=== PATIENT | female | born 1965 | race Caucasian/White ===

== ENCOUNTER 2018-05-08 16:01 | Outpatient (REF) | payer MEDICARE, MEDICAID, SELFPAY ==
[2018-05-08 22:00] LABS: HGB 15.6 g/dL (12.0-15.5); Mean Corp. HGB Concentration 35.5 g/dL (32.0-36.0); Mean Corpuscular Hemoglobin 27.9 pg (27.0-33.0); Mean Corpuscular Volume 78.6 fL (80-95); Mean Platelet Volume 10.5 fL (8.0-11.0); Platelet Count 248 x1000/uL (130-400); RBC Distribution Width 13.2 % (11.7-14.6); White Blood Cell Count 7.21 k/cumm (4.4-10.8)
[2018-05-08 22:15] LABS: ALT 64 U/L (12-78); AST 50 U/L (15-37); Albumin 3.8 g/dL (3.4-5.0); Alkaline Phosphatase 212 U/L (46-116); Anion Gap 9.5 mmol/L (3-11); BUN 11 mg/dL (7-18); Bilirubin, Direct 0.15 mg/dL (0.00-0.20); Bilirubin, Total 0.5 mg/dL (0.2-1.0); CO2 27.5 mmol/L (21.0-32.0); CREATININE 0.77 mg/dL (0.55-1.02); Calcium 8.8 mg/dL (8.5-10.1); Chloride 95 mmol/L (98-107); Glucose 383 mg/dL (70-100); Potassium 4.2 mmol/L (3.5-5.1); Sodium 132 mmol/L (136-145); Total Protein 6.9 g/dL (6.4-8.2)
[2018-05-08 22:45] LABS: Lipase 154 U/L (73-393)
== END 2018-05-08 16:21 ==
LOC: NCHCN 16:01
PROVIDERS: PCP Internal Medicine; Visit Provider Family Medicine
DX: R10.9 Unspecified abdominal pain (principal)
CPT/HCPCS: 80048; 80076; 83690; 85027

== ENCOUNTER 2018-05-13 12:43 | Observation (INO) | payer MEDICARE, MEDICAID, SELFPAY ==
[2018-05-13 12:53] VITALS: BP 119/52; PULSE 90; RESP 18
--- NOTE | 2018-05-13 13:33 | NUR.NOTE ---
Lab mconfirms light is on in regards to labs in the window. Lab is aware. Nursing Note:
[2018-05-13 13:42] LABS: HCT 47.1 % (36.0-46.0); HGB 16.7 g/dL (12.0-15.5); Mean Corp. HGB Concentration 35.5 g/dL (32.0-36.0); Mean Corpuscular Hemoglobin 27.8 pg (27.0-33.0); Mean Corpuscular Volume 78.4 fL (80-95); Platelet Count 251 x1000/uL (130-400); RBC 6.01 m/cumm (4.00-5.20); RBC Distribution Width 13.1 % (11.7-14.6); White Blood Cell Count 8.98 k/cumm (4.4-10.8)
[2018-05-13 13:52] VITALS: TEMP 36.8
[2018-05-13 14:07] LABS: Bilirubin Negative (Negative); Blood Negative (Negative); Clarity Clear; Glucose 500 mg/dL (Negative); Ketones 40 mg/dL (Negative); Leukocyte Esterase Negative (Negative); Nitrite Negative (Negative); Urobilinogen 0.2 EU/dL (Up TO 0.2)
--- NOTE | 2018-05-13 14:49 | DI.CT_ITS ---
SYMPTOM/DIAGNOSIS: DISTENDED, H/O OBSTRUCTION, GENERAL ABD DISCOMFORT ABDOMEN AND PELVIC CT: CT scan of the abdomen and pelvis was performed following the uneventful administration of intravenous contrast material. Comparison is made with . The visualized lung bases are clear. The liver is normal in size. No evidence of a hepatic mass is seen. The portal and superior mesenteric veins are patent. The patient is status post cholecystectomy. No biliary ductal dilatation is seen. The pancreas and peripancreatic soft tissues are unremarkable as are the spleen and adrenal glands. The kidneys show normal and symmetric enhancement. There is a non obstructing 4 mm. stone in the lower pole of the left kidney. Post surgical changes or atrophy of the lower pole of the left kidney is noted. The urinary bladder is intact. The reproductive organs are unremarkable. The abdominal aorta is of normal caliber. No significant abdominal or pelvic adenopathy, ascites or pneumoperitoneum is seen. Note is made of a small midline fat containing supraumbilical hernia. The distal ileum is dilated up to 3 cm. No bowel wall thickening is seen. No definite transition point is identified. The remainder of the bowel is unremarkable. There is a normal appendix visualized. There is a moderate amount of stool throughout the colon. Degenerative changes are seen in the spine. IMPRESSION: Dilatation of the distal ileum. This may represent a partial or early obstruction. Follow up as clinically appropriate.
--- NOTE | 2018-05-13 14:52 | W.ED.GENAD ---
Discharge Plan Disposition Patient Disposition: [facility] INPATIENT Condition: Good Discharge Details Chief Complaint: Abd Prob Reason For Visit: PSBO Admit Date/Time: 05/13/18 18:22 Admit Provider: Ronna Downing Attending Provider: Ronna Downing Primary Care Provider: Jose Haile ED Provider: Radha Elizabeth Discharge Data Discharge Date/Time-TO BE ENTERED AT DEPARTURE: 05/13/18 19:51 Medical Decision Making Patient presents today with chief complaint abdominal pain. She reports that similar to when she has had blockages historically. On exam, her abdomen is tender and distended. She has multiple surgical incisions that appear to have healed well. Patient is status post cholecystectomy, hysterectomy, partial bowel resection. We will obtain laboratory evaluation, give IV hydration, pain medication and imaging. Laboratory evaluation significant for concentration of cbc. Glucose is 294. Patient is currently receiving hydration. CT reviewed by radiologist. Significant for 4 mm nonobstructing calculus in the left lower renal pole. Postsurgical change in the inferior pole of kidney. Distal ileum is fluid-filled and dilated measuring 3 cm in its maximum, no definite transition point seen. Appendix is unremarkable. Advised overall distal ileum is fluid-filled and dilated. Partially versus early obstruction. Discussed findings with the patient. She is feeling much improved after antiemetic and pain medication. Will consult with general surgery. Spoke with general surgery. Dr. Downing reviewed CT, advises that this does not appear to be true obstruction. Agrees to admission for pain control and continue to monitor the patient. Discussed this plan with the patient who is in agreement with this plan. HPI General Mode of arrival: ambulatory. Date/Time Provider Initiated Documentation: 05/13/18 13:10. Limitations to Documentation: no limitations. Information obtained by: patient. HPI Narrative: Patient is a 52-year-old female presenting today with chief complaint of diffuse abdominal pain. She reports the pain began approximately 10 days ago. Was seen by her primary care provider who diagnosed her with infectious source and place her on Augmentin. She reports she has been taking the Augmentin but reports that she has not noted any improvement in her discomfort. Rather, the patient reports that her pain has steadily increased and she has noted increased distention in her abdomen. She denies any vomiting but is currently endorsing nausea. Denies any change in her bowel habits. States that she passed a small amount of flatus daily. Patient does have history of cholecystectomy, , hysterectomy, partial nephrectomy, bowel resection after obstruction. She has had multiple bowel obstructions in the past. Is unclear if this pain feels similar. Pain is worse on the right side than the left. She denies any fevers or chills. Related Data Home Medications Medication Instructions Recorded Confirmed fluticasone [Flovent HFA] 2 puff INHALATION BID inhaler NS 01/14/14 05/13/18 methadone 10 mg PO BID tab-cap NS 01/14/14 05/13/18 polyethylene glycol 3350 [Miralax] 17 g PO DAILY packet NS 01/14/14 05/13/18 estradiol [Estrace] 2 gm VG DIRECTED 09/25/16 05/13/18 ipratropium bromide [Atrovent HFA] 2 puff INHALATION BID PRN 09/25/16 05/13/18 ipratropium-albuterol 3 ml INHALATION Q6H PRN PRN 09/25/16 05/13/18 liraglutide [Victoza 2-Job] 1.2 mg SQ DAILY 09/25/16 05/13/18 metformin [Glucophage] 500 mg PO BID@0800,1700 09/25/16 05/13/18 naloxone [Narcan] 4 mg NS DIRECTED 09/25/16 05/13/18 acetaminophen 1 - 2 tab PO TID PRN PRN 09/26/16 05/13/18 gabapentin 300 mg PO TID #90 tab 05/02/17 05/13/18 meloxicam 7.5 mg PO BID #60 tab 08/22/17 05/13/18 Glyburide 2.5 mg PO DAILY 10/18/17 10/18/17 paroxetine HCl 20 mg PO DAILY 10/18/17 05/13/18 Previous Rx's Medication Instructions Recorded gabapentin 300 mg PO TID #90 tab 05/02/17 meloxicam 7.5 mg PO BID #60 tab 08/22/17 Allergies Allergy/AdvReac Type Severity Reaction Status Date / Time Sulfa (Sulfonamide Allergy Intermediate Skin Rash Unverified 10/18/17 17:20 Antibiotics) baclofen AdvReac Intermediate Nausea Unverified 10/18/17 17:20 morphine AdvReac Mild Nausea Unverified 10/18/17 17:20 General Stated Complaint: Abd Prob ELENA: 3 Review of Systems Constitutional Reports as per HPI, Denies chills, Reports fatigue and Denies fever(s) Cardiovascular Denies chest pain, Denies dyspnea and Denies dyspnea on exertion Respiratory Denies cough, Denies dyspnea and Denies dyspnea on exertion Gastrointestinal Reports as per HPI Genitourinary Reports system reviewed and no additional complaints, except as docu (Denies change in urinary habits) Musculoskeletal Denies back pain Integumentary/Breasts Denies rash Endocrine Reports fatigue PFSH Medical History Chronic low back pain (Acute) Constipation (Acute) Renal cell cancer (Acute) Restless leg (Acute) Asthma (Chronic) Depression (Chronic) Obesity (Chronic) Peptic ulcer disease (Chronic) Social History household members: spouse marital status: Smoking/Tobacco Use Status: Current every day alcohol intake: current alcohol intake frequency: a few times a week substance use type: does not use Surgical History H/O partial nephrectomy (Acute) S/P arthroscopic partial medial meniscectomy (Acute) S/P cholecystectomy (Acute) S/P hysterectomy (Acute) S/P small bowel resection (Acute) S/P tympanoplasty (Acute) Exam Const General: cooperative, healthy appearing, comfortable, no acute distress, well developed and well groomed Nutritional Appearance: overweight Orientation: alert and awake Resp Effort & Inspection: normal respiratory effort, able to speak in complete sentences and no respiratory distress Auscultation: clear to auscultation bilaterally Cardio Rate: regular rate Rhythm: regular rhythm Heart Sounds: S1 normal and S2 normal GI Inspection: no edema, distended and incision (patient has multiple incisions that appear to have healed well) Palpation: no hepatosplenomegaly, firm, no guarding, no hernias, no masses, no pulsatile masses and tender (diffuse) Back/Spine/Pelvis Back: no CVA tenderness Skin General skin exam: no rashes or lesions noted Lesions: no lesions Rashes: no rashes Neuro General: alert and awake Cognition: normal cognition Speech: speech normal Gait: normal gait Course Procedures: None HPI: Mrs Shah is a 52 year old female who came to the ER today with increased abdominal pain and bloating. Patient has had bowel obstructions in the past and has had a small bowel resection. She has not had any vomiting. She is passing gas although less. She has had some small BM's. Work-up in the ER showed normal WBC count. CT scan showed stool in the large bowel and a fluid filled terminal ileus. Terminal ileus was slightly dilated. No transition zone. Patient has a history of chronic back pain and is on Metahdone 10 mg BID. Hospital Course: Mrs. Rowe was admitted for conservative treatment of her partial small bowel obstruction. She was given bowel rest fluid resuscitation. Repeat extra x-rays within 24 hours showed no evidence of bowel obstruction, but x-rays are consistent with constipation. She was started on a bowel regimen given 2 enemas some results. She started to feel better with less pain started to pass flatus. Her diet was advanced as tolerated. At the time of discharge, she was afebrile, tolerating a diet, ambulating without difficulty, her pain was under control. She was discharged home she will follow-up with her primary care 1-2 weeks. She is going to start a home bowel regimen using Colace, MiraLAX, and starting to implement fiber supplements Vital Signs Pulse 90 05/13/18 12:53 Respiratory Rate 18 05/13/18 12:53 Blood Pressure 119/52 L 05/13/18 12:53 Temperature 36.8 C 05/13/18 13:52 Temperature Source Temporal Artery Scan 05/13/18 13:52 Pulse 90 05/13/18 12:53 Respiratory Rate 18 05/13/18 12:53 Blood Pressure 119/52 L 05/13/18 12:53 Blood Pressure Position Sitting 05/13/18 12:53 Oxygen Delivery Method Room Air 05/13/18 12:53 Oxygen Flow Rate 0 05/13/18 12:53 Pain Level 10 05/13/18 12:53 Lab/Test Results Lab/Test Results: Laboratory Tests Range/Units 05/13/18 05/13/18 05/13/18 13:28 13:28 13:28 WBC (4.4-10.8) k/cumm 8.98 RBC (4.00-5.20) m/cumm 6.01 H Hgb (12.0-15.5) g/dL 16.7 H Hct (36.0-46.0) % 47.1 H MCV (80-95) fL 78.4 L MCH (27.0-33.0) pg 27.8 MCHC (32.0-36.0) g/dL 35.5 RDW (11.7-14.6) % 13.1 Plt Count (130-400) x1000/uL 251 MPV (8.0-11.0) fL 10.0 Sodium Cancelled Potassium Cancelled Chloride Cancelled Carbon Dioxide Cancelled Anion Gap Cancelled BUN Cancelled Creatinine Cancelled Estimated GFR/1.73 m2 Cancelled Glucose Cancelled Calcium Cancelled Urine Color (Yellow) Yellow Urine Clarity Clear Urine pH (5-8) 6.0 Ur Specific [place] (1.005-1.025) 1.020 Urine Protein (Negative) mg/dL Negative Urine Ketones (Negative) mg/dL 40 H Urine Blood (Negative) Negative Urine Nitrite (Negative) Negative Urine Bilirubin (Negative) Negative Urine Urobilinogen (Up TO 0.2) EU/dL 0.2 Ur Leukocyte Esterase (Negative) Negative Urine Glucose (Negative) mg/dL 500 H
[2018-05-13 14:54] LABS: Anion Gap 6.5 mmol/L (3-11); BUN 13 mg/dL (7-18); CO2 30.5 mmol/L (21.0-32.0); CREATININE 0.74 mg/dL (0.55-1.02); Calcium 9.1 mg/dL (8.5-10.1); Chloride 98 mmol/L (98-107); Glucose 294 mg/dL (70-100); Sodium 135 mmol/L (136-145)
[2018-05-13] MEDS: HYDROmorphone 2 MG/ML VIAL IVP (15:38)
[2018-05-13] MEDS: Omnipaque 350 MG/ML 100 ML BTL IJ (15:38)
[2018-05-13] MEDS: Normal Saline 1,000 ML 1000 ML IV (16:19)
[2018-05-13 16:38] VITALS: BP 138/80; PULSE 88; RESP 18; O2SAT 96
--- NOTE | 2018-05-13 16:52 | DI.VRAD_ITS ---
EXAM: CT Abdomen and Pelvis With Intravenous Contrast EXAM DATE/TIME: 05/13/2018 3:56 PM CLINICAL HISTORY: 52 years old, female; Pain and signs and symptoms; Bloating; Abdominal pain; Generalized; Patient HX: Distension, HX of obstruction, general discomfort TECHNIQUE: Axial computed tomography images of the abdomen and pelvis with intravenous contrast. Coronal and sagittal reformatted images were created and reviewed. COMPARISON: CT ABD PELVIS WITH CONTRAST 10/18/2017 7:23 PM FINDINGS: Lower thorax: No acute findings. ABDOMEN: Liver: Normal. No mass. Gallbladder and bile ducts: Cholecystectomy. Pancreas: Normal. No ductal dilation. Spleen: Normal. No splenomegaly. Adrenals: Normal. No mass. Kidneys and ureters: 4 mm nonobstructing calculus at the left lower renal pole. Postsurgical changes in the inferior pole of the left kidney. Stomach and bowel: The distal ileum is fluid-filled and dilated measuring 3 cm at its maximum. No definite transition point is seen. Appendix: Appendix is unremarkable. PELVIS: Bladder: Unremarkable as visualized. Reproductive: Unremarkable as visualized. ABDOMEN and PELVIS: Intraperitoneal space: Normal. No free air. No significant fluid collection. Bones/joints: No acute fracture. No dislocation. Soft tissues: Diastases of the rectus abdominis muscle. Vasculature: Normal. No abdominal aortic aneurysm. Lymph nodes: Normal. No enlarged lymph nodes. IMPRESSION: The distal ileum is fluid-filled and dilated. Partial versus early obstruction. Followup is suggested. Dictated and Authenticated by: Bernardo Omalley MD. Ordering:CATHY SANCHEZ MD
--- NOTE | 2018-05-13 17:57 | W.PM.HP.N ---
Assessment and Plan (1) Partial small bowel obstruction: Current visit: Yes Status: Acute CT scan with fluid filled and slightly dilated terminal ileum. Colon with moderate amount of stool P\\ 1. Enema 2. NPO and bowel rest. 3. Iv fluids to keep hydrated 4. AMbulate TID 5. Tylenol and acetaminophen for pain (2) Chronic pain: Current visit: Yes Status: Chronic A\\ Chronic back pain on Methadone 10 mg BID P\\ Continue Methadone 10 mg BID (3) Hyperglycemia: Current visit: Yes Status: Acute Check BS Q6H and start insulin sliding scale History of Present Illness Chief Complaint: Abdominal pain Narrative: Mrs Shah is a 52 year old female who came to the ER today with increased abdominal pain and bloating. Patient has had bowel obstructions in the past and has had a small bowel resection. She has not had any vomiting. She is passing gas although less. She has had some small BM's. Work-up in the ER showed normal WBC count. CT scan showed stool in the large bowel and a fluid filled terminal ileus. Terminal ileus was slightly dilated. No transition zone. Patient has a history of chronic back pain and is on Metahdone 10 mg BID. Review of Systems Constitutional Reports anorexia Cardiovascular Denies chest pain at rest, Denies chest pain with activity, Denies diaphoresis, Denies irregular heart rhythm, Denies dyspnea and Denies dyspnea on exertion Respiratory Denies chest congestion, Denies cough, Denies dyspnea and Denies dyspnea on exertion Gastrointestinal Reports abdominal pain and Reports bloating Genitourinary Denies hematuria and Denies urinary frequency Musculoskeletal Reports back pain (chronic) PFSH Medical History Chronic low back pain (Acute) Constipation (Acute) Renal cell cancer (Acute) Restless leg (Acute) Asthma (Chronic) Depression (Chronic) Obesity (Chronic) Peptic ulcer disease (Chronic) Social History household members: spouse marital status: Smoking/Tobacco Use Status: Current every day alcohol intake: current alcohol intake frequency: a few times a week substance use type: does not use Surgical History H/O partial nephrectomy (Acute) S/P arthroscopic partial medial meniscectomy (Acute) S/P cholecystectomy (Acute) S/P hysterectomy (Acute) S/P small bowel resection (Acute) S/P tympanoplasty (Acute) Meds Home Medications Medication Instructions Recorded Confirmed Type fluticasone [Flovent HFA] 2 puff INHALATION BID inhaler NS 01/14/14 10/18/17 History methadone 10 mg PO BID tab-cap NS 01/14/14 10/18/17 History polyethylene glycol 3350 [Miralax] 17 g PO DAILY packet NS 01/14/14 10/18/17 History estradiol [Estrace] 2 gm VG DIRECTED 09/25/16 10/18/17 History ipratropium bromide [Atrovent HFA] 2 puff INHALATION BID PRN 09/25/16 10/18/17 History ipratropium-albuterol 3 ml INHALATION Q6H PRN PRN 09/25/16 10/18/17 History liraglutide [Victoza 2-Job] 1.2 mg SQ DAILY 09/25/16 10/18/17 History metformin [Glucophage] 500 mg PO BID@0800,1700 09/25/16 10/18/17 History naloxone [Narcan] 4 mg NS DIRECTED 09/25/16 10/18/17 History acetaminophen 1 - 2 tab PO TID PRN PRN 09/26/16 10/18/17 History gabapentin 300 mg PO TID #90 tab 05/02/17 Rx meloxicam 7.5 mg PO BID #60 tab 08/22/17 Rx Glyburide 2.5 mg PO DAILY 10/18/17 10/18/17 History paroxetine HCl 20 mg PO DAILY 10/18/17 10/18/17 History Allergies Allergy/AdvReac Type Severity Reaction Status Date / Time Sulfa (Sulfonamide Allergy Intermediate Skin Rash Unverified 10/18/17 17:20 Antibiotics) baclofen AdvReac Intermediate Nausea Unverified 10/18/17 17:20 morphine AdvReac Mild Nausea Unverified 10/18/17 17:20 Exam Const General: cooperative and no acute distress Nutritional Appearance: overweight Resp Effort & Inspection: normal respiratory effort Auscultation: clear to auscultation bilaterally Cardio Rate: regular rate Rhythm: regular rhythm Heart Sounds: no click, no gallops, no murmurs and no rubs GI Palpation: soft and tender in the RLQ (no guarding or rebound) Auscultation: hypoactive bowel sounds Results Labs : 05/13/18 13:28 05/13/18 14:28 Laboratory Results - last 24 hr 05/13/18 05/13/18 05/13/18 13:28 13:28 13:28 WBC 8.98 RBC 6.01 H Hgb 16.7 H Hct 47.1 H MCV 78.4 L MCH 27.8 MCHC 35.5 RDW 13.1 Plt Count 251 MPV 10.0 Sodium Cancelled Potassium Cancelled Chloride Cancelled Carbon Dioxide Cancelled Anion Gap Cancelled BUN Cancelled Creatinine Cancelled Estimated GFR/1.73 m2 Cancelled Glucose Cancelled Calcium Cancelled Urine Color Yellow Urine Clarity Clear Urine pH 6.0 Ur Specific [place] 1.020 Urine Protein Negative Urine Ketones 40 H Urine Blood Negative Urine Nitrite Negative Urine Bilirubin Negative Urine Urobilinogen 0.2 Ur Leukocyte Esterase Negative Urine Glucose 500 H 05/13/18 14:28 WBC RBC Hgb Hct MCV MCH MCHC RDW Plt Count MPV Sodium 135 L Potassium 5.0 Chloride 98 Carbon Dioxide 30.5 Anion Gap 6.5 BUN 13 Creatinine 0.74 Estimated GFR/1.73 m2 >= 60.00 Glucose 294 H Calcium 9.1 Urine Color Urine Clarity Urine pH Ur Specific [place] Urine Protein Urine Ketones Urine Blood Urine Nitrite Urine Bilirubin Urine Urobilinogen Ur Leukocyte Esterase Urine Glucose
[2018-05-13] MEDS: ACETAMINOPHEN 1,000 MG/100 ML BTL 400 MG IVPB (19:31)
[2018-05-13] MEDS: Pantoprazole 40 MG VIAL IVP (19:32)
[2018-05-13 20:00] VITALS: BP 140/80; PULSE 88; RESP 18; TEMP 37.2; O2SAT 99
[2018-05-13] MEDS: Lactated Ringers 1,000 ML 125 ML IV (20:03)
[2018-05-13 20:29] VITALS: BP 109/70; PULSE 72; RESP 20; TEMP 36.7; O2SAT 97
[2018-05-13] MEDS: Methadone 5 MG TAB 10 MG PO (21:14)
[2018-05-14] VITALS (7 sets, daily range): BP systolic 106–141; BP diastolic 63–80; PULSE 63–90; RESP 14–18; TEMP 35.9–36.4; O2SAT 93–98
[2018-05-14] MEDS: Ketorolac 15 MG/ML VIAL IVP ×4 (01:23→22:19)
[2018-05-14] MEDS: Lactated Ringers 1,000 ML 125 ML IV ×3 (03:30→17:51)
[2018-05-14] MEDS: ACETAMINOPHEN 1,000 MG/100 ML BTL 400 MG IVPB ×3 (03:30→17:51)
[2018-05-14 07:28] LABS: Abs Immature Grans 0.04 k/cumm (0.0-0.09); Absolute Basophil Count 0.05 k/cumm (0.0-0.2); Absolute Eosinophil Count 0.15 k/cumm (0.0-0.7); Absolute Lymphocyte Count 1.89 k/cumm (1.2-3.4); Absolute Neutrophil Count 3.02 k/cumm (1.2-6.7); Basophils % 0.9; Eosinophils % 2.7; HCT 40.4 % (36.0-46.0); HGB 14.1 g/dL (12.0-15.5); Immature Grans % 0.7; Lymphocytes % 33.5; Mean Corp. HGB Concentration 34.9 g/dL (32.0-36.0); Mean Corpuscular Hemoglobin 27.8 pg (27.0-33.0); Mean Corpuscular Volume 79.7 fL (80-95); Mean Platelet Volume 10.1 fL (8.0-11.0); Monocytes % 8.8; Neutrophils % 53.4; Platelet Count 190 x1000/uL (130-400); RBC 5.07 m/cumm (4.00-5.20); White Blood Cell Count 5.65 k/cumm (4.4-10.8)
[2018-05-14 07:48] LABS: Anion Gap 8.9 mmol/L (3-11); BUN 12 mg/dL (7-18); CO2 27.1 mmol/L (21.0-32.0); CREATININE 0.52 mg/dL (0.55-1.02); Calcium 8.7 mg/dL (8.5-10.1); Chloride 102 mmol/L (98-107); Glucose 179 mg/dL (70-100); Potassium 3.6 mmol/L (3.5-5.1); Sodium 138 mmol/L (136-145)
[2018-05-14] MEDS: Methadone 5 MG TAB 10 MG PO ×2 (07:58→19:46)
[2018-05-14] MEDS: Insulin Aspart 300 UNITS/3 ML PEN SC ×3 (08:00→17:18)
[2018-05-14] MEDS: Normal Saline Flush 10 ML SYR IVP ×5 (10:49→22:19)
--- NOTE | 2018-05-14 10:56 | PDOC.CMIN ---
Care Management Initial Assess REASON FOR HOSPITALIZATION:: PSBO PAST MEDICAL HISTORY/PAST SURGICAL HISTORY:: Asthma, Chronic low back pain, constipation, depression, obesity, peptic ulcer disease, renal cell cancer, restless leg, current every day smoker, partial nephrectomy, arthroscopic partial medial meniscectomy, cholecystectomy, hysterectomy, small bowel resection, tympanoplasty. PREVIOUS FUNCTIONAL STATUS/SOCIAL/FAMILY SUPPORTS:: Lani resides in [place], [place] with her significant other, Davon. 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 She is the primary caregiver for her older sister who resides in her home. She also reports having a daughter and son who reside locally and eleven grandchildren. She has been seen in the ER four times this year. CURRENT FUNCTIONAL STATUS:: Lani is lying in bed when CM meets with her, she is forthcoming with information and pleasant in interaction. ADVANCE DIRECTIVES:: None on file. Has patient been provided with information about the portal?: Yes Did the patient sign up for the portal?: Yes (Previously) CODE STATUS:: Full Code INSURANCE COVERAGE / FINANCIAL ISSUES:: Medicare. Medicaid CURRENT HOME/COMMUNITY SERVICES/EQUIPMENT:: Lani reports no service or equipment for herself in the home setting. PRIMARY CARE PHYSICIAN:: Jose Haile POTENTIAL DISCHARGE NEEDS:: Follow up appointment with PCP. PATIENT/FAMILY EDUCATION NEEDS:: Review discharge instructions, discuss Ask Me Three. ANTICIPATED BARRIERS TO DISCHARGE:: None identified. TRANSPORTATION:: Via private vehicle with her significant other, Davon. PLAN:: Lani will discharge home when ready per MD. She will follow up with her PCP and plan of care as prescribed. She will transport via private vehicle with her significant other,
--- NOTE | 2018-05-14 12:12 | INITIAL_ITS ---
Care Management Initial Assess REASON FOR HOSPITALIZATION:: PSBO PAST MEDICAL HISTORY/PAST SURGICAL HISTORY:: Asthma, Chronic low back pain, constipation, depression, obesity, peptic ulcer disease, renal cell cancer, restless leg, current every day smoker, partial nephrectomy, arthroscopic partial medial meniscectomy, cholecystectomy, hysterectomy, small bowel resection, tympanoplasty. PREVIOUS FUNCTIONAL STATUS/SOCIAL/FAMILY SUPPORTS:: Lani resides in [place], [place] with her significant other, Davon. 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 She is the primary caregiver for her older sister who resides in her home. She also reports having a daughter and son who reside locally and eleven grandchildren. She has been seen in the ER four times this year. CURRENT FUNCTIONAL STATUS:: Lani is lying in bed when CM meets with her, she is forthcoming with information and pleasant in interaction. ADVANCE DIRECTIVES:: None on file. Has patient been provided with information about the portal?: Yes Did the patient sign up for the portal?: Yes (Previously) CODE STATUS:: Full Code INSURANCE COVERAGE / FINANCIAL ISSUES:: Medicare. Medicaid CURRENT HOME/COMMUNITY SERVICES/EQUIPMENT:: Lani reports no service or equipment for herself in the home setting. PRIMARY CARE PHYSICIAN:: oJse Haile POTENTIAL DISCHARGE NEEDS:: Follow up appointment with PCP. PATIENT/FAMILY EDUCATION NEEDS:: Review discharge instructions, discuss Ask Me Three. ANTICIPATED BARRIERS TO DISCHARGE:: None identified. TRANSPORTATION:: Via private vehicle with her significant other, Davon. PLAN:: Lani will discharge home when ready per MD. She will follow up with her PCP and plan of care as prescribed. She will transport via private vehicle with her significant other,
--- NOTE | 2018-05-14 13:06 | DI.RAD_ITS ---
SYMPTOMS/DIAGNOSIS: PSBO ON CT SCAN ACUTE ABDOMINAL SERIES: Comparison CT is 05/13/18. PA CHEST: The heart is normal in size. The lungs are clear. The mediastinal structures and pleura appear intact. IMPRESSION: Normal chest. FLAT AND UPRIGHT ABDOMEN: No organomegaly, bowel obstruction or pneumoperitoneum is seen. There are degenerative changes seen in the spine. IMPRESSION: No evidence of an acute abdomen.
[2018-05-14] MEDS: Ondansetron 4 MG/2 ML VIAL IVP ×2 (13:15→20:16)
[2018-05-14] MEDS: Normal Saline 50 ML 200 ML ×2 (15:05→22:55)
--- NOTE | 2018-05-14 15:10 | CHAPLAIN ---
Lani was in bed, telling me she was uncomfortable, although she said she did get some sleep last night. She said she has friends and family in [facility] where she lives, but she's asked them not to visit while she's not feeling well. Lani was pleasant and engaged in a conversation. I offered support.
--- NOTE | 2018-05-14 16:45 | NUR.NOTE ---
Nursing Note: Pt refusing suppository at present, requests nurse to come back later.
[2018-05-14] MEDS: Pantoprazole 40 MG VIAL IVP (17:17)
[2018-05-14] MEDS: Bisacodyl 10 MG SUPP PR (17:17)
[2018-05-15 00:11] VITALS: BP 105/71; PULSE 70; RESP 18; TEMP 36.7; O2SAT 95
[2018-05-15] MEDS: Insulin Aspart 300 UNITS/3 ML PEN SC ×3 (00:20→11:47)
[2018-05-15] MEDS: Lactated Ringers 1,000 ML 125 ML IV ×2 (02:32→11:46)
[2018-05-15] MEDS: ACETAMINOPHEN 1,000 MG/100 ML BTL 400 MG IVPB ×2 (02:32→10:28)
[2018-05-15 04:07] VITALS: BP 112/67; PULSE 63; RESP 14; TEMP 36.5; O2SAT 95
[2018-05-15 07:15] VITALS: BP 129/68; PULSE 70; RESP 19; TEMP 35.8; O2SAT 98
[2018-05-15 07:30] VITALS: O2SAT 95
[2018-05-15] MEDS: Methadone 5 MG TAB 10 MG PO (08:36)
--- NOTE | 2018-05-15 08:44 | CMPROGNOTE_ITS ---
Care Management Progress Note S/O: Lani was ambulating independently throughout the hallway. She reported becoming nauseous last night after receiving her methadone which she reported she had not been given since Sunday. She reported vomiting bile at this time. She reports having breakfast this morning of toast and shredded wheat. She shares she has not been passing gas or had any bowel movement and is still dealing with ongoing pain. She shows this singer songwriter her IV Tylenol and feels it is managing her pain for the most part. Lani reports she had a headache since admission and this was relieved by the Reiki Practitioner this morning, Lani raves about Reiki and shares she found the service incredibly helpful. No change to overall plan. A: 52 year old female admitted to [facility] 05/13/18 for PSBO P: Lani will discharge home when ready per MD. She will follow up with her PCP and plan of care as prescribed. She will transport via private vehicle with her significant other, DavonCandice
--- NOTE | 2018-05-15 10:54 | PHARADMIT ---
Admission Pharmacy Clinical Review Partial small bowel obstructiion Code Status Full Code Current Weight Wgt- 99.8 kg Renally Cleared and Narrow Therapeutic Index Meds CrCl~ 66.5 mL/min Meds-OK QTc Value / Action Taken NA BP Control, Fever BP- 129/68 Tmax- 36.7C Electrolytes reviewed Na- 138 K+3.6 DVT Prophylaxis none Opiate Usage / Scheduled Bowel Regimen Ordered Yes No Plt/SCr for Heparin / Enoxaparin Plts-190 SCr- 0.52 INR for Warfarin na H/H stable, WBC/Bands H&H- 14.1/40.4 WBC- 5.65 Antibiotic appropriateness none Cultures and Sensitivities none Surgical ABX d/c within 24 hr na DM control / Insulin Dosing BG-179 Aspart Heart Failure (Check EF%) (THOM's, B-Block, Diuretics) none IV to PO Switch No Home Meds Reviewed Yes Home Meds Not Ordered Estrace, Flovent, Gabapentin, Glyburide,Paxil, Atrovent, Meloxicam,Metformin, Victoza, Comments
[2018-05-15 11:23] VITALS: BP 142/75; PULSE 71; RESP 18; TEMP 35.9; O2SAT 96
[2018-05-15] MEDS: Normal Saline Flush 10 ML SYR IVP (12:59)
[2018-05-15] MEDS: Ketorolac 15 MG/ML VIAL IVP (13:00)
--- NOTE | 2018-05-15 14:36 | W.PM.DS.N ---
Date of service: 05/15/18 Time of Service: 14:36 DS: Diagnosis Discharge Diagnosis (1) Partial small bowel obstruction: Status: Acute (2) Chronic pain: Status: Chronic (3) Hyperglycemia: Status: Chronic Discharge Plan Disposition Patient Disposition: HOME Condition: Good Discharge Details Reason For Visit: PSBO Admit Date/Time: 05/13/18 18:22 Admit Provider: Ronna Downing Attending Provider: Ronna Downing Primary Care Provider: Jose Haile Hospital Course Hospital Course: Procedures: None HPI: Mrs Shah is a 52 year old female who came to the ER today with increased abdominal pain and bloating. Patient has had bowel obstructions in the past and has had a small bowel resection. She has not had any vomiting. She is passing gas although less. She has had some small BM's. Work-up in the ER showed normal WBC count. CT scan showed stool in the large bowel and a fluid filled terminal ileus. Terminal ileus was slightly dilated. No transition zone. Patient has a history of chronic back pain and is on Metahdone 10 mg BID. Hospital Course: Mrs. Rowe was admitted for conservative treatment of her partial small bowel obstruction. She was given bowel rest fluid resuscitation. Repeat extra x-rays within 24 hours showed no evidence of bowel obstruction, but x-rays are consistent with constipation. She was started on a bowel regimen given 2 enemas some results. She started to feel better with less pain started to pass flatus. Her diet was advanced as tolerated. At the time of discharge, she was afebrile, tolerating a diet, ambulating without difficulty, her pain was under control. She was discharged home she will follow-up with her primary care 1-2 weeks. She is going to start a home bowel regimen using Colace, MiraLAX, and starting to implement fiber supplements Home Meds and New Rx's Prescriptions: Continue polyethylene glycol 3350 [Miralax] 17 GM powder in packet 17 g PO DAILY RF: 0 fluticasone [Flovent HFA] 12 GM HFA aerosol inhaler 2 puff Inhalation BID RF: 0 methadone 5 MG tablet 10 mg PO BID RF: 0 gabapentin 300 MG capsule 300 mg PO TID Qty: 90 RF: 1 meloxicam 7.5 MG tablet 7.5 mg PO BID Qty: 60 RF: 3 ipratropium-albuterol 3 ML solution for nebulization 3 ml Inhalation Q6H PRN PRNRF: 0 metformin [Glucophage] 1,000 MG tablet 500 mg PO BID@0800,1700 RF: 0 estradiol [Estrace] 42.5 GM cream 2 gm VG DIRECTED RF: 0 ipratropium bromide [Atrovent HFA] 1 PUFF HFA aerosol inhaler 2 puff Inhalation BID PRNRF: 0 liraglutide [Victoza 2-Job] 0.6 MG/0.1 ML pen injector 1.2 mg SQ DAILY RF: 0 naloxone [Narcan] 4 MG spray,non-aerosol 4 mg NS DIRECTED RF: 0 acetaminophen 500 MG tablet 1 - 2 tab PO TID PRN PRNRF: 0 paroxetine HCl 20 MG tablet 20 mg PO DAILY RF: 0 Glyburide 2.5 MG Tablet 2.5 mg PO DAILY RF: 0 Discharge Instructions Instructions: High Fiber Diet (DC), High Fiber Diet (GEN), Bowel Obstruction (DC), Bowel Obstruction (GEN) Stand Alone Forms: Nursing Discharge Form Referrals: Jose Haile MD [Primary Care Provider] - 05/24/18 2:45 pm Activity:: Activity as Tolerated Equipment/Supplies:: No Equipment Needed Discharge Orders Discharge Orders: Discharge Order (Routine); Ordered 05/15/18 Ordered By: Juan Francisco Martinez Discharge Data Discharge Date/Time-TO BE ENTERED AT DEPARTURE: 05/15/18 16:47 DS: Summary Status at Discharge Functional status at discharge: independent ambulation Overall status at discharge: patient is progressing back to baseline Exam Const General: cooperative, comfortable and no acute distress Nutritional Appearance: obese Orientation: alert, awake and oriented x3 Resp Effort & Inspection: able to speak in complete sentences, no audible wheezes, decreased respiratory effort and not labored Cardio Rate: regular rate Rhythm: regular rhythm GI Inspection: non-distended and large pannus Palpation: soft and nontender Skin General skin exam: no rashes or lesions noted Neuro General: moves all extremities, no focal motor deficits and CN's II-XI intact bilaterally Psych Appearance: grossly normal Mental Status: mental status grossly normal Judgment: judgment good DS: Data Vitals/I&O Vitals and I&O: Vital Signs Temperature 35.9 C L 05/15/18 11:23 Temperature Source Tympanic 05/15/18 11:23 Pulse 71 05/15/18 11:23 Pulse Rhythm Regular 05/15/18 08:15 Respiratory Rate 18 05/15/18 11:23 Respiratory Effort 05/15/18 08:15 Respiratory Depth Normal 05/15/18 08:15 Respiratory Pattern Normal 05/15/18 08:15 Blood Pressure 142/75 H 05/15/18 11:23 Blood Pressure Position Sitting 05/13/18 12:53 Pulse Oximetry 96 05/15/18 11:23 Oxygen Delivery Method Room Air 05/15/18 11:23 Oxygen Flow Rate 0 05/15/18 11:23 Pain Level 4 05/15/18 13:00 Intake & Output 05/14/18 05/15/18 05/15/18 18:59 06:59 18:59 Intake Total 2044.666 / 2044.666 1100 / 1100 1989.167 / 1989.167 Output Total 300 / 300 150 / 150 500 / 500 Balance 1744.666 / 1744.666 950 / 950 1489.167 / 1489.167 Intake: IV 2044.666 / 2044.666 1100 / 1100 1379.167 / 1379.167 Oral 0 / 0 610 / 610 Output: Urine 300 / 300 500 / 500 Emesis 150 / 150 Other: Urine Color Light Ines Urine Appearance Clear Clear Clear Urine Odor Normal Comment void x 1 void x 2 during noc pt states she dumped 200 ml from hat- unseen by nursing Stool Size Moderate Moderate Stool Characteristics Soft Soft Brown Brown Emesis Description Retching Clear/Water Voiding Methods Toilet Toilet Pending studies at discharge: ELECTROCARDIOGRAM (11/06/96) ESOPHAGOGASTRODUODENOSCOPY [EGD] W/CLOSED BIOPSY (11/29/01) Excision of semilunar cartilage of knee (11/14/10) INJECT/INFUSE NEC (05/23/98) OTH LYSIS-PERITONEAL ADHES (11/01/97) SMALL BOWEL SERIES (07/13/97) Synovectomy, knee (11/14/10) UPPER GI SERIES (07/13/97) WBC 5.65 k/cumm (4.4-10.8) D 05/14/18 06:16 RBC 5.07 m/cumm (4.00-5.20) 05/14/18 06:16 Hgb 14.1 g/dL (12.0-15.5) D 05/14/18 06:16 Hct 40.4 % (36.0-46.0) 05/14/18 06:16 MCV 79.7 fL (80-95) L 05/14/18 06:16 MCH 27.8 pg (27.0-33.0) 05/14/18 06:16 MCHC 34.9 g/dL (32.0-36.0) 05/14/18 06:16 RDW 13.0 % (11.7-14.6) 05/14/18 06:16 Plt Count 190 x1000/uL (130-400) 05/14/18 06:16 MPV 10.1 fL (8.0-11.0) 05/14/18 06:16 Immature Gran % 0.7 05/14/18 06:16 Neutrophils % 53.4 05/14/18 06:16 Lymphocytes % 33.5 05/14/18 06:16 Monocytes % 8.8 05/14/18 06:16 Eosinophils % 2.7 05/14/18 06:16 Basophils % 0.9 05/14/18 06:16 Absolute Neutrophils 3.02 k/cumm (1.2-6.7) 05/14/18 06:16 Absolute Lymphocytes 1.89 k/cumm (1.2-3.4) 05/14/18 06:16 Absolute Monocytes 0.50 k/cumm (0.11-0.7) 05/14/18 06:16 Absolute Eosinophils 0.15 k/cumm (0.0-0.7) 05/14/18 06:16 Absolute Basophils 0.05 k/cumm (0.0-0.2) 05/14/18 06:16 Sodium 138 mmol/L (136-145) 05/14/18 06:16 Potassium 3.6 mmol/L (3.5-5.1) D 05/14/18 06:16 Chloride 102 mmol/L (98-107) 05/14/18 06:16 Carbon Dioxide 27.1 mmol/L (21.0-32.0) 05/14/18 06:16 Anion Gap 8.9 mmol/L (3-11) 05/14/18 06:16 BUN 12 mg/dL (7-18) 05/14/18 06:16 Creatinine 0.52 mg/dL (0.55-1.02) L 05/14/18 06:16 Estimated GFR/1.73 m2 >= 60.00 (mL/min/1.73m2) 05/14/18 06:16 Glucose 179 mg/dL (70-100) H D 05/14/18 06:16 Calcium 8.7 mg/dL (8.5-10.1) 05/14/18 06:16 Urine Color Yellow (Yellow) 05/13/18 13:28 Urine Clarity Clear 05/13/18 13:28 Urine pH 6.0 (5-8) 05/13/18 13:28 Ur Specific [place] 1.020 (1.005-1.025) 05/13/18 13:28 Urine Protein Negative mg/dL (Negative) 05/13/18 13:28 Urine Ketones 40 mg/dL (Negative) H 05/13/18 13:28 Urine Blood Negative (Negative) 05/13/18 13:28 Urine Nitrite Negative (Negative) 05/13/18 13:28 Urine Bilirubin Negative (Negative) 05/13/18 13:28 Urine Urobilinogen 0.2 EU/dL (Up TO 0.2) 05/13/18 13:28 Ur Leukocyte Esterase Negative (Negative) 05/13/18 13:28 Urine Glucose 500 mg/dL (Negative) H 05/13/18 13:[address]:CT abdomen & pelvis w SYMPTOM/DIAGNOSIS: DISTENDED, H/O OBSTRUCTION, GENERAL ABD DISCOMFORT ABDOMEN AND PELVIC CT: CT scan of the abdomen and pelvis was performed following the uneventful administration of intravenous contrast material. Comparison is made with 10/18/17. The visualized lung bases are clear. The liver is normal in size. No evidence of a hepatic mass is seen. The portal and superior mesenteric veins are patent. The patient is status post cholecystectomy. No biliary ductal dilatation is seen. The pancreas and peripancreatic soft tissues are unremarkable as are the spleen and adrenal glands. The kidneys show normal and symmetric enhancement. There is a non obstructing 4 mm. stone in the lower pole of the left kidney. Post surgical changes or atrophy of the lower pole of the left kidney is noted. The urinary bladder is intact. The reproductive organs are unremarkable. The abdominal aorta is of normal caliber. No significant abdominal or pelvic adenopathy, ascites or pneumoperitoneum is seen. Note is made of a small midline fat containing supraumbilical hernia. The distal ileum is dilated up to 3 cm. No bowel wall thickening is seen. No definite transition point is identified. The remainder of the bowel is unremarkable. There is a normal appendix visualized. There is a moderate amount of stool throughout the colon. Degenerative changes are seen in the spine. IMPRESSION: Dilatation of the distal ileum. This may represent a partial or early obstruction. Follow up as clinically appropriate. SYMPTOMS/DIAGNOSIS: PSBO ON CT SCAN ACUTE ABDOMINAL SERIES: PA CHEST: The heart is normal in size. The lungs are clear. The mediastinal structures and pleura appear intact. IMPRESSION: Normal chest. FLAT AND UPRIGHT ABDOMEN:No organomegaly, bowel obstruction or pneumoperitoneum is seen. There are degenerative changes seen in the spine. IMPRESSION: No evidence of an acute abdomen.
[2018-05-15 15:53] VITALS: BP 122/75; PULSE 69; RESP 18; TEMP 36.2; O2SAT 97
== END 2018-05-15 16:47 | disposition home or self-care (01) ==
LOC: ER 19:16 → MS 05-14 09:35
PROVIDERS: Admitting Provider Surgery; Emergency Provider Physician Assistant; PCP Internal Medicine; Visit Provider Surgery
DX: K56.600 Partial intestinal obstruction, unspecified as to cause (principal); G89.29 Other chronic pain; Z79.891 Long term (current) use of opiate analgesic; Z90.49 Acquired absence of other specified parts of digestive tract; F17.210 Nicotine dependence, cigarettes, uncomplicated; E11.65 Type 2 diabetes mellitus with hyperglycemia; Z79.84 Long term (current) use of oral hypoglycemic drugs
CPT/HCPCS: 36415; 80048; 85027; 96361; 96365; 96375; 99217; 99220; 99223; 99238; 99285; 74022; 74177; 81003; 85025; 99284; G0378; J0131; J1885; J2405; J3490

== ENCOUNTER 2018-05-30 20:29 | Emergency (ER) | payer MEDICARE, MEDICAID, SELFPAY ==
[2018-05-30 20:32] VITALS: BP 157/69; PULSE 87; RESP 19; TEMP 36.9; O2SAT 97
[2018-05-30] MEDS: MORPHine 10 MG/ML VIAL 4 MG IVP (20:58)
[2018-05-30] MEDS: Ondansetron 4 MG/2 ML VIAL (20:59)
[2018-05-30] MEDS: Normal Saline 1,000 ML 1000 ML IV (20:59)
[2018-05-30 21:02] LABS: Abs Immature Grans 0.07 k/cumm (0.0-0.09); Absolute Basophil Count 0.05 k/cumm (0.0-0.2); Absolute Eosinophil Count 0.28 k/cumm (0.0-0.7); Absolute Lymphocyte Count 2.18 k/cumm (1.2-3.4); Absolute Monocyte Count 0.63 k/cumm (0.11-0.7); Absolute Neutrophil Count 6.53 k/cumm (1.2-6.7); Basophils % 0.5; Eosinophils % 2.9; HCT 44.3 % (36.0-46.0); HGB 16.1 g/dL (12.0-15.5); Immature Grans % 0.7; Lymphocytes % 22.4; Mean Corp. HGB Concentration 36.3 g/dL (32.0-36.0); Mean Corpuscular Hemoglobin 28.3 pg (27.0-33.0); Mean Corpuscular Volume 77.9 fL (80-95); Mean Platelet Volume 10.2 fL (8.0-11.0); Monocytes % 6.5; Platelet Count 256 x1000/uL (130-400); RBC 5.69 m/cumm (4.00-5.20); RBC Distribution Width 12.9 % (11.7-14.6); White Blood Cell Count 9.74 k/cumm (4.4-10.8)
[2018-05-30] MEDS: HYDROmorphone 2 MG/ML VIAL 1 MG IVP ×2 (21:14→22:22)
[2018-05-30 21:17] LABS: Bilirubin Negative (Negative); Blood Negative (Negative); Clarity Clear; Glucose >=1000 mg/dL (Negative); Ketones Negative (Negative); Leukocyte Esterase Negative (Negative); Nitrite Negative (Negative); Specific Gravity <= 1.005 (1.005-1.025); Urobilinogen 0.2 EU/dL (Up TO 0.2)
--- NOTE | 2018-05-30 21:26 | ED.GENADUL_ITS ---
Discharge Plan Disposition Patient Disposition: HOME Condition: Good Discharge Details Chief Complaint: Abd Prob Clinical Impression: Ileitis Primary Care Provider: Jose Haile ED Provider: Camron Olivas Home Meds and New Rx's Prescriptions: New ciprofloxacin HCl [Cipro] 500 mg tablet 500 mg PO BID Qty: 14 RF: 0 metronidazole [Flagyl] 500 mg tablet 500 mg PO TID Qty: 21 RF: 0 hydrocodone-acetaminophen [[place]] 7.5-325 mg tablet 1 tab PO Q6H Qty: 7 RF: 0 naloxone [Narcan] 4 mg/actuation spray,non-aerosol 1 spray NAVJOT ONCE PRN (Reason: opioid overdose) Qty: 2 RF: 0 No Action polyethylene glycol 3350 [Miralax] 17 GM powder in packet 17 g PO DAILY RF: 0 fluticasone [Flovent HFA] 12 GM HFA aerosol inhaler 2 puff Inhalation BID RF: 0 methadone 5 MG tablet 10 mg PO BID RF: 0 gabapentin 300 MG capsule 300 mg PO TID Qty: 90 RF: 1 meloxicam 7.5 MG tablet 7.5 mg PO BID Qty: 60 RF: 3 ipratropium-albuterol 3 ML solution for nebulization 3 ml Inhalation Q6H PRN PRNRF: 0 metformin [Glucophage] 1,000 MG tablet 500 mg PO BID@0800,1700 RF: 0 estradiol [Estrace] 42.5 GM cream 2 gm VG DIRECTED RF: 0 ipratropium bromide [Atrovent HFA] 1 PUFF HFA aerosol inhaler 2 puff Inhalation BID PRNRF: 0 liraglutide [Victoza 2-Job] 0.6 MG/0.1 ML pen injector 1.2 mg SQ DAILY RF: 0 naloxone [Narcan] 4 MG spray,non-aerosol 4 mg NS DIRECTED RF: 0 acetaminophen 500 MG tablet 1 - 2 tab PO TID PRN PRNRF: 0 paroxetine HCl 20 MG tablet 20 mg PO DAILY RF: 0 Glyburide 2.5 MG Tablet 2.5 mg PO DAILY RF: 0 Discharge Instructions Instructions: Colitis (ED) Additional Instructions: Please take the medications as directed. Please continue your probiotic. Please follow-up with your primary care as soon as possible for reassessment. Do Not drink any alcohol with your medications. If you notice any worsening of your symptoms, or any new symptoms such as vomiting, diarrhea, fever, chills, shortness of breath, chest pain, numbness, weakness, or fainting , please return immediately to the emergency department for reevaluation. Please follow up with your primary care provider as soon as possible for reassessment and reevaluation. As always, it was a pleasure participating in your medical care today. Referrals: Jose Haile MD [Primary Care Provider] - Medical Decision Making This is a 52-year-old female with a past medical history of small bowel obstructions most recent being 2 weeks ago, who presents today with right lower quadrant pain that occurred just an hour or 2 prior to arrival. Patient has notable pain on palpation, positive obturator and psoas sign which is concerning for potential appendicitis. However her clinical picture is certainly obfuscated by the fact that she chronically takes methadone this does slightly alter her pain. We will correct her pain, treated appropriately, hydrate, and evaluate for any acute intra-abdominal pathology. 50 8 PM Patient's urinalysis is returned benign. No evidence of hematuria. Laboratory workup demonstrates no significant leukocytosis, normal renal function, and normal electrolytes. No significant signs of bandemia or severe left shift. CT scan results have returned and demonstrates evidence of circumferential wall thickening of multiple loops of the ileum likely representing an infectious versus inflammatory ileitis. No evidence of free intraperitoneal air or pneumatosis intestinalis. No evidence of appendicitis. At this time the patient's pain is well controlled, with a normal laboratory workup, normal vital signs I feel that she can be safely discharged home with antibiotics and close follow-up with her PCP. She will require increased pain meds to go home with secondary to her regular methadone use. We discussed red flags which to return. She will be given her first dose of antibiotics here in the emergency department. I have extensively reviewed the treatment plan and discharge instructions with the patient and their family. I have addressed all patient concerns at this time. The patient and family was made aware of what symptoms to monitor for that would warrant a return to the emergency department. Discussed the plan with the patient and family, they demonstrate verbal understanding and agreement with our assessment and plan at this time. IMPRESSION: Circumferential wall thickening of multiple loops of ileum likely representing an infectious versus inflammatory ileitis. There is sparing of the terminal ileum. No free intraperitoneal air or pneumatosis intestinalis. No associated abscess. HPI General Date/Time Provider Initiated Documentation: 05/30/18 20:38 . HPI Narrative: This is a 52-year-old female with a past medical history of small bowel obstructions, methadone use for chronic back pain, hyperglycemia, hyperlipidemia, kidney stones, , hysterectomy, and cholecystectomy who was recently just discharged 2 weeks ago for small bowel obstruction. She presents today for sudden onset right lower quadrant pain. The patient states that she was making dinner earlier this evening when she suddenly developed a sudden right lower quadrant sharp achy abdominal pain. It is improved by nothing, it is worsened with palpation and movement. She has associated nausea but no vomiting. Last bowel movement was at 4 PM, which was roughly 4-5 hours prior to arrival. She had no hematochezia, melena, acholic stool or hematemesis. Patient states that she is unsure if this feels like her previous small bowel obstructions or her previous kidney stones. She denies any dysuria, increased urinary frequency, or hematuria. Patient denies any systemic symptoms of cough, fever, chills, shortness of breath, numbness tingling or weakness. Patient has no other complaints at this time. She denies any pertinent family history. She denies any IV or illicit drug use Related Data Home Medications Medication Instructions Recorded Confirmed fluticasone [Flovent HFA] 2 puff INHALATION BID inhaler NS 01/14/14 05/13/18 methadone 10 mg PO BID tab-cap NS 01/14/14 05/13/18 polyethylene glycol 3350 [Miralax] 17 g PO DAILY packet NS 01/14/14 05/13/18 estradiol [Estrace] 2 gm VG DIRECTED 09/25/16 05/13/18 ipratropium bromide [Atrovent HFA] 2 puff INHALATION BID PRN 09/25/16 05/13/18 ipratropium-albuterol 3 ml INHALATION Q6H PRN PRN 09/25/16 05/13/18 liraglutide [Victoza 2-Job] 1.2 mg SQ DAILY 09/25/16 05/13/18 metformin [Glucophage] 500 mg PO BID@0800,1700 09/25/16 05/13/18 naloxone [Narcan] 4 mg NS DIRECTED 09/25/16 05/13/18 acetaminophen 1 - 2 tab PO TID PRN PRN 09/26/16 05/13/18 gabapentin 300 mg PO TID #90 tab 05/02/17 05/13/18 meloxicam 7.5 mg PO BID #60 tab 08/22/17 05/13/18 Glyburide 2.5 mg PO DAILY 10/18/17 10/18/17 paroxetine HCl 20 mg PO DAILY 10/18/17 05/13/18 ciprofloxacin HCl [Cipro] 500 mg PO BID #14 tab 05/30/18 hydrocodone-acetaminophen [[place]] 1 tab PO Q6H #7 tab 05/30/18 metronidazole [Flagyl] 500 mg PO TID #21 tab 05/30/18 naloxone [Narcan] 1 spray NAVJOT ONCE PRN #2 each 05/30/18 Previous Rx's Medication Instructions Recorded gabapentin 300 mg PO TID #90 tab 05/02/17 meloxicam 7.5 mg PO BID #60 tab 08/22/17 ciprofloxacin HCl [Cipro] 500 mg PO BID #14 tab 05/30/18 hydrocodone-acetaminophen [[place]] 1 tab PO Q6H #7 tab 05/30/18 metronidazole [Flagyl] 500 mg PO TID #21 tab 05/30/18 naloxone [Narcan] 1 spray NAVJOT ONCE PRN #2 each 05/30/18 Allergies Allergy/AdvReac Type Severity Reaction Status Date / Time Sulfa (Sulfonamide Allergy Intermediate Skin Rash Unverified 10/18/17 17:20 Antibiotics) baclofen AdvReac Intermediate Nausea Unverified 10/18/17 17:20 morphine AdvReac Mild Nausea Unverified 10/18/17 17:20 General Stated Complaint: Abd Prob ELENA: 3 Review of Systems Review of Systems All systems reviewed & are unremarkable except as noted in HPI and below PFSH Medical History Chronic low back pain (Acute) Constipation (Acute) Renal cell cancer (Acute) Restless leg (Acute) Asthma (Chronic) Depression (Chronic) Obesity (Chronic) Peptic ulcer disease (Chronic) Social History household members: spouse Smoking/Tobacco Use Status: Current every day alcohol intake: current alcohol intake frequency: a few times a week substance use type: does not use Surgical History H/O partial nephrectomy (Acute) S/P arthroscopic partial medial meniscectomy (Acute) S/P cholecystectomy (Acute) S/P hysterectomy (Acute) S/P small bowel resection (Acute) S/P tympanoplasty (Acute) Exam Narrative Exam Narrative: 1.Const: Well-nourished, Well-developed, appearing stated age 2.Eyes: PERRL, no conjunctival injection, and symmetrical lids. 3.ENT: Atraumatic external nose and ears. Moist MM. Neck: Symmetric, trachea midline, No thyromegaly. 4.CVS: +S1/S2, No murmurs or gallops. Peripheral pulses 2+ and equal in all extremities. Brisk capillary refill in all extremities. 5.RESP: Unlabored respiratory effort. Clear to auscultation bilaterally. No wheezes rales or rhonchi 6.GI: Soft, generalized tenderness throughout. Focus of tenderness in the right lower quadrant, positive Rovsing sign. Positive obturator and psoas sign. Questionable CVA tenderness 7.MSK: Normocephalic/Atraumatic, Extremities w/o deformity or ttp No cyanosis or clubbing, Normal movement of all extremities 8.Skin: Warm, Dry. No rashes or lesions. 9.Neuro: outreach representative II-XII grossly intact. Sensation grossly intact, no focal neurologic deficits. 10.Psych: (AAO) x3. Appropriate mood and affect Course Vital Signs Temperature 36.9 C 05/30/18 20:32 Pulse 87 05/30/18 20:32 Respiratory Rate 19 05/30/18 20:32 Blood Pressure 157/69 H 05/30/18 20:32 Pulse Oximetry 97 05/30/18 20:32 Temperature 36.9 C 05/30/18 20:32 Temperature Source Temporal Artery Scan 05/30/18 20:32 Pulse 87 05/30/18 20:32 Respiratory Rate 19 05/30/18 20:32 Respiratory Effort 05/30/18 20:35 Blood Pressure 157/69 H 05/30/18 20:32 Blood Pressure Position Supine 05/30/18 20:32 Pulse Oximetry 97 05/30/18 20:32 Oxygen Delivery Method Room Air 05/30/18 20:32 Oxygen Flow Rate 0 05/30/18 20:32 Pain Level 9 05/30/18 21:14 Lab/Test Results Lab/Test Results: Laboratory Tests Range/Units 05/30/18 20:40 WBC (4.4-10.8) k/cumm 9.74 RBC (4.00-5.20) m/cumm 5.69 H Hgb (12.0-15.5) g/dL 16.1 H Hct (36.0-46.0) % 44.3 MCV (80-95) fL 77.9 L MCH (27.0-33.0) pg 28.3 MCHC (32.0-36.0) g/dL 36.3 H RDW (11.7-14.6) % 12.9 Plt Count (130-400) x1000/uL 256 MPV (8.0-11.0) fL 10.2 Immature Gran % 0.7 Neutrophils % 67.0 Lymphocytes % 22.4 Monocytes % 6.5 Eosinophils % 2.9 Basophils % 0.5 Absolute Neutrophils (1.2-6.7) k/cumm 6.53 Absolute Lymphocytes (1.2-3.4) k/cumm 2.18 Absolute Monocytes (0.11-0.7) k/cumm 0.63 Absolute Eosinophils (0.0-0.7) k/cumm 0.28 Absolute Basophils (0.0-0.2) k/cumm 0.05
[2018-05-30 21:28] LABS: ALT 59 U/L (12-78); AST 38 U/L (15-37); Albumin 3.9 g/dL (3.4-5.0); Alkaline Phosphatase 201 U/L (46-116); Anion Gap 7.2 mmol/L (3-11); BUN 10 mg/dL (7-18); Bilirubin, Total 0.6 mg/dL (0.2-1.0); CO2 29.8 mmol/L (21.0-32.0); CREATININE 0.86 mg/dL (0.55-1.02); Calcium 9.4 mg/dL (8.5-10.1); Chloride 95 mmol/L (98-107); Glucose 378 mg/dL (70-100); Lipase 132 U/L (73-393); Potassium 4.3 mmol/L (3.5-5.1); Sodium 132 mmol/L (136-145); Total Protein 7.6 g/dL (6.4-8.2)
--- NOTE | 2018-05-30 22:13 | DI.CT_ITS ---
SYMPTOMS/DIAGNOSIS: ABD PAIN RLQ, NAUSEA CT OF THE ABDOMEN AND PELVIS: Comparison is made with [id number]. Images were performed from the lung bases through the ischial tuberosities after IV and oral contrast. The oral contrast extends to the proximal ileum. The distal and terminal ileum as well as colon are not opacified with oral contrast. There is mild dilatation and mild wall thickening of loops of small bowel in the right lower quadrant. The findings could represent partial bowel obstruction vs infectious or inflammatory ileus. The findings are similar to the previous exam. There is no evidence of free air or free fluid. No pneumatosis is seen. There is a moderate quantity of stool. The appendix appears normal. The liver is enlarged and shows fatty infiltration. The spleen is normal in size. The patient is status post cholecystectomy. The pancreas, adrenals and right kidney are unremarkable. There is a nonobstructing stone at the lower pole of the left kidney. There is a question of a partial hysterectomy. The appearance of the uterus is small and unchanged from previous exams. The lung bases are clear. No abdominal wall hernias are seen. No suspicious bony lesions are identified. IMPRESSION: Mild dilatation of distal small bowel in the right lower quadrant with sparing of the distal ileum. This is in the same location as on the previous exam and may represent a mild partial small bowel obstruction.
[2018-05-30] MEDS: Omnipaque 350 MG/ML 100 ML BTL IJ (22:36)
--- NOTE | 2018-05-30 22:48 | DI.VRAD_ITS ---
EXAM: CT Abdomen and Pelvis With Intravenous Contrast EXAM DATE/TIME: 05/30/2018 8:50 PM CLINICAL HISTORY: 52 years old, female; Pain; Abdominal pain; Tenderness; Right lower quadrant (rlq); Patient HX: Abdominal pain rlq, nausea TECHNIQUE: Axial computed tomography images of the abdomen and pelvis with intravenous and oral contrast. All CT scans at this facility use at least one of these dose optimization techniques: automated exposure control; mA and/or kV adjustment per patient size (includes targeted exams where dose is matched to clinical indication); or iterative reconstruction. Coronal and sagittal reformatted images were created and reviewed. CONTRAST: 100 ml of OMNI-PAQUE 350 administered intravenously. COMPARISON: CT ABDOMEN PELVIS W 05/13/2018 3:38 PM FINDINGS: Lower thorax: No acute findings. ABDOMEN: Liver: Hepatic steatosis. Gallbladder and bile ducts: Normal. No calcified stones. No ductal dilation. Pancreas: Normal. No ductal dilation. Spleen: Normal. No splenomegaly. Adrenals: Normal. No mass. Kidneys and ureters: Normal. No hydronephrosis. Stomach and bowel: Circumferential wall thickening of multiple loops of ileum with sparing of the thalami and. Appendix: A normal appendix is identified. PELVIS: Bladder: Unremarkable as visualized. Reproductive: Unremarkable as visualized. ABDOMEN and PELVIS: Intraperitoneal space: Normal. No free air. No significant fluid collection. Bones/joints: No acute fracture. No dislocation. Soft tissues: Unremarkable. Vasculature: Normal. No abdominal aortic aneurysm. Lymph nodes: Normal. No enlarged lymph nodes. IMPRESSION: Circumferential wall thickening of multiple loops of ileum likely representing an infectious versus inflammatory ileitis. There is sparing of the terminal ileum. No free intraperitoneal air or pneumatosis intestinalis. No associated abscess. Dictated and Authenticated by: Dami Chase MD. Ordering:MICHAEL FERNANDO MD
[2018-05-30] MEDS: Ciprofloxacin 500 MG TAB PO (23:20)
[2018-05-30] MEDS: metroNIDAZOLE 500 MG TAB PO (23:21)
[2018-05-30] MEDS: Dicyclomine 10 MG CAP PO (23:21)
[2018-05-30] MEDS: HYDROmorphone 2 MG/ML VIAL 0.5 MG IVP (23:21)
== END 2018-05-30 23:15 | disposition home or self-care (01) ==
PROVIDERS: Emergency Provider Student in an Organized Health Care Education/Training Program; PCP Internal Medicine
DX: K52.9 Noninfective gastroenteritis and colitis, unspecified (principal); R10.31 Right lower quadrant pain; R11.0 Nausea; E11.9 Type 2 diabetes mellitus without complications; Z79.84 Long term (current) use of oral hypoglycemic drugs
CPT/HCPCS: 36415; 80053; 83690; 96361; 96374; 96375; 96376; 99285; 74177; 81003; 85025; J2270; J2405; J3490

== ENCOUNTER 2018-09-18 05:14 | Outpatient (CLI) | payer MEDICARE, MEDICAID, SELFPAY ==
--- NOTE | 2018-09-18 10:45 | DI.RAD_ITS ---
SYMPTOMS/DIAGNOSIS: KNEE JOINT PAIN, M25.569 LEFT KNEE: Three views were obtained. There is mild hypertrophic spurring of the inferior pole of the patella. The cartilaginous joint spaces appear fairly well maintained. No other significant bony abnormality is seen. CONCLUSION: Mild DJD of the knee. RIGHT KNEE: Three views were obtained. There is mild narrowing of the medial tibiofemoral cartilaginous joint space. There is new area of decreased attenuation with sclerotic rim present in the medial femoral condyle posteriorly. The findings are somewhat suspicious for osteochondritis dissecans. No other significant bony abnormality is seen apart from mild narrowing of the medial tibiofemoral cartilaginous joint space. CONCLUSION: Question osteochondritis dissecans right medial femoral condyle. Correlation with MR may be considered if clinically appropriate.
== END 2018-09-18 05:34 ==
PROVIDERS: PCP Internal Medicine; Visit Provider Internal Medicine
DX: M25.561 Pain in right knee (principal); M25.562 Pain in left knee; M17.12 Unilateral primary osteoarthritis, left knee; M85.861 Other specified disorders of bone density and structure, right lower leg
CPT/HCPCS: 73562

== ENCOUNTER → 2018-09-26 13:41 | Outpatient (BNVA) | payer MEDICARE, MEDICAID, SELFPAY | PROVIDERS: PCP Internal Medicine; Referring Provider Internal Medicine; Visit Provider Orthopaedic Surgery | DX: M25.561 Pain in right knee (principal); M25.562 Pain in left knee; E11.65 Type 2 diabetes mellitus with hyperglycemia | CPT/HCPCS: 20610; 99211; 99213; J7325 ==

== ENCOUNTER 2019-02-24 15:06 | Outpatient (REF) | payer MEDICARE, MEDICAID, SELFPAY ==
[2019-02-24 22:56] LABS: Calculated LDL 86 mg/dL; Cholesterol 162 mg/dL (50-200); HDL Cholesterol 53 mg/dL (40-60); Triglyceride 115 mg/dL (30-150)
== END 2019-02-24 15:26 ==
LOC: NCHCN 15:06
PROVIDERS: PCP Internal Medicine; Visit Provider Internal Medicine
DX: E66.9 Obesity, unspecified (principal); Z13.6 Encounter for screening for cardiovascular disorders
CPT/HCPCS: 80061; 83721

== ENCOUNTER → 2019-03-19 09:52 | Outpatient (BNVA) | payer MEDICARE, MEDICAID, SELFPAY | PROVIDERS: PCP Internal Medicine; Referring Provider Internal Medicine; Visit Provider Nurse Practitioner Adult Health | DX: G56.01 Carpal tunnel syndrome, right upper limb (principal); M25.521 Pain in right elbow; M25.522 Pain in left elbow; E11.9 Type 2 diabetes mellitus without complications; J44.9 Chronic obstructive pulmonary disease, unspecified; I10 Essential (primary) hypertension; F17.210 Nicotine dependence, cigarettes, uncomplicated | CPT/HCPCS: 95910; 99203; 99214 ==

== ENCOUNTER 2019-03-21 02:15 | Outpatient (CLI) | payer MEDICARE, MEDICAID, SELFPAY ==
--- NOTE | 2019-03-21 14:29 | DI.MRI_ITS ---
SYMPTOM/DIAGNOSIS: RT NECK PAIN, M54.2, PULSATILE TINNITUS RT EAR, H93.A1, RT EAR PAIN,H92.01 MRA [place] OF [place]: There are no prior comparison exams. A 3 D time of flight study was performed. There is no evidence of vascular occlusion or significant stenosis. No AV malformations are seen. IMPRESSION: Negative MRA of the [place]. BRAIN/IAC MRI: T 2 sagittal, T 1, T 2, FLAIR, diffusion and gradient echo axial and post Dotarem T 1 axial and and coronal sequences were performed of the entire brain. Thin T 2 3D axial and T 1 and T 2 coronal pre and post Dotarem sequences were also performed through the area of the internal auditory canals. No intracranial hemorrhage, mass or infarct is seen. The ventricles are normal in size. There are no significant white matter lesions. There are no abnormal areas of enhancement. The vascular flow voids appear intact. The sinuses and mastoid air cells appear clear. IMPRESSION: Negative MRI of the brain and internal auditory canals.
[2019-03-21] MEDS: Gadoterate meglumine 20 ML VIAL IVP (14:50)
[2019-03-21] MEDS: Normal Saline Flush 10 ML SYR IVP (14:50)
== END 2019-03-21 02:35 ==
PROVIDERS: PCP Internal Medicine; Visit Provider Internal Medicine
DX: M54.2 Cervicalgia (principal); H93.A1 Pulsatile tinnitus, right ear; H92.01 Otalgia, right ear; Z01.812 Encounter for preprocedural laboratory examination; Z13.89 Encounter for screening for other disorder
CPT/HCPCS: 36415; 70544; 70553; 82565

== ENCOUNTER 2019-07-22 16:31 | Emergency (ER) | payer MEDICARE, MEDICAID, SELFPAY ==
--- NOTE | 2019-07-22 16:32 | W.ED.GENAD ---
Discharge Plan Disposition Patient Disposition: HOME Condition: Good Discharge Details Chief Complaint: RespSymp Clinical Impression: Pneumonia, COPD exacerbation Primary Care Provider: Jose Haile ED Provider: Radha Elizabeth Home Meds and New Rx's Prescriptions: New doxycycline hyclate 100 mg capsule 100 mg PO BID Qty: 14 RF: 0 prednisone 10 mg tablet 10 mg PO DAILY Qty: 36 RF: 0 Robitussin Cough-Chest Mickey DM 5-100 mg/5 mL liquid 10 ml PO QHS PRN (Reason: cough) Qty: 118 RF: 0 Continued albuterol sulfate [Ventolin HFA] 90 mcg/actuation HFA aerosol inhaler 2 puff IH Q4H PRNRF: 0 glimepiride 2 mg tablet 4 mg PO DAILY RF: 0 polyethylene glycol 3350 [Miralax] 17 GM powder in packet 17 g PO DAILY RF: 0 methadone 5 MG tablet 10 mg PO BID RF: 0 Victoza 3-Job 0.6 mg/0.1 mL (18 mg/3 mL) pen injector 0.6 mg SC DAILY RF: 0 betamethasone dipropionate 0.05 % ointment 1 applic TP BID RF: 0 Farxiga 5 mg tablet 10 mg PO DAILY RF: 0 Narcan 4 mg/actuation spray,non-aerosol 1 spray NAVJOT ONCE PRNRF: 0 gabapentin 600 mg tablet 600 mg PO TID RF: 0 fluticasone propion-salmeterol [Advair Diskus] 250-50 mcg/dose Blister With Device 1 inh INHALATION BID RF: 0 albuterol sulfate 2.5 mg /3 mL (0.083 %) Solution For Nebulization 2.5 mg INHALATION QID PRNRF: 0 promethazine 25 mg Tablet 25 mg PO BID PRNRF: 0 Chantix Continuing Month Box 1 mg Tablet 1 mg PO BID RF: 0 ipratropium-albuterol 3 ML solution for nebulization 3 ml Inhalation Q6H PRN PRNRF: 0 estradiol [Estrace] 42.5 GM cream 2 gm VG DIRECTED RF: 0 Atrovent HFA 1 PUFF HFA aerosol inhaler 2 puff Inhalation BID PRNRF: 0 acetaminophen 500 MG tablet 1 - 2 tab PO TID PRN PRNRF: 0 metformin [Glucophage] 1,000 mg tablet 1,000 mg PO BID@0800,1700 RF: 0 paroxetine HCl 20 MG tablet 20 mg PO DAILY RF: 0 Discharge Instructions Instructions: COPD (Chronic Obstructive Pulmonary Disease) (ED), Pneumonia (ED) Additional Instructions: Encourage water intake. Please continue with your smoking cessation. Please take the doxycycline and steroids as prescribed. Even if symptoms improve, please take the entire course of doxycycline. Please follow-up with primary care in the next week for reevaluation. If you develop difficulty breathing, shortness of breath or other new/worsening symptoms please seek care urgently once again. Referrals: Jose Haile MD [Primary Care Provider] - Discharge Data Discharge Date/Time-TO BE ENTERED AT DEPARTURE: 07/22/19 18:23 Medical Decision Making Patient is a 53 year old female presenting today with c/c of cough with sputum production x 1 month. Has been on course of Azithromycin and prednisone with no improvement in symptoms. No fevers/chills. Also endorsing sore throat and sinus congestion. No sinus pain, no GI upset. Feels SOB with cough. Albuterol inhaler and duonebulizer unsuccessful at alleviating symptoms. Patient has scattered wheezing on exam, intermittent rhonchi. No respiratory distress. VS WNL. Appears nontoxic. Will obtain cxr. FINDINGS: Lungs: No acute consolidation. Pleural space: Unremarkable. No pleural effusion. No pneumothorax. Heart/Mediastinum: Mild ectasia of the innominate vessels. Superior mediastinum appear slightly widened but this appears unchanged since CT of 11/12/2012 and appears to be due to a prominent amount of mediastinal fat. Upper abdomen: Nonspecific moderate air-fluid level the stomach. Bones/joints: Mild spondylosis of thoracic spine. IMPRESSION: Chronic changes but no acute cardiopulmonary process. Discussed his findings with the patient. Despite the normal chest x-ray, she clinically sounds to have pneumonia. I feel this more appropriate to treat with antibiotics and plan for taper of prednisone acid she call her primary care tomorrow to discuss follow-up appointment for reevaluation. She is given strict return precautions. All of her questions and concerns were addressed and she is in agreement this plan. Patient also requested prescription for Robitussin. She reports her primary care is prescribed this for her historically and is worked well for her cough. HPI General Mode of arrival: ambulatory. Date/Time Provider Initiated Documentation: 12/03/19 16:32. Limitations to Documentation: no limitations. Information obtained by: patient and RN notes reviewed. HPI Narrative: Patient is a 53-year-old female presents today with chief complaint of cough, nasal congestion and sore throat. She reports the cough began the first week of June and is persisted since that time. She reports that she was treated on 111 with azithromycin followed by a 5-day course of prednisone neither of which was successful at alleviating her symptoms. She denies any fevers or chills. Endorses thick green sputum production. Begin Chantix 1 week ago and has not smoked since then. States that she has a sore throat but associates this with the forceful coughing. She has been using her albuterol inhaler and duo nebulizer and reports that this does not help alleviate her symptoms. Patient has history of type 2 diabetes, COPD. Related Data Home Medications Medication Instructions Recorded Confirmed methadone 10 mg PO BID tab-cap NS 01/14/14 07/22/19 polyethylene glycol 3350 [Miralax] 17 g PO DAILY packet NS 01/14/14 07/22/19 Atrovent HFA 2 puff INHALATION BID PRN 09/25/16 07/22/19 estradiol [Estrace] 2 gm VG DIRECTED 09/25/16 07/22/19 ipratropium-albuterol 3 ml INHALATION Q6H PRN PRN 09/25/16 07/22/19 acetaminophen 1 - 2 tab PO TID PRN PRN 09/26/16 07/22/19 paroxetine HCl 20 mg PO DAILY 10/18/17 07/22/19 betamethasone dipropionate 0.05 % 1 applic TP BID 09/19/18 07/22/19 topical ointment dapagliflozin 5 mg tablet 10 mg PO DAILY 09/19/18 07/22/19 gabapentin 600 mg tablet 600 mg PO TID 09/19/18 07/22/19 liraglutide 0.6 mg/0.1 mL (18 mg/3 0.6 mg SC DAILY 09/19/18 07/22/19 mL) subcutaneous pen injector naloxone 4 mg/actuation nasal spray 1 spray NAVJOT ONCE PRN 09/19/18 07/22/19 albuterol sulfate 90 mcg/actuation 2 puff IH Q4H PRN gm 09/26/18 07/22/19 aerosol inhaler metformin 1,000 mg tablet 1,000 mg PO BID@0800,1700 tab 09/26/18 07/22/19 glimepiride 2 mg tablet 4 mg PO DAILY tab 03/19/19 07/22/19 Chantix Continuing Month Box 1 mg PO BID 07/22/19 07/22/19 albuterol sulfate 2.5 mg INHALATION QID PRN 07/22/19 07/22/19 dextromethorphan-guaifenesin 10 ml PO QHS PRN #118 ml 07/22/19 [Robitussin Cough-Chest Mickey DM] doxycycline hyclate 100 mg PO BID #14 cap 07/22/19 fluticasone propion-salmeterol 1 inh INHALATION BID 07/22/19 07/22/19 [Advair Diskus] prednisone 10 mg PO DAILY #36 tab 07/22/19 promethazine 25 mg PO BID PRN 07/22/19 07/22/19 Previous Rx's Medication Instructions Recorded dextromethorphan-guaifenesin 10 ml PO QHS PRN #118 ml 07/22/19 [Robitussin Cough-Chest Mickey DM] doxycycline hyclate 100 mg PO BID #14 cap 07/22/19 prednisone 10 mg PO DAILY #36 tab 07/22/19 Allergies Allergy/AdvReac Type Severity Reaction Status Date / Time Sulfa (Sulfonamide Allergy Intermediate Skin Rash Unverified 07/22/19 16:40 Antibiotics) baclofen AdvReac Intermediate Nausea Unverified 07/22/19 16:40 morphine AdvReac Mild Nausea Unverified 07/22/19 16:40 General ELENA: 3 Review of Systems Constitutional Constitutional: Reports as per HPI, Denies chills, Denies fever(s) and Denies headache(s) Eyes Eyes: Reports as per HPI, Denies eye discharge and Denies irritation ENT Ears, Nose, Mouth, and Throat: Reports as per HPI and Denies headache(s) Cardiovascular Cardiovascular: Reports as per HPI, Denies chest pain and Denies dyspnea Respiratory Respiratory: Reports as per HPI and Denies dyspnea Gastrointestinal Gastrointestinal: Reports as per HPI, Denies abdominal pain, Denies change in bowel habits, Denies nausea and Denies vomiting Integumentary/Breasts Skin/Breast: Reports as per HPI and Denies rash Neurologic Neurologic: Reports as per HPI and Denies headache(s) [facility] Medical History Asthma (Chronic) Chronic low back pain (Acute) Constipation (Acute) COPD (chronic obstructive pulmonary disease) (Chronic) Depression (Chronic) Obesity (Chronic) Peptic ulcer disease (Chronic) Psoriasis (Chronic) Renal cell cancer (Acute) Restless leg (Acute) Surgical History H/O partial nephrectomy (Acute) S/P arthroscopic partial medial meniscectomy (Acute) S/P cholecystectomy (Acute) S/P hysterectomy (Acute) S/P small bowel resection (Acute) S/P tympanoplasty (Acute) Social History Smoking/Tobacco Use Status: Current every day Tobacco Type: cigarettes Alcohol Intake: current Alcohol Intake frequency: a few times a week Drug use: Rarely Substance use type: does not use Household members: spouse Do you feel safe in your relationship?: Yes Exam Const General: cooperative, healthy appearing, comfortable, no acute distress, well developed and well groomed Nutritional Appearance: well nourished and overweight Orientation: alert and awake [facility] Head: normal to inspection, normocephalic and atraumatic Ears: hearing grossly normal bilaterally, external ears normal, right TM abnormal (chronic changes from skin graft, no erythema or discharge) and TM normal on the left General nose exam: external nose normal and nares normal Face and sinus: normal facial exam, sinuses nontender and face symmetric Mouth: oral mucosae normal, lip normal, tongue normal, oropharynx normal and moist mucous membranes Teeth and gingiva: dentition normal Throat: posterior oropharynx normal, tonsils normal and uvula midline Eyes General: appearance normal, both eyes and all related structures Neck Neck: normal visual inspection, full ROM, no lymphadenopathy and no meningeal signs Resp Effort & Inspection: normal respiratory effort, able to speak in complete sentences and no respiratory distress Auscultation: not clear to auscultation bilaterally, no rales, rhonchi and wheezes expiratory wheezes and scattered wheezes Cardio Rate: regular rate Rhythm: regular rhythm Heart Sounds: S1 normal and S2 normal Skin General skin exam: no rashes or lesions noted Neuro General: alert and awake Cognition: normal cognition Speech: speech normal Gait: normal gait Psych Appearance: grossly normal and well kempt Mental Status: mental status grossly normal Speech and Movement: speech and movement normal
[2019-07-22 16:33] VITALS: BP 123/69; PULSE 86; RESP 18; TEMP 36.6; O2SAT 97
[2019-07-22] MEDS: Albuterol/Ipratropium 3 ML UPD VIAL UPD (17:06)
--- NOTE | 2019-07-22 17:23 | DI.RAD_ITS ---
EXAM: XR CHEST 2V PA LATERAL INDICATION: cough. COMPARISON: No exams were available for comparison TECHNIQUE: 2D digital imaging was performed. FINDINGS: The heart size is normal. The lungs are clear. No infiltrate, effusion or pulmonary edema is seen. IMPRESSION: No acute abnormality.
--- NOTE | 2019-07-22 17:37 | DI.VRAD_ITS ---
PROCEDURE INFORMATION: Exam: XR Chest, 2 Views Exam date and time: 07/22/2019 5:25 PM Age: 53 years old Clinical history: Other: Cough TECHNIQUE: Imaging protocol: XR of the chest Views: 2 views. COMPARISON: CR XR ABD FLAT UPRIGHT PA CHEST 05/14/2018 12:54 PM FINDINGS: Lungs: No acute consolidation. Pleural space: Unremarkable. No pleural effusion. No pneumothorax. Heart/Mediastinum: Mild ectasia of the innominate vessels. Superior mediastinum appear slightly widened but this appears unchanged since CT of 11/12/2012 and appears to be due to a prominent amount of mediastinal fat. Upper abdomen: Nonspecific moderate air-fluid level the stomach. Bones/joints: Mild spondylosis of thoracic spine. IMPRESSION: Chronic changes but no acute cardiopulmonary process. Dictated and Authenticated by: Aubrey Forrest MD. Ordering:CATHY Garcia MD
[2019-07-22] MEDS: Doxycycline Hyclate 100 MG CAP PO (18:01)
[2019-07-22] MEDS: predniSONE 20 MG TAB 60 MG PO (18:01)
[2019-07-22 18:03] VITALS: BP 134/63; PULSE 88; RESP 18; TEMP 37; O2SAT 96
== END 2019-07-22 18:23 | disposition home or self-care (01) ==
LOC: ER 18:20
PROVIDERS: Emergency Provider Physician Assistant; PCP Internal Medicine
DX: J44.0 Chronic obstructive pulmonary disease with (acute) lower respiratory infection (principal); J18.9 Pneumonia, unspecified organism; J44.1 Chronic obstructive pulmonary disease with (acute) exacerbation; F17.211 Nicotine dependence, cigarettes, in remission; E11.9 Type 2 diabetes mellitus without complications; Z79.84 Long term (current) use of oral hypoglycemic drugs
CPT/HCPCS: 94640; 99283; 71046; 99284; J7512; J7620

== ENCOUNTER 2020-01-20 00:50 | Inpatient (IN) | payer MEDICARE, MEDICAID, SELFPAY ==
[2020-01-20] VITALS (13 sets, daily range): BP systolic 109–164; BP diastolic 46–109; PULSE 66–95; RESP 18–21; TEMP 35.3–37.3; O2SAT 93–99
[2020-01-20] MEDS: HYDROmorphone 2 MG/ML VIAL 1 MG IVP ×2 (01:12→05:03)
--- NOTE | 2020-01-20 01:12 | ED.GENADUL_ITS ---
Discharge Plan Disposition Patient Disposition: [facility] INPATIENT Condition: Stable Discharge Details Chief Complaint: Abd Prob Clinical Impression: Small bowel obstruction Primary Care Provider: Jose Haile ED Provider: Aubrey Partida Home Meds and New Rx's Prescriptions: No Action glimepiride 2 mg tablet 4 mg PO DAILY RF: 0 methadone 5 MG tablet 10 mg PO BID RF: 0 Victoza 3-Job 0.6 mg/0.1 mL (18 mg/3 mL) pen injector 0.6 mg SC DAILY RF: 0 betamethasone dipropionate 0.05 % ointment 1 applic TP BID RF: 0 Farxiga 5 mg tablet 10 mg PO DAILY RF: 0 Narcan 4 mg/actuation spray,non-aerosol 1 spray NAVJOT ONCE PRNRF: 0 gabapentin 600 mg tablet 600 mg PO TID RF: 0 promethazine 25 mg Tablet 25 mg PO BID PRNRF: 0 acetaminophen 500 MG tablet 1 - 2 tab PO TID PRN PRNRF: 0 metformin [Glucophage] 1,000 mg tablet 1,000 mg PO BID@0800,1700 RF: 0 paroxetine HCl 20 MG tablet 20 mg PO DAILY RF: 0 Medical Decision Making 54 yo female with hx of sbo's and prior bowel resection, hysterectomy, cholecystectomy, t2dm, chronic back pain on methadone, who comes in with worsening abdominal pain n/v since 3pm yesterday. She denies fevers, chills, chest pain, sob. She has diffuse abdominal tenderness on exam with distention. Concern for possible sbo vs pneumoperitoneum, will obtain labs and ct and monitor. labs unremarkable, CTconfirms small bowel obstruction. Still having significant amount of pain though improved with dilaudid, will discuss with general surgery about admission spoke with Dr. Fernández who agrees with admission. Patient declining NG tube at this point Differential Diagnosis Differential Diagnosis: sbo, pancreatitis, pneumoperitoneum Medical Records Medical records reviewed: Yes I reviewed the patient's medical records. Imaging Data Radiologic Study: Attestation: I personally reviewed and interpreted this imaging study as follows: Imaging: CT Scan Radiologist's impression: 1. Proximal small bowel with mild dilatation and scattered air-fluid levels. Findings suggest an early or partial small bowel obstruction which is likely in the distal jejunal region. No distinct mass or obstructing focus. No pneumatosis intestinalis. 2. Fatty liver changes. 3. No free fluid or free air in the abdomen or pelvis. Lab Data Lab results reviewed: Yes I reviewed the patient's lab results. HPI General Mode of arrival: EMS . Date/Time Provider Initiated Documentation: 01/20/20 00:56 . Limitations to Documentation: no limitations . Information obtained by: patient . History of Present Illness 54 year old F presents to the emergency department with the chief complaint of abdominal pain, described as severe, and it has been constant. No relieving factors improve symptom(s), No exacerbating factors reported . Patient did receive the following treatments prior to arrival, none Related Data Home Medications Medication Instructions Recorded Confirmed methadone 10 mg PO BID tab-cap NS 01/14/14 01/20/20 acetaminophen 1 - 2 tab PO TID PRN PRN 09/26/16 01/20/20 paroxetine HCl 20 mg PO DAILY 10/18/17 01/20/20 betamethasone dipropionate 0.05 % 1 applic TP BID 09/19/18 01/20/20 topical ointment dapagliflozin 5 mg tablet 10 mg PO DAILY 09/19/18 01/20/20 gabapentin 600 mg tablet 600 mg PO TID 09/19/18 01/20/20 liraglutide 0.6 mg/0.1 mL (18 mg/3 0.6 mg SC DAILY 09/19/18 01/20/20 mL) subcutaneous pen injector naloxone 4 mg/actuation nasal spray 1 spray NAVJOT ONCE PRN 09/19/18 01/20/20 metformin 1,000 mg tablet 1,000 mg PO BID@0800,1700 tab 09/26/18 01/20/20 glimepiride 2 mg tablet 4 mg PO DAILY tab 03/19/19 01/20/20 promethazine 25 mg PO BID PRN 07/22/19 01/20/20 Allergies Allergy/AdvReac Type Severity Reaction Status Date / Time Sulfa (Sulfonamide Allergy Intermediate Skin Rash Unverified 01/20/20 00:57 Antibiotics) baclofen AdvReac Intermediate Nausea Unverified 01/20/20 00:57 morphine AdvReac Mild Nausea Unverified 01/20/20 00:57 General Stated Complaint: Abd Prob ELENA: 3 Review of Systems All systems reviewed & are unremarkable except as noted in HPI and below Constitutional Constitutional: Denies chills, Denies fever(s) and Denies weakness Cardiovascular Cardiovascular: Denies chest pain and Denies dyspnea Respiratory Respiratory: Denies cough and Denies dyspnea Musculoskeletal Musculoskeletal: Denies joint swelling Neurologic Neurologic: Denies weakness Psychiatric Psychiatric: Denies depression [facility] Medical History (Updated 01/20/20 @ 01:54 by Aubrey Partida MD) Asthma (Chronic) Chronic low back pain (Acute) Constipation (Acute) COPD (chronic obstructive pulmonary disease) (Chronic) Depression (Chronic) Obesity (Chronic) Peptic ulcer disease (Chronic) Psoriasis (Chronic) Renal cell cancer (Acute) Restless leg (Acute) Small bowel obstruction (Acute) Social History Smoking/Tobacco Use Status: Former Tobacco Use Quit Date: 07/17/19 Alcohol Intake: former Drug use: Rarely Substance use type: does not use and marijuana Household members: spouse Do you feel safe at home: Yes Do you feel safe in your relationship?: Yes Exam Const General: other (abdominal pain) Orientation: alert [facility] Head: normal to inspection Ears: external ears normal General nose exam: external nose normal Mouth: moist mucous membranes Eyes General: appearance normal, both eyes and all related structures Neck Neck: normal visual inspection Resp Effort & Inspection: normal respiratory effort and able to speak in complete sentences Cardio Rate: regular rate GI Palpation: tender Skin General skin exam: no rashes or lesions noted Neuro General: patient alert and patient oriented x3 Extrem General: normal to inspection Psych Mental Status: mental status grossly normal Course Vital Signs Vital signs: Vital Signs Temperature 36.7 C 01/20/20 00:53 Pulse 83 01/20/20 00:53 Respiratory Rate 18 01/20/20 00:53 Blood Pressure 140/92 H 01/20/20 00:53 Pulse Oximetry 98 01/20/20 00:53 Temperature 36.7 C 01/20/20 00:53 Temperature Source Skin 01/20/20 00:53 Pulse 83 01/20/20 00:53 Respiratory Rate 18 01/20/20 00:53 Respiratory Effort Non-Labored 01/20/20 01:01 Blood Pressure 140/92 H 01/20/20 00:53 Pulse Oximetry 98 01/20/20 00:53 Pain Level 10 01/20/20 00:53
[2020-01-20] MEDS: Normal Saline 1,000 ML 1000 ML IV (01:13)
[2020-01-20] MEDS: Normal Saline Flush 10 ML SYR IVP ×2 (01:14→20:23)
[2020-01-20] MEDS: Ondansetron 4 MG/2 ML VIAL IVP ×2 (01:20→20:24)
[2020-01-20 01:22] LABS: ALT 46 U/L (14-59); AST 31 U/L (15-37); Alkaline Phosphatase 157 U/L (46-116); Anion Gap 9.7 mmol/L (3-11); BUN 17 mg/dL (7-18); Bilirubin, Direct 0.29 mg/dL (0.00-0.20); CO2 27.3 mmol/L (21.0-32.0); CREATININE 0.88 mg/dL (0.55-1.02); Calcium 9.2 mg/dL (8.5-10.1); Chloride 94 mmol/L (98-107); Glucose 372 mg/dL (74-106); Lipase 58 U/L (73-393); Potassium 3.8 mmol/L (3.5-5.1); Sodium 131 mmol/L (136-145); Total Protein 7.7 g/dL (6.4-8.2)
--- NOTE | 2020-01-20 01:25 | DI.CT_ITS ---
EXAM: CT ABDOMEN PELVIS W CLINICAL HISTORY: abdominal pain, question obstruction TECHNIQUE: COMPARISON: CT CT ABDOMEN PELVIS W from 05/30/2018 FINDINGS: CT examination of the abdomen and pelvis was performed with bolus infusion 100 cc of Omnipaque 350. Images obtained through the lung bases are unremarkable. Note is made of hepatic steatosis and mild hepatomegaly. Spleen is unremarkable in appearance. Pancreas appears normal. Gallbladder not ident ified. No biliary dilatation. Abdominal aorta is of normal diameter. Major visceral vessels appear intact. No abdominal or pelvic adenopathy. The adrenals and kidneys appear normal except for a nonobstructing left renal lower pole calculus and small area of apparent scarring of the inferior pole of the left kidney. No evidence of urinary tra ct obstruction or ureteral calculus. Urinary bladder grossly unremarkable. Uterus is atrophic. Ovaries not visualized. No pelvic mass. There is moderate proximal small bowel dilatation, mid to distal small bowel is of normal caliber, th e findings are suggestive of early or partial small bowel obstruction. No fecalization of small ella l contents. No pneumatosis. IMPRESSION: Small bowel dilatation with a pattern suggesting early or partial small bowel dilatation, probably at the level of the distal jejunum. No definite transition site identified.
[2020-01-20] MEDS: Omnipaque 350 MG/ML 100 ML BTL IJ (01:26)
[2020-01-20] MEDS: Normal Saline - Diluent 50 ML VIAL IV (01:26)
[2020-01-20 01:29] LABS: Abs Immature Grans 0.07 k/cumm (0.0-0.09); Absolute Basophil Count 0.05 k/cumm (0.0-0.2); Absolute Eosinophil Count 0.15 k/cumm (0.0-0.7); Absolute Monocyte Count 0.74 k/cumm (0.11-0.7); Absolute Neutrophil Count 7.27 k/cumm (1.2-6.7); Basophils % 0.5; Eosinophils % 1.5; HCT 44.8 % (36.0-46.0); HGB 16.3 g/dL (12.0-15.5); Immature Grans % 0.7 %; Lymphocytes % 14.5; Mean Corp. HGB Concentration 36.4 g/dL (32.0-36.0); Mean Corpuscular Hemoglobin 27.4 pg (27.0-33.0); Mean Corpuscular Volume 75.4 fL (80-95); Mean Platelet Volume 9.7 fL (8.0-11.0); Monocytes % 7.6; Neutrophils % 75.2; Platelet Count 295 x1000/uL (130-400); RBC 5.94 m/cumm (4.00-5.20); White Blood Cell Count 9.68 k/cumm (4.4-10.8)
[2020-01-20 01:30] LABS: PTT Activated 30.9 sec (21.0-31.4); Prothrombin Time 10.4 sec (9.3-11.0)
--- NOTE | 2020-01-20 01:40 | DI.VRAD_ITS ---
PROCEDURE INFORMATION: Exam: CT Abdomen And Pelvis With Contrast Exam date and time: 01/20/2020 12:59 AM Age: 54 years old Clinical indication: Generalized; Prior surgery; Surgery date: 6+ months; Surgery type: Abdominal surgeries HX of bowel obstructions; Patient HX: Severe abdominal pain, history of bowel obstructions, patient sts last was about a year ago. TECHNIQUE: Imaging protocol: Computed tomography of the abdomen and pelvis with intravenous contrast. Radiation optimization: All CT scans at this facility use at least one of these dose optimization techniques: automated exposure control; mA and/or kV adjustment per patient size (includes targeted exams where dose is matched to clinical indication); or iterative reconstruction. Contrast material: OMNIPAQUE 350; Contrast volume: 100 ml; Contrast route: IV; COMPARISON: CT ABDOMEN PELVIS W 05/30/2018 9:36 PM FINDINGS: Lungs: Lung bases are clear. Pleural space: No pleural disease. Liver: Mild fatty liver changes. Gallbladder and bile ducts: Normal. No calcified stones. No ductal dilation. Pancreas: Normal. No ductal dilation. Spleen: Normal. No splenomegaly. Adrenals: Normal. No mass. Kidneys and ureters: Normal. No hydronephrosis. Stomach and bowel: Proximal small bowel loops are dilated. Maximal diameter 3.2 cm. Scattered air-fluid levels. Mild mucosal enhancement. There is a transition to normal caliber small bowel in the low midline abdomen and upper pelvic region. An exact obstructing ideology is indeterminate. No mass. There is fecal material within the colon. There is no colon edema or obstruction. Appendix: No evidence of appendicitis. Intraperitoneal space: No free fluid in the abdomen or pelvis. No free air. Vasculature: Unremarkable. No abdominal aortic aneurysm. Lymph nodes: Unremarkable. No enlarged lymph nodes. Bladder: Unremarkable as visualized. Reproductive: Unremarkable as visualized. Bones/joints: Unremarkable. No acute fracture. Soft tissues: No evidence of abdominal wall hernia with bowel. There is a minor fat containing supraumbilical midline hernia measuring 19 x 14 mm. No strangulation. IMPRESSION: 1. Proximal small bowel with mild dilatation and scattered air-fluid levels. Findings suggest an early or partial small bowel obstruction which is likely in the distal jejunal region. No distinct mass or obstructing focus. No pneumatosis intestinalis. 2. Fatty liver changes. 3. No free fluid or free air in the abdomen or pelvis. Dictated and Authenticated by: Sandro Montero MD. Ordering:CRISTAL Burgos MD
[2020-01-20 01:45] LABS: Bilirubin, Total 0.3 mg/dL (0.2-1.0)
[2020-01-20] MEDS: HYDROmorphone 2 MG/ML VIAL IVP ×4 (01:54→08:12)
[2020-01-20 02:00] LABS: Bilirubin Negative (Negative); Blood Large (Negative); Clarity Clear (Clear); Glucose 500 mg/dL (Negative); Ketones 40 mg/dL (Negative); Leukocyte Esterase Negative (Negative); Nitrite Negative (Negative); Specific Gravity <= 1.005 (1.005-1.025); Urobilinogen 0.2 EU/dL (Up TO 0.2)
[2020-01-20 02:14] LABS: Bacteria Rare HPF (Negative); Casts Negative LPF (Negative); Crystals Negative HPF (Negative); Epithelial Cells Rare HPF (Negative); Mucus Negative (Negative); Other Cells Negative (Negative); RBC 20-50 HPF (0-2); WBC Negative HPF (0-5)
[2020-01-20 02:15] LABS: C & S Indicated? No
--- NOTE | 2020-01-20 06:05 | DI.RAD_ITS ---
EXAM: XR PORTABLE CHEST AP POST LINE CLINICAL HISTORY: NG tube placement TECHNIQUE: COMPARISON: CR,XR XR CHEST 2V PA LATERAL from 07/22/2019 FINDINGS: Portable AP film was obtained. There is an NG tube the tip of which lies in the stomach. Heart is n ot enlarged. Lungs are clear and well expanded. IMPRESSION:
--- NOTE | 2020-01-20 06:14 | DI.VRAD_ITS ---
PROCEDURE INFORMATION: Exam: XR Chest, 1 View Exam date and time: 01/20/2020 6:00 AM Age: 54 years old Clinical indication: Device placement; Ng tube TECHNIQUE: Imaging protocol: XR of the chest Views: 1 view. COMPARISON: CR XR CHEST 2V PA LATERAL 07/22/2019 5:23 PM FINDINGS: Tubes, catheters and devices: Enteric tube with its tip in the fundus of the stomach. Lungs: No overt pulmonary edema. No consolidative pneumonia. Pleural space: No pleural effusions. No pneumothorax. Heart/Mediastinum: Cardiac size normal. Mild central vascular congestion. Vasculature: Aorta normal caliber without aneurysm. Bones/joints: Mild degenerative changes noted throughout the spine. IMPRESSION: 1. Enteric tube with its tip in the fundus of the stomach. 2. No acute intrathoracic process demonstrated. Dictated and Authenticated by: Jj Connolly MD. Ordering:ALEXA Dillard MD
[2020-01-20] MEDS: Insulin Aspart 300 UNITS/3 ML PEN SC ×4 (07:30→23:28)
[2020-01-20] MEDS: Ketorolac 30 MG/ML VIAL IVP ×3 (08:46→20:24)
[2020-01-20] MEDS: Normal Saline 1,000 ML 150 ML IV ×3 (08:47→22:16)
--- NOTE | 2020-01-20 09:09 | HPE_ITS ---
Date of service: 01/20/20 Time of Service: 07:30 Assessment and Plan Assessment and plan (1) Partial small bowel obstruction: Status: Acute Assessment and plan: The patient has passed flatus this am. Continue IVF, pain management, NG suctioning. SBO will hopefully resolve with nonoperative management. She was re-evaluated at noon and had much better pain control. History of Present Illness Narrative: This patient presented to the emergency department earlier this morning with generalized crampy abdominal pain. She describes this as similar to labor pains. She is also had nausea and vomiting. She does have chronic constipation related to her medication usage and tried an enema. She was able to have a bowel movement. Her history is significant for prior small bowel obstructions with an admission in 2018. That episode resolved with bowel rest. She has had prior admissions and has also had a small bowel resection. CT scan of abdomen pelvis was performed which I reviewed. This shows some dilated proximal bowel with a possible transition point in the jejunal region as well as stool within the colon. Review of Systems All systems reviewed & are unremarkable except as noted in HPI and below PFSH Medical History Asthma (Chronic) Chronic low back pain (Acute) Constipation (Acute) COPD (chronic obstructive pulmonary disease) (Chronic) Depression (Chronic) Obesity (Chronic) Peptic ulcer disease (Chronic) Psoriasis (Chronic) Renal cell cancer (Acute) Restless leg (Acute) Small bowel obstruction (Acute) Surgical History H/O partial nephrectomy (Acute) S/P arthroscopic partial medial meniscectomy (Acute) S/P cholecystectomy (Acute) S/P hysterectomy (Acute) S/P small bowel resection (Acute) S/P tympanoplasty (Acute) Social History Smoking/Tobacco Use Status: Former Tobacco Use Quit Date: 07/17/19 Alcohol Intake: former Drug use: Rarely Substance use type: does not use and marijuana Household members: spouse Do you feel safe at home: Yes Do you feel safe in your relationship?: Yes Meds Home Medications and Allergies Home Medications Medication Instructions Recorded Confirmed Type methadone 10 mg PO BID tab-cap NS 01/14/14 01/20/20 History acetaminophen 1 - 2 tab PO TID PRN PRN 09/26/16 01/20/20 History paroxetine HCl 20 mg PO DAILY 10/18/17 01/20/20 History betamethasone dipropionate 0.05 % 1 applic TP BID 09/19/18 01/20/20 History topical ointment dapagliflozin 5 mg tablet 10 mg PO DAILY 09/19/18 01/20/20 History gabapentin 600 mg tablet 600 mg PO TID 09/19/18 01/20/20 History liraglutide 0.6 mg/0.1 mL (18 mg/3 0.6 mg SC DAILY 09/19/18 01/20/20 History mL) subcutaneous pen injector naloxone 4 mg/actuation nasal spray 1 spray NAVJOT ONCE PRN 09/19/18 01/20/20 History metformin 1,000 mg tablet 1,000 mg PO BID@0800,1700 tab 09/26/18 01/20/20 History glimepiride 2 mg tablet 4 mg PO DAILY tab 03/19/19 01/20/20 History promethazine 25 mg PO BID PRN 07/22/19 01/20/20 History Allergies Allergy/AdvReac Type Severity Reaction Status Date / Time Sulfa (Sulfonamide Allergy Intermediate Skin Rash Unverified 01/20/20 00:57 Antibiotics) baclofen AdvReac Intermediate Nausea Unverified 01/20/20 00:57 morphine AdvReac Mild Nausea Unverified 01/20/20 00:57 Exam Narrative Exam Narrative: Uncomfortable Lungs CTA Heart RRR Abdomen distended, moderate diffuse tenderness. No hernias noted. Results Labs Result diagrams: 01/20/20 00:55 01/20/20 00:55 Labs: Laboratory Results - last 24 hr 01/20/20 01/20/20 01/20/20 00:55 00:55 00:55 WBC 9.68 RBC 5.94 H Hgb 16.3 H Hct 44.8 MCV 75.4 L MCH 27.4 MCHC 36.4 H RDW 13.0 Plt Count 295 MPV 9.7 Immature Gran % 0.7 Neutrophils % 75.2 Lymphocytes % 14.5 Monocytes % 7.6 Eosinophils % 1.5 Basophils % 0.5 Absolute Neutrophils 7.27 H Absolute Lymphocytes 1.40 Absolute Monocytes 0.74 H Absolute Eosinophils 0.15 Absolute Basophils 0.05 PT 10.4 INR 1.0 APTT 30.9 Sodium 131 L Potassium 3.8 Chloride 94 L Carbon Dioxide 27.3 Anion Gap 9.7 BUN 17 Creatinine 0.88 Estimated GFR/1.73 m2 >= 60.00 Glucose 372 H Calcium 9.2 Total Bilirubin 1.0 Conjugated Bilirubin 0.29 H AST 31 ALT 46 Alkaline Phosphatase 157 H Total Protein 7.7 Albumin 4.0 Lipase 58 Urine Color Urine Clarity Urine pH Ur Specific [place] Urine Protein Urine Ketones Urine Blood Urine Nitrite Urine Bilirubin Urine Urobilinogen Ur Leukocyte Esterase Urine RBC Urine WBC Ur Epithelial Cells Urine Crystals Urine Bacteria Urine Casts Urine Mucus Urine Other Ur Culture Indicated? Urine Glucose 01/20/20 01/20/20 00:55 01:50 WBC RBC Hgb Hct MCV MCH MCHC RDW Plt Count MPV Immature Gran % Neutrophils % Lymphocytes % Monocytes % Eosinophils % Basophils % Absolute Neutrophils Absolute Lymphocytes Absolute Monocytes Absolute Eosinophils Absolute Basophils PT INR APTT Sodium Potassium Chloride Carbon Dioxide Anion Gap BUN Creatinine Estimated GFR/1.73 m2 Glucose Calcium Total Bilirubin 0.3 Conjugated Bilirubin AST ALT Alkaline Phosphatase Total Protein Albumin Lipase Urine Color Yellow Urine Clarity Clear Urine pH 6.0 Ur Specific [place] <= 1.005 Urine Protein Negative Urine Ketones 40 H Urine Blood Large H Urine Nitrite Negative Urine Bilirubin Negative Urine Urobilinogen 0.2 Ur Leukocyte Esterase Negative Urine RBC 20-50 H Urine WBC Negative Ur Epithelial Cells Rare Urine Crystals Negative Urine Bacteria Rare Urine Casts Negative Urine Mucus Negative Urine Other Negative Ur Culture Indicated? No Urine Glucose 500 H Last Vital Signs Temp 97.7 F 01/20/20 08:20 Pulse 95 H 01/20/20 08:20 Resp 20 01/20/20 08:20 BP 128/79 01/20/20 08:20 Pulse Ox 93 L 01/20/20 08:20 COVID-19 Screening In the past 14 days, have you traveled outside of [place] or [place]?: NO Had IN PERSON contact w/suspected or confirmed C-19 person: No
--- NOTE | 2020-01-20 09:22 | INITIAL_ITS ---
- If Service Date Differs Date of service: 01/20/20 Time of Service: 09:22 Care Management Initial Assess REASON FOR HOSPITALIZATION:: Partial SBO PAST MEDICAL HISTORY/PAST SURGICAL HISTORY:: Medical History . Asthma (Chronic). Chronic low back pain (Acute). Constipation (Acute). COPD (chronic obstructive pulmonary disease) (Chronic). Depression (Chronic). Obesity (Chronic). Peptic ulcer disease (Chronic). Psoriasis (Chronic). Renal cell cancer (Acute). Restless leg (Acute). Small bowel obstruction (Acute). Surgical History . H/O partial nephrectomy (Acute). S/P arthroscopic partial medial meniscectomy (Acute). S/P cholecystectomy (Acute). S/P hysterectomy (Acute). S/P small bowel resection (Acute). S/P tympanoplasty (Acute) PREVIOUS FUNCTIONAL STATUS/SOCIAL/FAMILY SUPPORTS:: Lani lives in a single family home in [place], [place] with her boyfriend of 20 years, Davon Ayala. Her brother Elia is also staying with them right now. Lani has 2 adult children, daughter Mary and son Dylon and 11 grandchildren, w3hich she describes as the loves of my life. Lani does not work outside of the home. She is independent with ADLs and continues to drive. CURRENT FUNCTIONAL STATUS:: Lani was laying down in bed when CM met with her. She was pleasant and cooperatiove and willing to engage in conversation. She stated that her pain is finally controlled at about a 4 but that she has been uncomfortable since her arrival around 1 am. She shared that she has had several similar episodes and has not required surgery for about 20 years. ADVANCE DIRECTIVES:: None on file Has patient been provided with information about the portal?: Yes Did the patient sign up for the portal?: Yes (previously) CODE STATUS:: Full Code INSURANCE COVERAGE / FINANCIAL ISSUES:: Medicare. Medicaid CURRENT HOME/COMMUNITY SERVICES/EQUIPMENT:: none currently PRIMARY CARE PHYSICIAN:: Jose Haile MD POTENTIAL DISCHARGE NEEDS:: Follow up with PCP, surgeon and discharge plan of care PATIENT/FAMILY EDUCATION NEEDS:: Discarge plan, limitations, follow up plan, Ask Me Three TRANSPORTATION:: via private vehicle with friend PLAN:: Lani will likely discharge home with no new services. She will follow up with her PCP and discharge plan of care. CM will continue to support Lani, her family and any discharge planning concerns.
--- NOTE | 2020-01-20 10:25 | PHA.REVIEW ---
Pharmacy Admission Review - Admission Clinical Review (Last Reviewed 01/20/20 @ 09:09 by Gilma Fernández MD) Partial small bowel obstruction (Acute) Small bowel obstruction (Acute) Sulfa (Sulfonamide Antibiotics) Allergy (Intermediate, Unverified 01/20/20 00:57) Skin Rash baclofen Adverse Reaction (Intermediate, Unverified 01/20/20 00:57) Nausea morphine Adverse Reaction (Mild, Unverified 01/20/20 00:57) Nausea Height 5 ft 3 in Weight 102.5 kg - Renal Dosing Renal Dosing: BUN 17 mg/dL (7-18) 01/20/20 00:55 Creatinine 0.88 mg/dL (0.55-1.02) 01/20/20 00:55 Medications needing adjustments: Reviewed (Est CrCl~ 59 mL/min Meds-OK) - Anticoagulation Anticoagulation: Hgb 16.3 g/dL (12.0-15.5) H 01/20/20 00:55 Hct 44.8 % (36.0-46.0) 01/20/20 00:55 Plt Count 295 x1000/uL (130-400) 01/20/20 00:55 INR 1.0 (0.9-1.1) 01/20/20 00:55 Creatinine 0.88 mg/dL (0.55-1.02) 01/20/20 00:55 DVT Prohphylaxis: Reviewed (No DVT proph ordered, Possible surgery for Small Bowel Obstruction ??? H&H, Plts-OK) - Opiate Usage Evaluate Pain Scale/Pains Meds: Reviewed (HYDROMORPHONE IV 1-2MG Q2H PRN here, Methadone 10mg BID at home) Scheduled Bowel Reg ordered if on Opiates?: No - Relevant Labs Sodium 131 mmol/L (136-145) L 01/20/20 00:55 Potassium 3.8 mmol/L (3.5-5.1) 01/20/20 00:55 Chloride 94 mmol/L (98-107) L 01/20/20 00:55 Electrolytes, C-Reactive P, ESR: Reviewed (Glucose-372) - DM Control DM Control: Glucose 372 mg/dL (74-106) H 01/20/20 00:55 Finger Stick Blood Glucose 305 Finger Stick Blood Glucose 305 Insulin Dosing: Reviewed (Aspart Sliding Scale here, Uses Glimepiride, Metformin & Victoza at home) - Heart Failure/MA EF%, THOM's, B-Blockers, Diuretics: Reviewed (Patient is on FARXIGA but there are no notes stating EF or past medical history) - BP Control BP Control: Blood Pressure 128/79 Blood Pressure 109/67 Blood Pressure 109/67 Blood Pressure 123/46 Blood Pressure 141/64 Blood Pressure 142/66 Blood Pressure 132/109 Blood Pressure 140/92 If elevated: N/A - Qtc Review If Elevated: N/A - IV to PO Switch IV Medications: Reviewed (iv Toradol, & Hydromorphone) - Home Meds Home Med List reviewed: Reviewed (Meloxicam, Metformin, Victoza, G:imepiride, Farxiga, Narcan spray, Diprosone not ordered here) - Current meds Current Medication Order Review: Reviewed
[2020-01-20 13:22] LABS: COVID-19 RT-PCR UVMMC Result Negative (Negative)
[2020-01-20] MEDS: PARoxetine 20 MG TAB PO (14:07)
--- NOTE | 2020-01-20 15:52 | CHAPLAIN ---
Lani was in bed when I visited. She is very tired, she said, after not sleeping well last night because of her pain. She said the ER staff was great and she was admitted quickly, but the staff had trouble getting her pain controlled until about 4 a.m. She agreed to a nasal tube and that helped as well, she said. Lani lives in [facility] and has been in touch with family. She said her kids are frustrated that they can't visit her. I will visit tomorrow.
[2020-01-20] MEDS: ACETAMINOPHEN 1,000 MG/100 ML BTL 400 MG IVPB ×2 (16:46→23:32)
[2020-01-20] MEDS: Methadone Liquid 10 MG/ML PO (19:17)
[2020-01-21] MEDS: Ketorolac 30 MG/ML VIAL IVP ×2 (02:15→17:22)
[2020-01-21 02:17] VITALS: BP 124/84; PULSE 77; RESP 19; TEMP 35.8; O2SAT 97
[2020-01-21] MEDS: Normal Saline 1,000 ML 150 ML IV ×2 (04:51→11:12)
[2020-01-21] MEDS: Insulin Aspart 300 UNITS/3 ML PEN SC ×3 (05:32→18:00)
[2020-01-21 07:09] LABS: Abs Immature Grans 0.04 k/cumm (0.0-0.09); Absolute Basophil Count 0.02 k/cumm (0.0-0.2); Absolute Eosinophil Count 0.13 k/cumm (0.0-0.7); Absolute Monocyte Count 0.42 k/cumm (0.11-0.7); Absolute Neutrophil Count 4.43 k/cumm (1.2-6.7); Basophils % 0.3; Eosinophils % 2.1; HCT 40.5 % (36.0-46.0); HGB 14.2 g/dL (12.0-15.5); Immature Grans % 0.6 %; Lymphocytes % 19.2; Mean Corp. HGB Concentration 35.1 g/dL (32.0-36.0); Mean Corpuscular Hemoglobin 27.5 pg (27.0-33.0); Mean Corpuscular Volume 78.3 fL (80-95); Mean Platelet Volume 9.6 fL (8.0-11.0); Monocytes % 6.7; Neutrophils % 71.1; Platelet Count 207 x1000/uL (130-400); RBC 5.17 m/cumm (4.00-5.20); RBC Distribution Width 12.9 % (11.7-14.6); White Blood Cell Count 6.24 k/cumm (4.4-10.8)
[2020-01-21 07:13] LABS: Anion Gap 8.9 mmol/L (3-11); BUN 17 mg/dL (7-18); CO2 25.1 mmol/L (21.0-32.0); CREATININE 0.62 mg/dL (0.55-1.02); Calcium 7.9 mg/dL (8.5-10.1); Chloride 106 mmol/L (98-107); Glucose 210 mg/dL (74-106); Potassium 3.8 mmol/L (3.5-5.1); Sodium 140 mmol/L (136-145)
[2020-01-21 07:29] VITALS: BP 173/94; PULSE 72; RESP 19; TEMP 36.7; O2SAT 97
--- NOTE | 2020-01-21 08:10 | PDOC.CMPRO ---
- If Service Date Differs Date of service: 01/21/20 Time of Service: 08:10 Care Management Progress Note S/O:Lani was lying in bed this morning when SO met with her. She stated that she had not slept all night because her NG tube bed was so uncomfortable. She shared that her doctor had been in earlier and clamped the NG tube. She was told that if she is able to tolerate it, she could have the tube removed later in the day. SO went to visit Lani again in the afternoon and she was smiling and no longer had the NG tube in place. She stated that she was feeling much better and that she is now able to have clear liquids. She denies pain at this time. A: Lani is a 54 year old woman admitted on 01/20/20 with a small bowel obstruction P:Lani will likely discharge home with no new services. She will follow up with her PCP, surgeon and discharge plan of care. CM will continue to support Lani, her family and any discharge planning concerns.
--- NOTE | 2020-01-21 09:11 | W.PM.PROGNOT ---
Date of Service Date of service: 01/21/20 Time of Service: 09:12 Assessment and Plan Assessment and plan (1) Partial small bowel obstruction: Status: Acute Assessment and plan: walk pulm toilet clamp ngt. try to get this out today water/ice (2) Chronic pain: Status: Chronic (3) Type 2 diabetes mellitus with hyperglycemia: Status: Acute Subjective Subjective Interval history since last seen: Pt is doing well. no headaches. No CP or SOB. no productive cough. no dysuria. no leg pain or swelling. pt has been passing gas. she's had about 400cc from ngt since midnight. denies n/v. no abdmoinal pain. addendum: pt tolerating having NGT clamped adn had a BM. will d/c ngt. cont on water/ice and can have paul nicki. cont walking. Exam Resp Effort & Inspection: normal respiratory effort and able to speak in complete sentences Auscultation: clear to auscultation bilaterally Other: CTA b/l Cardio Rate: regular rate Rhythm: regular rhythm GI Inspection: striae Palpation: not soft and No ascites Auscultation: normal bowel sounds Objective Objective Clinical Data: Abnormal lab results 01/21/20 01/21/20 Range/Units 06:04 06:04 MCV 78.3 L (80-95) fL Glucose 210 H D (74-106) mg/dL Calcium 7.9 L (8.5-10.1) mg/dL Vital Signs Temperature 36.7 C 01/21/20 07:29 Temperature Source Tympanic 01/21/20 07:29 Pulse 72 01/21/20 07:29 Pulse Rhythm Regular 01/20/20 23:37 Respiratory Rate 19 01/21/20 07:29 Respiratory Effort Non-Labored 01/20/20 23:37 Respiratory Depth Normal 01/20/20 23:37 Respiratory Pattern Normal 01/20/20 23:37 Blood Pressure 173/94 H 01/21/20 07:29 Pulse Oximetry 97 01/21/20 07:29 Oxygen Delivery Method Room Air 01/21/20 07:29 Oxygen Flow Rate 0 01/21/20 07:29 Pain Level 0 01/21/20 07:29 Intake & Output 01/20/20 01/20/20 01/21/20 11:59 23:59 11:59 Intake Total 1580 / 3890 2310 / 3890 987.5 / 987.5 Output Total 2150 / 4235 2085 / 4235 1150 / 1150 Balance -570 / -345 225 / -345 -162.5 / -162.5 Weight 102.5 kg Intake: IV 1000 / 3100 2100 / 3100 987.5 / 987.5 Oral 580 / 790 210 / 790 Output: Gastric Drainage 700 / 2160 1460 / 2160 400 / 400 Left Nare 700 / 2160 1460 / 2160 400 / 400 Urine 1050 / 1675 625 / 1675 750 / 750 Emesis 400 / 400 Other: Urine Color Yellow Yellow Yellow Urine Appearance Clear Clear Clear Urine Odor Normal None Normal Emesis Description Retching Bile Voiding Methods Bedside Commode Bedside Commode Bedside Commode Laboratory Results WBC 6.24 k/cumm (4.4-10.8) 01/21/20 06:04 RBC 5.17 m/cumm (4.00-5.20) 01/21/20 06:04 Hgb 14.2 g/dL (12.0-15.5) D 01/21/20 06:04 Hct 40.5 % (36.0-46.0) 01/21/20 06:04 MCV 78.3 fL (80-95) L 01/21/20 06:04 MCH 27.5 pg (27.0-33.0) 01/21/20 06:04 MCHC 35.1 g/dL (32.0-36.0) 01/21/20 06:04 RDW 12.9 % (11.7-14.6) 01/21/20 06:04 Plt Count 207 x1000/uL (130-400) 01/21/20 06:04 MPV 9.6 fL (8.0-11.0) 01/21/20 06:04 Immature Gran % 0.6 % 01/21/20 06:04 Neutrophils % 71.1 01/21/20 06:04 Lymphocytes % 19.2 01/21/20 06:04 Monocytes % 6.7 01/21/20 06:04 Eosinophils % 2.1 01/21/20 06:04 Basophils % 0.3 01/21/20 06:04 Absolute Neutrophils 4.43 k/cumm (1.2-6.7) 01/21/20 06:04 Absolute Lymphocytes 1.20 k/cumm (1.2-3.4) 01/21/20 06:04 Absolute Monocytes 0.42 k/cumm (0.11-0.7) 01/21/20 06:04 Absolute Eosinophils 0.13 k/cumm (0.0-0.7) 01/21/20 06:04 Absolute Basophils 0.02 k/cumm (0.0-0.2) 01/21/20 06:04 PT 10.4 sec (9.3-11.0) 01/20/20 00:55 INR 1.0 (0.9-1.1) 01/20/20 00:55 APTT 30.9 sec (21.0-31.4) 01/20/20 00:55 Sodium 140 mmol/L (136-145) 01/21/20 06:04 Potassium 3.8 mmol/L (3.5-5.1) 01/21/20 06:04 Chloride 106 mmol/L (98-107) 01/21/20 06:04 Carbon Dioxide 25.1 mmol/L (21.0-32.0) 01/21/20 06:04 Anion Gap 8.9 mmol/L (3-11) 01/21/20 06:04 BUN 17 mg/dL (7-18) 01/21/20 06:04 Creatinine 0.62 mg/dL (0.55-1.02) 01/21/20 06:04 Estimated GFR/1.73 m2 >= 60.00 (mL/min/1.73m2) 01/21/20 06:04 Glucose 210 mg/dL (74-106) H D 01/21/20 06:04 Calcium 7.9 mg/dL (8.5-10.1) L 01/21/20 06:04 Total Bilirubin 0.3 mg/dL (0.2-1.0) 01/20/20 00:55 Total Bilirubin 1.0 mg/dL (0.2-1.0) 01/20/20 00:55 Conjugated Bilirubin 0.29 mg/dL (0.00-0.20) H 01/20/20 00:55 AST 31 U/L (15-37) 01/20/20 00:55 ALT 46 U/L (14-59) 01/20/20 00:55 Alkaline Phosphatase 157 U/L (46-116) H 01/20/20 00:55 Total Protein 7.7 g/dL (6.4-8.2) 01/20/20 00:55 Albumin 4.0 g/dL (3.4-5.0) 01/20/20 00:55 Lipase 58 U/L (73-393) 01/20/20 00:55 Urine Color Yellow (Yellow) 01/20/20 01:50 Urine Clarity Clear (Clear) 01/20/20 01:50 Urine pH 6.0 (5-8) 01/20/20 01:50 Ur Specific [place] <= 1.005 (1.005-1.025) 01/20/20 01:50 Urine Protein Negative mg/dL (Negative) 01/20/20 01:50 Urine Ketones 40 mg/dL (Negative) H 01/20/20 01:50 Urine Blood Large (Negative) H 01/20/20 01:50 Urine Nitrite Negative (Negative) 01/20/20 01:50 Urine Bilirubin Negative (Negative) 01/20/20 01:50 Urine Urobilinogen 0.2 EU/dL (Up TO 0.2) 01/20/20 01:50 Ur Leukocyte Esterase Negative (Negative) 01/20/20 01:50 Urine RBC 20-50 HPF (0-2) H 01/20/20 01:50 Urine WBC Negative HPF (0-5) 01/20/20 01:50 Ur Epithelial Cells Rare HPF (Negative) 01/20/20 01:50 Urine Crystals Negative HPF (Negative) 01/20/20 01:50 Urine Bacteria Rare HPF (Negative) 01/20/20 01:50 Urine Casts Negative LPF (Negative) 01/20/20 01:50 Urine Mucus Negative (Negative) 01/20/20 01:50 Urine Other Negative (Negative) 01/20/20 01:50 Ur Culture Indicated? No 01/20/20 01:50 Urine Glucose 500 mg/dL (Negative) H 01/20/20 01:50 COVID-19 PCR Negative (Negative) 01/20/20 02:08 Nasopharyn COVID-19 PCR Not Applicable 01/20/20 02:08 [facility] Test [facility] 01/20/20 02:08
[2020-01-21] MEDS: PARoxetine 20 MG TAB PO (09:22)
[2020-01-21] MEDS: Methadone 10 MG TAB PO ×2 (09:48→19:26)
[2020-01-21 09:50] VITALS: BP 138/89; PULSE 75; RESP 20; O2SAT 97
--- NOTE | 2020-01-21 11:28 | CHAPLAIN ---
Lani was in bed but uncomfortable when I visited. She still has a nasal tube in. She said it's been clamped and may be able to be removed this afternoon. She has had difficulty sleeping for two nights now because of the tube and said she is exhausted. I just don't know what to do with myself to get comfortable, she said. The phone in her room is not working so she hasn't been able to call family members. Lani said [facility] Maintenance is working on the phone.
[2020-01-21 11:54] VITALS: BP 158/81; PULSE 72; RESP 22; TEMP 36.7; O2SAT 98
[2020-01-21] MEDS: Gabapentin 600 MG TAB PO ×2 (13:32→19:26)
[2020-01-21] MEDS: ACETAMINOPHEN 1,000 MG/100 ML BTL 400 MG IVPB (14:33)
--- NOTE | 2020-01-21 15:59 | W.INDIABCONS ---
Date of service: 01/21/20 Time of Service: 15:59 Diabetes Inpatient Consult DESCRIPTION/ASSESSMENT: Diabetes Education Consult Received for pt. Lani currently NPO with partial SBO. NPO day 2. PMH: morbid obesity, IDDM. Home meds include metformin 1000 mg BID. No recent A1C. Attempted to meet with Lani today but she was sleeping. Will return tomorrow. Time Spent in Nutritional Counseling and Treatment: 0
[2020-01-21 16:24] VITALS: BP 146/91; PULSE 68; RESP 18; TEMP 36.7; O2SAT 98
[2020-01-21] MEDS: Normal Saline Flush 10 ML SYR IVP (17:25)
[2020-01-21] MEDS: Normal Saline 1,000 ML 120 ML IV (18:24)
[2020-01-21 21:02] VITALS: BP 138/79; PULSE 72; RESP 19; TEMP 37.1; O2SAT 97
[2020-01-21] MEDS: Melatonin 3 MG TAB 12 MG PO (22:06)
[2020-01-22] MEDS: Insulin Aspart 300 UNITS/3 ML PEN SC ×3 (00:22→12:33)
[2020-01-22 03:35] VITALS: BP 145/75; PULSE 64; RESP 19; TEMP 36.5; O2SAT 97
[2020-01-22 07:55] VITALS: BP 166/87; PULSE 65; RESP 19; TEMP 37.1; O2SAT 97
[2020-01-22] MEDS: Methadone 10 MG TAB PO (07:58)
[2020-01-22] MEDS: PARoxetine 20 MG TAB PO (07:59)
[2020-01-22] MEDS: Gabapentin 600 MG TAB PO (07:59)
[2020-01-22 11:15] VITALS: BP 158/81; PULSE 74; RESP 17; TEMP 37.1; O2SAT 97
--- NOTE | 2020-01-22 11:16 | NUR.NOTE ---
Nursing Note: pt had a large BM this morning, denies N/V/D and was advanced to regular diet, tolerating well at this point.
--- NOTE | 2020-01-22 11:21 | W.PM.DS.N ---
Date of service: 01/22/20 Time of Service: 11:21 DS: Diagnosis Discharge Diagnosis (1) Partial small bowel obstruction: Status: Acute (2) Chronic pain: Status: Chronic (3) Type 2 diabetes mellitus with hyperglycemia: Status: Acute Discharge Plan Disposition Patient Disposition: HOME Condition: Stable Discharge Details Chief Complaint: Abd Prob Clinical Impression: Small bowel obstruction Reason For Visit: SMALL BOWEL OBSTRUCTION Admit Date/Time: 01/20/20 01:51 Admit Provider: Gilma Fernández Attending Provider: Gilma Fernández Primary Care Provider: Jose Haile ED Provider: Aubrey Partida Hospital Course Hospital Course: This patient presented with severe crampy abdominal pain consistent with her previous small bowel obstructions. She was last admitted for similar problem in 2018. She reports she has lesser episodes intermittently that she manages by reducing her diet and using a enema. She had a CT scan of the abdomen pelvis performed that showed evidence of a partial small bowel obstruction with a transition point in the jejunum. The patient initially had difficulty with pain management but once Toradol and Ofirmev were added she had much better pain control. An NG tube was placed which only had a moderate amount of output. The day after admission her pain was improved and she had bowel movements. The NG tube was clamped and then removed later that day. Her IV infiltrated later that night. On the day of discharge the patient had not required any additional pain medications. She is tolerating a soft diet. She had had several bowel movements and passed flatus. She was therefore discharged home with the above instructions. Home Meds and New Rx's Prescriptions: Continued glimepiride 2 mg tablet 4 mg PO DAILY RF: 0 methadone 5 MG tablet 10 mg PO BID RF: 0 Victoza 3-Job 0.6 mg/0.1 mL (18 mg/3 mL) pen injector 0.6 mg SC DAILY RF: 0 betamethasone dipropionate 0.05 % ointment 1 applic TP BID RF: 0 Farxiga 5 mg tablet 10 mg PO DAILY RF: 0 Narcan 4 mg/actuation spray,non-aerosol 1 spray NAVJOT ONCE PRNRF: 0 gabapentin 600 mg tablet 600 mg PO TID RF: 0 promethazine 25 mg Tablet 25 mg PO BID PRNRF: 0 acetaminophen 500 MG tablet 1 - 2 tab PO TID PRN PRNRF: 0 metformin [Glucophage] 1,000 mg tablet 1,000 mg PO BID@0800,1700 RF: 0 paroxetine HCl 20 MG tablet 20 mg PO DAILY RF: 0 Discharge Instructions Additional Instructions: Call for worsening pain, nausea or vomiting. Take a daily stool softener such as Colace and use Miralax as needed. Keep diet soft through the weekend and then slowly advance. Keep walking. Referrals: Gilma Fernández MD [ [facility] STAFF PHYSICIAN] - (Return on 01/28 for a recheck) Activity:: Activity as Tolerated Equipment/Supplies:: No Equipment Needed Diet:: Soft, small meals Discharge Orders Discharge Orders: Discharge Order (Routine); Ordered 01/22/20 Ordered By: Gilma Fernández DS: Summary Status at Discharge Functional status at discharge: independent ambulation Overall status at discharge: patient is progressing back to baseline Mental Status: mental status grossly normal Speech and Movement: speech and movement normal Mood: congruent mood Affect: normal affect Exam Narrative Exam Narrative: No acute distress Lungs CTA Heart RRR Abdomen soft, less distended. Few bowel sounds, no tinkling. No significant tenderness. Psych Mental Status: mental status grossly normal Speech and Movement: speech and movement normal Mood: congruent mood Affect: normal affect DS: Data Vitals/I&O Vitals and I&O: Vital Signs Temperature 98.8 F 01/22/20 11:15 Temperature Source Tympanic 01/22/20 11:15 Pulse 74 01/22/20 11:15 Pulse Rhythm Regular 01/22/20 09:08 Respiratory Rate 17 01/22/20 11:15 Respiratory Effort Non-Labored 01/22/20 09:08 Respiratory Depth Normal 01/22/20 09:08 Respiratory Pattern Normal 01/22/20 09:08 Blood Pressure 158/81 H 01/22/20 11:15 Pulse Oximetry 97 01/22/20 11:15 Oxygen Delivery Method Room Air 01/22/20 11:15 Oxygen Flow Rate 0 01/22/20 11:15 Pain Level 0 01/22/20 11:15 Intake & Output 01/21/20 01/21/20 01/22/20 11:59 23:59 11:59 Intake Total 1970.0 / 5260.0 3290 / 5260.0 1979 / 1979 Output Total 2275 / 4125 1600 / 4125 1750 / 1750 Balance -305.0 / 1135.0 1690 / 1135.0 230 / 230 Intake: IV 1940.0 / 2940.0 1000 / 2940.0 1000 / 1000 Oral 30 / 2320 2290 / 2320 980 / 980 Output: Gastric Drainage 500 / 500 Left Nare 500 / 500 Urine 1775 / 3625 1600 / 3625 1750 / 1750 Other: Urine Color Yellow Yellow Yellow Urine Appearance Clear Clear Clear Urine Odor None None None Stool Size Moderate Small Large Stool Characteristics Soft Formed Formed Formed Brown Brown Gastric Occult Blood Left Nare Positive Voiding Methods Bedside Commode Bedside Commode Toilet [facility] Medical History Asthma (Chronic) Chronic low back pain (Acute) Constipation (Acute) COPD (chronic obstructive pulmonary disease) (Chronic) Depression (Chronic) Obesity (Chronic) Peptic ulcer disease (Chronic) Psoriasis (Chronic) Renal cell cancer (Acute) Restless leg (Acute) Small bowel obstruction (Acute) Surgical History H/O partial nephrectomy (Acute) S/P arthroscopic partial medial meniscectomy (Acute) S/P cholecystectomy (Acute) S/P hysterectomy (Acute) S/P small bowel resection (Acute) S/P tympanoplasty (Acute) Social History Smoking/Tobacco Use Status: Former Tobacco Use Quit Date: 07/17/19 Alcohol Intake: former Drug use: Rarely Substance use type: does not use and marijuana Household members: spouse Do you feel safe at home: Yes Do you feel safe in your relationship?: Yes
--- NOTE | 2020-01-22 15:11 | CHAPLAIN ---
Lani was feeling much better when I visited this morning. The NG tube was removed yesterday and she was able to get some sleep last night after being unable to sleep for a couple of days because of her discomfort. Lani shared some personal history, telling me about being on of 11 children. Her 88 year old mom lives in [facility], and gave up hunting three years ago. 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 The 10th anniversary of her was yesterday, which made yesterday even more stressful for her.
== END 2020-01-22 13:30 | disposition home or self-care (01) | DRG 389 ==
LOC: ER 02:16 → MS 02:38
PROVIDERS: Admitting Provider Surgery; Emergency Provider Emergency Medicine; PCP Internal Medicine; Visit Provider Surgery
DX: K56.600 Partial intestinal obstruction, unspecified as to cause (principal); Z68.41 Body mass index [BMI] 40.0-44.9, adult; G89.29 Other chronic pain; E11.65 Type 2 diabetes mellitus with hyperglycemia; Z87.19 Personal history of other diseases of the digestive system; J44.9 Chronic obstructive pulmonary disease, unspecified; E66.9 Obesity, unspecified; Z87.891 Personal history of nicotine dependence; Z71.3 Dietary counseling and surveillance
CPT/HCPCS: 36415; 71045; 80048; 80053; 83690; 96361; 96374; 96375; 96376; 99222; 99232; 99238; 99285; U0003; 74177; 81003; 81015; 82247; 82248; 85025; 85610; 85730; J0131; J1885; J2405; J3490

== ENCOUNTER → 2020-01-29 09:49 | Outpatient (BNVA) | payer MEDICARE, MEDICAID, SELFPAY | PROVIDERS: PCP Internal Medicine; Referring Provider Internal Medicine; Visit Provider Surgery | DX: K56.600 Partial intestinal obstruction, unspecified as to cause (principal); E11.9 Type 2 diabetes mellitus without complications | CPT/HCPCS: 99212; 99213 ==

== ENCOUNTER 2020-01-30 11:31 | Outpatient (CLI) | payer MEDICARE, MEDICAID, SELFPAY ==
--- NOTE | 2020-01-30 12:41 | DI.RAD_ITS ---
EXAM: RF SMALL BOWEL SERIES CLINICAL HISTORY: Evaluate small bowel,partial small bowel obstruction,k56.600 TECHNIQUE: 2D and realtime digital imaging was performed. CONTRAST MATERIAL: Oral contrast was administered. COMPARISON: No exams were available for comparison FINDINGS: The small bowel demonstrates no structural abnormalities including structure, dilation, adhesion, or mass. Transit time through the bowel was 90 minutes. No evidence of obstruction is seen. IMPRESSION: Normal small bowel. No evidence of bowel obstruction.
[2020-01-30] MEDS: Barium Sulfate 60% W/V 355 ML BTL PO (16:16)
== END 2020-01-30 11:51 ==
PROVIDERS: PCP Internal Medicine; Visit Provider Surgery
DX: K56.600 Partial intestinal obstruction, unspecified as to cause (principal)
CPT/HCPCS: 74250

== ENCOUNTER 2020-03-07 17:16 | Emergency (ER) | payer MEDICARE, MEDICAID, SELFPAY ==
[2020-03-07] VITALS (12 sets, daily range): BP systolic 115–138; BP diastolic 54–74; PULSE 75–89; RESP 10–24; TEMP 35.8; O2SAT 94–98
--- NOTE | 2020-03-07 17:26 | ED.GENADUL_ITS ---
Discharge Plan Discharge Details Primary Care Provider: Jose Haile ED Provider: Giselle Brewster Home Meds and New Rx's Prescriptions: No Action glimepiride 2 mg tablet 4 mg PO DAILY RF: 0 methadone 5 MG tablet 10 mg PO BID RF: 0 Victoza 3-Job 0.6 mg/0.1 mL (18 mg/3 mL) pen injector 0.6 mg SC DAILY RF: 0 betamethasone dipropionate 0.05 % ointment 1 applic TP BID RF: 0 Farxiga 5 mg tablet 10 mg PO DAILY RF: 0 Narcan 4 mg/actuation spray,non-aerosol 1 spray NAVJOT ONCE PRNRF: 0 gabapentin 600 mg tablet 600 mg PO TID RF: 0 promethazine 25 mg Tablet 25 mg PO BID PRNRF: 0 acetaminophen 500 MG tablet 1 - 2 tab PO TID PRN PRNRF: 0 metformin [Glucophage] 1,000 mg tablet 1,000 mg PO BID@0800,1700 RF: 0 paroxetine HCl 20 MG tablet 20 mg PO DAILY RF: 0 HPI General Date/Time Provider Initiated Documentation: 03/07/20 17:19 . Related Data Home Medications Medication Instructions Recorded Confirmed methadone 10 mg PO BID tab-cap NS 01/14/14 01/20/20 acetaminophen 1 - 2 tab PO TID PRN PRN 09/26/16 01/20/20 paroxetine HCl 20 mg PO DAILY 10/18/17 01/20/20 betamethasone dipropionate 0.05 % 1 applic TP BID 09/19/18 01/20/20 topical ointment dapagliflozin 5 mg tablet 10 mg PO DAILY 09/19/18 01/20/20 gabapentin 600 mg tablet 600 mg PO TID 09/19/18 01/20/20 liraglutide 0.6 mg/0.1 mL (18 mg/3 0.6 mg SC DAILY 09/19/18 01/20/20 mL) subcutaneous pen injector naloxone 4 mg/actuation nasal spray 1 spray NAVJOT ONCE PRN 09/19/18 01/20/20 metformin 1,000 mg tablet 1,000 mg PO BID@0800,1700 tab 09/26/18 01/20/20 glimepiride 2 mg tablet 4 mg PO DAILY tab 03/19/19 01/20/20 promethazine 25 mg PO BID PRN 07/22/19 01/20/20 Allergies Allergy/AdvReac Type Severity Reaction Status Date / Time Sulfa (Sulfonamide Allergy Intermediate Skin Rash Unverified 01/20/20 00:57 Antibiotics) baclofen AdvReac Intermediate Nausea Unverified 01/20/20 00:57 morphine AdvReac Mild Nausea Unverified 01/20/20 00:57 General ELENA: 3 PFSH Social History Smoking/Tobacco Use Status: Former Tobacco Use Quit Date: 07/17/19 Alcohol Intake: former Drug use: Rarely Substance use type: does not use and marijuana Household members: spouse Current gender identity: female Do you feel safe at home: Yes Do you feel safe in your relationship?: Yes
[2020-03-07] MEDS: Lactated Ringers 1,000 ML 125 ML IV (18:00)
[2020-03-07 18:01] LABS: Bilirubin Negative (Negative); Blood Trace-intact (Negative); Clarity Clear (Clear); Glucose >=1000 mg/dL (Negative); Ketones Negative (Negative); Leukocyte Esterase Negative (Negative); Nitrite Negative (Negative); Specific Gravity 1.015 (1.005-1.025); Urobilinogen 0.2 EU/dL (Up TO 0.2)
[2020-03-07 18:06] LABS: Absolute Basophil Count 0.04 k/cumm (0.0-0.2); Absolute Eosinophil Count 0.19 k/cumm (0.0-0.7); Absolute Lymphocyte Count 1.29 k/cumm (1.2-3.4); Absolute Monocyte Count 1.11 k/cumm (0.11-0.7); Absolute Neutrophil Count 2.91 k/cumm (1.2-6.7); Basophils % 0.7; Eosinophils % 3.4; HCT 41.1 % (36.0-46.0); HGB 14.9 g/dL (12.0-15.5); Immature Grans % 1.8 %; Lymphocytes % 22.9; Mean Corp. HGB Concentration 36.3 g/dL (32.0-36.0); Mean Corpuscular Hemoglobin 27.4 pg (27.0-33.0); Mean Corpuscular Volume 75.7 fL (80-95); Mean Platelet Volume 9.7 fL (8.0-11.0); Monocytes % 19.7; Neutrophils % 51.5; Platelet Count 190 x1000/uL (130-400); RBC 5.43 m/cumm (4.00-5.20); RBC Distribution Width 13.4 % (11.7-14.6); White Blood Cell Count 5.64 k/cumm (4.4-10.8)
[2020-03-07 18:20] LABS: ALT 23 U/L (14-59); AST 20 U/L (15-37); Albumin 3.2 g/dL (3.4-5.0); Alkaline Phosphatase 140 U/L (46-116); Anion Gap 9.2 mmol/L (3-11); BUN 9 mg/dL (7-18); Bilirubin, Total 0.6 mg/dL (0.2-1.0); CO2 26.8 mmol/L (21.0-32.0); Calcium 8.9 mg/dL (8.5-10.1); Chloride 99 mmol/L (98-107); Glucose 274 mg/dL (74-106); Lipase 363 U/L (73-393); Potassium 3.3 mmol/L (3.5-5.1); Sodium 135 mmol/L (136-145); Total Protein 6.9 g/dL (6.4-8.2)
[2020-03-07 18:43] LABS: Bacteria Negative HPF (Negative); C & S Indicated? No; Casts Negative LPF (Negative); Crystals Negative HPF (Negative); Epithelial Cells Rare HPF (Negative); Mucus Negative (Negative); Other Cells Negative (Negative); WBC 0-2 HPF (0-5)
[2020-03-07] MEDS: Ondansetron 4 MG/2 ML VIAL IVP (18:45)
[2020-03-07] MEDS: POTASSIUM CHLORIDE 20 MEQ/100 ML BAG 50 MEQ IVPB (18:52)
[2020-03-07] MEDS: Lactated Ringers 1,000 ML 1000 ML IV (19:00)
--- NOTE | 2020-03-07 19:25 | ED.GENADUL_ITS ---
Discharge Plan Disposition Patient Disposition: HOME Condition: Stable Discharge Details Chief Complaint: Abd Prob Clinical Impression: Abdominal pain, Nausea & vomiting, Hyperglycemia, Hypokalemia Primary Care Provider: Jose Haile ED Provider: Last Constantino Home Meds and New Rx's Prescriptions: No Action glimepiride 2 mg tablet 4 mg PO DAILY RF: 0 methadone 5 MG tablet 10 mg PO BID RF: 0 Victoza 3-Job 0.6 mg/0.1 mL (18 mg/3 mL) pen injector 0.6 mg SC DAILY RF: 0 Farxiga 5 mg tablet 10 mg PO DAILY RF: 0 gabapentin 600 mg tablet 600 mg PO TID RF: 0 promethazine 25 mg Tablet 25 mg PO BID PRNRF: 0 acetaminophen 500 MG tablet 1 - 2 tab PO TID PRN PRNRF: 0 metformin [Glucophage] 1,000 mg tablet 1,000 mg PO BID@0800,1700 RF: 0 paroxetine HCl 20 MG tablet 20 mg PO DAILY RF: 0 Discharge Instructions Instructions: Hypokalemia (ED), Acute Nausea and Vomiting (ED), Abdominal Pain (ED), Diabetic Hyperglycemia (ED) Additional Instructions: Please do not take your metformin for the next 48 hours. Please do take your glimepiride. Be sure to discuss your elevated blood sugar with your primary care physician. Glucose was noted to be elevated in your blood and in your urine. You may need additional diabetes medications including potentially starting insulin. Call your doctor tomorrow. Please allow for bowel rest. Please maintain a clear liquid diet today and tomorrow. Tomorrow night you may start to advance to bland soft foods. Advance diet slowly thereafter. Please contact your primary care physician to arrange follow-up. Return to the ER for any worsening or new concerning symptoms. Referrals: Jose Haile MD [Primary Care Provider] - Discharge Data Discharge Date/Time-TO BE ENTERED AT DEPARTURE: 03/07/20 20:40 Medical Decision Making 1956??54-year-old female with multiple medical problems including history of peptic ulcer disease, renal cell cancer status post nephrectomy, status post cholecystectomy, status post hysterectomy, status post small bowel resection, recently admitted for small bowel obstruction treated nonoperatively, here with diffuse abdominal pain and tenderness over the past 3 to 4 days with nausea, v omiting and loose stool. We will give Zofran 4 mg IV. Will give IV fluid bolus. Consider acute surgical process including bowel obstruction. Will obtain CT of the chest. Consider pancreatitis and will check a lipase. Given recent hospitalization and loose stool, I will check a C. difficile test should she had a bowel movement here. Of note, patient did recently have exposure to family member who had GI illness. Consider gastroenteritis. --CT the abdomen pelvis was interpreted by radiology: FINDINGS: Mild splenomegaly with the spleen measuring 13.6 cm in greatest dimension. Mild prominence to the left colon wall however this is incompletely distended and there is no significant surrounding inflammation. Some form of very early colitis could not entirely be excluded. Normal appearing solid organs. No intestinal obstruction. No obstructive uropathy. No free fluid. No free air. No inflammatory changes. IMPRESSION: 1. Equivocal findings with respect to the colon as described. 2. No other specific etiology identified for the patient's symptoms. Labs reviewed and mild hypokalemia noted. Patient to be received potassium 20 mEq IV. Elevated glucose noted with no anion gap. Results were reviewed with the patient. She received IV fluid. She is tolerating p.o. fluids. Plan to discharge with outpatient follow-up. Patient was advised to maintain bowel rest over the next couple days and this was reviewed with her. HPI General Mode of arrival: ambulatory . Date/Time Provider Initiated Documentation: 03/07/20 17:19 . Limitations to Documentation: no limitations . Information obtained by: patient . HPI Narrative: 54-year-old female with recent small bowel obstruction that was treated nonoperatively, here today with chief complaint of abdominal pain. Patient notes she has had abdominal pain with associated nausea and loose stool for the past 4 days. Pain is diffuse, severe, crampy. No modifiers. Patient denies recent antibiotic use. No fever. Related Data Home Medications Medication Instructions Recorded Confirmed methadone 10 mg PO BID tab-cap NS 01/14/14 03/07/20 acetaminophen 1 - 2 tab PO TID PRN PRN 09/26/16 03/07/20 paroxetine HCl 20 mg PO DAILY 10/18/17 03/07/20 dapagliflozin 5 mg tablet 10 mg PO DAILY 09/19/18 03/07/20 gabapentin 600 mg tablet 600 mg PO TID 09/19/18 03/07/20 liraglutide 0.6 mg/0.1 mL (18 mg/3 0.6 mg SC DAILY 09/19/18 03/07/20 mL) subcutaneous pen injector metformin 1,000 mg tablet 1,000 mg PO BID@0800,1700 tab 09/26/18 03/07/20 glimepiride 2 mg tablet 4 mg PO DAILY tab 03/19/19 03/07/20 promethazine 25 mg PO BID PRN 07/22/19 03/07/20 Allergies Allergy/AdvReac Type Severity Reaction Status Date / Time Sulfa (Sulfonamide Allergy Intermediate Skin Rash Unverified 03/07/20 17:29 Antibiotics) baclofen AdvReac Intermediate Nausea Unverified 03/07/20 17:29 morphine AdvReac Mild Nausea Unverified 03/07/20 17:29 General Stated Complaint: Abd Prob ELENA: 3 Review of Systems All systems reviewed & are unremarkable except as noted in HPI and below Constitutional Constitutional: Denies fever(s) Respiratory Respiratory: Denies cough Gastrointestinal Gastrointestinal: Reports abdominal pain, Reports loose stools and Reports nausea PFSH Medical History Asthma (Chronic) Chronic low back pain (Acute) Constipation (Acute) COPD (chronic obstructive pulmonary disease) (Chronic) Depression (Chronic) Obesity (Chronic) Peptic ulcer disease (Chronic) Psoriasis (Chronic) Renal cell cancer (Acute) Restless leg (Acute) Small bowel obstruction (Acute) Surgical History H/O partial nephrectomy (Acute) S/P arthroscopic partial medial meniscectomy (Acute) S/P cholecystectomy (Acute) S/P hysterectomy (Acute) S/P small bowel resection (Acute) S/P tympanoplasty (Acute) Social History Smoking/Tobacco Use Status: Former Tobacco Use Quit Date: 07/17/19 Alcohol Intake: former Drug use: Socially Substance use type: marijuana Household members: spouse Current gender identity: female Do you feel safe at home: Yes Do you feel safe in your relationship?: Yes Exam Const General: cooperative and no acute distress HENMT Mouth: mucous membranes dry Eyes Conjunctivae: normal conjunctivae Sclera: normal sclerae Neck Neck: trachea midline and supple Resp Auscultation: clear to auscultation bilaterally, no rales, no rhonchi and no wheezes Cardio Jugular venous pressure: no JVD Rate: regular rate and not tachycardic Rhythm: regular rhythm GI Palpation: soft, not firm, no guarding, no masses, not rigid and tender other (diffuse); with no rebound tenderness Auscultation: hyperactive bowel sounds Skin General skin exam: no rashes or lesions noted Neuro General: patient alert, patient awake, patient oriented x3 and tone normal Extrem General: no edema Psych Appearance: grossly normal Mental Status: mental status grossly normal Course Vital Signs Vital signs: Vital Signs Temperature 35.8 C L 03/07/20 17:26 Pulse 89 03/07/20 17:26 Respiratory Rate 20 03/07/20 17:26 Blood Pressure 138/74 03/07/20 17:26 Pulse Oximetry 96 03/07/20 17:26 Temperature 35.8 C L 03/07/20 17:26 Temperature Source Temporal Artery Scan 03/07/20 17:26 Pulse 89 03/07/20 17:26 Respiratory Rate 20 03/07/20 17:26 Respiratory Effort Non-Labored 03/07/20 17:32 Blood Pressure 138/74 03/07/20 17:26 Blood Pressure Position Sitting 03/07/20 17:26 Pulse Oximetry 96 03/07/20 17:26 Oxygen Delivery Method Room Air 03/07/20 17:26 Oxygen Flow Rate 0 03/07/20 17:26 Pain Level 8 03/07/20 17:26 Lab/Test Results Lab/Test Results: Laboratory Tests Range/Units 03/07/20 03/07/20 03/07/20 17:43 17:55 17:55 WBC (4.4-10.8) k/cumm 5.64 RBC (4.00-5.20) m/cumm 5.43 H Hgb (12.0-15.5) g/dL 14.9 Hct (36.0-46.0) % 41.1 MCV (80-95) fL 75.7 L MCH (27.0-33.0) pg 27.4 MCHC (32.0-36.0) g/dL 36.3 H RDW (11.7-14.6) % 13.4 Plt Count (130-400) x1000/uL 190 MPV (8.0-11.0) fL 9.7 Immature Gran % % 1.8 Neutrophils % 51.5 Lymphocytes % 22.9 Monocytes % 19.7 Eosinophils % 3.4 Basophils % 0.7 Absolute Neutrophils (1.2-6.7) k/cumm 2.91 Absolute Lymphocytes (1.2-3.4) k/cumm 1.29 Absolute Monocytes (0.11-0.7) k/cumm 1.11 H Absolute Eosinophils (0.0-0.7) k/cumm 0.19 Absolute Basophils (0.0-0.2) k/cumm 0.04 Sodium (136-145) mmol/L 135 L Potassium (3.5-5.1) mmol/L 3.3 L Chloride (98-107) mmol/L 99 Carbon Dioxide (21.0-32.0) mmol/L 26.8 Anion Gap (3-11) mmol/L 9.2 BUN (7-18) mg/dL 9 Creatinine (0.55-1.02) mg/dL 0.70 Estimated GFR/1.73 m2 (mL/min/1.73m2) >= 60.00 Glucose (74-106) mg/dL 274 H Calcium (8.5-10.1) mg/dL 8.9 Total Bilirubin (0.2-1.0) mg/dL 0.6 AST (15-37) U/L 20 ALT (14-59) U/L 23 Alkaline Phosphatase (46-116) U/L 140 H Total Protein (6.4-8.2) g/dL 6.9 Albumin (3.4-5.0) g/dL 3.2 L Lipase (73-393) U/L 363 Urine Color (Yellow) Yellow Urine Clarity (Clear) Clear Urine pH (5-8) 6.0 Ur Specific [place] (1.005-1.025) 1.015 Urine Protein (Negative) mg/dL Negative Urine Ketones (Negative) mg/dL Negative Urine Blood (Negative) Trace-intact H Urine Nitrite (Negative) Negative Urine Bilirubin (Negative) Negative Urine Urobilinogen (Up TO 0.2) EU/dL 0.2 Ur Leukocyte Esterase (Negative) Negative Urine RBC (0-2) HPF 3-5 H Urine WBC (0-5) HPF 0-2 Ur Epithelial Cells (Negative) HPF Rare Urine Crystals (Negative) HPF Negative Urine Bacteria (Negative) HPF Negative Urine Casts (Negative) LPF Negative Urine Mucus (Negative) Negative Urine Other (Negative) Negative Ur Culture Indicated? No Urine Glucose (Negative) mg/dL >=1000 H
--- NOTE | 2020-03-07 19:45 | DI.CT_ITS ---
EXAM: CT ABDOMEN PELVIS W CLINICAL HISTORY: abdominal pain TECHNIQUE: Imaging Protocol: Axial computed tomography images with coronal and sagittal reformatted images were created and reviewed CONTRAST MATERIAL: Intravenous: Omnipaque 350 Contrast volume:100 mL Oral: No COMPARISON: CT CT ABDOMEN PELVIS W from 01/20/2020 FINDINGS: ABDOMEN: Lung Bases: Normal where visualized. Liver: Fatty infiltration. No measurable mass. 19.5 cm in length. Portal, Superior Mesenteric, and Splenic Veins: Unremarkable. Gallbladder and Biliary Tract: Status post cholecystectomy. No biliary ductal dilatation. Pancreas: Normal density, no abnormal calcifications or inflammatory process. Spleen: Normal. 13.5 cm in length. Adrenals: No masses seen. Kidneys: Normal size, contour and axis. Nonobstructing stone in the lower pole of the left kidney. L eft renal cortical scarring. No masses seen. Abdominal Aorta: Abdominal portion non-dilated. Bowel: No evidence of obstruction. Mild apparent thickening of the wall of the sigmoid colon with mi ld increased attenuation in the surrounding fat suspicious for an inflammatory or infectious colitis. The appendix measures up to 0.8 cm in diameter but no inflammatory changes are seen to suggest an a cute appendicitis. No appendicoliths is seen. Peritoneal Cavity: No ascites, collection or mesenteric inflammatory response. Lymph Nodes: Within normal limits. Bones: Degenerative changes. Soft Tissues: Small fat containing supraumbilical midline anterior abdominal wall hernia. PELVIS: Bladder: Symmetric distention, no gross wall thickening. Reproductive Organs: Unremarkable as visualized. Lymph Nodes: Within normal limits. Bones: Degenerative changes. IMPRESSION: 1. Mild wall thickening and pericolonic inflammatory changes in the sigmoid colon suggesting inflamma tory infectious colitis. 2. Hepatosplenomegaly. Hepatic steatosis. RADIATION DOSE DELIVERED: Total DLP DATA REPOSITORY: All CT scans at this facility are submitted to the National Radiology Data Registry (NRDR) Dose Index Registry (DIR) with the [employer] (ACR). RADIATION OPTIMIZATION: All CT scans at this facility use at least one of these dose optimization te chniques: automated exposure control; mA and/or kV adjustment per patient size (includes targeted exa ms where dose is matched to clinical indication); or iterative reconstruction.
[2020-03-07] MEDS: Omnipaque 350 MG/ML 100 ML BTL IJ (19:51)
[2020-03-07] MEDS: Normal Saline - Diluent 50 ML VIAL IV (19:52)
[2020-03-07] MEDS: Normal Saline Flush 10 ML SYR IVP (19:56)
--- NOTE | 2020-03-07 20:07 | DI.VRAD_ITS ---
PROCEDURE INFORMATION: Exam: CT Abdomen And Pelvis With Contrast Exam date and time: 03/07/2020 7:48 PM Age: 54 years old Clinical indication: Abdominal pain; Prior surgery; Surgery date: 6+ months; Surgery type: Partial nephrectomy; Patient HX: Lower and periumbilical pain TECHNIQUE: Imaging protocol: Computed tomography of the abdomen and pelvis with intravenous contrast. Radiation optimization: All CT scans at this facility use at least one of these dose optimization techniques: automated exposure control; mA and/or kV adjustment per patient size (includes targeted exams where dose is matched to clinical indication); or iterative reconstruction. Contrast material: OMNIPAQUE 350; Contrast volume: 100 ml; Contrast route: INTRAVENOUS (IV); COMPARISON: CT ABDOMEN PELVIS W 01/20/2020 1:15 AM FINDINGS: Mild splenomegaly with the spleen measuring 13.6 cm in greatest dimension. Mild prominence to the left colon wall however this is incompletely distended and there is no significant surrounding inflammation. Some form of very early colitis could not entirely be excluded. Normal appearing solid organs. No intestinal obstruction. No obstructive uropathy. No free fluid. No free air. No inflammatory changes. IMPRESSION: 1. Equivocal findings with respect to the colon as described. 2. No other specific etiology identified for the patient's symptoms. Dictated and Authenticated by: Bryant Mello MD. Ordering:ROBERT Ni MD
[2020-03-07] MEDS: Ketorolac 15 MG/ML VIAL IVP (20:19)
[2020-03-07] MEDS: Potassium Chloride 20 MEQ TABCR PO (20:23)
--- NOTE | 2020-03-07 20:43 | NUR.NOTE ---
Nursing Note: REFERAL SENT B TO [facility]
== END 2020-03-07 20:40 | disposition home or self-care (01) ==
PROVIDERS: Emergency Provider Student in an Organized Health Care Education/Training Program; PCP Internal Medicine
DX: E87.6 Hypokalemia (principal); R10.84 Generalized abdominal pain; R11.2 Nausea with vomiting, unspecified; E11.65 Type 2 diabetes mellitus with hyperglycemia; Z79.84 Long term (current) use of oral hypoglycemic drugs; J44.9 Chronic obstructive pulmonary disease, unspecified; Z87.891 Personal history of nicotine dependence
CPT/HCPCS: 36415; 80053; 83690; 96361; 96365; 96366; 96375; 99285; 74177; 81003; 81015; 85025; 99284; J1885; J2405; J3480; J3490

== ENCOUNTER 2021-02-18 17:19 | Outpatient (REF) | payer MEDICARE, MEDICAID, SELFPAY ==
[2021-02-18 21:19] LABS: Anion Gap 10.8 mmol/L (3-11); BUN 10 mg/dL (7-18); CO2 27.2 mmol/L (21.0-32.0); CREATININE 0.9 mg/dL (0.55-1.02); Calculated LDL 44 mg/dL (<100); Chloride 100 mmol/L (98-107); Cholesterol 116 mg/dL (<200); Glucose 294 mg/dL (74-106); HDL Cholesterol 57 mg/dL (40-60); Potassium 4.6 mmol/L (3.5-5.1); Sodium 138 mmol/L (136-145); Triglyceride 76 mg/dL (<150)
== END 2021-02-18 17:20 | disposition home or self-care (01) ==
LOC: NCHCN 17:19
PROVIDERS: PCP Internal Medicine; Visit Provider Internal Medicine
DX: C64.9 Malignant neoplasm of unspecified kidney, except renal pelvis (principal); F32.9 Major depressive disorder, single episode, unspecified; G57.10 Meralgia paresthetica, unspecified lower limb; E11.9 Type 2 diabetes mellitus without complications; M54.5 Low back pain; G89.29 Other chronic pain; E66.9 Obesity, unspecified
CPT/HCPCS: 80048; 80061

== ENCOUNTER 2021-02-24 01:32 | Outpatient (CLI) | payer MEDICARE, MEDICAID, SELFPAY ==
--- NOTE | 2021-02-24 | DI.MAMMO_ITS ---
Exam(s) MAMMO SCREENING EXAM: MAMMO SCREENING CLINICAL HISTORY: SCREENING, Z12.39 TECHNIQUE: Mammograms were interpreted according to the usual protocol including computer analysis w [employer] CAD system, tomosynthesis and C-view imaging. COMPARISON: 2013 FINDINGS: The breasts are composed of scattered fibroglandular densities, Breast Density category B. No suspicious masses or suspicious microcalcifications are seen. No skin thickening or abnormal axillary lymph nodes are seen. There has been no significant change from prior exams. IMPRESSION: BI-RADS Category 1, Negative mammogram Yearly screening mammography is recommended. Breast Density - Category B, scattered fibroglandular densities. A negative radiographic report should not delay biopsy if a dominant or clinically suspicious mass is present. Up to ten percent of cancers are not identified on mammography. A negative report may reinforce clinical impression. Adenosis and dense breasts may obscure an underlying neoplasm. False positive reports average 6 to 10%. Patient will receive a letter notifying them of these results.
== END 2021-02-24 01:52 ==
PROVIDERS: PCP Internal Medicine; Visit Provider Internal Medicine
DX: Z12.31 Encounter for screening mammogram for malignant neoplasm of breast (principal); R92.8 Other abnormal and inconclusive findings on diagnostic imaging of breast
CPT/HCPCS: 77063; 77067

== ENCOUNTER 2021-11-10 18:22 | Emergency (ER) | payer MEDICARE, MEDICAID, SELFPAY ==
[2021-11-10 18:29] VITALS: BP 135/61; PULSE 81; RESP 16; TEMP 36.7; O2SAT 97
--- NOTE | 2021-11-10 19:00 | DI.RAD_ITS ---
Exam(s) XR PELVIS AP EXAM: XR PELVIS AP CLINICAL HISTORY: fall, pain right. TECHNIQUE: 2D digital imaging was performed. One view is obtained. COMPARISON: No exams were available for comparison FINDINGS: BONES: No acute fracture is present. No bony destructive lesion is seen. JOINTS: No dislocation present. No joint space narrowing is present. SOFT TISSUE: Normal. IMPRESSION: Unremarkable radiographs of the pelvis. DATA REPOSITORY: RADIATION DOSE DELIVERED:
--- NOTE | 2021-11-10 19:00 | DI.RAD_ITS ---
Exam(s) XR CHEST 2V PA LATERAL EXAM: XR CHEST 2V PA LATERAL CLINICAL HISTORY: fall, right side pain TECHNIQUE: 2D digital imaging was performed of the chest. Two images were obtained. PA and lateral views were obtained. COMPARISON: CR,XR XR PORTABLE CHEST AP POST LINE from 01/20/2020 FINDINGS: MEDIASTINUM: Normal. HEART: Normal. PULMONARY VASCULATURE: Normal. LUNGS: Clear. PLEURAL SPACE: No pleural effusion or pneumothorax. BONE:Within normal limits for the patient's age. OTHER FINDINGS:Normal. IMPRESSION: No acute pulmonary findings. DATA REPOSITORY: RADIATION DOSE DELIVERED:
--- NOTE | 2021-11-10 19:00 | DI.RAD_ITS ---
Exam(s) XR FOOT RT COMPLETE EXAM: XR FOOT RT COMPLETE CLINICAL HISTORY: fall, inversion, pain dorsal. TECHNIQUE: 2D digital imaging was performed of the right foot. Three images were obtained. AP, obl ique and lateral views were obtained. COMPARISON: No exams were available for comparison FINDINGS: BONES: No acute fracture is present. No bony destructive lesion is seen. JOINTS: No dislocation present. Mild degenerative changes are seen in the foot. SOFT TISSUE: Normal. IMPRESSION: No acute fracture or dislocation. DATA REPOSITORY: RADIATION DOSE DELIVERED:
--- NOTE | 2021-11-10 19:00 | DI.RAD_ITS ---
Exam(s) XR ANKLE RT COMPLETE EXAM: XR ANKLE RT COMPLETE CLINICAL HISTORY: pain fall. TECHNIQUE: 2D digital imaging was performed of the right ankle. Three images were obtained. AP, la teral and oblique views were obtained. COMPARISON: No exams were available for comparison FINDINGS: BONES: No acute fracture is present. No bony destructive lesion is seen. There is a small enthesophy te at the Achilles insertion site. JOINTS: The ankle mortise is normally aligned. SOFT TISSUE: Normal. IMPRESSION: No acute fracture or dislocation. DATA REPOSITORY: RADIATION DOSE DELIVERED:
[2021-11-10] MEDS: Acetaminophen 325 MG TAB 650 MG PO (19:08)
--- NOTE | 2021-11-10 19:09 | ED.GENADUL_ITS ---
Discharge Plan Disposition Patient Disposition: STILL A PATIENT Discharge Details Chief Complaint: Orthopedic Primary Care Provider: Jose Haile ED Provider: Last Constantino Home Meds and New Rx's Prescriptions: No Action glimepiride 2 mg tablet 4 mg PO DAILY 0RF methadone 5 MG tablet 10 mg PO BID 0RF Victoza 3-Job 0.6 mg/0.1 mL (18 mg/3 mL) pen injector 0.6 mg SC DAILY 0RF gabapentin 600 mg tablet 600 mg PO TID 0RF Rx Instructions: 2 cap in morning Farxiga 5 mg tablet 5 mg PO DAILY 0RF Flovent HFA 110 mcg/actuation HFA aerosol inhaler 2 puff inhalation BID 0RF Atrovent HFA 17 mcg/actuation HFA aerosol inhaler 2 puff inhalation BID PRN0RF ipratropium-albuterol 0.5 mg-3 mg(2.5 mg base)/3 mL solution for nebulization 3 ml inhalation QID PRN0RF fluticasone propionate 250 mcg/actuation blister with device 1 inh inhalation BID 0RF promethazine 25 mg Tablet 25 mg PO BID PRN0RF acetaminophen 500 MG tablet 1 - 2 tab PO TID PRN PRN0RF metformin [Glucophage] 1,000 mg tablet 1,000 mg PO BID@0800,1700 0RF paroxetine HCl 20 MG tablet 40 mg PO DAILY 0RF bupropion HCl 150 mg tablet extended release 24 hr 150 mg PO DAILY 0RF Label Comments: TAKE ONE TABLET BY MOUTH EVERY DAY Medical Decision Making 1921??56-year-old female here after mechanical trip and fall having landed on her right side with pain in her right dorsal proximal foot as well as right ankle, also with tenderness right medial knee and over her medial patella inferiorly, patient also with tenderness right iliac crest and right paraspinal back most focal over right posterior ribs. Patient is saturating well no respiratory distress with clear lung sounds. Abdominal exam is benign. She did not hit her head during this fall. Cervical spine with full range of motion and nontender. Considered fracture of the proximal foot as well as ankle. Consider patellar fracture. Plan to obtain x-ray imaging. I also include x-ray of her pelvis given tenderness over iliac crest and chest x-ray to assess for pneumothorax or rib fracture. Patient was offered Tylenol and ibuprofen for analgesia. HPI General Date/Time Provider Initiated Documentation: 11/10/21 18:28 . Limitations to Documentation: no limitations . Information obtained by: patient . HPI Narrative: 56-year-old female presents with chief complaint of right foot pain after fall. Patient notes 45 minutes prior to arrival she tripped and fell on on uneven marian and fell and landed on her right side. During the fall she notes she injured her foot/ankle and also impacted her right hip. Pain in her foot is located proximally and dorsally. Pain is moderate to severe and worse when she inverts her ankle. Pain in her right hip is localized to iliac crest. Patient notes pain in her right mid to upper back paraspinally. Patient denies associated head trauma. No loss of consciousness. No neck pain. She has no chest pain or abdominal pain. Related Data Home Medications Medication Instructions Recorded Confirmed methadone 5 mg tablet 10 mg PO BID tab-cap NS 01/14/14 11/10/21 acetaminophen 500 mg tablet 1 - 2 tab PO TID PRN PRN 09/26/16 11/10/21 paroxetine HCl 20 mg tablet 40 mg PO DAILY 10/18/17 11/10/21 gabapentin 600 mg tablet 600 mg PO TID 09/19/18 03/07/20 liraglutide 0.6 mg/0.1 mL (18 mg/3 0.6 mg SC DAILY 09/19/18 03/07/20 mL) subcutaneous pen injector (Victoza 3-Job) metformin 1,000 mg tablet 1,000 mg PO BID@0800,1700 tab 09/26/18 11/10/21 (Glucophage) glimepiride 2 mg tablet 4 mg PO DAILY tab 03/19/19 11/10/21 promethazine 25 mg tablet 25 mg PO BID PRN 07/22/19 11/10/21 dapagliflozin 5 mg tablet (Farxiga) 5 mg PO DAILY tab 10/18/21 11/10/21 fluticasone propionate 110 2 puff INHALATION BID 10/18/21 mcg/actuation HFA aerosol inhaler (Flovent HFA) fluticasone propionate 250 1 inh INHALATION BID 10/18/21 mcg/actuation blister powder for inhalation ipratropium 0.5 mg-albuterol 3 mg 3 ml INHALATION QID PRN 10/18/21 (2.5 mg base)/3 mL nebulization soln ipratropium bromide 17 2 puff INHALATION BID PRN g 10/18/21 mcg/actuation HFA aerosol inhaler (Atrovent HFA) bupropion HCl 150 mg 24 hr tablet, 150 mg PO DAILY 11/10/21 11/10/21 extended release Allergies Allergy/AdvReac Type Severity Reaction Status Date / Time Sulfa (Sulfonamide Allergy Intermediate Skin Rash Unverified 11/10/21 18:36 Antibiotics) baclofen AdvReac Intermediate Nausea Unverified 11/10/21 18:36 morphine AdvReac Mild Nausea Unverified 11/10/21 18:36 General Stated Complaint: Orthopedic ELENA: 3 Review of Systems Cardiovascular Cardiovascular: Denies dyspnea Respiratory Respiratory: Denies dyspnea Gastrointestinal Gastrointestinal: Denies abdominal pain Musculoskeletal Musculoskeletal: Reports as per HPI Neurologic Neurologic: Reports as per HPI PFSH All Active Problems (Updated 04/07/20 @ 00:01 by KIM STODDARD) Partial small bowel obstruction (Acute) Chronic pain (Chronic) Hyperglycemia (Chronic) Type 2 diabetes mellitus with hyperglycemia (Acute) Quadriceps tendinitis (Acute 08/22/17) Left lateral epicondylitis (Acute 06/27/17) Bilateral carpal tunnel syndrome (Acute 06/27/17) Bilateral knee pain (Chronic) Small bowel obstruction (Acute) Medical History (Updated 04/07/20 @ 00:01 by KIM STODDARD) Asthma Chronic low back pain Constipation COPD (chronic obstructive pulmonary disease) Depression Obesity Peptic ulcer disease Psoriasis Renal cell cancer Restless leg Small bowel obstruction Surgical History H/O partial nephrectomy S/P arthroscopic partial medial meniscectomy S/P cholecystectomy S/P hysterectomy S/P small bowel resection S/P tympanoplasty Social History Smoking/Tobacco Use Status: Former Tobacco Use Quit Date: 07/17/19 Smoking risk assessment performed?: Yes Alcohol Intake: former Drug use: Socially Substance use type: marijuana Household members: spouse Current gender identity: female Do you feel safe at home: Yes Do you feel safe in your relationship?: Yes Exam Const General: cooperative and no acute distress HENMT Head: normocephalic and atraumatic Mouth: moist mucous membranes Eyes EOM: EOM intact bilaterally Neck Neck: full ROM and nontender Resp Auscultation: clear to auscultation bilaterally, no rales, no rhonchi and no wheezes Cardio Rate: regular rate and not tachycardic Rhythm: regular rhythm GI Palpation: soft, not firm, no guarding, no masses, not rigid and nontender Back/Spine/Pelvis Thoracic/Lumbar Spine: paraspinal tenderness (right lumbar and thoracic), No thoracic spinal tenderness and No lumbar spinal tenderness Pelvis: no unilateral elevation of iliac crest and other (ttp over rt liac crest, no bruise) Coccyx: other (ttp over rt liac crest, no bruise) Skin General skin exam: no rashes or lesions noted Neuro General: patient alert, patient awake, patient oriented x3 and tone normal Extrem General: no edema Right lower extremity: hip/thigh Details: Negative for no tenderness, knee Details: tenderness Location: of the patella and of the proximal tibia, lower leg Details: Negative for no tenderness, ankle Details: tenderness Location: of the lateral malleolus and of the anterior talofibular ligament and foot Details: tenderness Location: of the dorsal foot Location: proximally; Negative for no ecchymosis Psych Appearance: grossly normal Mental Status: mental status grossly normal Course Vital Signs Vital signs: Vital Signs Temperature 36.7 C 11/10/21 18:29 Pulse 81 11/10/21 18:29 Respiratory Rate 16 11/10/21 18:29 Blood Pressure 135/61 11/10/21 18:29 Pulse Oximetry 97 11/10/21 18:29 Temperature 36.7 C 11/10/21 18:29 Temperature Source Skin 11/10/21 18:29 Pulse 81 11/10/21 18:29 Respiratory Rate 16 11/10/21 18:29 Respiratory Effort 11/10/21 18:42 Blood Pressure 135/61 11/10/21 18:29 Blood Pressure Position Supine 11/10/21 18:29 Pulse Oximetry 97 11/10/21 18:29 Oxygen Delivery Method Room Air 11/10/21 18:29 Oxygen Flow Rate 0 11/10/21 18:29 Pain Level 9 11/10/21 18:44
--- NOTE | 2021-11-10 19:15 | DI.RAD_ITS ---
Exam(s) XR KNEE RT 4V AP,LAT,VASU,PAT EXAM: XR KNEE RT 4V AP,LAT,VASU,PAT CLINICAL HISTORY: pain, fall. TECHNIQUE: 2D digital imaging was performed of the right knee. Four views obtained. AP, lateral, Me rchant and PA tunnel views were obtained. COMPARISON: CR KNEES BILAT AP PA UP LATS from 06/27/2017 FINDINGS: BONES: No acute fracture is present. No bony destructive lesion is seen. There is a small enthesophyt e at the superior patella. JOINTS: The knee is normally aligned. No joint effusion is seen. Minimal degenerative changes are see n at the patellofemoral joint. SOFT TISSUE: Normal. IMPRESSION: No acute fracture or dislocation. DATA REPOSITORY: RADIATION DOSE DELIVERED:
--- NOTE | 2021-11-10 20:12 | DI.VRAD_ITS ---
PROCEDURE INFORMATION: Exam: XR Pelvis Exam date and time: 11/10/2021 7:31 PM Age: 56 years old Clinical indication: Other: Fall, pain right TECHNIQUE: Imaging protocol: XR pelvis. Views: 1 or 2 view. COMPARISON: CT ABDOMEN PELVIS W 03/07/2020 7:44 PM FINDINGS: Bones/joints: Unremarkable. No acute fracture. Soft tissues: Unremarkable. IMPRESSION: No acute findings. Dictated and Authenticated by: Jahaira Quinones MD. Ordering:ROBERT Ni MD
--- NOTE | 2021-11-10 20:13 | DI.VRAD_ITS ---
PROCEDURE INFORMATION: Exam: XR Left Knee Exam date and time: 11/10/2021 7:33 PM Age: 56 years old Clinical indication: Other: Pain, fall TECHNIQUE: Imaging protocol: XR Left knee. Views: 4 or more views. COMPARISON: CR KNEES BILAT AP PA UP LATS 06/27/2017 2:40 PM FINDINGS: Bones/joints: No acute fracture. There is a small spur at the quadriceps insertion on the patella. Minimal degenerative spurring is present at the patellofemoral articulation. Soft tissues: Normal. IMPRESSION: No acute findings. Dictated and Authenticated by: Jahaira Quinones MD. Ordering:ROBERT Ni MD
[2021-11-10] MEDS: Ibuprofen 600 MG TAB (20:23)
--- NOTE | 2021-11-10 20:25 | DI.VRAD_ITS ---
PROCEDURE INFORMATION: Exam: XR Right Ankle Exam date and time: 11/10/2021 7:35 PM Age: 56 years old Clinical indication: Other: Pain fall TECHNIQUE: Imaging protocol: XR Right ankle. Views: 3 or more views. COMPARISON: CR XR KNEE RT 4V AP,LAT,VASU,PAT 11/10/2021 7:33 PM FINDINGS: Bones/joints: The distal fibula appears mildly heterogeneous. No acute fracture or discrete lesion is identified. A spur is present at the Achilles insertion on the calcaneus. Soft tissues: Normal. IMPRESSION: 1. No acute fracture identified. 2. Mildly heterogeneous appearance of the distal fibula, possibly due to a remote injury. Dictated and Authenticated by: Jahaira Quinones MD. Ordering:ROBERT iN MD
--- NOTE | 2021-11-10 20:33 | DI.VRAD_ITS ---
PROCEDURE INFORMATION: Exam: XR Right Foot Exam date and time: 11/10/2021 7:39 PM Age: 56 years old Clinical indication: Other: Fall, inversion, pain dorsal TECHNIQUE: Imaging protocol: XR Right foot. Views: 3 or more views. COMPARISON: CR XR ANKLE RT COMPLETE 11/10/2021 7:35 PM FINDINGS: Bones/joints: No acute fracture is identified. Degenerative changes are present at the tarsometatarsal articulations and the 1st metatarsophalangeal joint with some questionable subchondral cystic changes or less likely erosive changes. Soft tissues: Normal. IMPRESSION: No acute findings. Dictated and Authenticated by: Jahaira Quinones MD. Ordering:ROBERT Ni MD
--- NOTE | 2021-11-10 20:33 | W.EDPROG ---
Date of service: 11/10/21 Time of Service: 20:00 Medical Decision Making Received signout from Dr. Constantino. Please see his note regarding details of the initial presentation, exam and plan of care. Patient's x-rays: AP pelvis no acute findings; left knee no acute fracture, bone spur present. Minimal degenerative spurring is present; Right ankle no acute fracture. Mildly heterogeneous appearance of the distal fibula; right foot no acute findings; chest x-ray no acute findings. Results discussed with patient. Placed in walking boot for comfort. She may liberalize her movement ad paul. Stable and appropriate discharge. Sign Out Sign Out Data: Sign Out Comment: Knee xray, pelvs xray negative. Followup xray foot/ankle and cxr. Last updated by Last Constantino MD at 11/10/21 20:18 Discharge Plan Disposition Patient Disposition: HOME Condition: Improving Discharge Details Clinical Impression: Strain of ankle, right Primary Care Provider: Jose Haile ED Provider: Justice Coyne Home Meds and New Rx's Prescriptions: Continued glimepiride 2 mg tablet 4 mg PO DAILY 0RF methadone 5 MG tablet 10 mg PO BID 0RF Victoza 3-Job 0.6 mg/0.1 mL (18 mg/3 mL) pen injector 0.6 mg SC DAILY 0RF gabapentin 600 mg tablet 600 mg PO TID 0RF Rx Instructions: 2 cap in morning Farxiga 5 mg tablet 5 mg PO DAILY 0RF Flovent HFA 110 mcg/actuation HFA aerosol inhaler 2 puff inhalation BID 0RF Atrovent HFA 17 mcg/actuation HFA aerosol inhaler 2 puff inhalation BID PRN0RF ipratropium-albuterol 0.5 mg-3 mg(2.5 mg base)/3 mL solution for nebulization 3 ml inhalation QID PRN0RF fluticasone propionate 250 mcg/actuation blister with device 1 inh inhalation BID 0RF promethazine 25 mg Tablet 25 mg PO BID PRN0RF acetaminophen 500 MG tablet 1 - 2 tab PO TID PRN PRN0RF metformin [Glucophage] 1,000 mg tablet 1,000 mg PO BID@0800,1700 0RF paroxetine HCl 20 MG tablet 40 mg PO DAILY 0RF bupropion HCl 150 mg tablet extended release 24 hr 150 mg PO DAILY 0RF Label Comments: TAKE ONE TABLET BY MOUTH EVERY DAY Discharge Instructions Instructions: Ankle Sprain (ED), Muscle Strain (ED) Additional Instructions: You may have increased muscular soreness tomorrow may develop some slight bruising. Elevate above the level of the heart to reduce pain and swelling in the leg. Ice 20 minutes at a time to reduce discomfort. May continue your regular medications including Tylenol as needed for pain. May wear walking boot as needed for comfort up to 5 to 7 days time. Remove at bedtime and while at rest. Discharge Data Discharge Date/Time-TO BE ENTERED AT DEPARTURE: 11/10/21 20:55
--- NOTE | 2021-11-10 20:36 | DI.VRAD_ITS ---
PROCEDURE INFORMATION: Exam: XR Chest Exam date and time: 11/10/2021 7:56 PM Age: 56 years old Clinical indication: Other: Fall, right side pain TECHNIQUE: Imaging protocol: XR of the chest. Views: 2 views. COMPARISON: CR XR PORTABLE CHEST AP POST LINE 01/20/2020 5:55 AM FINDINGS: Lungs: Unremarkable. No consolidation. Pleural spaces: Unremarkable. No pleural effusion. No pneumothorax. Heart/Mediastinum: Unremarkable. No cardiomegaly. Bones/joints: Unremarkable. IMPRESSION: No acute findings. Dictated and Authenticated by: Jahaira Quinones MD. Ordering:ROBERT Ni MD
[2021-11-10 20:45] VITALS: BP 148/78; PULSE 71; RESP 20; TEMP 36.3; O2SAT 99
--- NOTE | 2021-11-16 11:57 | NUR.NOTE ---
Nursing Note: Accessed patient record to obtain provider notes for [facility]. Linda Escobar
== END 2021-11-10 20:55 | disposition home or self-care (01) ==
PROVIDERS: Emergency Provider Emergency Medicine; PCP Internal Medicine
DX: S96.811A Strain of other specified muscles and tendons at ankle and foot level, right foot, initial encounter (principal); M25.561 Pain in right knee; M25.551 Pain in right hip; R07.89 Other chest pain; X58.XXXA Exposure to other specified factors, initial encounter
CPT/HCPCS: 29515; 99284; 71046; 72170; 73564; 73610; 73630; 99283

== ENCOUNTER 2021-12-01 11:33 | Outpatient (CLI) | payer MEDICARE, MEDICAID, SELFPAY ==
--- NOTE | 2021-12-01 10:30 | DI.RAD_ITS ---
Exam(s) XR ELBOW RT LIMITED EXAM: XR ELBOW RT LIMITED CLINICAL HISTORY: eval anterior swelling and pain TECHNIQUE: COMPARISON: No exams were available for comparison FINDINGS: Three views were obtained. There is no evidence of an elbow joint effusion or hemarthrosis. No bony abnormality seen. IMPRESSION: RADIATION DOSE DELIVERED: Total DLP
== END 2021-12-01 11:34 | disposition home or self-care (01) ==
LOC: DIORS 11:33
PROVIDERS: PCP Internal Medicine; Referring Provider Internal Medicine; Visit Provider Student in an Organized Health Care Education/Training Program
DX: R22.31 Localized swelling, mass and lump, right upper limb; G56.03 Carpal tunnel syndrome, bilateral upper limbs
CPT/HCPCS: 99213; 73070

== ENCOUNTER 2021-12-14 01:55 | Outpatient (CLI) | payer MEDICARE, MEDICAID, SELFPAY ==
--- NOTE | 2021-12-14 10:32 | DI.MRI_ITS ---
Exam(s) MR UPPER EXTREMITY RT WO EXAM: MR UPPER EXTREMITY RT WO CLINICAL HISTORY: PAIN,mass of forearm, r22.31. TECHNIQUE: Multiplanar multisequence MRI was performed. CONTRAST MATERIAL: Noncontrast COMPARISON: None. FINDINGS: Large field of view including elbow through wrist. This limits detail the wrist and elbow. The exam is limited by patient motion. There is a 9 millimeter synovial cyst or ganglion located at the ventral, lateral aspect of the dista l radius with communication with the radial carpal joint. No tendon abnormalities are seen. The muscl e signal is normal. There is no fluid collection or mass. The marrow signal is normal. IMPRESSION: 9 millimeters synovial cyst or ganglion at the ventral lateral radial carpal joint. DATA REPOSITORY:
== END 2021-12-14 02:15 ==
PROVIDERS: PCP Internal Medicine; Visit Provider Student in an Organized Health Care Education/Training Program
DX: R22.31 Localized swelling, mass and lump, right upper limb (principal); M79.631 Pain in right forearm; M71.331 Other bursal cyst, right wrist; M67.431 Ganglion, right wrist
CPT/HCPCS: 73218

== ENCOUNTER → 2021-12-26 14:43 | Outpatient (BNVA) | payer MEDICARE, MEDICAID, SELFPAY | PROVIDERS: PCP Internal Medicine; Referring Provider Internal Medicine; Visit Provider Student in an Organized Health Care Education/Training Program | DX: R22.31 Localized swelling, mass and lump, right upper limb (principal); M25.521 Pain in right elbow; G56.03 Carpal tunnel syndrome, bilateral upper limbs | CPT/HCPCS: 99213 ==

== ENCOUNTER 2021-12-28 02:04 | Outpatient (CLI) | payer MEDICARE, MEDICAID, SELFPAY ==
[2021-12-28 13:47] LABS: HGB 14.2 g/dL (11.2-15.7); MCH 26.2 pg (27.0-33.0); MCV 80 fL (80-95); MPV 9.8 fL (8.0-11.0); Platelet Count 238 10^3/uL (130-400); RBC 5.41 10^6/uL (3.93-5.22); RDW 12.8 % (11.7-14.6); RDW-SD 35.9 fL; WBC 7.84 10^3/uL (4.4-10.8)
[2021-12-28 13:54] LABS: ESR 11 mm/hr (0-30)
[2021-12-28 15:18] LABS: Hemoglobin A1C 7.9 % (<5.7)
[2021-12-28 15:36] LABS: Anion Gap 10.4 mmol/L (3-11); BUN 12 mg/dL (7-18); C-Reactive Protein 0.42 mg/dL (0.0-0.3); CO2 25.6 mmol/L (21.0-32.0); CREATININE 0.9 mg/dL (0.55-1.02); Calcium 8.7 mg/dL (8.5-10.1); Chloride 99 mmol/L (98-107); Glucose 396 mg/dL (74-106); Potassium 4.4 mmol/L (3.5-5.1); Sodium 135 mmol/L (136-145)
== END 2021-12-28 02:05 | disposition home or self-care (01) ==
LOC: LBO 02:04
PROVIDERS: PCP Internal Medicine; Visit Provider Student in an Organized Health Care Education/Training Program
DX: M67.431 Ganglion, right wrist (principal); M25.521 Pain in right elbow; R22.31 Localized swelling, mass and lump, right upper limb; R73.9 Hyperglycemia, unspecified; Z01.818 Encounter for other preprocedural examination; Z01.812 Encounter for preprocedural laboratory examination
CPT/HCPCS: 36415; 80048; 85027; 85652; 83036; 86140

== ENCOUNTER 2022-01-04 10:46 | Day surgery (SDC) | payer MEDICARE, MEDICAID, SELFPAY ==
--- NOTE | 2022-01-04 07:24 | PDOC.DSDIS_ITS ---
Discharge Plan Disposition Patient Disposition: HOME Condition: Good Discharge Details Reason For Visit: Right ECTR and cyst excision Attending Provider: Adrián Mendoza Primary Care Provider: Jose Haile Home Meds and New Rx's Prescriptions: New hydrocodone-acetaminophen 5-325 mg tablet 1 tab PO Q6H PRNQty: 5 0RF Continued Ozempic 0.25 mg or 0.5 mg(2 mg/1.5 mL) pen injector 0.25 mg subcut QWEEK Rx Instructions: for 4 doses then increase to 0.5 meloxicam 15 mg tablet 15 mg PO DAILY Qty: 30 3RF glimepiride 2 mg tablet 4 mg PO DAILY dapagliflozin 10 mg tablet 10 mg PO DAILY methadone 5 MG tablet 10 mg PO BID gabapentin 600 mg tablet 600 mg PO TID Rx Instructions: 2 cap in morning promethazine 25 mg Tablet 25 mg PO BID PRN acetaminophen 500 MG tablet 1 - 2 tab PO TID PRN PRN metformin [Glucophage] 1,000 mg tablet 1,000 mg PO BID@0800,1700 paroxetine HCl 20 MG tablet 40 mg PO DAILY bupropion HCl 150 mg tablet extended release 24 hr 150 mg PO DAILY Label Comments: TAKE ONE TABLET BY MOUTH EVERY DAY Discharge Instructions Additional Instructions: Bety's Discharge Instructions Activity: You should keep the hand elevated as much as possible for the first few days. You may use the other fingers as tolerated but avoid trying to do too much too soon. You may perform light activities with the soft splint/dressing in place. Dressing/Cast: Your dressing should stay in place at all times. Do NOT get it wet. You may loosen the THOM wrap if you feel it is too tight and then rewrap more loosely. If it becomes wet or soiled it should be changed at least to a bandaid over the wounds. If this happens, just contact the office. Medications: - You should take Tylenol and Ibuprofen for baseline pain control. - You have Hydrocodone for breakthrough pain. - You may apply ice over the thumb. Follow-up: 7-10 days Referrals: Adrián Mendoza MD [ [facility] STAFF PHYSICIAN] - Activity:: Elevate Remove Dressings/Wound Care:: 72 hours Shower/Bathe:: 72 hours Diet:: As Tolerated Discharge Orders Discharge Orders: Discharge Order (Routine); Ordered 01/04/22 Ordered By: Leah Ng DS: Diagnosis Discharge Diagnosis (1) Ganglion cyst of volar aspect of right wrist: Status: Acute (2) Bilateral carpal tunnel syndrome: Status: Acute
[2022-01-04 10:53] VITALS: BP 143/79; PULSE 89; RESP 16; TEMP 36.5; O2SAT 96
[2022-01-04] MEDS: Lactated Ringers 1,000 ML 80 ML IV (11:55)
--- NOTE | 2022-01-04 12:13 | W.ANESPRE ---
General Info Date of Service Date Performed: 01/04/22 Height: 5 ft 4 in Weight: 100.2 kg Body Mass Index (BMI): 37.9 Surgical Procedure: Operation Date: 01/04/22 14:25 Proposed Procedure Side Surgeon p Wrist ECTR Right Adrián Mendoza MD s Wrist Ganglion Cyst Excision Right Adrián Mendoza MD Meds Allergies and Home Medications Allergies Allergy/AdvReac Type Severity Reaction Status Date / Time Sulfa (Sulfonamide Allergy Intermediate Skin Rash Verified 01/04/22 11:18 Antibiotics) baclofen AdvReac Intermediate Nausea Verified 01/04/22 11:18 morphine AdvReac Mild Nausea Verified 01/04/22 11:18 Home Medication Medication Instructions Recorded methadone 5 mg tablet 10 mg PO BID 01/14/14 acetaminophen 500 mg tablet 1 - 2 tab PO TID PRN PRN 09/26/16 paroxetine HCl 20 mg tablet 40 mg PO DAILY 10/18/17 gabapentin 600 mg tablet 600 mg PO TID 09/19/18 metformin 1,000 mg tablet 1,000 mg PO BID@0800,1700 09/26/18 (Glucophage) glimepiride 2 mg tablet 4 mg PO DAILY 03/19/19 promethazine 25 mg tablet 25 mg PO BID PRN 07/22/19 bupropion HCl 150 mg 24 hr tablet, 150 mg PO DAILY 11/10/21 extended release dapagliflozin 10 mg tablet 10 mg PO DAILY 12/01/21 meloxicam 15 mg tablet 15 mg PO DAILY #30 tabs 12/26/21 semaglutide 0.25 mg or 0.5 mg (2 0.25 mg subcut QWEEK 12/26/21 mg/1.5 mL) subcutaneous pen injector (Ozempic) hydrocodone 5 mg-acetaminophen 325 1 tab PO Q6H PRN #5 tabs 01/04/22 mg tablet Current Visit Medications: Current Medications Generic Name Dose Route Start Last Admin Trade Name Freq PRN Reason Stop Dose Admin Acetaminophen 650 mg 01/04/22 07:23 Acetaminophen 325 Mg Tab PO Q4H PRN PRN Ringer's Solution 1,000 mls @ 80 mls/hr 01/04/22 06:00 01/04/22 11:55 IV 02/02/22 23:59 80 mls/hr INFUSION FLORES Administration Cefazolin Sodium/Dextrose 2 gm in 50 mls @ 100 mls/hr 01/04/22 06:00 Ancef Duplex IVPB 02/02/22 23:59 PREOP FLORES Ondansetron HCl 4 mg/ Sodium 52 mls @ 200 mls/hr 01/04/22 07:23 Chloride IVPB Q6H PRN PRN IV Miscellaneous Supplies 1 each 01/04/22 06:00 Iv Access IV 02/02/22 23:59 DIRECTED FLORES Oxycodone/Acetaminophen 1 tab 01/04/22 07:23 Oxycodone 5 Mg/Acetaminophen 325 Mg Tab PO Q4H PRN PRN Pain Sodium Chloride 0 ml 01/04/22 06:00 Normal Saline Flush 10 Ml Syr IV 02/02/22 23:59 PRN PRN Sodium Chloride 0 ml 01/04/22 06:00 Normal Saline 10 Ml Vial IJ 02/02/22 23:59 DIRECTED PRN Sterile Water 0 ml 01/04/22 06:00 Water,Injection,Sterile 10 Ml Vial IJ 02/02/22 23:59 DIRECTED PRN PFSH Active Problems Active Problems: Problem Status Onset Code Partial small bowel obstruction K56.600 Chronic pain G89.29 Hyperglycemia R73.9 Type 2 diabetes mellitus with hyperglycemia E11.65 Quadriceps tendinitis 08/22/17 M76.899 Left lateral epicondylitis 06/27/17 M77.12 Bilateral carpal tunnel syndrome 06/27/17 G56.03 Bilateral knee pain M25.561, M25.562 Small bowel obstruction K56.609 Right elbow pain M25.521 Mass of right forearm R22.31 Ganglion cyst of volar aspect of right wrist M67.431 Medical History Medical History Asthma Chronic low back pain Constipation COPD (chronic obstructive pulmonary disease) pt. denies this Depression Obesity Peptic ulcer disease Psoriasis Renal cell cancer Restless leg per pt. states she no longer has this Small bowel obstruction Surgical History Surgical History H/O partial nephrectomy S/P arthroscopic partial medial meniscectomy R knee S/P cholecystectomy S/P hysterectomy S/P small bowel resection S/P tympanoplasty Tobacco Smoking/Tobacco Use Status: Former Tobacco Use Alcohol Alcohol Intake: former Substance Use Substance use: Socially Substance use type: marijuana Vital Signs and Lab Results Vital Signs Most Recent Vital Signs in EMR: Most Recent Vital Signs Temp Pulse Resp BP Pulse Ox 36.5 C 89 16 143/79 H 96 01/04/22 10:53 01/04/22 10:53 01/04/22 10:53 01/04/22 10:53 01/04/22 10:53 Point of Care Results Point of Care Results: Finger Stick Blood Glucose 216 01/04/22 11:37 Lab Results Blood Type / Crossmatch: No Data to Display Complete Blood Count: White Blood Count 7.84 10^3/uL (4.4-10.8) 12/28/21 13:34 Red Blood Count 5.41 10^6/uL (3.93-5.22) H 12/28/21 13:34 Hemoglobin 14.2 g/dL (11.2-15.7) 12/28/21 13:34 Hematocrit 43.0 % (36.0-46.0) 12/28/21 13:34 Platelet Count 238 10^3/uL (130-400) 12/28/21 13:34 Complete Metabolic Panel: Sodium Level 135 mmol/L (136-145) L 12/28/21 13:34 Potassium Level 4.4 mmol/L (3.5-5.1) 12/28/21 13:34 Chloride Level 99 mmol/L (98-107) 12/28/21 13:34 Carbon Dioxide Level 25.6 mmol/L (21.0-32.0) 12/28/21 13:34 Blood Urea Nitrogen 12 mg/dL (7-18) 12/28/21 13:34 Creatinine 0.9 mg/dL (0.55-1.02) 12/28/21 13:34 Estimated GFR/1.73 m2 >= 60.00 (mL/min/1.73m2) 12/28/21 13:34 Calcium Level 8.7 mg/dL (8.5-10.1) 12/28/21 13:34 Glucose Level 396 mg/dL (74-106) H 12/28/21 13:34 Hemoglobin A1c 7.9 % (<5.7) H 12/28/21 13:34 C-Reactive Protein 0.42 mg/dL (0.0-0.3) H 12/28/21 13:34 Liver Function Panel: No Data to Display Coagulation Panel: No Data to Display Cardiac Panel: No Data to Display Arterial Blood Gas: No Data to Display Venous Blood Gas: No Data to Display Pancreas Panel: No Data to Display Thyroid Panel: No Data to Display Infectious Disease: No Data to Display Blood Cultures: No Data to Display Toxicology Panel: No Data to Display Anesthesia Assessment and Plan Anesthesia History Personal History: No History of Anesthesia Complications Family History: No Family History of Anesthesia Complications and Other Exercise Tolerance Exercise Tolerance: Metabolic Equivalents>4 Pertinent Negatives Pertinent Negatives: No Symptoms of GERD, No Major Cardiovascular Symptoms or Complaints, No Major Pulmonary Symptoms or Complaints and No History of CVA/TIA Cardiac & Pulmonary Exam Cardiac Exam: Normal S1/S2 Heart Sounds Pulmonary Exam: Clear Bilateral Breath Sounds Implantable Cardiac Device Does patient have a Pacemaker or an ICD?: No Airway Exam Known Difficult Airway: No Mallampati Class: 4 Mouth Opening: Narrow (< 3cm) Thyromental Distance: Less than 3 cm Neck Range of Motion: Full ROM Neck Circumference: Thick Teeth Condition: Normal Dentition ASA Classification ASA Score: ASA 2 Emergency Case?: No NPO Status NPO Status: NPO Clears >2 hours, Solids >8 hours Anesthesia Plan Resuscitation Status: Full Code Anesthesia Technique: General Anesthesia Airway Planned: Natural Airway Monitors Used: Standard Monitors
[2022-01-04 12:16] VITALS: BMI 37.9
[2022-01-04] MEDS: ceFAZolin 2 GM/50 ML BAG IVPB (13:49)
[2022-01-04] MEDS: Lidocaine 1% Multi-Dose W/EPI 1/100,000 50 ML VIAL (14:03)
[2022-01-04] MEDS: Sodium Bicarbonate 50 MEQ/50 ML VIAL (14:04)
[2022-01-04 14:29] VITALS: BP 101/61; PULSE 79; RESP 16; TEMP 36.3; O2SAT 95
--- NOTE | 2022-01-04 14:46 | W.PM.OP ---
Date of service: 01/04/22 Time of Service: 14:30 Operative Note Operative Note PRE-OP DIAGNOSIS: Right Carpal Tunnel Syndrome, right wrist ganglion cyst POST-OP DIAGNOSIS: same PROCEDURE: Right Endoscopic Carpal Tunnel Release, right wrist ganglion cyst excision SURGEON: Adrián Mendoza ANESTHESIA TYPE: General:No Airway Refer to Anesthesia Record ESTIMATED BLOOD LOSS: 0 PATHOLOGY: none sent TOURNIQUET TIME: 15 COMPLICATIONS: None Patient was transported to: same day Patient's condition: stable Indications: I have seen Lani in clinic for symptoms of carpal tunnel syndrome as well as a cyst about the right wrist The numbness, tingling, and pain limited function. Clinical exam findings with nerve conduction tests confirmed the diagnosis of carpal tunnel syndrome. Additionally, the cyst was diagnosed both on exam and with MRI. Nonoperative measures such as bracing, time, activity modifications had been tried but disability and pain persisted. I discussed carpal tunnel release with the patient. I reviewed the risks of the procedure to include, but not limited to, bleeding, infection, pain, stiffness, incomplete release, damage to nerves or vessels, persistent numbness, recurrence. Despite these risks, the patient elected to proceed. Findings: There was tightened carpal tunnel. This was dilated and released successfully with the endoscopic with increased space within the tunnel. The antebrachial fascia was released proximally freeing the median nerve at the wrist. A cyst arising from the volar radial aspect of the right wrist was identified. It was somewhat multiseptated. It was identified at the level of the skin and then followed down to the volar radial wrist capsule. Procedure Description: Lani was greeted in the preoperative holding area where the correct side was identified and marked. The consent was reviewed with the patient and signed. The history and physical was updated. All questions were answered. She was taken back to the operating room. The patient was placed into the supine position on the operating room table with the right arm on an arm board. A nonsterile tourniquet was placed high onto the arm. All bony prominences were well padded. Prophylactic antibiotics in the form of [Cefazolin] were administered. The right arm was then prepped with Chloraprep and draped in a standard fashion with stockinette and extremity drape. A timeout to confirm correct identity, side and site, procedure, allergies, anesthesia, and medical concerns was performed. The surgical site was marked in the volar wrist creases in line with the radial border of the fourth ray. This area was anesthetized with approximately 6cc of 1% Lidocaine. The limb was then exsanguinated with an Esmarch. The skin was incised with a 15 blade, approximately 1cm. The skin only was cut and the deeper tissue was dissected bluntly with a tenotomy scissor, avoiding passing nerve and venous structures. The fascia was penetrated and opened bluntly. A two-prong skin hook was placed under this proximal fascial edge. A series of hamate finders were used to identify and dilate the carpal tunnel. Synovial elevator was used to free synovial attachments to the underside of the transverse carpal ligament. My thumb was kept in the palm to kelly the distal extent of the carpal tunnel and correctly position the hand. The [employer] endoscope was inserted without difficulty and without resistance. Excellent visualization showed horizontally running fibers of the transverse carpal ligament (TCL). The distal extent of the TCL was visualized and the end of the scope palpated with the thumb. The blade was elevated and withdrawn from distal to proximal. The TCL was split into two flaps. The endoscope was reinserted to confirm complete release and any remnant ligament was incised. The scope was withdrawn and the proximal aspect of the carpal tunnel was grossly inspected and appeared release with the median nerve visible. The antebrachial fascia at the level of the wrist was then freed from the overlying skin and then the underlying median nerve with blunt dissection. This was transected longitudinally for about 3cm proximal to the wrist incision. The wound was then irrigated with easy flow of irrigant distally and proximally. The incision was closed with a single 4-0 Nylon suture. Attention was then turned to the wrist cyst. A 2 cm incision was made over the volar radial aspect of the right wrist. Sharp dissection was carried down through the skin and subcutaneous tissue. Some septated portions of the cyst were easily visible at the level. Utilizing this plane I then dissected off some vascular structures from the volar surface and follow the cyst down to the wrist joint. The radial artery was deep and lateral. The cyst was deflated and then removed. There was followed down to the volar aspect of the wrist capsule and opened with a tenotomy scissors. I did not aggressively rongeur this area given the proximity of vascular branches. However all cystic components were removed. The tourniquet was deflated and there is no significant bleeding. Any ooze was cauterized with bipolar electrocautery. Blood flow returned easily to all digits with capillary refill less than 2 seconds. The cyst wound was closed with interrupted 3-0 Vicryl followed by 4-0 nylon. The wounds were dressed with Xeroform, Gauze, Kerlix and Tripp. The patient tolerated the procedure well and was returned to the Same Day Surgery area in a stable condition suffering no known complication.
--- NOTE | 2022-01-04 14:57 | W.ANESPOSTOP ---
Postoperative Evaluation Date, Time and Location Date Performed: 01/04/22 Time Performed: 14:55 Patient Location: Day Surgery Unit Vital Signs Most Recent Imported Vital Signs: Most Recent Vital Signs Temp Pulse Resp BP Pulse Ox 36.3 C L 79 16 101/61 95 01/04/22 14:29 01/04/22 14:29 01/04/22 14:29 01/04/22 14:29 01/04/22 14:29 Pain Score Most Recent Pain Score: Most Recent Pain Score Pain Level 0 01/04/22 14:29 Assessment Mental Status: Awake (Alert & Oriented to Patient Baseline) Airway and Respiratory Function: Patent airway with normal (patient baseline) respiratory exam Cardiovascular Function: Hemodynamically Stable Hydration Status: Adequately Hydrated Nausea & Vomiting: No Nausea or Vomiting Pain: Pt. Denies Any Pain Peripheral Nerve Block: Patient did not receive a nerve block
[2022-01-04 15:00] VITALS: BP 101/61; PULSE 79; RESP 16; TEMP 36.3; O2SAT 95
== END 2022-01-04 15:35 | disposition home or self-care (01) ==
PROVIDERS: PCP Internal Medicine; Visit Provider Student in an Organized Health Care Education/Training Program
PROC: 01N54ZZ Release Median Nerve, Percutaneous Endoscopic Approach (ICD-10-PCS; CPT 29848; principal; 2022-01-04 14:15)
PROC: (CPT 29848; 2022-01-04 14:15)
DX: M67.431 Ganglion, right wrist (principal); G56.01 Carpal tunnel syndrome, right upper limb; J44.9 Chronic obstructive pulmonary disease, unspecified; F32.A Depression, unspecified; E11.9 Type 2 diabetes mellitus without complications
CPT/HCPCS: 29848; 25111; J0690; J1885; J2405; J2704

== ENCOUNTER → 2022-01-13 09:24 | Outpatient (BNVA) | payer MEDICARE, MEDICAID, SELFPAY | PROVIDERS: PCP Internal Medicine; Referring Provider Internal Medicine; Visit Provider Physician Assistant | DX: Z47.89 Encounter for other orthopedic aftercare (principal); G56.01 Carpal tunnel syndrome, right upper limb; M67.431 Ganglion, right wrist ==

== ENCOUNTER 2022-01-17 08:39 | Day surgery (SDC) | payer MEDICARE, MEDICAID, SELFPAY ==
[2022-01-17 09:09] VITALS: BP 133/94; PULSE 79; RESP 16; TEMP 36.6; O2SAT 97
--- NOTE | 2022-01-17 09:22 | W.ANESPRE ---
General Info Date of Service Date Performed: 01/17/22 Height: 5 ft 4 in Weight: 103.4 kg Body Mass Index (BMI): 39.1 Surgical Procedure: Operation Date: 01/17/22 12:10 Proposed Procedure Side Surgeon p Wrist ECTR Left Adrián Mendoza MD Meds Allergies and Home Medications Allergies Allergy/AdvReac Type Severity Reaction Status Date / Time Sulfa (Sulfonamide Allergy Intermediate Skin Rash Verified 01/17/22 09:15 Antibiotics) baclofen AdvReac Intermediate Nausea Verified 01/17/22 09:15 Home Medication Medication Instructions Recorded methadone 5 mg tablet 10 mg PO BID 01/14/14 acetaminophen 500 mg tablet 1 - 2 tab PO TID PRN PRN 09/26/16 paroxetine HCl 20 mg tablet 40 mg PO DAILY 10/18/17 gabapentin 600 mg tablet 600 mg PO TID 09/19/18 metformin 1,000 mg tablet 1,000 mg PO BID@0800,1700 09/26/18 (Glucophage) glimepiride 2 mg tablet 4 mg PO DAILY 03/19/19 bupropion HCl 150 mg 24 hr tablet, 150 mg PO DAILY 11/10/21 extended release dapagliflozin 10 mg tablet 10 mg PO DAILY 12/01/21 meloxicam 15 mg tablet 15 mg PO DAILY #30 tabs 12/26/21 semaglutide 0.25 mg or 0.5 mg (2 0.25 mg subcut QWEEK 12/26/21 mg/1.5 mL) subcutaneous pen injector (Ozempic) Current Visit Medications: Current Medications Generic Name Dose Route Start Last Admin Trade Name Freq PRN Reason Stop Dose Admin Ringer's Solution 1,000 mls @ 80 mls/hr 01/17/22 06:00 IV 02/16/22 23:59 INFUSION FLORES Cefazolin Sodium/Dextrose 2 gm in 50 mls @ 100 mls/hr 01/17/22 08:00 Ancef Duplex IVPB 01/17/22 16:00 PREOP FLORES IV Miscellaneous Supplies 1 each 01/17/22 06:00 Iv Access IV 02/16/22 23:59 DIRECTED FLORES Sodium Chloride 0 ml 01/17/22 06:00 Normal Saline Flush 10 Ml Syr IV 02/16/22 23:59 PRN PRN Sodium Chloride 0 ml 01/17/22 06:00 Normal Saline 10 Ml Vial IJ 02/16/22 23:59 DIRECTED PRN Sterile Water 0 ml 01/17/22 06:00 Water,Injection,Sterile 10 Ml Vial IJ 02/16/22 23:59 DIRECTED PRN PFSH Active Problems Active Problems: Problem Status Onset Code Mass of right forearm R22.31 Type 2 diabetes mellitus with hyperglycemia E11.65 Medical History Medical History Asthma Bilateral knee pain Chronic low back pain Chronic pain Constipation COPD (chronic obstructive pulmonary disease) pt. denies this Depression Hyperglycemia Left lateral epicondylitis (06/27/17) Obesity Partial small bowel obstruction Peptic ulcer disease Psoriasis Quadriceps tendinitis (08/22/17) Renal cell cancer Restless leg per pt. states she no longer has this Right elbow pain Small bowel obstruction Medical History Comments:: states has ongoing nausea-receives medication prior to anesthesia to help with this Surgical History Surgical History Bilateral carpal tunnel syndrome (06/27/17) S/P R ECTR: 01/04/2022 Ganglion cyst of volar aspect of right wrist S/P Excision: 01/04/2022 H/O partial nephrectomy S/P arthroscopic partial medial meniscectomy R knee S/P cholecystectomy S/P hysterectomy S/P small bowel resection S/P tympanoplasty Tobacco Smoking/Tobacco Use Status: Former Tobacco Use Alcohol Alcohol Intake: former Substance Use Substance use: Socially Substance use type: marijuana Vital Signs and Lab Results Vital Signs Most Recent Vital Signs in EMR: Most Recent Vital Signs Temp Pulse Resp BP Pulse Ox 36.6 C 79 16 133/94 H 97 01/17/22 09:09 01/17/22 09:09 01/17/22 09:09 01/17/22 09:09 01/17/22 09:09 Point of Care Results Point of Care Results: Finger Stick Blood Glucose 205 01/17/22 08:56 Lab Results Blood Type / Crossmatch: No Data to Display Complete Blood Count: White Blood Count 7.84 10^3/uL (4.4-10.8) 12/28/21 13:34 Red Blood Count 5.41 10^6/uL (3.93-5.22) H 12/28/21 13:34 Hemoglobin 14.2 g/dL (11.2-15.7) 12/28/21 13:34 Hematocrit 43.0 % (36.0-46.0) 12/28/21 13:34 Platelet Count 238 10^3/uL (130-400) 12/28/21 13:34 Complete Metabolic Panel: Sodium Level 135 mmol/L (136-145) L 12/28/21 13:34 Potassium Level 4.4 mmol/L (3.5-5.1) 12/28/21 13:34 Chloride Level 99 mmol/L (98-107) 12/28/21 13:34 Carbon Dioxide Level 25.6 mmol/L (21.0-32.0) 12/28/21 13:34 Blood Urea Nitrogen 12 mg/dL (7-18) 12/28/21 13:34 Creatinine 0.9 mg/dL (0.55-1.02) 12/28/21 13:34 Estimated GFR/1.73 m2 >= 60.00 (mL/min/1.73m2) 12/28/21 13:34 Calcium Level 8.7 mg/dL (8.5-10.1) 12/28/21 13:34 Glucose Level 396 mg/dL (74-106) H 12/28/21 13:34 Hemoglobin A1c 7.9 % (<5.7) H 12/28/21 13:34 C-Reactive Protein 0.42 mg/dL (0.0-0.3) H 12/28/21 13:34 Liver Function Panel: No Data to Display Coagulation Panel: No Data to Display Cardiac Panel: No Data to Display Arterial Blood Gas: No Data to Display Venous Blood Gas: No Data to Display Pancreas Panel: No Data to Display Thyroid Panel: No Data to Display Infectious Disease: No Data to Display Blood Cultures: No Data to Display Toxicology Panel: No Data to Display Anesthesia Assessment and Plan Anesthesia History Personal History: Other Family History: No Family History of Anesthesia Complications Exercise Tolerance Exercise Tolerance: Metabolic Equivalents>4 Cardiac & Pulmonary Exam Cardiac Exam: Normal S1/S2 Heart Sounds Pulmonary Exam: Clear Bilateral Breath Sounds Implantable Cardiac Device Does patient have a Pacemaker or an ICD?: No Airway Exam Known Difficult Airway: No Mallampati Class: 4 Mouth Opening: Narrow (< 3cm) Thyromental Distance: Less than 3 cm Neck Range of Motion: Full ROM Neck Circumference: Thick Teeth Condition: Normal Dentition ASA Classification ASA Score: ASA 3 Emergency Case?: No NPO Status NPO Status: NPO Clears >2 hours, Solids >8 hours Anesthesia Plan Resuscitation Status: Full Code Anesthesia Technique: General Anesthesia Airway Planned: Natural Airway Monitors Used: Standard Monitors
[2022-01-17 09:24] VITALS: BMI 39.1
[2022-01-17] MEDS: Lactated Ringers 1,000 ML 80 ML IV (09:38)
[2022-01-17] MEDS: ceFAZolin 2 GM/50 ML BAG IVPB (10:04)
--- NOTE | 2022-01-17 10:08 | W.PM.DSUDISC ---
Discharge Plan Disposition Patient Disposition: HOME Condition: Good Discharge Details Reason For Visit: L ECTR Attending Provider: Adrián Mendoza Primary Care Provider: Jose Haile Meds and New Rx's Prescriptions: New hydrocodone-acetaminophen 5-325 mg tablet 1 tab PO Q6H PRN (Reason: pain) Qty: 6 0RF acetaminophen 500 mg tablet 1,000 mg PO TID Qty: 90 0RF Continued Ozempic 0.25 mg or 0.5 mg(2 mg/1.5 mL) pen injector 0.25 mg subcut QWEEK Rx Instructions: for 4 doses then increase to 0.5 meloxicam 15 mg tablet 15 mg PO DAILY Qty: 30 3RF glimepiride 2 mg tablet 4 mg PO DAILY dapagliflozin 10 mg tablet 10 mg PO DAILY methadone 5 MG tablet 10 mg PO BID gabapentin 600 mg tablet 600 mg PO TID Rx Instructions: 2 cap in morning metformin [Glucophage] 1,000 mg tablet 1,000 mg PO BID@0800,1700 paroxetine HCl 20 MG tablet 40 mg PO DAILY bupropion HCl 150 mg tablet extended release 24 hr 150 mg PO DAILY Label Comments: TAKE ONE TABLET BY MOUTH EVERY DAY Discontinued acetaminophen 500 MG tablet 1 - 2 tab PO TID PRN PRN Discharge Instructions Stand Alone Forms: Anesthesia Discharge InstCandice, Fernando De Jesus (DSU), Kelly Khoury Tunnel Release Activity:: Activity as Tolerated Remove Dressings/Wound Care:: 48 hours Shower/Bathe:: 48 hours Diet:: As Tolerated Discharge Orders Discharge Orders: Discharge Order (Routine); Ordered 01/17/22 Ordered By: Jerzy Medina DS: Diagnosis Discharge Diagnosis (1) Bilateral carpal tunnel syndrome: Status: Acute
[2022-01-17] MEDS: Lidocaine 1% Multi-Dose W/EPI 1/100,000 50 ML VIAL (10:24)
[2022-01-17] MEDS: Sodium Bicarbonate 50 MEQ/50 ML VIAL (10:25)
[2022-01-17 10:39] VITALS: BP 102/62; PULSE 78; RESP 18; TEMP 36.3; O2SAT 96
[2022-01-17 11:14] VITALS: BP 97/62; PULSE 74; RESP 16; TEMP 36.5; O2SAT 96
--- NOTE | 2022-01-17 11:20 | ROE_ITS ---
Date of service: 01/17/22 Time of Service: 10:50 Operative Note Operative Note DATE OF PROCEDURE: 01/17/22 PRE-OP DIAGNOSIS: Left Carpal Tunnel Syndrome POST-OP DIAGNOSIS: same PROCEDURE: Left Endoscopic Carpal Tunnel Release SURGEON: Adrián Mendoza ANESTHESIA TYPE: General:No Airway Refer to Anesthesia Record ESTIMATED BLOOD LOSS: 0 PATHOLOGY: none sent TOURNIQUET TIME: 4 COMPLICATIONS: None Patient was transported to: same day Patient's condition: stable Indications: I have seen Lani in clinic for symptoms of carpal tunnel syndrome. The numbness, tingling, and pain limited function. Clinical exam findings with nerve conduction tests confirmed the diagnosis of carpal tunnel syndrome. Nonoperative measures such as bracing, time, activity modifications had been tried but disability and pain persisted. I discussed carpal tunnel release with the patient. I reviewed the risks of the procedure to include, but not limited to, bleeding, infection, pain, stiffness, incomplete release, damage to nerves or vessels, persistent numbness, recurrence. Despite these risks, the patient elected to proceed. Findings: There was tightened carpal tunnel. This was dilated and released successfully with the endoscopic with increased space within the tunnel. The antebrachial fascia was released proximally freeing the median nerve at the wrist. Procedure Description: Lani was greeted in the preoperative holding area where the correct side was identified and marked. The consent was reviewed with the patient and signed. The history and physical was updated. All questions were answered. She was taken back to the operating room. The patient was placed into the supine position on the operating room table with the left arm on an arm board. A nonsterile tourniquet was placed high onto the arm. All bony prominences were well padded. Prophylactic antibiotics in the form of Cefazolin were administered. The left arm was then prepped with Chloraprep and draped in a standard fashion with stockinette and extremity drape. A timeout to confirm correct identity, side and site, procedure, allergies, anesthesia, and medical concerns was performed. The surgical site was marked in the volar wrist creases in line with the radial border of the fourth ray. This area was anesthetized with approximately 6cc of 1% Lidocaine. The limb was then exsanguinated with an Esmarch. The skin was incised with a 15 blade, approximately 1cm. The skin only was cut and the deeper tissue was dissected bluntly with a tenotomy scissor, avoiding passing nerve and venous structures. The fascia was penetrated and opened bluntly. A two-prong skin hook was placed under this proximal fascial edge. A series of hamate finders were used to identify and dilate the carpal tunnel. Synovial elevator was used to free synovial attachments to the underside of the transverse carpal ligament. My thumb was kept in the palm to kelly the distal extent of the carpal tunnel and correctly position the hand. The Microaire endoscope was inserted without difficulty and without resistance. Excellent visualization showed horizontally running fibers of the transverse carpal ligament (TCL). The distal extent of the TCL was visualized and the end of the scope palpated with the thumb. The blade was elevated and withdrawn from distal to proximal. The TCL was split into two flaps. The endoscope was reinserted to confirm complete release and any remnant ligament was incised. The scope was withdrawn and the proximal aspect of the carpal tunnel was grossly inspected and appeared release with the median nerve visible. The antebrachial fascia at the level of the wrist was then freed from the overlying skin and then the underlying median nerve with blunt dissection. This was transected longitudinally for about 3cm proximal to the wrist incision. The wound was then irrigated with easy flow of irrigant distally and proximally. The incision was closed with a single 4-0 Nylon suture. The wound was dressed w ith Xeroform, Gauze, Kerlix and Tripp. The tourniquet was deflated with the initial dressing and held with some pressure. Blood flow returned easily to all digits with capillary refill less than 2 seconds. The patient tolerated the procedure well and was returned to the Same Day Surgery area in a stable condition suffering no known complication.
--- NOTE | 2022-01-17 12:17 | W.ANESPOSTOP ---
Postoperative Evaluation Date, Time and Location Date Performed: 01/17/22 Time Performed: 11:20 Patient Location: Day Surgery Unit Vital Signs Most Recent Imported Vital Signs: Most Recent Vital Signs Temp Pulse Resp BP Pulse Ox 36.5 C 74 16 97/62 L 96 01/17/22 11:14 01/17/22 11:14 01/17/22 11:14 01/17/22 11:14 01/17/22 11:14 Pain Score Most Recent Pain Score: Most Recent Pain Score Pain Level 0 01/17/22 11:14 Assessment Mental Status: Awake (Alert & Oriented to Patient Baseline) Airway and Respiratory Function: Patent airway with normal (patient baseline) respiratory exam Cardiovascular Function: Hemodynamically Stable Hydration Status: Adequately Hydrated Nausea & Vomiting: No Nausea or Vomiting Pain: Pt. Denies Any Pain Peripheral Nerve Block: Patient did not receive a nerve block
== END 2022-01-17 11:34 | disposition home or self-care (01) ==
PROVIDERS: PCP Internal Medicine; Visit Provider Student in an Organized Health Care Education/Training Program
PROC: 01N54ZZ Release Median Nerve, Percutaneous Endoscopic Approach (ICD-10-PCS; CPT 29848; principal; 2022-01-17 12:00)
DX: G56.02 Carpal tunnel syndrome, left upper limb (principal); J44.9 Chronic obstructive pulmonary disease, unspecified; E11.9 Type 2 diabetes mellitus without complications; Z85.528 Personal history of other malignant neoplasm of kidney
CPT/HCPCS: 29848; J0690; J2250; J2405

== ENCOUNTER → 2022-01-27 10:40 | Outpatient (BNVA) | payer MEDICARE, MEDICAID, SELFPAY | PROVIDERS: PCP Internal Medicine; Referring Provider Internal Medicine; Visit Provider Student in an Organized Health Care Education/Training Program | DX: Z47.89 Encounter for other orthopedic aftercare (principal); Z98.890 Other specified postprocedural states ==

== ENCOUNTER → 2022-02-14 01:30 | Outpatient (CLI) | payer MEDICARE, MEDICAID, SELFPAY ==
--- NOTE | 2022-02-14 07:55 | DI.MRI_ITS ---
Exam(s) MR UPPER JOINT RT WO EXAM: MR UPPER JOINT RT WO CLINICAL HISTORY: RT ELBOW PAIN, M25.521. TECHNIQUE: Multiplanar multisequence MRI was performed. COMPARISON: Comparison examination is 12/01/2021. FINDINGS: The examination is limited due to patient motion artifact. BONES: There is no fracture or contusion pattern. JOINTS: The articular cartilage is unremarkable. No joint effusion is present. TENDONS: Common flexors: Unremarkable. Common extensors: There is hyperintense signal seen at the attachment site of the common extensor ten don consistent with a partial tear. Biceps: Unremarkable. Triceps: Unremarkable. MUSCLES: Unremarkable. MEDIAN NERVE: Unremarkable on this noncontrast examination. ULNAR NERVE: Unremarkable on this noncontrast examination. SOFT TISSUES: There is mild edema seen in the soft tissues adjacent to the common extensor tendon. N o focal fluid collection is seen. LIGAMENTS: Ulnar collateral: Unremarkable. There is normal intermediate signal seen in the proximal ulnar collat eral ligament. Radial collateral: Unremarkable. OTHER: IMPRESSION: 1. The examination is limited due to patient motion artifact. 2. Findings of a partial tear of the common extensor tendon. 3. Mild edema in the soft tissues of the lateral elbow. DATA REPOSITORY:
== END ==
PROVIDERS: PCP Internal Medicine; Visit Provider Student in an Organized Health Care Education/Training Program
DX: M79.89 Other specified soft tissue disorders (principal); M25.521 Pain in right elbow
CPT/HCPCS: 73221

== ENCOUNTER → 2022-02-16 12:44 | Outpatient (BNVA) | payer MEDICARE, MEDICAID, SELFPAY | PROVIDERS: PCP Internal Medicine; Referring Provider Student in an Organized Health Care Education/Training Program; Visit Provider Surgery | DX: L98.9 Disorder of the skin and subcutaneous tissue, unspecified (principal); S56.511A Strain of other extensor muscle, fascia and tendon at forearm level, right arm, initial encounter; X58.XXXA Exposure to other specified factors, initial encounter | CPT/HCPCS: 99212; 99241 ==

== ENCOUNTER 2022-02-27 11:28 | Outpatient (CLI) | payer MEDICARE, MEDICAID, SELFPAY ==
[2022-02-27 12:38] LABS: Source Nasal/Nares
[2022-02-27 15:24] LABS: COVID-19 PCR Negative (Negative)
== END 2022-02-27 11:29 | disposition home or self-care (01) ==
LOC: LBO 11:29
PROVIDERS: PCP Internal Medicine; Visit Provider Student in an Organized Health Care Education/Training Program
DX: Z20.822 Contact with and (suspected) exposure to COVID-19 (principal); Z01.818 Encounter for other preprocedural examination
CPT/HCPCS: 87635

== ENCOUNTER 2022-02-28 09:21 | Day surgery (SDC) | payer MEDICARE, MEDICAID, SELFPAY ==
[2022-02-28 09:34] VITALS: BP 123/72; PULSE 79; RESP 20; TEMP 36.6; O2SAT 96
[2022-02-28] MEDS: Lactated Ringers 1,000 ML 80 ML IV (10:18)
--- NOTE | 2022-02-28 10:37 | W.ANESPRE ---
General Info Date of Service Date Performed: 02/28/22 Height: 5 ft 4 in Weight: 103 kg Body Mass Index (BMI): 38.9 Surgical Procedure: Operation Date: 02/28/22 13:25 Proposed Procedure Side Surgeon p Wrist ECTR Revision Left Adrián Mendoza MD s Elbow Injection Right Adrián Mendoza MD Meds Allergies and Home Medications Allergies Allergy/AdvReac Type Severity Reaction Status Date / Time Sulfa (Sulfonamide Allergy Intermediate Skin Rash Verified 02/28/22 09:43 Antibiotics) baclofen AdvReac Intermediate Nausea Verified 02/28/22 09:43 Home Medication Medication Instructions Recorded methadone 5 mg tablet 10 mg PO BID 01/14/14 paroxetine HCl 20 mg tablet 40 mg PO DAILY 10/18/17 gabapentin 600 mg tablet 600 mg PO TID 09/19/18 metformin 1,000 mg tablet 1,000 mg PO BID@0800,1700 09/26/18 (Glucophage) glimepiride 2 mg tablet 4 mg PO DAILY 03/19/19 bupropion HCl 150 mg 24 hr tablet, 150 mg PO DAILY 11/10/21 extended release dapagliflozin 10 mg tablet 10 mg PO DAILY 12/01/21 acetaminophen 500 mg tablet 1,000 mg PO TID #90 tabs 01/17/22 ibuprofen 600 mg tablet 600 mg PO TID PRN pain #90 tabs 02/01/22 semaglutide 0.25 mg or 0.5 mg (2 1 mg subcut QWEEK 02/16/22 mg/1.5 mL) subcutaneous pen injector (Ozempic) Current Visit Medications: Current Medications Generic Name Dose Route Start Last Admin Trade Name Ambrose PRN Reason Stop Dose Admin Ringer's Solution 1,000 mls @ 80 mls/hr 02/28/22 06:00 02/28/22 10:18 IV 03/29/22 23:59 80 mls/hr INFUSION FLORES Administration Cefazolin Sodium/Dextrose 2 gm in 50 mls @ 100 mls/hr 02/28/22 06:00 Ancef Duplex IVPB 03/29/22 23:59 PREOP FLORES IV Miscellaneous Supplies 1 each 02/28/22 06:00 Iv Access IV 03/29/22 23:59 DIRECTED FLORES Sodium Chloride 0 ml 02/28/22 06:00 Normal Saline Flush 10 Ml Syr IV 03/29/22 23:59 PRN PRN Sodium Chloride 0 ml 02/28/22 06:00 Normal Saline 10 Ml Vial IJ 03/29/22 23:59 DIRECTED PRN Sterile Water 0 ml 02/28/22 06:00 Water,Injection,Sterile 10 Ml Vial IJ 03/29/22 23:59 DIRECTED PRN PFSH Active Problems Active Problems: Problem Status Onset Code Left carpal tunnel syndrome G56.02 Lateral epicondylitis of right elbow M77.11 Partial tear of common extensor tendon of elbow S56.519A Mass of right forearm R22.31 Medical History Medical History Asthma Bilateral knee pain Chronic low back pain Chronic pain Constipation COPD (chronic obstructive pulmonary disease) pt. denies this Depression Hyperglycemia Left lateral epicondylitis (06/27/17) Obesity Partial small bowel obstruction Peptic ulcer disease Psoriasis Quadriceps tendinitis (08/22/17) Renal cell cancer Restless leg per pt. states she no longer has this Right elbow pain Small bowel obstruction Type 2 diabetes mellitus with hyperglycemia Medical History Comments:: states has ongoing nausea-receives medication prior to anesthesia to help with this Surgical History Surgical History Bilateral carpal tunnel syndrome (06/27/17) S/P R ECTR: 01/04/2022 S/P L ECTR: 01/17/2022 Ganglion cyst of volar aspect of right wrist S/P Excision: 01/04/2022 H/O partial nephrectomy History of carpal tunnel surgery of left wrist (01/17/22) S/P arthroscopic partial medial meniscectomy R knee S/P cholecystectomy S/P hysterectomy S/P small bowel resection S/P tympanoplasty Tobacco Smoking/Tobacco Use Status: Former Tobacco Use Alcohol Alcohol Intake: former Substance Use Substance use: Socially Substance use type: marijuana Vital Signs and Lab Results Vital Signs Most Recent Vital Signs in EMR: Most Recent Vital Signs Temp Pulse Resp BP Pulse Ox 36.6 C 79 20 123/72 96 02/28/22 09:34 02/28/22 09:34 02/28/22 09:34 02/28/22 09:34 02/28/22 09:34 Point of Care Results Point of Care Results: Finger Stick Blood Glucose 205 02/28/22 10:11 Lab Results Blood Type / Crossmatch: No Data to Display Complete Blood Count: No Data to Display Complete Metabolic Panel: No Data to Display Liver Function Panel: No Data to Display Coagulation Panel: No Data to Display Cardiac Panel: No Data to Display Arterial Blood Gas: No Data to Display Venous Blood Gas: No Data to Display Pancreas Panel: No Data to Display Thyroid Panel: No Data to Display Infectious Disease: Coronavirus (COVID-19)(PCR) Negative (Negative) 02/27/22 11:32 Coronavirus 2019 Source Nasal/Nares 02/27/22 11:32 Blood Cultures: No Data to Display Toxicology Panel: No Data to Display Anesthesia Assessment and Plan Anesthesia History Personal History: No History of Anesthesia Complications Family History: No Family History of Anesthesia Complications Exercise Tolerance Exercise Tolerance: Metabolic Equivalents>4 Pertinent Negatives Pertinent Negatives: No Symptoms of GERD and No Major Cardiovascular Symptoms or Complaints Cardiac & Pulmonary Exam Cardiac Exam: Normal S1/S2 Heart Sounds Pulmonary Exam: Clear Bilateral Breath Sounds Implantable Cardiac Device Does patient have a Pacemaker or an ICD?: No Airway Exam Known Difficult Airway: No Mallampati Class: 4 Mouth Opening: Narrow (< 3cm) Thyromental Distance: Greater than 3 cm Neck Range of Motion: Full ROM Neck Circumference: Thick Teeth Condition: Removable Dentures/Plates Upper ASA Classification ASA Score: ASA 2 Emergency Case?: No NPO Status NPO Status: NPO Clears >2 hours, Solids >8 hours Anesthesia Plan Resuscitation Status: Full Code Anesthesia Technique: General Anesthesia Airway Planned: Natural Airway Monitors Used: Standard Monitors
[2022-02-28 10:53] VITALS: BMI 38.9
--- NOTE | 2022-02-28 11:36 | PDOC.DSDIS_ITS ---
Discharge Plan Disposition Patient Disposition: HOME Condition: Good Discharge Details Reason For Visit: left carpal tunnel revision and left elbow inj Attending Provider: Adrián Mendoza Primary Care Provider: Jose Haile Home Meds and New Rx's Prescriptions: New hydrocodone-acetaminophen 7.5-325 mg Tablet 1 tab PO Q6H PRN PRNQty: 10 0RF Continued Ozempic 0.25 mg or 0.5 mg(2 mg/1.5 mL) pen injector 1 mg subcut QWEEK Rx Instructions: for 4 doses then increase to 0.5 glimepiride 2 mg tablet 4 mg PO DAILY dapagliflozin 10 mg tablet 10 mg PO DAILY methadone 5 MG tablet 10 mg PO BID gabapentin 600 mg tablet 600 mg PO TID Rx Instructions: 2 cap in morning acetaminophen 500 mg tablet 1,000 mg PO TID Qty: 90 0RF ibuprofen 600 mg tablet 600 mg PO TID PRN (Reason: pain) Qty: 90 0RF Rx Instructions: take 1 tablet by mouth every 8 hrs as needed for pain/inflammation metformin [Glucophage] 1,000 mg tablet 1,000 mg PO BID@0800,1700 paroxetine HCl 20 MG tablet 40 mg PO DAILY bupropion HCl 150 mg tablet extended release 24 hr 150 mg PO DAILY Label Comments: TAKE ONE TABLET BY MOUTH EVERY DAY Discharge Instructions Additional Instructions: Keep a dressing on the wound until follow-up. Stand Alone Forms: Anesthesia Discharge Inst., Kelly Khoury Tunnel ReleaseFernando ([facility]) Referrals: Adrián Mendoza MD [ [facility] STAFF PHYSICIAN] - Equipment/Supplies: Brace Activity:: Elevate Remove Dressings/Wound Care:: 72 hours Shower/Bathe:: 72 hours Diet:: As Tolerated Discharge Orders Discharge Orders: Discharge Order (Routine); Ordered 02/28/22 Ordered By: Leah Ng DS: Diagnosis Discharge Diagnosis (1) Left carpal tunnel syndrome: Status: Acute (2) Lateral epicondylitis of right elbow: Status: Acute (3) Partial tear of common extensor tendon of elbow: Status: Acute
[2022-02-28] MEDS: ceFAZolin 2 GM/50 ML BAG IVPB (12:30)
[2022-02-28] MEDS: methylPREDNISolone ACETATE 80 MG/ML VIAL (12:37)
[2022-02-28] MEDS: Lidocaine 1% Multi-Dose W/EPI 1/100,000 50 ML VIAL (12:40)
[2022-02-28 13:15] VITALS: BP 107/67; PULSE 73; RESP 17; TEMP 36.3; O2SAT 96
--- NOTE | 2022-02-28 13:32 | W.ANESPOSTOP ---
Postoperative Evaluation Date, Time and Location Date Performed: 02/28/22 Time Performed: 13:32 Patient Location: Day Surgery Unit Vital Signs Most Recent Imported Vital Signs: Most Recent Vital Signs Temp Pulse Resp BP Pulse Ox 36.3 C L 73 17 107/67 96 02/28/22 13:15 02/28/22 13:15 02/28/22 13:15 02/28/22 13:15 02/28/22 13:15 Pain Score Most Recent Pain Score: Most Recent Pain Score Pain Level 0 02/28/22 13:15 Assessment Mental Status: Awake (Alert & Oriented to Patient Baseline) Airway and Respiratory Function: Patent airway with normal (patient baseline) respiratory exam Cardiovascular Function: Hemodynamically Stable Hydration Status: Adequately Hydrated Nausea & Vomiting: No Nausea or Vomiting Pain: Pt. Denies Any Pain Peripheral Nerve Block: Patient did not receive a nerve block
[2022-02-28 13:45] VITALS: BP 106/47; PULSE 76; RESP 16; TEMP 36.3; O2SAT 96
--- NOTE | 2022-02-28 21:25 | W.PM.OP ---
Date of service: 02/28/22 Time of Service: 12:45 Operative Note Operative Note DATE OF PROCEDURE: 02/28/22 PRE-OP DIAGNOSIS: Recurrent Carpal Tunnel Syndrome - Left Right Lateral Epicondylitis POST-OP DIAGNOSIS: same PROCEDURE: Open Carpal Tunnel Release - LEFT Right Lateral Elbow Epicondylar Injection for Epicondylitis SURGEON: Adrián Mendoza ANESTHESIA TYPE: General:No Airway Refer to Anesthesia Record ESTIMATED BLOOD LOSS: 5 PATHOLOGY: none sent TOURNIQUET TIME: 16 COMPLICATIONS: None Patient was transported to: same day Patient's condition: stable Indications: Lani is a 56 year old female who I have seen for carpal tunnel syndrome. She underwent endoscopic carpal tunnel release on the left side after undergoing the right side. The right side did very well for her left side she continue to have some symptoms which have unfortunately worsened with increasing swelling, numbness, and pain. Therefore, I recommended we proceed with a revision open carpal tunnel release to evaluate the carpal tunnel and the significant symptoms that she is experiencing. I reviewed the risk of the procedure to include bleeding, infection, pain, stiffness, continued numbness, damage to nerves and vessels, damage to muscles and tendons, need for repeat procedures. Despite these risk, patient desired to proceed. Findings: There was a thickened transverse carpal ligament. It was released fully released. There is significant inflammatory changes around the transverse carpal ligament. There also was a abundant amount of cloudy fluid encountered which was sent to the lab for evaluation although no gross purulence and no true pus. The median nerve was inspected and showed no signs of adhesions or injury. Procedure Description: Lani was greeted in the preoperative holding area. The correct site was identified and marked. The consent was reviewed the patient and signed. The history physical was updated. Patient was taken back to the operating room and placed in the supine position with the left hand placed on a hand table. A nonsterile tourniquet was placed high up onto the arm. The hand and forearm was then prepped with ChloraPrep and draped in standard fashion. Prophylactic antibiotics in the form of cefazolin were given. A timeout was performed for safe surgery. Prior to proceeding with the left carpal tunnel I performed an elbow injection on the right side. The lateral condyle of the right elbow was marked on the skin. This area is prepped with alcohol. Approximately 2 cc of 0.5% ropivacaine and 40 mg of Depo-Medrol were then injected into the lateral soft tissues of the elbow at the common extensor origin and the lateral epicondyle. A Band-Aid was applied. The carpal tunnel surgical site was then injected and anesthetized with 1% lidocaine with epinephrine buffered with sodium bicarbonate. The radial border of the fourth ray was marked on the skin as well as any other pertinent surface anatomy. The limb was exsanguinated and cuff inflated to 250 mmHg. Using 15 blade the skin was incised sharply. Blunt dissection was carried down to the level of the palmar fascia. This was sharply divided making sure to protect any crossing neurovascular branches. Once this was divided the fibers of the transverse carpal ligament were identified. There is very disorganized and swollen with notable inflammatory changes. Using a [place], I was able to place this underneath a portion of the transverse carpal ligament. A knife was then used to cut directly onto the [place]. This was repeated a few times to get fully underneath the thickened transverse carpal ligament. Using the [place] to protect underlying tendons and the median nerve, I released the remainder of the transverse carpal ligament. It was notably thickened and tight. There was some fluid encountered and releasing the carpal ligament completely which was somewhat cloudy. It was not grossly purulent but was suspicious and therefore I sent samples for aerobic and anaerobic cultures. A scissor was used to complete the far aspects after making sure there is no interposed tissue. There is notable separation of the leaflets. Elevating, lifting up, the radial flap of the transverse carpal ligament exposed the median nerve. Any adhesions between it and the transverse carpal ligament were released. It was fully inspected and showed no signs of injury or damage although there was some synovitis. The wound was then fully irrigated. The skin and deeper tissues were closed with a interrupted 4-0 nylon suture. The tourniquet was deflated and there was return of blood flow to all digits. No excessive bleeding from the wound. 4 x 4 gauze was applied followed by Kerlix wrap and an Tripp wrap. The hand was placed into a removable brace. At the end the case all counts are correct. The patient tolerated the procedure well and was transferred back to the day surgery area in a stable condition.
== END 2022-02-28 14:25 | disposition home or self-care (01) ==
PROVIDERS: PCP Internal Medicine; Visit Provider Student in an Organized Health Care Education/Training Program
PROC: (CPT 20605; 2022-02-28 13:15)
PROC: (CPT 64721; 2022-02-28 13:15)
DX: G56.02 Carpal tunnel syndrome, left upper limb (principal); M77.11 Lateral epicondylitis, right elbow
CPT/HCPCS: 20605; 64721; 87070; 87075; 87205; J0690; J1040; J1885; J2250; J2405

== ENCOUNTER → 2022-03-09 10:14 | Outpatient (BNVA) | payer MEDICARE, MEDICAID, SELFPAY | PROVIDERS: PCP Internal Medicine; Referring Provider Internal Medicine; Visit Provider Student in an Organized Health Care Education/Training Program | DX: G56.02 Carpal tunnel syndrome, left upper limb (principal); M77.11 Lateral epicondylitis, right elbow; Z47.89 Encounter for other orthopedic aftercare ==

== ENCOUNTER → 2022-04-06 09:58 | Outpatient (BNVA) | payer MEDICARE, MEDICAID, SELFPAY | PROVIDERS: PCP Internal Medicine; Referring Provider Internal Medicine; Visit Provider Student in an Organized Health Care Education/Training Program | DX: Z47.89 Encounter for other orthopedic aftercare (principal); G56.02 Carpal tunnel syndrome, left upper limb; M54.2 Cervicalgia ==

== ENCOUNTER → 2022-04-28 00:18 | Outpatient (CLI) | payer MEDICARE, MEDICAID, SELFPAY ==
--- NOTE | 2022-04-28 07:00 | DI.MRI_ITS ---
Exam(s) MR UPPER JOINT LT WO EXAM: MR UPPER JOINT LT WO CLINICAL HISTORY: PAIN, S/P L ECTR-03/10/22,M25.532. TECHNIQUE: Multiplanar multisequence MRI was performed. COMPARISON: None. FINDINGS: The examination is limited due to patient motion artifact. BONES: There is no fracture or contusion pattern. JOINTS: There is mild subchondral edema seen in the carpal bones particularly at the articulations be tween the scaphoid, lunate, capitate and distal radius. There is a subchondral cyst in the articular surface of the distal radius. This is likely degenerative in nature. Carpal joints are otherwise u nremarkable. TENDONS: The patient is now status post endoscopic carpal tunnel release. No focal fluid collections are seen in the anterior soft tissues. There is thickening of the soft tissues in the anterior wris t which may represent scarring. Flexors: There is a small amount of fluid seen around the flexor digitorum profundus tendon to the 5t h finger. The flexor tendons are otherwise unremarkable. Extensors: Unremarkable. MUSCLES: Unremarkable. MEDIAN NERVE: Unremarkable on this noncontrast examination. ULNAR NERVE: Unremarkable on this noncontrast examination. SOFT TISSUES: Postsurgical changes seen in the anterior wrist. LIGAMENTS: Unremarkable. TRIANGULAR FIBROCARTILAGE: Unremarkable. OTHER: IMPRESSION: 1. Postsurgical changes of a carpal tunnel release. There is scarring seen in the soft tissues anter iorly. 2. Median and ulnar nerves appear grossly unremarkable. 3. Small amount of fluid seen around the flexor digitorum profundus tendon to the 5th finger. The te ndon is intact and otherwise unremarkable. This may represent a tenosynovitis. DATA REPOSITORY:
== END ==
PROVIDERS: PCP Internal Medicine; Visit Provider Student in an Organized Health Care Education/Training Program
DX: M25.532 Pain in left wrist (principal); M79.89 Other specified soft tissue disorders
CPT/HCPCS: 73221

== ENCOUNTER 2022-05-23 15:19 | Outpatient (REF) | payer MEDICARE, MEDICAID, SELFPAY ==
[2022-05-23 15:59] LABS: Anion Gap 9.1 mmol/L (3-11); BUN 15 mg/dL (7-18); CO2 25.9 mmol/L (21.0-32.0); CREATININE 0.8 mg/dL (0.55-1.02); Chloride 100 mmol/L (98-107); Estimated GFR 85.35 (mL/min/1.73m2); Glucose 203 mg/dL (74-106); Potassium 4.3 mmol/L (3.5-5.1); Sodium 135 mmol/L (136-145)
== END 2022-05-23 15:20 | disposition home or self-care (01) ==
LOC: NCHCN 15:19
PROVIDERS: PCP Internal Medicine; Visit Provider Internal Medicine
DX: C64.9 Malignant neoplasm of unspecified kidney, except renal pelvis (principal); E11.65 Type 2 diabetes mellitus with hyperglycemia; M54.2 Cervicalgia; M54.50 Low back pain, unspecified; E66.9 Obesity, unspecified; G89.29 Other chronic pain
CPT/HCPCS: 80048

== ENCOUNTER → 2022-05-29 01:08 | Outpatient (CLI) | payer MEDICARE, MEDICAID, SELFPAY ==
--- NOTE | 2022-05-29 12:30 | DI.RAD_ITS ---
Exam(s) XR CERVICAL SPINE COMP 4-5V EXAM: XR CERVICAL SPINE COMP 4-5V CLINICAL HISTORY: RT NECK PAIN, M54.2. TECHNIQUE: 2D digital imaging was performed. COMPARISON: No exams were available for comparison FINDINGS: BONES: No fracture or destructive lesion. Vertebral bodies are unremarkable. Facet joint degenerative changes are noted throughout greatest at C2-3 and C3-4. Neural foraminal narrowing is noted at C6-7 bilaterally. The right neural foramina suboptimally profiled. DISKS: Mild narrowing of the C6-7 disc space with endplate osteophytes. Intervertebral disc spaces a re maintained. ALIGNMENT: Cervical spinal alignment is within normal limits. The odontoid and atlantoaxial articulat ions are normal. SOFT TISSUE: Normal. The lung apices are clear. IMPRESSION: Degenerative disc changes at C6-7. Bilateral neural foraminal narrowing at C6-7. DATA REPOSITORY: RADIATION DOSE DELIVERED:
== END ==
PROVIDERS: PCP Internal Medicine; Visit Provider Internal Medicine
DX: M47.812 Spondylosis without myelopathy or radiculopathy, cervical region (principal)
CPT/HCPCS: 72050

== ENCOUNTER 2022-09-14 21:40 | Outpatient (REF) | payer MEDICARE, MEDICAID, SELFPAY ==
[2022-09-16 12:06] LABS: COVID-19 RT-PCR UVMMC Result Negative (Negative)
== END 2022-09-14 21:41 | disposition home or self-care (01) ==
LOC: LBN 21:40
PROVIDERS: PCP Internal Medicine; Visit Provider Physician Assistant Medical
DX: Z20.822 Contact with and (suspected) exposure to COVID-19 (principal); J06.9 Acute upper respiratory infection, unspecified
CPT/HCPCS: U0003

== ENCOUNTER 2023-10-04 01:26 | Emergency (ER) | payer MEDICARE, MEDICAID, SELFPAY ==
[2023-10-04] VITALS (57 sets, daily range): BP systolic 106–146; BP diastolic 50–97; PULSE 83–95; RESP 11–40; TEMP 36.8; O2SAT 93
--- NOTE | 2023-10-04 01:57 | W.ED.GENAD ---
HPI General Mode of arrival: EMS. Date/Time Provider Initiated Documentation: 10/04/23 01:57. Limitations to Documentation: no limitations. Information obtained by: patient and EMS. HPI Narrative: 58yo F with hx of DM, COPD presenting via EMS for anaphalaxis. No known anaphylactic allergies. Went to today for ear pain; discharged with ciprofloxacin and dexamethasone ear drops which she used at 2230. Woke around midnight with shortness of breath, swelling in her tongue, and swelling in her hands. Call EMS; on their arrival she had audible stridor. Given 0.3mg epinephrine, 125mg solumedrol, 50mg Benadryl, and 4mg zofran prior to arrival with improvement in symptoms. On arrival she reports her symptoms have resolved, feels back to normal. Never experienced similar symptoms in the past. She is otherwise in her usual state of health with no fevers, chills, chest pain, numbness, tingling, weakness, or other concerns. Related Data Home Medications Medication Instructions Recorded Confirmed methadone 5 mg tablet 10 mg PO BID 01/14/14 10/04/23 paroxetine HCl 20 mg tablet 40 mg PO DAILY 10/18/17 10/04/23 gabapentin 600 mg tablet 600 mg PO TID 09/19/18 10/04/23 metformin 1,000 mg tablet 1,000 mg PO BID@0800,1700 09/26/18 10/04/23 (Glucophage) glimepiride 2 mg tablet 4 mg PO DAILY 03/19/19 10/04/23 bupropion HCl 150 mg 24 hr tablet, 150 mg PO DAILY 11/10/21 10/04/23 extended release dapagliflozin propanediol 10 mg 10 mg PO DAILY 12/01/21 10/04/23 tablet acetaminophen 500 mg tablet 1,000 mg (2 x 500 mg) PO TID #90 01/17/22 10/04/23 tabs semaglutide 0.25 mg or 0.5 mg (2 1 mg subcut QWEEK 02/16/22 10/04/23 mg/1.5 mL) subcutaneous pen injector (Ozempic) albuterol sulfate 90 mcg/actuation 2 puff inhalation .Q4-6H PRN 09/15/22 10/04/23 aerosol inhaler (Ventolin HFA) atorvastatin 20 mg tablet 20 mg PO QHS 09/15/22 10/04/23 benzonatate 200 mg capsule 200 mg PO TID PRN cough 09/15/22 10/04/23 betamethasone dipropionate 0.05 % 1 applic topical BID PRN 09/15/22 10/04/23 topical cream dapagliflozin propanediol 10 mg 10 mg PO DAILY 09/15/22 10/04/23 tablet (Farxiga) diabetic supplies, miscellan. 09/15/22 10/04/23 naloxone [Narcan] intranasal 09/15/22 10/04/22 promethazine 12.5 mg tablet 12.5 mg PO .Q8-12 PRN 09/15/22 10/04/23 epinephrine 0.3 mg/0.3 mL 0.3 mg (0.3 mL) IM Q5-15M PRN #2 ea 10/04/23 injection, auto-injector Previous Rx's Medication Instructions Recorded acetaminophen 500 mg tablet 1,000 mg (2 x 500 mg) PO TID #90 01/17/22 tabs epinephrine 0.3 mg/0.3 mL 0.3 mg (0.3 mL) IM Q5-15M PRN #2 ea 10/04/23 injection, auto-injector Allergies Allergy/AdvReac Type Severity Reaction Status Date / Time Sulfa (Sulfonamide Allergy Intermediate Skin Rash Verified 10/04/22 08:06 Antibiotics) baclofen AdvReac Intermediate Nausea Verified 10/04/22 08:06 General Stated Complaint: Allergic ELENA: 3 Review of Systems Narrative: see HPI Exam Narrative Exam Narrative: General: Alert, well appearing, well nourished, in no acute distress. Head: Normocephalic, atraumatic Neck: Trachea midline, ?Neck supple. ENT: ?MMM.? No oropharygeal lesions or exudate. Left TM clear. Right TM with large perforation. Cardiac: ?RRR, no murmurs appreciated Resp: No respiratory distress. CTAB. Abd: ?Soft, non-distended, nontender : ?No suprapubic tenderness. No CVA tenderness. Extremities: ?No deformities.? No peripheral edema. Neurologic: GCS 15. ? Moves all extremities freely against gravity Course Vital Signs Vital signs: Vital Signs Temperature 36.8 C 10/04/23 01:22 Pulse 89 10/04/23 01:22 Respiratory Rate 18 10/04/23 01:22 Blood Pressure 145/80 H 10/04/23 01:22 Pulse Oximetry 93 10/04/23 01:22 Temperature 36.8 C 10/04/23 01:22 Pulse 91 H 10/04/23 01:31 Pulse 88 10/04/23 01:40 Respiratory Rate 17 10/04/23 01:40 Respiratory Effort Normal 10/04/23 01:28 Respiratory Pattern Normal 10/04/23 01:28 Blood Pressure 142/80 H 10/04/23 01:31 Blood Pressure Mean 99 10/04/23 01:31 Pulse Oximetry 93 10/04/23 01:22 Pain Level 0 10/04/23 01:22 Medical Decision Making 58yo F with hx of DM, COPD presenting via EMS for anaphalaxis. No known anaphylactic allergies. Seen at for ear pain, received an injection of some antibiotic (not sure exactly what) and discharged with ear drops. Drops with her are cipro and dexamethasone. Used ear drops at 2230, woke around midnight with shortness of breath, swelling in her tongue, and swelling in her hands. Called EMS; given 0.3mg epinephrine, 125mg solumedrol, 50mg Benadryl, and 4mg zofran [employer]. On arrival she reports her symptoms have resolved. Vital signs and physical exam reassuring, no respiratory distress. Right TM perforated and canal erythematous. Description of symptoms consistent with anaphylaxis. Will observe in the ED for 6 hours for recurrence of symptoms. Given dose of toradol for ear pain and zofran for nausea while in the ED. Remained stable without further respiratory distress while in the ED. With perforated TM, does require antibiotic treatment however with unknown exposure earlier in the day with subsequent anaphalyxis hesitant to prescribed with confirming prior medications. Patient would like to go home and does not want to wait for urgent care to open. She verbalizes that she will call them and determine what she received and that she then will present for medical care today (either to her PCP, , or back to the ED) to have an appropriate antibiotic prescribed. I stressed with her that failing to do so could result in serious and permanent damage. She verbalized understanding of my concerns. Discharged home; discharge instructions and return precautions were reviewed with patient who verbalized understanding. All questions were answered and she is in full agreement with the plan. Quality:SDOH Health Related Social Needs: No Data to Display PFSH All Active Problems (Updated 10/04/23 @ 07:14 by Alissa Torres MD) Anaphylactic reaction (Acute) Cervicalgia (Acute) Left carpal tunnel syndrome (Acute) Lateral epicondylitis of right elbow (Acute) Partial tear of common extensor tendon of elbow (Acute) Mass of right forearm (Acute) no mass Medical History (Updated 10/04/23 @ 07:14 by Alissa Torres MD) History of adenomatous polyp of colon Muscle spasm Wrist tendonitis History of kidney stones Diabetic peripheral neuropathy Screening for breast cancer Hand pain, left Neck pain on right side Shoulder pain, right Cough Type B influenza Right ear pain Bilateral conjunctivitis Right elbow pain Small bowel obstruction Psoriasis COPD (chronic obstructive pulmonary disease) pt. denies this Bilateral knee pain Left lateral epicondylitis (06/27/17) Quadriceps tendinitis (08/22/17) Type 2 diabetes mellitus with hyperglycemia Hyperglycemia Chronic pain Partial small bowel obstruction Asthma Renal cell cancer Constipation Chronic low back pain Peptic ulcer disease Obesity Depression Restless leg per pt. states she no longer has this Surgical History History of carpal tunnel surgery of left wrist (01/17/22) Ganglion cyst of volar aspect of right wrist S/P Excision: 01/04/2022 Bilateral carpal tunnel syndrome (06/27/17) S/P R ECTR: 01/04/2022 S/P L ECTR: 01/17/2022 S/P hysterectomy H/O partial nephrectomy S/P arthroscopic partial medial meniscectomy R knee S/P tympanoplasty S/P cholecystectomy S/P small bowel resection Social History Smoking/Tobacco Use Status: Former Tobacco Use Quit Date: 07/17/19 Smoking risk assessment performed?: Yes Alcohol Intake: former Drug use: Socially Substance use type: marijuana Household members: spouse Current gender identity: female Do you feel safe at home: Yes Do you feel safe in your relationship?: Yes Discharge Plan Disposition Patient Disposition: Home Condition: Good Discharge Details Clinical Impression: Anaphylactic reaction Primary Care Provider: Jose Haile ED Provider: Alissa Torres Home Meds and New Rx's Prescriptions: New epinephrine 0.3 mg/0.3 mL auto-injector 0.3 mg IM Q5-15M PRNQty: 2 0RF Rx Instructions: do not exceed 3 doses per episode Continued Ozempic 0.25 mg or 0.5 mg(2 mg/1.5 mL) pen injector 1 mg subcut QWEEK Rx Instructions: for 4 doses then increase to 0.5 glimepiride 2 mg tablet 4 mg PO DAILY dapagliflozin propanediol 10 mg tablet 10 mg PO DAILY methadone 5 MG tablet 10 mg PO BID gabapentin 600 mg tablet 600 mg PO TID Rx Instructions: 2 cap in morning (DME) diabetic supplies, miscellan. Misc See Rx Instructions .Route Rx Instructions: As directed naloxone [Narcan] intranasal betamethasone dipropionate 0.05 % cream 1 applic topical BID PRN Farxiga 10 mg tablet 10 mg PO DAILY atorvastatin 20 mg tablet 20 mg PO QHS promethazine 12.5 mg tablet 12.5 mg PO .Q8-12 PRN albuterol sulfate [Ventolin HFA] 90 mcg/actuation HFA aerosol inhaler 2 puff inhalation .Q4-6H PRN Hold Instructions: Prescription Finished benzonatate 200 mg capsule 200 mg PO TID PRN (Reason: cough) Hold Instructions: Prescription Finished acetaminophen 500 mg tablet 1,000 mg PO TID Qty: 90 0RF Hold Instructions: Changed by Provider metformin [Glucophage] 1,000 mg tablet 1,000 mg PO BID@0800,1700 paroxetine HCl 20 MG tablet 40 mg PO DAILY bupropion HCl 150 mg tablet extended release 24 hr 150 mg PO DAILY Patient Comments: TAKE ONE TABLET BY MOUTH EVERY DAY Discharge Instructions Instructions: Ruptured Eardrum (ED), Anaphylaxis (ED) Additional Instructions: Please contact urgent care today as soon as possible and determine which antibiotic you received. It is important that you get treatment for your ear infection to prevent permanent damage however it is also vitally important to know which antibiotics you were exposed as they are the likely reason you had a severe allergic reaction. Once you have this information please see a medical professional today (your PCP, urgent care, or here in the ED) to prescribe an appropriate antibiotic. Follow-up with ENT; they will call you to schedule an appointment. If you have similar symptoms including rash with difficulty breathing, or feel that your throat is closing, please use the Epinephrine you were prescribed. You need to go to the ED if you use epinephrine, even if your symptoms improve. Return to the emergency department for new or worsening symptoms, if you have any concerns, or if you are unable to followup as directed above. Referrals: Jose Haile MD [Primary Care Provider] -
[2023-10-04] MEDS: Ondansetron 4 MG/2 ML VIAL IVP (04:25)
[2023-10-04] MEDS: Ketorolac 15 MG/ML VIAL IVP (04:35)
--- NOTE | 2023-10-04 07:16 | NUR.NOTE ---
Nursing Note: PT needs follow up LINDA with [facility] ENT for ruptured tympanic membrane. Mariaelena, ED
== END 2023-10-04 10:25 | disposition home or self-care (01) ==
LOC: ER 08:10
PROVIDERS: Emergency Provider Student in an Organized Health Care Education/Training Program; PCP Internal Medicine
DX: T78.2XXA Anaphylactic shock, unspecified, initial encounter (principal); R06.02 Shortness of breath; E11.40 Type 2 diabetes mellitus with diabetic neuropathy, unspecified; J44.9 Chronic obstructive pulmonary disease, unspecified; Z79.84 Long term (current) use of oral hypoglycemic drugs; Z87.891 Personal history of nicotine dependence
CPT/HCPCS: 96374; 96375; 99284; J1885; J2405

== ENCOUNTER 2023-10-31 16:49 | Outpatient (REF) | payer MEDICARE, MEDICAID, SELFPAY ==
[2023-10-31 21:46] LABS: Hemoglobin A1C 10.1 % (<5.7)
[2023-10-31 21:56] LABS: ALT 23 U/L (14-59); AST 12 U/L (15-37); Albumin 4.3 g/dL (3.4-5.0); Alkaline Phosphatase 179 U/L (46-116); Anion Gap 11.9 mmol/L (3-11); BUN 20 mg/dL (7-18); Bilirubin, Total 0.4 mg/dL (0.2-1.0); CO2 27.1 mmol/L (21.0-32.0); CREATININE 0.8 mg/dL (0.55-1.02); Calcium 9.9 mg/dL (8.5-10.1); Calculated LDL 85 mg/dL (<100); Chloride 98 mmol/L (98-107); Cholesterol 190 mg/dL (<200); Glucose 178 mg/dL (74-106); HDL Cholesterol 76 mg/dL (40-60); Potassium 4.8 mmol/L (3.5-5.1); Sodium 137 mmol/L (136-145); Total Protein 7.7 g/dL (6.4-8.2); Triglyceride 148 mg/dL (<150); Vitamin D 25 Total 15.7 ng/mL (30-100)
== END 2023-10-31 16:50 | disposition home or self-care (01) ==
LOC: NCHCN 16:49
PROVIDERS: PCP Family Medicine; Visit Provider Family Medicine
DX: E11.9 Type 2 diabetes mellitus without complications (principal)
CPT/HCPCS: 80053; 80061; 82306; 83036

== ENCOUNTER 2024-04-29 19:46 | Outpatient (REF) | payer MEDICARE, MEDICAID, SELFPAY ==
[2024-05-01 12:26] LABS: Chlamydia Result Negative (Negative); GC Result Negative (Negative)
== END 2024-04-29 19:47 | disposition home or self-care (01) ==
LOC: LBN 19:46
PROVIDERS: PCP Family Medicine; Visit Provider Nurse Practitioner Family
DX: N76.0 Acute vaginitis (principal); Z11.3 Encounter for screening for infections with a predominantly sexual mode of transmission; R30.0 Dysuria
CPT/HCPCS: 87077; 87491; 87591; 87086; 87186; 87480; 87510; 87660

== ENCOUNTER 2024-05-04 17:14 | Observation (INO) | payer MEDICARE, MEDICAID, SELFPAY ==
[2024-05-04] VITALS (62 sets, daily range): BP systolic 114–127; BP diastolic 50–68; PULSE 90–143; RESP 16–25; TEMP 36.7–38.5; O2SAT 95–100
--- NOTE | 2024-05-04 17:30 | RT.EKG_ITS ---
APPROVED REPORT Exam: Resting ECG Reason for Exam: tachycardia Patient Location: E HR:131 bpm ECG Measurements Heart Rate 131 AXIS DE 146 P 64 QRSd 85 QRS 67 QT 289 T 41 QTc 428 Conclusion Sinus tachycardia...rate> 99
--- NOTE | 2024-05-04 17:30 | DI.CT_ITS ---
Exam(s) CT ABDOMEN PELVIS W EXAM: CT ABDOMEN PELVIS W CLINICAL HISTORY: abd pain, TTP LUQ and LLQ. TECHNIQUE: Imaging Protocol: Axial computed tomography images with coronal and sagittal reformatted images were created and reviewed CONTRAST MATERIAL: Intravenous: Omnipaque 350 Contrast volume:100 ml Oral: yes / no COMPARISON: CT CT ABDOMEN PELVIS W from 03/07/2020 FINDINGS: ABDOMEN and PELVIS: Lung Bases: No acute findings. Liver: Enlarged at 20 cm in length. Similar to prior. Normal density. No suspicious mass. Gallbladder and biliary tract: Status post cholecystectomy. No biliary dilation. Pancreas: Normal density. No abnormal calcifications or inflammatory process. No evidence of mass. Spleen: Mildly larger 14 cm in length. Similar to prior. Kidneys: Normal size and axis. Scarring lower pole left kidney. Tiny nonobstructing stone lower rd e left kidney. No radiodense stones. No obstructive uropathy. No suspicious masses seen. Adrenal glands: No masses seen. Vasculature: Abdominal aorta non-dilated. Soft tissues: Unremarkable. Bladder: No gross wall thickening. No calculi.No focal mass. Bowel: No obstruction. No bowel wall thickening or inflammatory changes. Moderate quantity of st ool. Peritoneal cavity: No ascites. No focal collection. No mesenteric inflammatory response. Bones: Unremarkable for age. Reproductive organs: Unremarkable. Lymph nodes: No pathologically enlarged lymph nodes. IMPRESSION:: No acute abnormality in the abdomen or pelvis. Stable hepatic splenomegaly. RADIATION DOSE DELIVERED: Total DLP DATA REPOSITORY: All CT scans at this facility are submitted to the National Radiology Data Registry (NRDR) Dose Index Registry (DIR) with the [employer] (ACR). RADIATION OPTIMIZATION: All CT scans at this facility use at least one of these dose optimization te chniques: automated exposure control; mA and/or kV adjustment per patient size (includes targeted exa ms where dose is matched to clinical indication); or iterative reconstruction.
--- NOTE | 2024-05-04 17:41 | ED.GENADUL_ITS ---
Discharge Plan Disposition Patient Disposition: Admit to [facility] Discharge Details Clinical Impression: Acute hyponatremia, Nausea & vomiting, UTI (urinary tract infection) Primary Care Provider: Jazz George ED Provider: Yoli Javed Home Meds and New Rx's Prescriptions: No Action glimepiride 2 mg tablet 4 mg PO DAILY dapagliflozin propanediol 10 mg tablet 10 mg PO DAILY methadone 5 MG tablet 10 mg PO BID Patient Comments: has not been taking it for the last couple of days due sx gabapentin 600 mg tablet 600 mg PO TID Rx Instructions: 2 cap in morning (DME) diabetic supplies, miscellan. Misc See Rx Instructions .Route Rx Instructions: As directed naloxone [Narcan] 0.4 mg intranasal ONCE PRN atorvastatin 20 mg tablet 20 mg PO QHS promethazine 12.5 mg tablet 12.5 mg PO .Q8-12 PRN acetaminophen 500 mg tablet 1,000 mg PO TID Qty: 90 0RF metformin [Glucophage] 1,000 mg tablet 1,000 mg PO BID@0800,1700 paroxetine HCl 20 MG tablet 40 mg PO DAILY bupropion HCl 150 mg tablet extended release 24 hr 300 mg PO DAILY Patient Comments: TAKE ONE TABLET BY MOUTH EVERY DAY epinephrine 0.3 mg/0.3 mL auto-injector 0.3 mg IM Q5-15M PRNQty: 2 0RF Rx Instructions: do not exceed 3 doses per episode Bydureon BCise 2 mg/0.85 mL auto-injector 2 mg SUBCUT Q7D nitrofurantoin monohyd/m-cryst 100 mg capsule 100 mg PO BID Patient Comments: TAKE ONE CAPSULE BY MOUTH TWICE A DAY FOR 5 DAYS fluconazole 150 mg tablet 150 mg PO Q72H Patient Comments: TAKE ONE TABLET BY MOUTH NOW; MAY REPEAT DOSE IN 72 HOURS IF SYMPTOMS ARE ASTILL PRESENT cyclobenzaprine 10 mg tablet 10 mg PO TID PRN Patient Comments: TAKE ONE TABLET BY MOUTH THREE TIMES A DAY HPI General Date/Time Provider Initiated Documentation: 05/04/24 17:16 . HPI Narrative: Lani is a 58-year-old female with history of T2DM and remote history of renal carcinoma who presents to the emergency department for evaluation of headache, nausea/vomiting, dizziness/lightheadedness with standing/sitting, abdominal pain, and feeling feverish x 3 days. She denies recorded fevers, vision changes, rashes, facial swelling, difficulty breathing, chest pain, hematuria or change in bowel function. She reports that the headache has been constant for the last couple of days despite taking Tylenol. She did take some prochlorperazine today without improvement in nausea. She reports that she believes this is a reaction to the nitrofurantoin she was prescribed for UTI, urine culture showed E. coli. She started taking the medications the night symptoms started. She reports she was evaluated in urgent care for UTI symptoms, including urgency/frequency, burning with urination. She was treated for a yeast infection as well. She has been drinking lots of water to stay well hydrated. She denies recent antibiotic use. She does have a history of multiple anaphylactic reactions to antibiotics, including ciprofloxacin and sulfa antibiotics. She does have a history of left kidney resection due to renal carcinoma. Physical exam remarkable for markedly uncomfortable patient who is rolling around on the stretcher. Tacky mucous membranes. Abdomen is softly distended, tender to palpation in the left upper quadrant and left lower quadrant. Normoactive BS. Easy work of breathing, lung sounds clear bilaterally. Normal heart sounds, tachycardia noted. Moving all extremities equally, normal gait. Pt is A+Ox4. 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 PERRL, EOMs intact, no nystagmus. DDx includes but is not limited to: Med reaction, cardiac arrhythmia, pyelonephritis, kidney dysfunction, pancreatitis, dehydration, electrolyte imbal julia Adames independently interpreted the following tests: EKG remarkable for sinus tachycardia, rate 131. No changes consistent with acute ischemia. No QT prolongation. CBC reassuring. Significant hyponatremia noted, sodium 125. LFTs elevated, total bili 1.73, AST 90, alk phos 255. Lipase slightly elevated at 87. While in the emergency department Lani received Reglan, Toradol, Benadryl, and IV fluids. Heart rate down to 90s after receiving [address] abdomen/pelvis reassuring, no acute findings identified. As Lani did continue to report unchanged headache after medications, CT head performed, no acute findings noted. Discussed case with Dr. Mora, hospitalist. He is agreeable to admitting Trish for hyponatremia and general feeling of unwellness, possibly due to viral ill ness versus methadone withdrawal versus medication reaction. Plan to treat for UTI and replenish sodium/fluid restriction to normalize sodium. Lani is agreeable with plan of care. Related Data Home Medications ?Medication ?Instructions ?Recorded ?Confirmed methadone 5 mg tablet 10 mg PO BID 01/14/14 05/04/24 paroxetine HCl 20 mg tablet 40 mg PO DAILY 10/18/17 05/04/24 gabapentin 600 mg tablet 600 mg PO TID 09/19/18 05/04/24 metformin 1,000 mg tablet 1,000 mg PO BID@0800,1700 09/26/18 05/04/24 (Glucophage) glimepiride 2 mg tablet 4 mg PO DAILY 03/19/19 05/04/24 bupropion HCl 150 mg 24 hr tablet, 300 mg PO DAILY 11/10/21 05/04/24 extended release dapagliflozin propanediol 10 mg 10 mg PO DAILY 12/01/21 05/04/24 tablet acetaminophen 500 mg tablet 1,000 mg (2 x 500 mg) PO TID #90 01/17/22 05/04/24 tabs atorvastatin 20 mg tablet 20 mg PO QHS 09/15/22 05/04/24 diabetic supplies, miscellan. 09/15/22 05/04/24 naloxone 0.4 mg intranasal ONCE PRN 09/15/22 05/04/24 promethazine 12.5 mg tablet 12.5 mg PO .Q8-12 PRN 09/15/22 05/04/24 epinephrine 0.3 mg/0.3 mL 0.3 mg (0.3 mL) IM Q5-15M PRN #2 ea 10/04/23 05/04/24 injection, auto-injector cyclobenzaprine 10 mg tablet 10 mg PO TID PRN 05/04/24 05/04/24 exenatide microspheres 2 mg/0.85 2 mg subcut Q7D 05/04/24 05/04/24 mL subcutaneous auto-injector (Ree Ku) fluconazole 150 mg tablet 150 mg PO Q72H 05/04/24 05/04/24 nitrofurantoin 100 mg PO BID 05/04/24 05/04/24 monohydrate/macrocrystals 100 mg capsule Previous Rx's ?Medication ?Instructions ?Recorded acetaminophen 500 mg tablet 1,000 mg (2 x 500 mg) PO TID #90 01/17/22 tabs epinephrine 0.3 mg/0.3 mL 0.3 mg (0.3 mL) IM Q5-15M PRN #2 ea 10/04/23 injection, auto-injector Allergies Allergy/AdvReac Type Severity Reaction Status Date / Time ciprofloxacin (From Ciprodex) Allergy Severe Anaphylaxis Unverified 05/04/24 17:20 dexamethasone (From Ciprodex) Allergy Severe Anaphylaxis Unverified 05/04/24 17:20 Sulfa (Sulfonamide Allergy Intermediate Skin Rash Verified 05/04/24 17:20 Antibiotics) baclofen AdvReac Intermediate Nausea Verified 05/04/24 17:20 General Stated Complaint: GenMedical ELENA: 3 Review of Systems Narrative: see HPI Exam Const General: cooperative, healthy appearing and well developed Nutritional Appearance: overweight HENMT Head: normal to inspection General nose exam: external nose normal Face and sinus: dry mucous membranes Resp Effort & Inspection: normal respiratory effort and able to speak in complete sentences Auscultation: clear to auscultation bilaterally Cardio Rate: tachycardic Rhythm: regular rhythm GI Inspection: normal to inspection Palpation: soft, not firm, no guarding and tender in the RLQ and in the RUQ Auscultation: normal bowel sounds General: No CVA tenderness Neuro General: patient alert, patient oriented x3, gait normal, tone normal, moves all extremities, no focal motor deficits and CN's II-XI intact bilaterally Cranial Nerves: CN's II-XI intact bilaterally, PERRL, EOM intact bilaterally, no nystagmus, facial strength normal, tongue midline, hearing normal, able to rota te head bilaterally and able to elevate shoulders bilaterally Cognition: normal cognition Speech: speech normal Gait: normal gait Motor: muscle tone normal throughout and strength 5/5 throughout Course Vital Signs Vital signs: Vital Signs Temperature 36.7 C 05/04/24 17:15 Pulse 143 H 05/04/24 17:15 Respiratory Rate 18 05/04/24 17:15 Blood Pressure 127/68 05/04/24 17:15 Pulse Oximetry 97 05/04/24 17:15 Temperature 36.7 C 05/04/24 17:15 Pulse 143 H 05/04/24 17:15 Respiratory Rate 18 05/04/24 17:15 Respiratory Effort Normal 05/04/24 17:27 Blood Pressure 127/68 05/04/24 17:15 Pulse Oximetry 97 05/04/24 17:15 Oxygen Delivery Method Room Air 05/04/24 17:15 Oxygen Flow Rate 0 05/04/24 17:15 Pain Level 9 05/04/24 17:15 Comment tylenol 1430 625 mg promethazine 25 mg also with no relief 05/04/24 17:15 Medical Decision Making Quality:SDOH Health Related Social Needs: No Data to Display PFSH All Active Problems (Updated 05/04/24 @ 21:50 by Franklyn Mora MD) Malaise (Acute) UTI (urinary tract infection) (Acute) Nausea & vomiting (Acute) Acute hyponatremia (Acute) TMJ dysfunction (Acute) Referred otalgia of left ear (Acute) Referred otalgia of right ear (Acute) Acute sinusitis (Acute) Right ear pain (Acute) Cervicalgia (Acute) Left carpal tunnel syndrome (Acute) Lateral epicondylitis of right elbow (Acute) Partial tear of common extensor tendon of elbow (Acute) Mass of right forearm (Acute) no mass Medical History History of adenomatous polyp of colon Muscle spasm Wrist tendonitis History of kidney stones Diabetic peripheral neuropathy Screening for breast cancer Hand pain, left Neck pain on right side Shoulder pain, right Cough Type B influenza Bilateral conjunctivitis Right elbow pain Small bowel obstruction Psoriasis COPD (chronic obstructive pulmonary disease) pt. denies this Bilateral knee pain Left lateral epicondylitis (06/27/17) Quadriceps tendinitis (08/22/17) Type 2 diabetes mellitus with hyperglycemia Hyperglycemia Chronic pain Partial small bowel obstruction Asthma Renal cell cancer Constipation Chronic low back pain Peptic ulcer disease Obesity Depression Restless leg per pt. states she no longer has this Surgical History History of carpal tunnel surgery of left wrist (01/17/22) Ganglion cyst of volar aspect of right wrist S/P Excision: 01/04/2022 Bilateral carpal tunnel syndrome (06/27/17) S/P R ECTR: 01/04/2022 S/P L ECTR: 01/17/2022 S/P hysterectomy H/O partial nephrectomy S/P arthroscopic partial medial meniscectomy R knee S/P tympanoplasty S/P cholecystectomy S/P small bowel resection Social History Smoking/Tobacco Use Status: Former Tobacco Use Quit Date: 07/17/19 Smoking risk assessment performed?: Yes Alcohol Intake: former Drug use: Socially Substance use type: marijuana Household members: spouse Housing: house Current gender identity: female Do you feel safe at home: Yes Do you feel safe in your relationship?: Yes
[2024-05-04] MEDS: Ketorolac 15 MG/ML VIAL IVP (18:04)
[2024-05-04] MEDS: Metoclopramide 10 MG/2 ML VIAL IVP (18:04)
[2024-05-04] MEDS: diphenhydrAMINE 50 MG/ML VIAL 25 MG IVP (18:04)
[2024-05-04 18:12] LABS: Abs Immature Grans 0.05 10^3/uL (0.0-0.06); Absolute Basophil Count 0.03 10^3/uL (0.0-0.2); Absolute Eosinophil Count 0.18 10^3/uL (0.0-0.7); Absolute Lymphocyte Count 0.31 10^3/uL (1.2-3.4); Absolute Monocyte Count 0.62 10^3/uL (0.1-0.8); Absolute Neutrophil Count 5.34 10^3/uL (1.2-6.7); Basophils % 0.5 %; Eosinophils % 2.8 %; HCT 36.2 % (36.0-46.0); HGB 12.7 g/dL (11.2-15.7); Immature Grans % 0.8 %; Lymphocytes % 4.7 %; MCH 28.1 pg (27.0-33.0); MCHC 35.1 % (32.0-36.0); MCV 80 fL (80-95); MPV 9.3 fL (8.0-11.0); Monocytes % 9.5 %; Neutrophils % 81.7 %; Platelet Count 171 10^3/uL (130-400); RBC 4.52 10^6/uL (3.93-5.22); RDW-SD 37.4 fL; WBC 6.53 10^3/uL (4.4-10.8)
[2024-05-04] MEDS: Normal Saline 1,000 ML 1000 ML IV (18:13)
[2024-05-04 18:39] LABS: ALT 55 U/L (14-59); AST 90 U/L (15-37); Alkaline Phosphatase 255 U/L (46-116); Anion Gap 10.4 mmol/L (3-11); BUN 15 mg/dL (7-18); Bilirubin, Total 1.73 mg/dL (0.2-1.0); CO2 23.6 mmol/L (21.0-32.0); CREATININE 0.9 mg/dL (0.55-1.02); Chloride 91 mmol/L (98-107); Estimated GFR 73.19 (mL/min/1.73m2); Glucose 317 mg/dL (74-106); Lipase 87 U/L (16-77); Potassium 4.1 mmol/L (3.5-5.1); Sodium 125 mmol/L (136-145); Total Protein 6.9 g/dL (6.4-8.2)
[2024-05-04 18:48] LABS: Calcium 9.3 mg/dL (8.5-10.1)
[2024-05-04] MEDS: Normal Saline - Diluent 50 ML VIAL IJ (19:27)
[2024-05-04] MEDS: Omnipaque 350 MG/ML 100 ML BTL IJ (19:29)
[2024-05-04] MEDS: Normal Saline Flush 10 ML SYR IVP (19:30)
--- NOTE | 2024-05-04 19:30 | DI.CT_ITS ---
Exam(s) CT HEAD WO EXAM: CT HEAD WO CLINICAL HISTORY: headache, no response to meds. TECHNIQUE: Imaging Protocol: Axial computed tomography images with coronal and sagittal reformatted images were created and reviewed COMPARISON: CT HEAD AND CSPINE W/O CONTRAST from 09/25/2017 FINDINGS: There are no skull fractures. There is no fluid in the visualized paranasal sinuses. There is no evidence of intracranial hemorrhage, mass effect, or shift of midline structures. There are no extra-axial fluid collections. The ventricles are not enlarged or shifted and there is no blo od within the ventricular system nor within the basal cisterns. IMPRESSION: No acute intracranial findings on this noninfused CT scan of the brain. RADIATION DOSE DELIVERED: 844.33mGy.cm Total DLP DATA REPOSITORY: All CT scans at this facility are submitted to the National Radiology Data Registry (NRDR) Dose Index Registry (DIR) with the [employer] (A[employer]). RADIATION OPTIMIZATION: All CT scans at this facility use at least one of these dose optimization te chniques: automated exposure control; mA and/or kV adjustment per patient size (includes targeted exa ms where dose is matched to clinical indication); or iterative reconstruction.
[2024-05-04] MEDS: Normal Saline 1,000 ML 125 ML IV (20:02)
[2024-05-04 20:31] LABS: BUN 15 mg/dL (7-18); CREATININE 0.9 mg/dL (0.55-1.02); Calcium 8.6 mg/dL (8.5-10.1); Chloride 96 mmol/L (98-107); Estimated GFR 73.19 (mL/min/1.73m2); Glucose 235 mg/dL (74-106); Potassium 3.6 mmol/L (3.5-5.1); Sodium 128 mmol/L (136-145)
--- NOTE | 2024-05-04 20:37 | DI.VRAD_ITS ---
PROCEDURE INFORMATION: Exam: CT Abdomen And Pelvis With Contrast Exam date and time: 05/04/2024 7:23 PM Age: 58 years old Clinical indication: Abdominal pain; Localized; Left; Prior surgery; Surgery date: 6+ months; Surgery type: Hysterectomy, cholecystectomy, small bowel; Patient HX: Abd pain, ttp luq and llq TECHNIQUE: Imaging protocol: Computed tomography of the abdomen and pelvis with contrast. Radiation optimization: All CT scans at this facility use at least one of these dose optimization techniques: automated exposure control; mA and/or kV adjustment per patient size (includes targeted exams where dose is matched to clinical indication); or iterative reconstruction. Contrast material: OMNIPAQUE 350; Contrast volume: 100 ml; Contrast route: INTRAVENOUS (IV); COMPARISON: CT ABDOMEN PELVIS W 03/07/2020 7:44 PM FINDINGS: Lungs: Minimal right middle lobe atelectasis. Liver: Hepatomegaly. No focal lesions. Gallbladder and biliary ducts: Status post cholecystectomy. Pancreas: Normal. No ductal dilation. Spleen: Splenomegaly unchanged. Adrenal glands: Normal. No mass. Kidneys and ureters: Nonobstructing left renal lower pole calculus again seen. Stomach and bowel: Unremarkable. No obstruction. No mucosal thickening. Appendix: No evidence of appendicitis. Intraperitoneal space: Unremarkable. No free air. No significant fluid collection. Vasculature: Unremarkable. No abdominal aortic aneurysm. Lymph nodes: Unremarkable. No enlarged lymph nodes. Urinary bladder: Unremarkable as visualized. Reproductive: Status post hysterectomy. Bones/joints: Mild lumbar spondylosis. Soft tissues: Unremarkable. Other findings: Moderate fecal retention pattern. IMPRESSION: No acute abnormality seen to account for symptoms. Mild hepatosplenomegaly is unchanged. Dictated and Authenticated by: Renita Arana MD. Ordering:NEGRITO Kent MD
--- NOTE | 2024-05-04 21:10 | DI.VRAD_ITS ---
PROCEDURE INFORMATION: Exam: CT Head Without Contrast Exam date and time: 05/04/2024 7:54 PM Age: 58 years old Clinical indication: Pain; Headache not specified; Patient HX: Headache, no response to meds TECHNIQUE: Imaging protocol: Computed tomography of the head without contrast. Radiation optimization: All CT scans at this facility use at least one of these dose optimization techniques: automated exposure control; mA and/or kV adjustment per patient size (includes targeted exams where dose is matched to clinical indication); or iterative reconstruction. COMPARISON: MR HEAD^IACS 03/21/2019 2:23 PM FINDINGS: Limitations: Examination is limited by presence of IV contrast. Brain: No intracranial hemorrhage or extra-axial fluid collection. No evidence of mass effect or midline shift. Santiago-white matter differentiation is intact. Cerebral ventricles: No ventriculomegaly. Paranasal sinuses: Unremarkable. No fluid levels. Mastoid air cells: Unremarkable. Bones: No acute calvarial fracture. Soft tissues: Scalp soft tissues are unremarkable. IMPRESSION: No acute intracranial pathology. Dictated and Authenticated by: Indra Tello MD. Ordering:NEGRITO Kent MD
--- NOTE | 2024-05-04 21:34 | W.PM.HP.N ---
Date of service: 05/04/24 Time of Service: 21:35 Assessment and Plan Assessment and plan (1) Malaise: Status: Acute Assessment and plan: Constitutional symptoms without clear diagnosis at this point, with multiple overlapping issues. Regarding her immediate presentation, this may be a reaction to the Macrobid, withdrawal from opiates or incidental flu-like syndrome. It does not appear to comport with possible systemic involvement of reported UTI as she has neither fever nor leukocytosis and in fact looks entirely non-toxic. Other issues are the hyponatremia, which is possibly due to SSRI, and probably exacerbated by what she reports as being aggressive intake of water over past days. The HSM is apparently chronic, but the Alk phos and TAs are somewhat worse, and the bilirubin is new. Unclear if all this is due to progression of some underlying liver disease or more acutely related to recent syndrome or medication reaction. On balance I would advise: 1. hold macrobid, begin Rocephin, obtain U/A and culture results from Urgent Care (and obtain U/A here); 2. Trend LFTs -- further work up as needed 3. resume usual Methadone 10 bid 4. IVF and trend Na 5. advance diet slowly 6. 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 She was treated with Diflucan, and states the vaginal itch has resolved. Urine studies were also undertaken and she reports she was notified 2 days IT SALES REPRESENTATIVE that she had an E coli UTI, and was started on Macrobid. Starting severalo hours after first dose of macrobid she has been experiencing various constitutional symptoms, including DELATORRE, nausea, myalgia and chills, and in consequence she came to ER. Notably she is also on Methadone 10 bid and she stopped this 2 days ago (she cannot really assign a reason). here in ER findings of note for absence of fever, normal white count, Na 125 (baseline approx 130), TBili 1.7 (last 0.4), AST 90, ALT 55, Alk phos 255 (baseline 140-212). CT head negative, CT abdomen no acute disease, stable mild HSM). No urine obtained, viral swab pending. Patient given Reglan, benadryl and Toradol, along with NS. Repeat Na 128. I was asked to evaluate for admission. Patient states she feels somewhat improved and is asking if she can try taking eating; has been taking water w/o trouble. Note that in ER note she is reported to be having abdominal pain; on repeated questioning patient states this is not quite so, the discomfort she is having is internal dysuria and pressure. Review of Systems Narrative: per HPI PFSH All Active Problems (Updated 05/04/24 @ 21:50 by Franklyn Mora MD) Malaise (Acute) UTI (urinary tract infection) (Acute) Nausea & vomiting (Acute) Acute hyponatremia (Acute) TMJ dysfunction (Acute) Referred otalgia of left ear (Acute) Referred otalgia of right ear (Acute) Acute sinusitis (Acute) Right ear pain (Acute) Cervicalgia (Acute) Left carpal tunnel syndrome (Acute) Lateral epicondylitis of right elbow (Acute) Partial tear of common extensor tendon of elbow (Acute) Mass of right forearm (Acute) no mass Medical History History of adenomatous polyp of colon Muscle spasm Wrist tendonitis History of kidney stones Diabetic peripheral neuropathy Screening for breast cancer Hand pain, left Neck pain on right side Shoulder pain, right Cough Type B influenza Bilateral conjunctivitis Right elbow pain Small bowel obstruction Psoriasis COPD (chronic obstructive pulmonary disease) pt. denies this Bilateral knee pain Left lateral epicondylitis (06/27/17) Quadriceps tendinitis (08/22/17) Type 2 diabetes mellitus with hyperglycemia Hyperglycemia Chronic pain Partial small bowel obstruction Asthma Renal cell cancer Constipation Chronic low back pain Peptic ulcer disease Obesity Depression Restless leg per pt. states she no longer has this Surgical History History of carpal tunnel surgery of left wrist (01/17/22) Ganglion cyst of volar aspect of right wrist S/P Excision: 01/04/2022 Bilateral carpal tunnel syndrome (06/27/17) S/P R ECTR: 01/04/2022 S/P L ECTR: 01/17/2022 S/P hysterectomy H/O partial nephrectomy S/P arthroscopic partial medial meniscectomy R knee S/P tympanoplasty S/P cholecystectomy S/P small bowel resection Social History Smoking/Tobacco Use Status: Former Tobacco Use Quit Date: 07/17/19 Smoking risk assessment performed?: Yes Alcohol Intake: former Drug use: Socially Substance use type: marijuana Household members: spouse Housing: house Current gender identity: female Do you feel safe at home: Yes Do you feel safe in your relationship?: Yes Meds Allergies and Home Medications Allergies Allergy/AdvReac Type Severity Reaction Status Date / Time ciprofloxacin (From Ciprodex) Allergy Severe Anaphylaxis Unverified 05/04/24 17:20 dexamethasone (From Ciprodex) Allergy Severe Anaphylaxis Unverified 05/04/24 17:20 Sulfa (Sulfonamide Allergy Intermediate Skin Rash Verified 05/04/24 17:20 Antibiotics) ceftriaxone Allergy Unknown Other (See Unverified 05/04/24 17:20 Comment) baclofen AdvReac Intermediate Nausea Verified 05/04/24 17:20 Home Medications ?Medication ?Instructions ?Recorded ?Confirmed ?Type methadone 5 mg tablet 10 mg PO BID 01/14/14 05/04/24 History paroxetine HCl 20 mg tablet 40 mg PO DAILY 10/18/17 05/04/24 History gabapentin 600 mg tablet 600 mg PO TID 09/19/18 05/04/24 History metformin 1,000 mg tablet 1,000 mg PO BID@0800,1700 09/26/18 05/04/24 History (Glucophage) glimepiride 2 mg tablet 4 mg PO DAILY 03/19/19 05/04/24 History bupropion HCl 150 mg 24 hr tablet, 300 mg PO DAILY 11/10/21 05/04/24 History extended release dapagliflozin propanediol 10 mg 10 mg PO DAILY 12/01/21 05/04/24 History tablet acetaminophen 500 mg tablet 1,000 mg (2 x 500 mg) PO TID #90 01/17/22 05/04/24 Rx tabs atorvastatin 20 mg tablet 20 mg PO QHS 09/15/22 05/04/24 History diabetic supplies, miscellan. 09/15/22 05/04/24 History naloxone 0.4 mg intranasal ONCE PRN 09/15/22 05/04/24 History promethazine 12.5 mg tablet 12.5 mg PO .Q8-12 PRN 09/15/22 05/04/24 History epinephrine 0.3 mg/0.3 mL 0.3 mg (0.3 mL) IM Q5-15M PRN #2 ea 10/04/23 05/04/24 Rx injection, auto-injector cyclobenzaprine 10 mg tablet 10 mg PO TID PRN 05/04/24 05/04/24 History exenatide microspheres 2 mg/0.85 2 mg subcut Q7D 05/04/24 05/04/24 History mL subcutaneous auto-injector (Ree Ku) fluconazole 150 mg tablet 150 mg PO Q72H 05/04/24 05/04/24 History nitrofurantoin 100 mg PO BID 05/04/24 05/04/24 History monohydrate/macrocrystals 100 mg capsule Exam Narrative Exam Narrative: 114/60, 93, 36.7, 21, 99% RA. HEENT atraumatic, anicteric; neck supple; lungs clear; heart RRR w/o MRG; abdomen soft and NT; pelvic (external only, with nurse in attendance)) shows no erythema, rash, lesions or discharge; extremities w/o edema; neuro Ox3, lucid, moves all 4s Results Labs 05/04/24 18:02 05/04/24 20:15 Labs: Laboratory Results - last 24 hr 05/04/24 05/04/24 18:02 20:15 WBC 6.53 RBC 4.52 Hgb 12.7 Hct 36.2 MCV 80 MCH 28.1 MCHC 35.1 RDW 13.0 Plt Count 171 MPV 9.3 Immature Gran % 0.8 Neutrophils % 81.7 Lymphocytes % 4.7 Monocytes % 9.5 Eosinophils % 2.8 Basophils % 0.5 Nucleated RBC % 0.0 Absolute Neutrophils 5.34 Absolute Lymphocytes 0.31 L Absolute Monocytes 0.62 Absolute Eosinophils 0.18 Absolute Basophils 0.03 Sodium 125 L 128 L Potassium 4.1 3.6 Chloride 91 L 96 L Carbon Dioxide 23.6 25.0 Anion Gap 10.4 7.0 BUN 15 15 Creatinine 0.9 0.9 Est GFR (CKD-EPI 2020) 73.19 73.19 Glucose 317 H 235 H Calcium 9.3 8.6 Total Bilirubin 1.73 H AST 90 H ALT 55 Alkaline Phosphatase 255 H Total Protein 6.9 Albumin 3.0 L Lipase 87 H Last Vital Signs Temp 36.7 C 05/04/24 17:15 Pulse 93 H 05/04/24 19:10 Resp 21 05/04/24 20:26 BP 114/60 05/04/24 19:10 Pulse Ox 99 05/04/24 20:26 Time Spent Time spent with Patient: 55-74 minutes Time was spent: preparing to see the patient(eg.review tests), obtaining and/or reviewing separately otained hiistory, ordering medications,tests, procedures, referring, communicating with other health health care assistant and indepentently interpreting results
[2024-05-04 22:23] LABS: COVID-19 PCR Negative (Negative); Influenza A PCR Negative (Negative); Influenza B PCR Negative (Negative); RSV PCR Negative (Negative); Source Nasopharynx
--- NOTE | 2024-05-04 23:08 | W.PC.ACHO ---
Registration Status: Primary Language: Preferred Language: ED Information & Data Chief Complaint GenMedical 05/04/24 17:46 Triage Note seen at urgent care 05/04/24 17:15 sunday treated for yeast infection. then called and started meds for ecoli on sunday. pt c.o DELATORRE nausea muscle aches vomiting and dizziness. Medical / Surgical History (Last Reviewed 05/04/24 @ 21:47 by Franklyn Mora MD) History of adenomatous polyp of colon Muscle spasm Wrist tendonitis History of kidney stones Diabetic peripheral neuropathy Screening for breast cancer Hand pain, left Neck pain on right side Shoulder pain, right Cough Type B influenza Bilateral conjunctivitis Right elbow pain Small bowel obstruction Psoriasis COPD (chronic obstructive pulmonary disease) Bilateral knee pain Left lateral epicondylitis (06/27/17) Quadriceps tendinitis (08/22/17) Type 2 diabetes mellitus with hyperglycemia Hyperglycemia Chronic pain Partial small bowel obstruction Asthma Renal cell cancer Constipation Chronic low back pain Peptic ulcer disease Obesity Depression Restless leg (Last Reviewed 05/04/24 @ 21:47 by Franklyn Mora MD) History of carpal tunnel surgery of left wrist (01/17/22) Ganglion cyst of volar aspect of right wrist Bilateral carpal tunnel syndrome (06/27/17) S/P hysterectomy H/O partial nephrectomy S/P arthroscopic partial medial meniscectomy S/P tympanoplasty S/P cholecystectomy S/P small bowel resection Most Recent Vital Signs Temperature 37.5 C 05/04/24 22:20 Temperature Source Tympanic 05/04/24 22:20 Pulse 90 05/04/24 21:59 Respiratory Rate 20 05/04/24 21:59 Respiratory Effort Normal 05/04/24 19:14 Respiratory Depth Normal 05/04/24 19:14 Respiratory Pattern Normal 05/04/24 19:14 Blood Pressure 114/60 05/04/24 21:59 Blood Pressure Position Supine 05/04/24 21:59 Pulse Oximetry 99 05/04/24 21:59 Oxygen Delivery Method Room Air 05/04/24 21:59 Oxygen Flow Rate 0 05/04/24 19:10 Pain Level 2 05/04/24 21:59 Comment tylenol 1430 625 mg promethazine 25 mg also with no relief 05/04/24 17:15 Allergies ciprofloxacin (From Ciprodex) Allergy (Severe, Unverified 05/04/24 17:20) Anaphylaxis dexamethasone (From Ciprodex) Allergy (Severe, Unverified 05/04/24 17:20) Anaphylaxis Sulfa (Sulfonamide Antibiotics) Allergy (Intermediate, Verified 05/04/24 17:20) Skin Rash baclofen Adverse Reaction (Intermediate, Verified 05/04/24 17:20) Nausea Active Medications Generic Name Dose Route Start Last Admin Trade Name Freq PRN Reason Stop Dose Admin Sodium Chloride 1,000 mls @ 125 mls/hr 05/04/24 19:38 05/04/24 20:02 Saline 1000ml Bag IV 05/05/24 03:37 125 mls/hr INFUSION STA Administration Iohexol 100 ml 05/04/24 19:30 05/04/24 19:29 Omnipaque 350 Mg/Ml 100 Ml Btl IJ 06/03/24 23:59 100 ml DIRECTED FLORES Administration Sodium Chloride 50 ml 05/04/24 19:30 05/04/24 19:27 Normal Saline - Diluent 50 Ml Vial IJ 50 ml .FOR DI USE FLORES Administration Sodium Chloride 0 ml 05/04/24 19:30 05/04/24 19:30 Normal Saline Flush 10 Ml Syr IVP 10 ml PRN PRN Administration IV IV Catheter Type [Left Saline Lock Antecubital] IV Catheter Gauge [Left 18 Antecubital] Diet Orders Category Date Time Status Regular/Normal [DIET] Nutrition 05/05/24 Breakfast Ordered Diagnostics 05/04/24 05/04/24 05/04/24 Range/Units 21:40 20:15 18:02 WBC 6.53 (4.4-10.8) 10^3/uL RBC 4.52 (3.93-5.22) 10^6/uL Hgb 12.7 (11.2-15.7) g/dL Hct 36.2 (36.0-46.0) % MCV 80 (80-95) fL MCH 28.1 (27.0-33.0) pg MCHC 35.1 (32.0-36.0) % RDW 13.0 (11.7-14.6) % Plt Count 171 (130-400) 10^3/uL MPV 9.3 (8.0-11.0) fL Immature Gran % 0.8 % Neutrophils % 81.7 % Lymphocytes % 4.7 % Monocytes % 9.5 % Eosinophils % 2.8 % Basophils % 0.5 % Nucleated RBC % 0.0 (0.0-0.3) % Absolute Neutrophils 5.34 (1.2-6.7) 10^3/uL Absolute Lymphocytes 0.31 L (1.2-3.4) 10^3/uL Absolute Monocytes 0.62 (0.1-0.8) 10^3/uL Absolute Eosinophils 0.18 (0.0-0.7) 10^3/uL Absolute Basophils 0.03 (0.0-0.2) 10^3/uL Sodium 128 L 125 L (136-145) mmol/L Potassium 3.6 4.1 (3.5-5.1) mmol/L Chloride 96 L 91 L (98-107) mmol/L Carbon Dioxide 25.0 23.6 (21.0-32.0) mmol/L Anion Gap 7.0 10.4 (3-11) mmol/L BUN 15 15 (7-18) mg/dL Creatinine 0.9 0.9 (0.55-1.02) mg/dL Est GFR (CKD-EPI 2020) 73.19 73.19 (mL/min/1.73m2) Glucose 235 H 317 H (74-106) mg/dL Calcium 8.6 9.3 (8.5-10.1) mg/dL Total Bilirubin 1.73 H (0.2-1.0) mg/dL AST 90 H (15-37) U/L ALT 55 (14-59) U/L Alkaline Phosphatase 255 H (46-116) U/L Total Protein 6.9 (6.4-8.2) g/dL Albumin 3.0 L (3.4-5.0) g/dL Lipase 87 H (16-77) U/L COVID-19 Source Nasopharynx SARS-CoV-2 (PCR) Negative (Negative) Influenza Type A (PCR) Negative (Negative) Influenza Type B (PCR) Negative (Negative) RSV (PCR) Negative (Negative) Intake and Output - 24 Hour Total 05/04/24 17:14 thru 05/04/24 19:17 Intake Total 1000 Balance 1000 Weight 79.379 kg Intake: IV 1000 Falls Risk Assessment History of Falls No History 05/04/24 19:14 Contributing Factors No Factors 05/04/24 19:14 Ambulatory Aids Independent 05/04/24 19:14 Tubes/Lines None 05/04/24 19:14 Gait Evaluation No gait disturbance 05/04/24 19:14 Fall Total Score 0 05/04/24 19:14 Level of Risk Standard/Low Risk 05/04/24 19:14 Problems (Last Reviewed 05/04/24 @ 21:47 by Franklyn Mora MD) Malaise (Acute) UTI (urinary tract infection) (Acute) Nausea & vomiting (Acute) Acute hyponatremia (Acute) v v v v v v v v v Sending and/or Receiving Nurses: Please use comment section below to note any information pertinent to the patient hand-off not included above. Information / Comments: no further question. Report received from: HARLEY Leal
[2024-05-05] VITALS (8 sets, daily range): BP systolic 85–115; BP diastolic 40–68; PULSE 74–85; RESP 15–18; TEMP 33.8–36.4; O2SAT 98–100
--- NOTE | 2024-05-05 | DI.US_ITS ---
Exam(s) US ABDOMEN EXAM: US ABDOMEN CLINICAL HISTORY: fever/chills, elevated bilirubin TECHNIQUE: Ultrasound abdomen performed using standard protocol. COMPARISON: CT CT ABDOMEN PELVIS W from 05/04/2024 FINDINGS: LIVER: Enlarged at 19 cm in length. Normal echogenicity.. No focal liver lesions are seen. GALLBLADDER: Status post cholecystectomy. No evidence of wall thickening. No pericholecystic fluid i dentified. ORO'S SIGN: Negative. BILIARY SYSTEM: No intrahepatic or extrahepatic biliary ductal dilation. KIDNEYS: Kidneys are symmetric in size. No evidence of renal calculi. No evidence of hydronephrosis. No renal mass or cyst identified. Scarring at lower pole of left kidney PANCREAS: Normal where visualized. SPLEEN: Mildly enlarged. ABDOMINAL AORTA AND IVC: Visualized portions normal caliber. ASCITES: None seen. IMPRESSION: Enlarged liver without focal lesions. No biliary dilatation. Mildly enlarged spleen. DATA REPOSITORY:
[2024-05-05] MEDS: Acetaminophen 500 MG TAB 1000 MG PO ×3 (01:00→19:17)
[2024-05-05] MEDS: cefTRIAXone 1,000 MG in Normal Saline 50 ML 100 MG IVPB (01:01)
[2024-05-05] MEDS: Normal Saline Flush 10 ML SYR IVP (01:02)
[2024-05-05] MEDS: Normal Saline 1,000 ML 75 ML IV ×2 (01:06→08:26)
[2024-05-05] MEDS: Ibuprofen 600 MG TAB PO (03:52)
[2024-05-05 04:10] LABS: Bilirubin Negative (Negative); Blood Negative (Negative); Clarity Clear (Clear); Glucose >=1000 mg/dL (Negative); Ketones Trace mg/dL (Negative); Leukocyte Esterase Negative (Negative); Nitrite Negative (Negative); Specific Gravity <= 1.005 (1.005-1.025)
[2024-05-05 04:23] LABS: Bacteria Rare HPF (Negative); C & S Indicated? No; Casts Negative LPF (Negative); Crystals Negative HPF (Negative); Epithelial Cells Rare HPF (Negative); Mucus Trace (Negative); RBC Negative HPF (0-2)
[2024-05-05 07:19] LABS: ALT 54 U/L (14-59); AST 52 U/L (15-37); Alkaline Phosphatase 266 U/L (46-116); Anion Gap 9.8 mmol/L (3-11); BUN 11 mg/dL (7-18); Bilirubin, Total 2.79 mg/dL (0.2-1.0); CO2 24.2 mmol/L (21.0-32.0); CREATININE 0.7 mg/dL (0.55-1.02); Calcium 9.1 mg/dL (8.5-10.1); Chloride 100 mmol/L (98-107); Estimated GFR 98.95 (mL/min/1.73m2); Glucose 172 mg/dL (74-106); Potassium 3.2 mmol/L (3.5-5.1); Sodium 134 mmol/L (136-145)
--- NOTE | 2024-05-05 07:50 | NUR.NOTE ---
RN went into patients room for AM VS, patient cold, and diaphoretic. Temperature obtained both tympanic and orally. T Max 93. F, warm blankets applied, room temperature incresed. VSS, Blood glucose 182, MD Kearns notfied at 0750, awaiting orders for Blood culture. AP RN Nursing Note:
[2024-05-05] MEDS: Methadone 5 MG TAB 10 MG PO ×2 (08:23→19:17)
[2024-05-05] MEDS: buPROPion-XL 150 MG TABCR 300 MG PO (08:23)
[2024-05-05] MEDS: PARoxetine 20 MG TAB 40 MG PO (08:23)
[2024-05-05] MEDS: Gabapentin 600 MG TAB PO ×3 (08:24→19:17)
[2024-05-05 08:38] LABS: *AMPHETAMINES SCREEN URINE Negative (Negative); *BARBITURATES SCREEN URINE Negative (Negative); *BENZODIAZEPINES SCREEN URINE Negative (Negative); Cannabinoids THC Negative (Negative); Cocaine Screen,Urine Negative (Negative); METHADONE URINE SCREEN Negative (Negative); OPIATES URINE SCREEN Negative (Negative)
[2024-05-05 08:39] LABS: Tricyclic Antidepressants Negative (Negative)
[2024-05-05 09:02] LABS: INR 1.1 (0.9-1.1); Prothrombin Time 10.8 sec (9.1-11.1)
[2024-05-05 09:04] LABS: ETHANOL BLOOD < 3.0 mg/dL (<10)
--- NOTE | 2024-05-05 09:04 | INITIAL_ITS ---
Date of service: 05/05/24 Time of Service: 09:04 Care Management Initial Assmt Initial Assessment Reason for Hospitalization: hyponatremia Functional Status/Living Situation Patient Presentation: Lani was lying in bed when CM met with her. She was polite but not very talkative. Lani informed CM that she is just not feeling well although she did not describe any specific complaints or symptoms. Lani was admitted with hyponatremia. Her initial sodium was 125 and greyson to 128 after a normal saline bolus. Today it is 134. Lani lives in her own single family home in [facility] with her porcelain waxer of over 20 years, Davon Ayala. her young adult granddaughter also lives in the home. Lani has received disability income since 2004 and was unable to work for many years due to a back injury. 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 Lani uses a walking stick, is mostly independent with ADLs and does not receive any community services. 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) Instrumental Activities of Daily Living (ADLs): Independent Medications Medication Management: No Issues/Barriers identified Physical Functioning/Mobility Assistive Device: walking stick Advance Directives Advance Directives: Do you have an Advance Directive: N 09/28/22 15:59 AD On File at [facility]: N 09/28/22 15:59 Date Asked 05/04/24 05/04/24 23:14 AD Date Reviewed COLST On File at [facility] COLST Date Scanned Code Status Resuscitation Status Full Code Portal Pt does not currently have a portal and education provided: No Insurance Coverage/Financial Issues Insurance: Medicare Medicaid Care Team Visit Care Team Role Provider Type Jazz George Primary Care Provider NON-[facility] STAFF PHYSICIAN Yoli Rosario Emergency Provider NURSE PRACTITIONER Franklyn Mora MD Admit Provider [facility] STAFF PHYSICIAN Attending Provider Discharge Potential Discharge Needs: PCP F/U Appt Anticipated Barriers to Discharge: None Identified Patient/Family Education Needs: Review discharge instructions, discuss Ask Me Three Transportation: Private vehicle Plan: Anticpate Lani will be discharged home with no new services when medically cleared. She will follow up with her PCP and plan of care and transport with family. CM will follow and support discharge planning needs. PFSH All Active Problems (Updated 05/05/24 @ 13:19 by Victorino Kearns) Abnormal liver enzymes (Acute) Fever (Acute) Malaise (Acute) UTI (urinary tract infection) (Acute) Nausea & vomiting (Acute) Acute hyponatremia (Acute) TMJ dysfunction (Acute) Referred otalgia of left ear (Acute) Referred otalgia of right ear (Acute) Acute sinusitis (Acute) Right ear pain (Acute) Cervicalgia (Acute) Left carpal tunnel syndrome (Acute) Lateral epicondylitis of right elbow (Acute) Partial tear of common extensor tendon of elbow (Acute) Mass of right forearm (Acute) no mass Medical History History of adenomatous polyp of colon Muscle spasm Wrist tendonitis History of kidney stones Diabetic peripheral neuropathy Screening for breast cancer Hand pain, left Neck pain on right side Shoulder pain, right Cough Type B influenza Bilateral conjunctivitis Right elbow pain Small bowel obstruction Psoriasis COPD (chronic obstructive pulmonary disease) pt. denies this Bilateral knee pain Left lateral epicondylitis (06/27/17) Quadriceps tendinitis (08/22/17) Type 2 diabetes mellitus with hyperglycemia Hyperglycemia Chronic pain Partial small bowel obstruction Asthma Renal cell cancer Constipation Chronic low back pain Peptic ulcer disease Obesity Depression Restless leg per pt. states she no longer has this Surgical History History of carpal tunnel surgery of left wrist (01/17/22) Ganglion cyst of volar aspect of right wrist S/P Excision: 01/04/2022 Bilateral carpal tunnel syndrome (06/27/17) S/P R ECTR: 01/04/2022 S/P L ECTR: 01/17/2022 S/P hysterectomy H/O partial nephrectomy S/P arthroscopic partial medial meniscectomy R knee S/P tympanoplasty S/P cholecystectomy S/P small bowel resection Social History Smoking/Tobacco Use Status: Former Tobacco Use Quit Date: 07/17/19 Smoking risk assessment performed?: Yes Alcohol Intake: former Drug use: Socially Substance use type: marijuana Household members: spouse Housing: house Current gender identity: female Do you feel safe at home: Yes Do you feel safe in your relationship?: Yes SDOH(Care Management) Screening Will the Patient Participate in the Screening?: Declined to provide Do you worry about having a steady place to live?: no In the past 12 months, have you had to go without electric, gas, oil or water in your home?: no Have you or anyone in your house had to go without enough food to eat?: no Has lack of transportation kept you from medical appointments or from doing things needed for daily living?: no Has anyone in your support network made you feel unsafe for any reason?: no
[2024-05-05 09:18] LABS: Acetaminophen < 2 ug/mL (10-30)
[2024-05-05] MEDS: LORazepam 2 MG/ML VIAL 1 MG IVP (12:43)
--- NOTE | 2024-05-05 12:47 | W.PM.PROGNOT ---
Date of Service Date of service: 05/05/24 Time of Service: 10:20 Assessment and Plan Assessment and plan (1) Fever: Status: Acute Assessment and plan: Admitted with fever and malaise of unclear etiology. Hypothermic this morning, improved with warm blankets. I ordered blood cultures and tick panel. Resp viral swabs negative. I am concerned about the new headache, I doubt bacterial meningitis given she is not toxic, but viral menningitis is in ddx including arboviruses. I asked anesthesia to do LP, sending viral studies. Reconsider more agressive antibiotics if cell counts are concerning. I did look back on the [facility] records, 04/29 urine culture did grow pansensitive e. coli. This could simply be upper urinary infection that was not fully treated by macrobid, with the macrobid masking speicific symptoms. I doubt this is macrobid allergy. Will continue ceftriaxone. Qualifiers: Fever type: unspecified Qualified Code(s): R50.9 - Fever, unspecified (2) Acute hyponatremia: Status: Acute Assessment and plan: improved with hydration, likely was related to hypovolemia. (3) Nausea & vomiting: Status: Acute Assessment and plan: Improved. A/w general infection of unclear sourse as above. Qualifiers: Vomiting type: unspecified Qualified Code(s): R11.2 - Nausea with vomiting, unspecified (4) Abnormal liver enzymes: Status: Acute Assessment and plan: She has has elevation of AST in the past, but bilirubin is new and worse than yesterday. Clinically no signs of biliary obstruction, but will get RUQ u/s. APAP and ethanol negative, she isn't a drinker per history but will get PETH to confirm. INR is not c/w liver failure. This could also be non-specific sign of acute infection. Next draw get total/direct bili. Consider hepatitis panel, but not less c/w acute hepatitis. This could also be DILI from macrobid. Subjective Subjective Patient reports: tolerating liquids well and fever; denies diarrhea, vomiting or shortness of breath Interval history since last seen: I was called by RN due to patient with low temperature. On evaluation, she was chilled and bundled in warm blankets. Other than chills, she has a headache that is new, and her neck feels a little stiff. She feels generally weak and achey. She is no longer nauseous, feels like she could eat, but was nauseous yesterday. Exam Narrative Exam Narrative: Gen: Alert and oriented, NAD. HEENT atraumatic, anicteric; neck with some pain with lateral flexion on both sides and forward flexion, holding somewhat stiff, but supple with exam with no LAD/masses. lungs clear; heart RRR w/o MRG; abdomen soft and NT; extremities w/o edema; neuro CN 2-12 intact, lucid, moves all 4s symetrically, nl sensation to light touch, normal coordination. Objective Last Vital Signs Temp 35.2 C L 05/05/24 10:19 Pulse 74 05/05/24 07:40 Resp 18 05/05/24 07:40 BP 106/62 05/05/24 07:40 Pulse Ox 98 05/05/24 07:40 Laboratory Results - last 24 hr 05/04/24 05/04/24 05/04/24 18:02 20:15 21:40 WBC 6.53 RBC 4.52 Hgb 12.7 Hct 36.2 MCV 80 MCH 28.1 MCHC 35.1 RDW 13.0 Plt Count 171 MPV 9.3 Immature Gran % 0.8 Neutrophils % 81.7 Lymphocytes % 4.7 Monocytes % 9.5 Eosinophils % 2.8 Basophils % 0.5 Nucleated RBC % 0.0 Absolute Neutrophils 5.34 Absolute Lymphocytes 0.31 L Absolute Monocytes 0.62 Absolute Eosinophils 0.18 Absolute Basophils 0.03 PT INR Sodium 125 L 128 L Potassium 4.1 3.6 Chloride 91 L 96 L Carbon Dioxide 23.6 25.0 Anion Gap 10.4 7.0 BUN 15 15 Creatinine 0.9 0.9 Est GFR (CKD-EPI 2020) 73.19 73.19 Glucose 317 H 235 H Calcium 9.3 8.6 Total Bilirubin 1.73 H AST 90 H ALT 55 Alkaline Phosphatase 255 H Total Protein 6.9 Albumin 3.0 L Lipase 87 H Urine Color Urine Clarity Urine pH Ur Specific Elk Urine Protein Urine Ketones Urine Blood Urine Nitrite Urine Bilirubin Urine Urobilinogen Ur Leukocyte Esterase Urine RBC Urine WBC Ur Epithelial Cells Urine Crystals Urine Bacteria Urine Casts Urine Mucus Ur Culture Indicated? Urine Glucose Urine Opiates Screen Urine Methadone Screen Acetaminophen Ur Barbiturates Screen Ur Tricyclics Screen Ur Amphetamines Screen U Benzodiazepines Scrn Urine Cocaine Screen Ur THC Screen Ethyl Alcohol COVID-19 Source Nasopharynx SARS-CoV-2 (PCR) Negative Influenza Type A (PCR) Negative Influenza Type B (PCR) Negative RSV (PCR) Negative 05/05/24 05/05/24 05/05/24 04:01 06:20 08:12 WBC RBC Hgb Hct MCV MCH MCHC RDW Plt Count MPV Immature Gran % Neutrophils % Lymphocytes % Monocytes % Eosinophils % Basophils % Nucleated RBC % Absolute Neutrophils Absolute Lymphocytes Absolute Monocytes Absolute Eosinophils Absolute Basophils PT INR Sodium 134 L Potassium 3.2 L Chloride 100 Carbon Dioxide 24.2 Anion Gap 9.8 BUN 11 Creatinine 0.7 Est GFR (CKD-EPI 2020) 98.95 Glucose 172 H Calcium 9.1 Total Bilirubin 2.79 H AST 52 H ALT 54 Alkaline Phosphatase 266 H Total Protein Albumin Lipase Urine Color Yellow Urine Clarity Clear Urine pH 6.0 Ur Specific Elk <= 1.005 Urine Protein Negative Urine Ketones Trace H Urine Blood Negative Urine Nitrite Negative Urine Bilirubin Negative Urine Urobilinogen 1.0 H Ur Leukocyte Esterase Negative Urine RBC Negative Urine WBC 3-5 Ur Epithelial Cells Rare Urine Crystals Negative Urine Bacteria Rare Urine Casts Negative Urine Mucus Trace Ur Culture Indicated? No Urine Glucose >=1000 H Urine Opiates Screen Negative Urine Methadone Screen Negative Acetaminophen Ur Barbiturates Screen Negative Ur Tricyclics Screen Negative Ur Amphetamines Screen Negative U Benzodiazepines Scrn Negative Urine Cocaine Screen Negative Ur THC Screen Negative Ethyl Alcohol COVID-19 Source SARS-CoV-2 (PCR) Influenza Type A (PCR) Influenza Type B (PCR) RSV (PCR) 05/05/24 08:23 WBC RBC Hgb Hct MCV MCH MCHC RDW Plt Count MPV Immature Gran % Neutrophils % Lymphocytes % Monocytes % Eosinophils % Basophils % Nucleated RBC % Absolute Neutrophils Absolute Lymphocytes Absolute Monocytes Absolute Eosinophils Absolute Basophils PT 10.8 INR 1.1 Sodium Potassium Chloride Carbon Dioxide Anion Gap BUN Creatinine Est GFR (CKD-EPI 2020) Glucose Calcium Total Bilirubin AST ALT Alkaline Phosphatase Total Protein Albumin Lipase Urine Color Urine Clarity Urine pH Ur Specific Elk Urine Protein Urine Ketones Urine Blood Urine Nitrite Urine Bilirubin Urine Urobilinogen Ur Leukocyte Esterase Urine RBC Urine WBC Ur Epithelial Cells Urine Crystals Urine Bacteria Urine Casts Urine Mucus Ur Culture Indicated? Urine Glucose Urine Opiates Screen Urine Methadone Screen Acetaminophen < 2 Ur Barbiturates Screen Ur Tricyclics Screen Ur Amphetamines Screen U Benzodiazepines Scrn Urine Cocaine Screen Ur THC Screen Ethyl Alcohol < 3.0 COVID-19 Source SARS-CoV-2 (PCR) Influenza Type A (PCR) Influenza Type B (PCR) RSV (PCR) Time Spent with Patient Time Spent with Patient: >50 minutes Time was spent: preparing to see the patient(eg.review tests), obtaining and/or reviewing separately otained hiistory, ordering medications,tests, procedures, referring, communicating with other health rn urgent care, indepentently interpreting results, counseling the patient and care coordination
--- NOTE | 2024-05-05 13:09 | W.ANESPROC ---
Lumbar Puncture Date Performed: 05/05/24 Procedure Time: 12:55 Requesting Provider: Victorino Kearns Procedure Location: Med/Surg Standard Monitors Applied: None Used Patient Position: Sitting Timeout Performed: No Sedation Given (Indicate Dose Given): Directed by Requesting Provider Patient Mental Status: Awake Sterility: Hand Hygiene, Surgical Cap, Surgical Mask, Sterile Gloves, Sterile Drape/Sheet and Chlorhexidine Placement Site: L4-L5 Interspace Spinal Needle Type: Eulalia 22 Gauge Needle Length: 3.5 Inch Lumbar Puncture Procedure: Site Prepped, Sterile Drape Placed, 1% Lidocaine to skin and subcutaneous tissue with 25G needle, Introducer Needle Used, Spinal Needle Placed, Negative Heme, Positive CSF Flow, CSF Specimen placed into Tubes in Sequential Order and Specimen Labeled, Sent to Lab Ultrasound: Not Used Paresthesia: None Number of Previous Attempts by Other Providers: 0 Number of Attempts (See previous attempts in note section): 1 Procedure Tolerated: No Complications and Patient tolerated well Procedure Outcome: Successful Procedure Comment:: LABS REVIEWED, NO ANTICOAGULATION, ALLERGIES REVIEWED Performed By: Mariano Adams Supervised By: Merly Yun
[2024-05-05 13:30] LABS: Glucose (CSF) 113 mg/dL (40-70); Total Protein (CSF) 37 mg/dL (15-45)
[2024-05-05 14:00] LABS: Clarity Clear; Tube # 4; Xanthochromia Absent
[2024-05-05 14:01] LABS: RBC 1 /mm3 (0-5); WBC 0 /uL (0-5)
--- NOTE | 2024-05-05 17:17 | W.EVENT ---
Date of service: 05/05/24 Time of Service: 17:17 Event Note: BP soft this afternoon. She feels generally a little weak but no pain. No fever or chills now. I reexamined her and heart is regular and not tachycardic, or tachypneic, extremities are warm with good color, no abdominal or flank tenderness. U/s and CSF results reassuring. DELATORRE is not worse. Not c/w sepsis. Will continue to monitor on the floor. I did add doxycycline with tick/lyme panel pending. Time Spent with Patient Time spent in critical care(minutes): 15 Time Spent Included: Chart review, Time at immediate bedside and Discussing critically ill care with other medical staff
[2024-05-05] MEDS: DOXYCYCLINE 100 MG in Normal Saline 100 ML IVPB (17:43)
[2024-05-05] MEDS: Lactated Ringers 1,000 ML 100 ML IV (18:57)
[2024-05-05] MEDS: cefTRIAXone 1 GM/50 ML BAG IV (19:16)
[2024-05-05 23:36] LABS: HSV 1 DNA Result Negative (Negative); HSV 2 DNA Result Negative (Negative)
[2024-05-06 00:30] VITALS: BP 123/72; PULSE 81; RESP 18; TEMP 36.1; O2SAT 99
[2024-05-06 00:54] LABS: Mono Screening Negative (Negative)
[2024-05-06] MEDS: Lactated Ringers 1,000 ML 100 ML IV (05:42)
[2024-05-06] MEDS: DOXYCYCLINE 100 MG in Normal Saline 100 ML IVPB (05:44)
[2024-05-06 07:27] LABS: Abs Immature Grans 0.03 10^3/uL (0.0-0.06); Absolute Basophil Count 0.03 10^3/uL (0.0-0.2); Absolute Lymphocyte Count 0.36 10^3/uL (1.2-3.4); Absolute Monocyte Count 0.45 10^3/uL (0.1-0.8); Absolute Neutrophil Count 3.76 10^3/uL (1.2-6.7); Basophils % 0.6 %; Eosinophils % 4.1 %; HCT 32.8 % (36.0-46.0); HGB 11.2 g/dL (11.2-15.7); Immature Grans % 0.6 %; Lymphocytes % 7.5 %; MCHC 34.1 % (32.0-36.0); MCV 82 fL (80-95); MPV 10.7 fL (8.0-11.0); Monocytes % 9.3 %; Neutrophils % 77.9 %; Platelet Count 144 10^3/uL (130-400); RDW 13.2 % (11.7-14.6); RDW-SD 39.5 fL; WBC 4.83 10^3/uL (4.4-10.8)
[2024-05-06 07:44] LABS: BUN 8 mg/dL (7-18); CREATININE 0.6 mg/dL (0.55-1.02); Calcium 8.5 mg/dL (8.5-10.1); Chloride 96 mmol/L (98-107); Estimated GFR 102.69 (mL/min/1.73m2); Glucose 277 mg/dL (74-106); Potassium 3.6 mmol/L (3.5-5.1); Sodium 131 mmol/L (136-145)
[2024-05-06] MEDS: Methadone 5 MG TAB 10 MG PO (07:50)
[2024-05-06] MEDS: PARoxetine 20 MG TAB 40 MG PO (07:51)
[2024-05-06] MEDS: buPROPion-XL 150 MG TABCR 300 MG PO (07:51)
[2024-05-06] MEDS: Acetaminophen 500 MG TAB 1000 MG PO (07:51)
[2024-05-06] MEDS: Gabapentin 600 MG TAB PO (07:51)
[2024-05-06 07:58] LABS: ALT 40 U/L (14-59); AST 28 U/L (15-37); Albumin 2.6 g/dL (3.4-5.0); Alkaline Phosphatase 354 U/L (46-116); Bilirubin, Direct 1.5 mg/dL (0.0-0.2); Bilirubin, Total 1.97 mg/dL (0.2-1.0); Total Protein 6.1 g/dL (6.4-8.2)
[2024-05-06 08:09] VITALS: BP 129/64; PULSE 94; RESP 18; TEMP 36.5; O2SAT 98
--- NOTE | 2024-05-06 09:16 | PDOC.CMPRO ---
Date of service: 05/06/24 Time of Service: 09:16 Care Management Progress Note Discharge Potential Discharge Needs: PCP F/U Appt Anticipated Barriers to Discharge: Medical Status Patient/Family Education Needs: Review discharge instructions, discuss Ask Me Three Transportation: Private vehicle Plan: Anticipate Lani will be discharged home with no new services when medically cleared. She will follow up with her PCP and plan of care and transport with family. CM will follow and support discharge planning needs. SDOH(Care Management) Screening Will the Patient Participate in the Screening?: Declined to provide Do you worry about having a steady place to live?: no In the past 12 months, have you had to go without electric, gas, oil or water in your home?: no Have you or anyone in your house had to go without enough food to eat?: no Has lack of transportation kept you from medical appointments or from doing things needed for daily living?: no Has anyone in your support network made you feel unsafe for any reason?: no
[2024-05-06 11:32] LABS: Hemoglobin A1C 10.2 % (<5.7)
[2024-05-06] MEDS: Enoxaparin 40 MG/0.4 ML SYR SC (11:41)
[2024-05-06] MEDS: Insulin Aspart 300 UNITS/3 ML PEN SC (12:06)
--- NOTE | 2024-05-06 12:50 | PHA.REVIEW2 ---
Pharmacy Admission Review Admission Clinical Review Admission Pharmacy Review: Abnormal liver enzymes (Acute) Fever (Acute) Malaise (Acute) UTI (urinary tract infection) (Acute) Nausea & vomiting (Acute) Acute hyponatremia (Acute) ciprofloxacin (From Ciprodex) Allergy (Severe, Unverified 05/04/24 17:20) Anaphylaxis dexamethasone (From Ciprodex) Allergy (Severe, Unverified 05/04/24 17:20) Anaphylaxis Sulfa (Sulfonamide Antibiotics) Allergy (Intermediate, Verified 05/04/24 17:20) Skin Rash baclofen Adverse Reaction (Intermediate, Verified 05/04/24 17:20) Nausea Resuscitation Status Full Code Height 5 ft 3.5 in Weight 83.3 kg Pharmacy Admission Review Renal Dosing Renal Dosing: BUN 8 mg/dL (7-18) 05/06/24 06:30 Creatinine 0.6 mg/dL (0.55-1.02) 05/06/24 06:30 Medications needing adjustments: Reviewed (CrCl 61.81 mL/min) List of meds needing interventions: Current medications are okay Anticoagulation Anticoagulation: Hgb 11.2 g/dL (11.2-15.7) 05/06/24 06:30 Hct 32.8 % (36.0-46.0) L 05/06/24 06:30 Plt Count 144 10^3/uL (130-400) 05/06/24 06:30 INR 1.1 (0.9-1.1) 05/05/24 08:23 Creatinine 0.6 mg/dL (0.55-1.02) 05/06/24 06:30 DVT Prophylaxis: Intervened (No orders had been put in, reached out to provider who looked into it and ended up putting in order for Lovenox) Medications: Enoxaparin (40mg daily) Opiate Usage Evaluate Pain Scale/Pains Meds: Reviewed (methadone 10mg PO BID) Scheduled Bowel Reg ordered if on Opiates?: No Relevant Labs Relevant Labs: Sodium 131 mmol/L (136-145) L 05/06/24 06:30 Potassium 3.6 mmol/L (3.5-5.1) 05/06/24 06:30 Chloride 96 mmol/L (98-107) L 05/06/24 06:30 Electrolytes, C-Reactive P, ESR: Reviewed (Na 131, total bilirubin decreased from 2.79 to 1.97 and AST/ALT decreased from 52/24 to 28/50) DM Control DM Control: Glucose 277 mg/dL (74-106) H 05/06/24 06:30 Hemoglobin A1c 10.2 % (<5.7) H 05/06/24 06:30 Finger Stick Blood Glucose 277 1206 Finger Stick Blood Glucose 299 1156 Finger Stick Blood Glucose 299 1156 DM Control: Intervened (Reached out to provider as patient has diabetes meds on home med list but did not have a diagnosis of diabetes listed. There were no orders put in but elevated glucose levels (in the high 200's). Provide reviewed and then added in insulin orders.) Insulin Dosing, Diabetic Medication: Has order for SS insulin and glargine 15 units at bedtime. Cardiac Review BP, HR, EF%: Reviewed (BP WNL, HR 94) QTc Review QTc: Reviewed (428 from 05/04/24) IV to PO Switch IV Medications: Reviewed (ceftriaxone and doxycycline) Home Meds Home Med List reviewed: Reviewed Relevent Home Meds Not ordered & why?: atorvastatin (no fill history), Farxiga (has order for SS insulin), Epipen (PRN), Bydureon (weekly), glimepiride (last filled 12/27/23), metformin (last filled 09/19/23) and Narcan (PRN) Current Meds Current Medication Order Review: Intervened Comments: Added IV admission order set Added 2nd PRN to ibuprofen order per pharmacy protocol Pharmacy Antibiotic Review Relevant Labs: WBC 4.83 10^3/uL (4.4-10.8) 05/06/24 06:30 Temperature 36.5 C Microbiology 05/05/24 08:35 Blood Culture - Preliminary Blood NO GROWTH 24 HOURS 05/05/24 08:23 Blood Culture - Preliminary Blood NO GROWTH 24 HOURS 05/05/24 12:55 Body Fluid Culture - Preliminary Cerebrospinal Fluid Gram Stain - Final NO GROWTH 24 HOURS Pharmacy Antibiotic Activity: C/S review and Reviewed, no change Comments: Patient is on ceftriaxone and doxycycline, day 2, for UTI. Cultures showing no growth.
--- NOTE | 2024-05-06 12:54 | DSE_ITS ---
Date of service: 05/06/24 Time of Service: 12:54 DS: Diagnosis Discharge Diagnosis (1) Fever: Status: Acute (2) Acute hyponatremia: Status: Acute (3) Abnormal liver enzymes: Status: Acute (4) Hepatosplenomegaly: Status: Acute Discharge Plan Disposition Patient Disposition: Home Condition: Good Discharge Details Reason For Visit: constitutional symptoms Admit Date/Time: 05/04/24 22:01 Admit Provider: Franklyn Mora Attending Provider: Franklyn Mora Primary Care Provider: Jazz George [facility] Course Hospital Course: 58 yo F with history of smoking, COPD, chornic pain on oral methadone, and poorly controlled type 2 DM who was recently treated for candidal vaginitis and UTI who presented with fever and malaise with unclear source. Urinalysis on admission was negative, but urine culture from 04/29 did show montemayor-sensitive E coli that was treated with nitrofurantoin. She was admitted and treated with ceftriaxone to cover possibly incompletely treated upper UTI. Elevated AST, alk phos, and bilirubin noted. Head and abdomen/pelvis CT 05/04 were negative other than hepatosplenomegaly. Abdominal u/s 05/05 showed the same. on 05/05 she complained of significant headache and some neck stiffness. LP was performed and initial cell counts, glucose, and protein were all benign. She was started on doxycycline. She was initially hyponatremic and this normalized with hydration. To assess her liver INR was done, which was normal. Acetaminophen and alcohol were negative, phosphaditylethanol for chronic alcohol use was sent out, along with an acute hepatitis panel. AST normalized and bilirubin was trending down. Ultrasound negative for signs of obstruction as above. It was concluded that macrobid may have caused the acute change in liver labs. Macrobid should be use d with caution if at all in the future. By 05/06 her headache had almost completely resolved and she was feeling much better. We concluded her E coli was likely the cause of her systemic symptoms, and only the peripheral infection was treated by nitrofurantoin. Tick bourne illness remained in the differential with tick panel pending as well as Lyme from CSF. Given this, she was sent home with amoxicillin for the UTI and doxycycline. Her A1c was again high. She stated she was better controlled when she was on Ozempic. She did not want insulin. This was deferred to the PCP. Home Meds and New Rx's Prescriptions: New doxycycline hyclate 100 mg tablet 100 mg PO BID 9 Days Qty: 18 0RF amoxicillin 875 mg tablet 875 mg PO BID 4 Days Qty: 8 0RF Rx Instructions: start 05/07 Continued glimepiride 2 mg tablet 4 mg PO DAILY dapagliflozin propanediol 10 mg tablet 10 mg PO DAILY gabapentin 600 mg tablet 600 mg PO TID Rx Instructions: 2 cap in morning (DME) diabetic supplies, miscellan. Misc See Rx Instructions .Route Rx Instructions: As directed naloxone [Narcan] 0.4 mg intranasal ONCE PRN atorvastatin 20 mg tablet 20 mg PO QHS promethazine 12.5 mg tablet 12.5 mg PO .Q8-12 PRN acetaminophen 500 mg tablet 1,000 mg PO TID Qty: 90 0RF metformin [Glucophage] 1,000 mg tablet 1,000 mg PO BID@0800,1700 epinephrine 0.3 mg/0.3 mL auto-injector 0.3 mg IM Q5-15M PRNQty: 2 0RF Rx Instructions: do not exceed 3 doses per episode Bydureon BCise 2 mg/0.85 mL auto-injector 2 mg SUBCUT Q7D fluconazole 150 mg tablet 150 mg PO Q72H Patient Comments: TAKE ONE TABLET BY MOUTH NOW; MAY REPEAT DOSE IN 72 HOURS IF SYMPTOMS ARE ASTILL PRESENT cyclobenzaprine 10 mg tablet 10 mg PO TID PRN Patient Comments: TAKE ONE TABLET BY MOUTH THREE TIMES A DAY paroxetine HCl 40 mg tablet 40 mg PO DAILY Patient Comments: TAKE ONE TABLET BY MOUTH EVERY DAY methadone 10 mg tablet 10 mg PO BID Patient Comments: has not been taking it for the last couple of days due sx TAKE ONE TABLET BY MOUTH TWO TIMES A DAY FOR CHRONIC PAIN bupropion HCl 300 mg tablet extended release 24 hr 300 mg PO DAILY Patient Comments: TAKE ONE TABLET BY MOUTH EVERY DAY Discontinued nitrofurantoin monohyd/m-cryst 100 mg capsule 100 mg PO BID Patient Comments: TAKE ONE CAPSULE BY MOUTH TWICE A DAY FOR 5 DAYS Discharge Instructions Instructions: Urinary tract infections in adults Additional Instructions: Your symptoms were likely caused by a urinary tract infection that wasn't cleared by the other antibiotic (Macrobid/nitrofurantoin). This antibiotic may have also inflammed your liver. You were given amoxicillin to finish treating the urine infection fully. You were also given doxycycline to treat any possible tick bourne illness. These tests were still not back when you went home. Your primary care team may advise you to stop this antibiotic if those tests return negative. You need to improve your blood sugar to avoid more infections. Activity:: Activity as Tolerated Equipment/Supplies:: No Equipment Needed Diet:: Carb Counting Discharge Orders Discharge Orders: Discharge Order (Routine); Ordered 05/06/24 Ordered By: Victorino Kearns DS: Summary Time Spent with Patient providing and/or coordinating discharge services: Greater than 30 minutes Status at Discharge Functional status at discharge: independent ambulation Overall status at discharge: patient is back to baseline Mental Status: mental status grossly normal Speech and Movement: speech and movement normal Mood: congruent mood Affect: normal affect Quality:SDOH Health Related Social Needs: No Data to Display Exam Narrative Exam Narrative: Gen: Alert and oriented, NAD. HEENT mildly icteric; neck supple with normal ROM today, no LAD/masses. lungs clear; heart RRR w/o MRG; abdomen soft and NT with no masses palpable; extremities w/o edema; Psych Mental Status: mental status grossly normal Speech and Movement: speech and movement normal Mood: congruent mood Affect: normal affect DS: Data Vitals/I&O Vitals and I&O: Vital Signs Temperature 36.5 C 05/06/24 08:09 Temperature Source Temporal Artery Scan 05/06/24 08:09 Pulse 94 H 05/06/24 08:09 Pulse Rhythm Regular 05/04/24 23:36 Pulse 99 H 05/04/24 22:50 Respiratory Rate 18 05/06/24 08:09 Respiratory Effort Normal, Non-Labored 05/04/24 23:36 Respiratory Depth Normal 05/04/24 23:36 Respiratory Pattern Normal 05/04/24 19:14 Blood Pressure 129/64 05/06/24 08:09 Blood Pressure Position Supine 05/04/24 21:59 Pulse Oximetry 98 05/06/24 08:09 Oxygen Delivery Method Room Air 05/06/24 12:33 Oxygen Flow Rate 0 05/06/24 12:33 Pain Level 6 05/06/24 08:40 Comment notified 05/05/24 16:16 Intake & Output 05/05/24 05/06/24 05/06/24 23:59 11:59 23:59 Intake Total 1447.5 / 2952.50 1000 / 1300 300 / 1300 Output Total 1900 / 2800 1250 / 1250 Balance -452.5 / 152.50 -250 / 50 300 / 50 Intake: IV 697.5 / 1962.50 1000 / 1000 Oral 750 / 990 300 / 300 Output: Urine 1900 / 2800 1250 / 1250 Other: Urine Color Hamilton Yellow Urine Appearance Clear Clear Urine Odor Strong Normal Voiding Methods Toilet Toilet Data Completed and Pending Labs on day of discharge: Labs from last 24 hours 05/06/24 05/05/24 05/05/24 06:30 16:58 12:55 WBC 4.83 RBC 4.00 Hgb 11.2 Hct 32.8 L MCV 82 MCH 28.0 MCHC 34.1 RDW 13.2 Plt Count 144 MPV 10.7 Immature Gran % 0.6 Neutrophils % 77.9 Lymphocytes % 7.5 Monocytes % 9.3 Eosinophils % 4.1 Basophils % 0.6 Nucleated RBC % 0.0 Absolute Neutrophils 3.76 Absolute Lymphocytes 0.36 L Absolute Monocytes 0.45 Absolute Eosinophils 0.20 Absolute Basophils 0.03 Xanthochromia Absent Sodium 131 L Potassium 3.6 Chloride 96 L Carbon Dioxide 23.0 Anion Gap 12.0 H BUN 8 Creatinine 0.6 Est GFR (CKD-EPI 2020) 102.69 Glucose 277 H Hemoglobin A1c 10.2 H Calcium 8.5 Total Bilirubin 1.97 H Conjugated Bilirubin 1.5 H AST 28 ALT 40 Alkaline Phosphatase 354 H Total Protein 6.1 L Albumin 2.6 L B. burgdorferi (PCR) Pending B. mayonii (PCR) Pending B.garinii/B.afzelii PCR Pending Fluid Comment Pending CSF Tube Number 4 CSF Color Colorless CSF Clarity Clear CSF WBC 0 CSF RBC 1 CSF Diff Comment CSF Glucose 113 H CSF Total Protein 37 CSF West Nile RNA Pending Alcohol Metab Comm Pending PEth 16:0/18.1 (POPEth) Pending PEth 16:0/18.2 (PLPEth) Pending Adenovirus Source Pending Adenovirus (PCR) Pending B. divergens/MO-1 PCR Pending Babesia duncani (PCR) Pending Babesia microti DNA PCR Pending Lyme Specimen Source Pending Lyme Disease Antibody Pending E.chaffeensis DNA (PCR) Pending E.ewingii/canis DNA PCR Pending E.muris eauclairensis (PCR) Pending Hepatitis A IgM Ab Pending Hep Bs Antigen Pending Hep B Core Total Ab Pending Hepatitis C Antibody Pending HSV Source Description Not Applicable HSV I DNA PCR Negative HSV II DNA PCR Negative Monoscreen Negative A. phagocytophilum (PCR) Pending Blood B. miyamotoi (PCR) Pending Preliminary micro results at discharge 05/05/24 08:35 Blood Culture - Preliminary Blood NO GROWTH 24 HOURS 05/05/24 08:23 Blood Culture - Preliminary Blood NO GROWTH 24 HOURS 05/05/24 12:55 Body Fluid Culture - Preliminary Cerebrospinal Fluid PFSH All Active Problems (Updated 05/06/24 @ 12:55 by Victorino Kearns) Hepatosplenomegaly (Acute) Abnormal liver enzymes (Acute) Fever (Acute) Malaise (Acute) UTI (urinary tract infection) (Acute) Nausea & vomiting (Acute) Acute hyponatremia (Acute) TMJ dysfunction (Acute) Referred otalgia of left ear (Acute) Referred otalgia of right ear (Acute) Acute sinusitis (Acute) Right ear pain (Acute) Cervicalgia (Acute) Left carpal tunnel syndrome (Acute) Lateral epicondylitis of right elbow (Acute) Partial tear of common extensor tendon of elbow (Acute) Mass of right forearm (Acute) no mass Medical History History of adenomatous polyp of colon Muscle spasm Wrist tendonitis History of kidney stones Diabetic peripheral neuropathy Screening for breast cancer Hand pain, left Neck pain on right side Shoulder pain, right Cough Type B influenza Bilateral conjunctivitis Right elbow pain Small bowel obstruction Psoriasis COPD (chronic obstructive pulmonary disease) pt. denies this Bilateral knee pain Left lateral epicondylitis (06/27/17) Quadriceps tendinitis (08/22/17) Type 2 diabetes mellitus with hyperglycemia Hyperglycemia Chronic pain Partial small bowel obstruction Asthma Renal cell cancer Constipation Chronic low back pain Peptic ulcer disease Obesity Depression Restless leg per pt. states she no longer has this Surgical History History of carpal tunnel surgery of left wrist (01/17/22) Ganglion cyst of volar aspect of right wrist S/P Excision: 01/04/2022 Bilateral carpal tunnel syndrome (06/27/17) S/P R ECTR: 01/04/2022 S/P L ECTR: 01/17/2022 S/P hysterectomy H/O partial nephrectomy S/P arthroscopic partial medial meniscectomy R knee S/P tympanoplasty S/P cholecystectomy S/P small bowel resection Social History Smoking/Tobacco Use Status: Former Tobacco Use Quit Date: 07/17/19 Smoking risk assessment performed?: Yes Alcohol Intake: former Drug use: Socially Substance use type: marijuana Household members: spouse Housing: house Current gender identity: female Do you feel safe at home: Yes Do you feel safe in your relationship?: Yes Time Spent with Patient Time Spent with Patient: <45 minutes Time was spent: preparing to see the patient(eg.review tests), obtaining and/or reviewing separately otained hiistory, ordering medications,tests, procedures, referring, communicating with other health day care home provider, indepentently interpreting results, counseling the patient and care coordination
--- NOTE | 2024-05-06 14:08 | CMDISCH_ITS ---
Date of service: 05/06/24 Time of Service: 14:08 LACE Index Scoring Tool Questions: Length of Stay (in days): 2 Was the patient admitted via the E.D.?: Yes Comorbidities: Diabetes w/o Complication, Chronic Pulmonary Disease, Any Tumor and Liver or Renal Disease E.D. Visits: 1 Answers: Total Score: 11 Risk of Readmission: High Risk Care Management Discharge Plan Reason for Hospitalization: hypokalemia Discharge Plan: Lani will be discharged home with no new services. She will follow up with her PCP and plan of care and transport with family. Patient/Family Education Needs: review of discharge instructions, follow up plan, limitations, discuss Ask Me Three [facility] Health Related Social Needs: No Data to Display
[2024-05-07 10:40] LABS: Lyme Ab w Rflx to Lyme Confirm Negative (Negative)
[2024-05-07 11:45] LABS: Hepatitis A Antibody IgM Negative (Negative); Hepatitis B Core Antibody Negative (Negative); Hepatitis B surface Ag Negative (Negative); Hepatitis C Ab w Rflx HCV PCR Negative (Negative)
[2024-05-07 20:14] LABS: West Nile Virus PCR, CSF Negative (Negative)
[2024-05-07 20:51] LABS: Adenovirus PCR Negative (Negative); Specimen Source CSF
[2024-05-08 17:26] LABS: Specimen Source CSF
[2024-05-09 07:26] LABS: PEth 16:0/18:1(POPEth) <10 ng/mL (Cutoff: 10); PEth 16:0/18:2(PLPEth) <10 ng/mL (Cutoff: 10); PEth Interpretation Negative.
[2024-05-09 15:47] LABS: Anaplasma phagocytophilum Negative (Negative); B. miyamotoi PCR Negative (Negative); Babesia divergens/MO-1 Negative (Negative); Babesia duncani Negative (Negative); Babesia microti Negative (Negative); Ehrlichia chaffeensis Negative (Negative); Ehrlichia ewingii/canis Negative (Negative); Ehrlichia muris eauclairensis Negative (Negative)
== END 2024-05-06 14:26 | disposition home or self-care (01) ==
LOC: ER 23:14 → MS 23:16
PROVIDERS: Family Medicine; Admitting Provider General Practice; Emergency Provider Nurse Practitioner Family; PCP Family Medicine; Visit Provider General Practice
DX: E87.1 Hypo-osmolality and hyponatremia; R53.81 Other malaise; N39.0 Urinary tract infection, site not specified; R50.9 Fever, unspecified; R74.8 Abnormal levels of other serum enzymes; R11.2 Nausea with vomiting, unspecified; E11.42 Type 2 diabetes mellitus with diabetic polyneuropathy; R16.2 Hepatomegaly with splenomegaly, not elsewhere classified; R00.0 Tachycardia, unspecified; Z79.84 Long term (current) use of oral hypoglycemic drugs; Z85.528 Personal history of other malignant neoplasm of kidney; R42 Dizziness and giddiness; R51.9 Headache, unspecified; R10.9 Unspecified abdominal pain; Z79.891 Long term (current) use of opiate analgesic; G89.29 Other chronic pain; Z79.899 Other long term (current) drug therapy; Z90.5 Acquired absence of kidney; T68.XXXA Hypothermia, initial encounter; J44.9 Chronic obstructive pulmonary disease, unspecified; E11.65 Type 2 diabetes mellitus with hyperglycemia; Z87.891 Personal history of nicotine dependence; B96.20 Unspecified Escherichia coli [E. coli] as the cause of diseases classified elsewhere
CPT/HCPCS: 62270; 00123; 36410; 36415; 80048; 80053; 80076; 80307; 80321; 82945; 83690; 86704; 86709; 86803; 87040; 87340; 87476; 87529; 87637; 87798; 89050; 89051; 90656; 93005; 96361; 96365; 96366; 96367; 96372; 96374; 96375; 99285; J1650; 70450; 74177; 76700; 80320; 80329; 81003; 81015; 82247; 83036; 84075; 84157; 84450; 84460; 85025; 85610; 86308; 86618; 87070; 87205; 93010; 99222; 99233; 99239; G0378; J0696; J1200; J1815; J1885; J2060; J2765; J3490

== ENCOUNTER 2024-05-13 17:33 | Emergency (ER) | payer MEDICARE, MEDICAID, SELFPAY ==
[2024-05-13] VITALS (14 sets, daily range): BP systolic 112–149; BP diastolic 51–87; PULSE 78–97; RESP 12–18; O2SAT 93–97
--- NOTE | 2024-05-13 17:30 | RT.EKG_ITS ---
APPROVED REPORT Exam: Resting ECG Reason for Exam: dizziness Patient Location: E HR:92 bpm ECG Measurements Heart Rate 92 AXIS SD 120 P -35 QRSd 92 QRS 60 QT 362 T 53 QTc 448 Conclusion Sinus rhythm...normal P axis, V-rate 60- 99
--- NOTE | 2024-05-13 17:52 | ED.GENADUL_ITS ---
Discharge Plan Disposition Patient Disposition: Home Condition: Stable Discharge Details Clinical Impression: Nausea & vomiting Primary Care Provider: Jazz George ED Provider: Aubrey Partida Home Meds and New Rx's Prescriptions: New ondansetron 4 mg tablet,disintegrating 4 mg PO Q8H PRN (Reason: nausea and vomiting) Qty: 30 0RF Continued glimepiride 2 mg tablet 4 mg PO DAILY dapagliflozin propanediol 10 mg tablet 10 mg PO DAILY gabapentin 600 mg tablet 600 mg PO TID Rx Instructions: 2 cap in morning (DME) diabetic supplies, miscellan. Misc See Rx Instructions .Route Rx Instructions: As directed naloxone [Narcan] 0.4 mg intranasal ONCE PRN atorvastatin 20 mg tablet 20 mg PO QHS promethazine 12.5 mg tablet 12.5 mg PO .Q8-12 PRN acetaminophen 500 mg tablet 1,000 mg PO TID Qty: 90 0RF metformin [Glucophage] 1,000 mg tablet 1,000 mg PO BID@0800,1700 epinephrine 0.3 mg/0.3 mL auto-injector 0.3 mg IM Q5-15M PRNQty: 2 0RF Rx Instructions: do not exceed 3 doses per episode Bydureon BCise 2 mg/0.85 mL auto-injector 2 mg SUBCUT Q7D fluconazole 150 mg tablet 150 mg PO Q72H Patient Comments: TAKE ONE TABLET BY MOUTH NOW; MAY REPEAT DOSE IN 72 HOURS IF SYMPTOMS ARE ASTILL PRESENT cyclobenzaprine 10 mg tablet 10 mg PO TID PRN Patient Comments: TAKE ONE TABLET BY MOUTH THREE TIMES A DAY paroxetine HCl 40 mg tablet 40 mg PO DAILY Patient Comments: TAKE ONE TABLET BY MOUTH EVERY DAY methadone 10 mg tablet 10 mg PO BID Patient Comments: has not been taking it for the last couple of days due sx TAKE ONE TABLET BY MOUTH TWO TIMES A DAY FOR CHRONIC PAIN bupropion HCl 300 mg tablet extended release 24 hr 300 mg PO DAILY Patient Comments: TAKE ONE TABLET BY MOUTH EVERY DAY doxycycline hyclate 100 mg tablet 100 mg PO BID 9 Days Qty: 18 0RF Discharge Instructions Additional Instructions: Your blood work and urine did not show concerning findings tonight Follow-up with your primary care provider within 1 to 2 weeks especially if symptoms continue If you feel more ill, have persistent vomiting despite the ondansetron or severe chest or abdominal pain return to the emergency department for reevaluation HPI General Mode of arrival: wheelchair . Date/Time Provider Initiated Documentation: 05/13/24 17:35 . Limitations to Documentation: no limitations . Information obtained by: patient . History of Present Illness 58 year old F presents to the emergency department with the chief complaint of n/v, described as moderate, Patient started experiencing this day(s) (2) and it has been intermittent. No relieving factors improve symptom(s), No exacerbating factors reported . Patient notes nausea/vomiting; denies chest pain, fever/chills and shortness of breath. Related Data Home Medications ?Medication ?Instructions ?Recorded ?Confirmed gabapentin 600 mg tablet 600 mg PO TID 09/19/18 05/04/24 metformin 1,000 mg tablet 1,000 mg PO BID@0800,1700 09/26/18 05/04/24 (Glucophage) glimepiride 2 mg tablet 4 mg PO DAILY 03/19/19 05/04/24 dapagliflozin propanediol 10 mg 10 mg PO DAILY 12/01/21 05/04/24 tablet acetaminophen 500 mg tablet 1,000 mg (2 x 500 mg) PO TID #90 01/17/22 05/04/24 tabs atorvastatin 20 mg tablet 20 mg PO QHS 09/15/22 05/04/24 diabetic supplies, miscellan. 09/15/22 05/04/24 naloxone 0.4 mg intranasal ONCE PRN 09/15/22 05/04/24 promethazine 12.5 mg tablet 12.5 mg PO .Q8-12 PRN 09/15/22 05/04/24 epinephrine 0.3 mg/0.3 mL 0.3 mg (0.3 mL) IM Q5-15M PRN #2 ea 10/04/23 05/04/24 injection, auto-injector cyclobenzaprine 10 mg tablet 10 mg PO TID PRN 05/04/24 05/04/24 exenatide microspheres 2 mg/0.85 2 mg subcut Q7D 05/04/24 05/04/24 mL subcutaneous auto-injector (Ree Ku) fluconazole 150 mg tablet 150 mg PO Q72H 05/04/24 05/04/24 bupropion HCl 300 mg 24 hr tablet, 300 mg PO DAILY 05/05/24 05/05/24 extended release methadone 10 mg tablet 10 mg PO BID 05/05/24 05/05/24 paroxetine HCl 40 mg tablet 40 mg PO DAILY 05/05/24 05/05/24 doxycycline hyclate 100 mg tablet 100 mg PO BID 9 days #18 tabs 05/06/24 ondansetron 4 mg disintegrating 4 mg PO Q8H PRN nausea and 05/13/24 tablet vomiting #30 tabs Previous Rx's ?Medication ?Instructions ?Recorded acetaminophen 500 mg tablet 1,000 mg (2 x 500 mg) PO TID #90 01/17/22 tabs epinephrine 0.3 mg/0.3 mL 0.3 mg (0.3 mL) IM Q5-15M PRN #2 ea 10/04/23 injection, auto-injector doxycycline hyclate 100 mg tablet 100 mg PO BID 9 days #18 tabs 05/06/24 ondansetron 4 mg disintegrating 4 mg PO Q8H PRN nausea and 05/13/24 tablet vomiting #30 tabs Allergies Allergy/AdvReac Type Severity Reaction Status Date / Time ciprofloxacin (From Ciprodex) Allergy Severe Anaphylaxis Unverified 05/04/24 17:20 dexamethasone (From Ciprodex) Allergy Severe Anaphylaxis Unverified 05/04/24 17:20 Sulfa (Sulfonamide Allergy Intermediate Skin Rash Verified 05/04/24 17:20 Antibiotics) baclofen AdvReac Intermediate Nausea Verified 05/04/24 17:20 General Stated Complaint: GenMedical ELENA: 3 Review of Systems All systems reviewed & are unremarkable except as noted in HPI and below Constitutional Constitutional: Denies chills, Denies fever(s) and Denies weakness Cardiovascular Cardiovascular: Denies chest pain and Denies dyspnea Respiratory Respiratory: Denies cough and Denies dyspnea Gastrointestinal Gastrointestinal: Reports abdominal pain, Reports nausea and Reports vomiting Genitourinary Genitourinary: Reports other (dysuria ) Integumentary/Breasts Skin/Breast: Denies rash Neurologic Neurologic: Denies weakness Endocrine Endocrine: Denies cold intolerance Exam Const Orientation: alert and other (crying, anxious) [facility] Head: normal to inspection Ears: external ears normal General nose exam: external nose normal Mouth: moist mucous membranes Eyes General: appearance normal, both eyes and all related structures Neck Neck: normal visual inspection Resp Effort & Inspection: normal respiratory effort and able to speak in complete sentences Auscultation: clear to auscultation bilaterally Cardio Jugular venous pressure: no JVD Rate: regular rate Heart Sounds: no murmurs GI Palpation: soft and nontender Skin General skin exam: no rashes or lesions noted Neuro General: patient alert and patient oriented x3 Extrem General: normal to inspection Psych Mental Status: mental status grossly normal Course Vital Signs Vital signs: Vital Signs Pulse 97 H 05/13/24 17:37 Respiratory Rate 18 05/13/24 17:37 Blood Pressure 149/87 H 05/13/24 17:37 Pulse Oximetry 93 05/13/24 17:37 Pulse 97 H 05/13/24 17:37 Respiratory Rate 18 05/13/24 17:37 Blood Pressure 149/87 H 05/13/24 17:37 Pulse Oximetry 93 05/13/24 17:37 Medical Decision Making 58-year-old female who was recently admitted for abdominal pain and UTI along with elevated LFTs with negative CT and ultrasound other than a mildly enlarged liver comes in with recurrent nausea vomiting and dysuria. She says that when she is to pee she gets lower abdominal pain but when she is up doing this she does not have any pain. No fevers, no chest pain or difficulty breathing. She says she feels dizzy intermittently. Denies any weakness. She is very anxious and crying on arrival. She has a soft nontender abdomen on exam. Unclear etiology of her symptoms though component of a anxiety or panic attack could be contributing. Will check CBC, CMP, UA, lipase and treat her symptoms with antiemetics and fluids and reassess. Given the reassuring negative CT recently we will hold on repeat CT unless of significantly abnormal or if she develop abdominal pain here. Patient had resolution of symptoms with 1 dose of droperidol. Lab work does not show any emergent abnormalities. Her urine does not show signs of infection. She is tolerating p.o. and has no abdominal tenderness. Do not feel any imaging acutely indicated. Given she is tolerating p.o. and was better she feel that 1 dose of antiemetics feel she can be discharged with Zofran and follow-up with her PCP, return precautions given Differential Diagnosis Differential Diagnosis: Anxiety, UTI, pancreatitis Medical Records Medical records reviewed: Yes I reviewed the patient's medical records. Lab Data Lab results reviewed: Yes I reviewed the patient's lab results. ECG Data Attestation: I personally reviewed and interpreted this ECG (s) as follows: Prior ECG tracings: available for review Interpretation: Sinus rhythm, rate of 92, QTc 448, no STEMI Quality:SDOH Health Related Social Needs: No Data to Display PFSH All Active Problems (Updated 05/13/24 @ 20:16 by Aubrey Partida MD) Nausea & vomiting (Acute) Hepatosplenomegaly (Acute) Abnormal liver enzymes (Acute) UTI (urinary tract infection) (Acute) TMJ dysfunction (Acute) Referred otalgia of left ear (Acute) Referred otalgia of right ear (Acute) Acute sinusitis (Acute) Right ear pain (Acute) Cervicalgia (Acute) Left carpal tunnel syndrome (Acute) Lateral epicondylitis of right elbow (Acute) Partial tear of common extensor tendon of elbow (Acute) Mass of right forearm (Acute) no mass Medical History History of adenomatous polyp of colon Muscle spasm Wrist tendonitis History of kidney stones Diabetic peripheral neuropathy Screening for breast cancer Hand pain, left Neck pain on right side Shoulder pain, right Cough Type B influenza Bilateral conjunctivitis Right elbow pain Small bowel obstruction Psoriasis COPD (chronic obstructive pulmonary disease) pt. denies this Bilateral knee pain Left lateral epicondylitis (06/27/17) Quadriceps tendinitis (08/22/17) Type 2 diabetes mellitus with hyperglycemia Hyperglycemia Chronic pain Partial small bowel obstruction Asthma Renal cell cancer Constipation Chronic low back pain Peptic ulcer disease Obesity Depression Restless leg per pt. states she no longer has this Surgical History History of carpal tunnel surgery of left wrist (01/17/22) Ganglion cyst of volar aspect of right wrist S/P Excision: 01/04/2022 Bilateral carpal tunnel syndrome (06/27/17) S/P R ECTR: 01/04/2022 S/P L ECTR: 01/17/2022 S/P hysterectomy H/O partial nephrectomy S/P arthroscopic partial medial meniscectomy R knee S/P tympanoplasty S/P cholecystectomy S/P small bowel resection Social History Smoking/Tobacco Use Status: Former Tobacco Use Quit Date: 07/17/19 Smoking risk assessment performed?: Yes Alcohol Intake: former Drug use: Socially Substance use type: marijuana Household members: spouse Housing: house Current gender identity: female Do you feel safe at home: Yes Do you feel safe in your relationship?: Yes
[2024-05-13 18:13] LABS: Absolute Basophil Count 0.13 10^3/uL (0.0-0.2); Absolute Eosinophil Count 0.24 10^3/uL (0.0-0.7); Absolute Lymphocyte Count 2.01 10^3/uL (1.2-3.4); Absolute Neutrophil Count 6.85 10^3/uL (1.2-6.7); Basophils % 1.3 %; Eosinophils % 2.4 %; HCT 40.7 % (36.0-46.0); HGB 14.1 g/dL (11.2-15.7); Lymphocytes % 19.8 %; MCH 27.6 pg (27.0-33.0); MCHC 34.6 % (32.0-36.0); MCV 80 fL (80-95); MPV 9.2 fL (8.0-11.0); Monocytes % 5.9 %; Neutrophils % 67.6 %; Platelet Count 433 10^3/uL (130-400); RDW 13.1 % (11.7-14.6); WBC 10.13 10^3/uL (4.4-10.8)
[2024-05-13] MEDS: Normal Saline 1,000 ML 1000 ML IV (18:25)
[2024-05-13] MEDS: Droperidol 5 MG/2 ML VIAL 2.5 MG IVP (18:25)
[2024-05-13 18:26] LABS: Prothrombin Time 10.4 sec (9.1-11.1)
[2024-05-13 18:36] LABS: ALT 26 U/L (14-59); AST 13 U/L (15-37); Albumin 3.9 g/dL (3.4-5.0); Alkaline Phosphatase 392 U/L (46-116); Anion Gap 8.5 mmol/L (3-11); BUN 28 mg/dL (7-18); Bilirubin, Total 0.56 mg/dL (0.2-1.0); CO2 28.5 mmol/L (21.0-32.0); CREATININE 1.1 mg/dL (0.55-1.02); Calcium 9.9 mg/dL (8.5-10.1); Chloride 91 mmol/L (98-107); Estimated GFR 57.52 (mL/min/1.73m2); Glucose 494 mg/dL (74-106); Magnesium 2.2 mg/dL (1.8-2.4); Potassium 4.3 mmol/L (3.5-5.1); Sodium 128 mmol/L (136-145); Total Protein 8.1 g/dL (6.4-8.2); Troponin I 4 ng/L (<or=51)
[2024-05-13 18:47] LABS: Procalcitonin 0.1 ng/mL
[2024-05-13 18:52] LABS: Bilirubin, Direct 0.3 mg/dL (0.0-0.2); Lipase 120 U/L (16-77)
[2024-05-13 19:24] LABS: COVID-19 PCR Negative (Negative); Influenza A PCR Negative (Negative); Influenza B PCR Negative (Negative); RSV PCR Negative (Negative); Source NASOPHARYNX
[2024-05-13 19:57] LABS: Bilirubin Negative (Negative); Blood Negative (Negative); Clarity Clear (Clear); Glucose >=1000 mg/dL (Negative); Ketones Negative (Negative); Leukocyte Esterase Negative (Negative); Nitrite Negative (Negative); Urobilinogen 0.2 mg/dL (Up to 0.2); pH 5.5 (5-8)
[2024-05-13 20:01] LABS: Bacteria Rare HPF (Negative); C & S Indicated? No; Casts Negative LPF (Negative); Crystals Negative HPF (Negative); Epithelial Cells Rare HPF (Negative); Mucus Trace (Negative); RBC 0-2 HPF (0-2); WBC 0-2 HPF (0-5)
[2024-05-13 20:01] LABS: Troponin I 6 ng/L (<or=51)
[2024-05-13] MEDS: Ondansetron O.D.T. 4 MG TABEF, 3 TABS/BTL PO (20:21)
== END 2024-05-14 00:35 | disposition home or self-care (01) ==
PROVIDERS: Emergency Provider Emergency Medicine; PCP Family Medicine
DX: R11.2 Nausea with vomiting, unspecified (principal); R42 Dizziness and giddiness; E11.40 Type 2 diabetes mellitus with diabetic neuropathy, unspecified; J44.9 Chronic obstructive pulmonary disease, unspecified; Z90.49 Acquired absence of other specified parts of digestive tract; Z90.5 Acquired absence of kidney; Z79.84 Long term (current) use of oral hypoglycemic drugs; Z87.891 Personal history of nicotine dependence
CPT/HCPCS: 36415; 80053; 83690; 84145; 87637; 93005; 96361; 96374; 99284; 81003; 81015; 82248; 83735; 84484; 85025; 85610; 85730; 93010; J1790

== ENCOUNTER 2024-05-16 13:40 | Outpatient (REF) | payer MEDICARE, MEDICAID, SELFPAY | END 2024-05-16 13:41 | disposition home or self-care (01) | LOC: NCHCN 13:40 | PROVIDERS: PCP Family Medicine; Visit Provider Family Medicine | DX: R10.2 Pelvic and perineal pain (principal); R82.89 Other abnormal findings on cytological and histological examination of urine | CPT/HCPCS: 87086 ==

== ENCOUNTER 2024-07-02 14:45 | Outpatient (REF) | payer MEDICARE, MEDICAID, SELFPAY | END 2024-07-02 14:46 | disposition home or self-care (01) | LOC: NCHCN 14:45 | PROVIDERS: PCP Family Medicine; Visit Provider Family Medicine | DX: R39.89 Other symptoms and signs involving the genitourinary system (principal); Z87.440 Personal history of urinary (tract) infections | CPT/HCPCS: 87086 ==

== ENCOUNTER 2024-12-29 09:54 | Outpatient (CLI) | payer MEDICARE, MEDICAID, SELFPAY ==
--- NOTE | 2024-12-29 09:15 | DI.RAD_ITS ---
Exam(s) XR WRIST RT COMPLETE EXAM: XR WRIST RT COMPLETE CLINICAL HISTORY: wrist pain. TECHNIQUE: 2D digital imaging was performed of the right wrist. Three views were obtained. PA, lat eral and oblique views were obtained. COMPARISON: There are no priors for comparison. FINDINGS: BONES: No acute fracture is present. There is a question of a lucency in the distal metadiaphyseal ju nction of the right radius. JOINTS: The carpal bones are normally aligned. The articular surfaces are well maintained. SOFT TISSUE: There is a well corticated osseous density at the posterior aspect of the wrist on the l ateral view which appears chronic. IMPRESSION: 1. No acute fracture or dislocation. 2. Question of a lucency in the distal right radius at the metadiaphyseal junction. Lytic lesion can not be excluded. Please correlate with patient's clinical history. MRI of the wrist should be consi dered for further evaluation. Unexpected findings DATA REPOSITORY: RADIATION DOSE DELIVERED:
--- NOTE | 2024-12-29 09:15 | DI.RAD_ITS ---
Exam(s) XR WRIST LT COMPLETE EXAM: XR WRIST LT COMPLETE CLINICAL HISTORY: wrist pain. TECHNIQUE: 2D digital imaging was performed of the left wrist. Three images were obtained. PA, obl ique and lateral views were obtained. COMPARISON: No exams were available for comparison FINDINGS: BONES: No acute fracture is present. No bony destructive lesion is seen. JOINTS: The carpal bones are normally aligned. The articular surfaces are well maintained in the wris t. There are mild degenerative changes seen at the interphalangeal joint of the thumb. SOFT TISSUE: Normal. IMPRESSION: Mild degenerative changes seen at the interphalangeal joint of the thumb. DATA REPOSITORY: RADIATION DOSE DELIVERED:
== END 2024-12-29 09:55 | disposition home or self-care (01) ==
LOC: DIORS 09:54
PROVIDERS: PCP Family Medicine; Referring Provider Family Medicine; Visit Provider Student in an Organized Health Care Education/Training Program
DX: M18.11 Unilateral primary osteoarthritis of first carpometacarpal joint, right hand; M25.532 Pain in left wrist; M25.531 Pain in right wrist
CPT/HCPCS: 99213; 73110

== ENCOUNTER 2025-01-02 00:24 | Outpatient (CLI) | payer MEDICARE, MEDICAID, SELFPAY ==
--- NOTE | 2025-01-02 | DI.CT_ITS ---
Exam(s) CT CERVICAL SPINE WO EXAM: CT CERVICAL SPINE WO CLINICAL HISTORY: h/o closed fx of rt occipital condyle, S02.113A; eval for changes, eval. TECHNIQUE: Imaging Protocol: Axial computed tomography images with coronal and sagittal reformatted images were created and reviewed COMPARISON: CT CT Spine Cervical w/o Contrast from 08/23/2024 DX XR CERVICAL SPINE FLEXION EXTENSION ONLY from 12/23/2024 FINDINGS: CERVICAL SPINE: Previously described small avulsion fragment off the medial aspect of the right medial occipital cond yle remain stable. No new fractures evident. Again noted is chronic arthropathy about the C1 odontoid articulation, unchanged. Again noted is chronic disc space narrowing at C 6-7 level. Multilevel facet arthropathy. There is fusion across the C4-5 facet joints on the left side again no yesika. IMPRESSION: Stable unchanged appearance when compared to outside images of 08/23/2024. RADIATION DOSE DELIVERED: 351.48mGy.cm Total DLP DATA REPOSITORY: All CT scans at this facility are submitted to the National Radiology Data Registry (NRDR) Dose Index Registry (DIR) with the [employer] ([employer]). RADIATION OPTIMIZATION: All CT scans at this facility use at least one of these dose optimization te chniques: automated exposure control; mA and/or kV adjustment per patient size (includes targeted exa ms where dose is matched to clinical indication); or iterative reconstruction.
== END 2025-01-02 00:44 ==
LOC: DI 00:24
PROVIDERS: PCP Family Medicine; Visit Provider Physician Assistant Surgical
DX: S02.113D Unspecified occipital condyle fracture, subsequent encounter for fracture with routine healing (principal); X58.XXXD Exposure to other specified factors, subsequent encounter
CPT/HCPCS: 72125

== ENCOUNTER 2025-02-23 16:24 | Emergency (ER) | payer MEDICARE, MEDICAID, SELFPAY ==
[2025-02-23] VITALS (14 sets, daily range): BP systolic 122–158; BP diastolic 27–98; PULSE 75–92; RESP 14–24; TEMP 36.6; O2SAT 95–98
--- NOTE | 2025-02-23 16:30 | DI.RAD_ITS ---
Exam(s) XR CHEST 2V PA LATERAL EXAM: XR CHEST 2V PA LATERAL CLINICAL HISTORY: shortness of breath. TECHNIQUE: 2D digital imaging was performed. COMPARISON: CR,XR XR CHEST 2V PA LATERAL from 11/10/2021 FINDINGS: 2 views: Heart size is normal. The mediastinum is not widened. Left lung is clear but there appears to be some infiltrate in the medial segment of the right middle lobe now evident. No pleural effusions. Incidentally noted is what might be some erosion of the right AC joint. This was not evident on prior chest x-ray of 3 12/07/2021. The left AC joint appears unremarkable. IMPRESSION: Right middle lobe infiltrate. Left lung clear. No pleural effusions. There appears to be some possible erosion at the level the right AC joint which was not evident on chest x-ray of October 2021. DATA REPOSITORY: RADIATION DOSE DELIVERED:
--- NOTE | 2025-02-23 16:30 | RT.EKG_ITS ---
APPROVED REPORT Exam: Resting ECG Reason for Exam: shortness of breath Patient Location: E HR:75 bpm ECG Measurements Heart Rate 75 AXIS AR 160 P 76 QRSd 96 QRS 56 QT 375 T 60 QTc 420 Conclusion Sinus rhythm at a rate of 75 without acute ischemic change
[2025-02-23] MEDS: methylPREDNISolone SUCC 125 MG VIAL IVP (17:08)
[2025-02-23] MEDS: Albuterol/Ipratropium 3 ML UPD VIAL UPD (17:09)
--- NOTE | 2025-02-23 17:25 | W.ED.GENAD ---
Discharge Plan Disposition Patient Disposition: Home Condition: Stable Discharge Details Clinical Impression: COPD exacerbation, Pneumonia Primary Care Provider: Jazz George ED Provider: Dana Cornelius Home Meds and New Rx's Prescriptions: New cefpodoxime 200 mg tablet 200 mg PO Q12H Qty: 14 0RF Rx Instructions: must administer with a meal/food ipratropium-albuterol 0.5 mg-3 mg(2.5 mg base)/3 mL solution for nebulization 3 ml inhalation Q4H PRN (Reason: shortness of breath or wheezing) Qty: 90 2RF prednisone 20 mg tablet 60 mg PO DAILY 5 Days Qty: 15 0RF albuterol sulfate [Ventolin HFA] 90 mcg/actuation HFA aerosol inhaler 2 puff inhalation 6XD PRN (Reason: shortness of breath or wheezing) Qty: 8.5 2RF No Action glimepiride 2 mg tablet 4 mg PO DAILY dapagliflozin propanediol 10 mg tablet 10 mg PO DAILY gabapentin 600 mg tablet 600 mg PO TID Rx Instructions: 2 cap in morning (DME) diabetic supplies, miscellan. Misc See Rx Instructions .Route Rx Instructions: As directed naloxone [Narcan] 0.4 mg intranasal ONCE PRN atorvastatin 20 mg tablet 20 mg PO QHS promethazine 12.5 mg tablet 12.5 mg PO .Q8-12 PRN metformin [Glucophage] 1,000 mg tablet 1,000 mg PO BID@0800,1700 epinephrine 0.3 mg/0.3 mL auto-injector 0.3 mg IM Q5-15M PRNQty: 2 0RF Rx Instructions: do not exceed 3 doses per episode cyclobenzaprine 10 mg tablet 10 mg PO TID PRN Patient Comments: TAKE ONE TABLET BY MOUTH THREE TIMES A DAY paroxetine HCl 40 mg tablet 40 mg PO DAILY Patient Comments: TAKE ONE TABLET BY MOUTH EVERY DAY methadone 10 mg tablet 10 mg PO BID Patient Comments: has not been taking it for the last couple of days due sx TAKE ONE TABLET BY MOUTH TWO TIMES A DAY FOR CHRONIC PAIN bupropion HCl 300 mg tablet extended release 24 hr 300 mg PO DAILY Patient Comments: TAKE ONE TABLET BY MOUTH EVERY DAY ondansetron 4 mg tablet,disintegrating 4 mg PO Q8H PRN (Reason: nausea and vomiting) Qty: 30 0RF acetaminophen 500 mg tablet 1,000 mg PO TID PRN cephalexin 500 mg capsule Patient Comments: TAKE ONE CAPSULE BY MOUTH EVERY 8 HOURS BEFORE MEAL(S) FOR 10 DAYS; TAKE FOR SKIN INFECTION Ozempic 2 mg/dose (8 mg/3 mL) pen injector SUBCUT Patient Comments: INJECT 2MG UNDER THE SKIN EVERY WEEK DIRECTED FOR UNCONTROLLED DIABETES Discharge Instructions Instructions: COPD Exacerbation, Adult ED, Pneumonia, Adult ED Additional Instructions: Please discontinue your prescribed amoxicillin since I am switching you to a different, stronger antibiotic. Please follow-up with your primary care doctor. In the meantime if you do get worse or develop any new or concerning symptoms please return to the emergency department for reevaluation. HPI General Date/Time Provider Initiated Documentation: 02/23/25 16:30. HPI Narrative: The patient is a 59-year-old female with a history of COPD not on supplemental oxygen at home and not on chronic steroids who comes the emergency department for shortness of breath. The patient reports that she is been feeling short of breath for a little over a week. Reports incidentally she had cellulitis on the left arm and had been on antibiotics. Reports that last week she had gone to [facility] because she was feeling short of breath and they gave her more antibiotics but in spite of that she continues to feel short of breath. Reports she followed up with her primary care doctor today and she was urged to go to the emergency department. Denies any fevers or chills with this. Reports that she has been around sick people but has since had viral swabs and came back negative for flu, COVID and RSV. Denies any chest pain with this. Denies abdominal pain, nausea or vomiting. Denies leg pain or leg swelling. Related Data Home Medications ?Medication ?Instructions ?Recorded ?Confirmed gabapentin 600 mg tablet 600 mg PO TID 09/19/18 02/23/25 metformin 1,000 mg tablet 1,000 mg PO BID@0800,1700 09/26/18 02/23/25 (Glucophage) glimepiride 2 mg tablet 4 mg PO DAILY 03/19/19 02/23/25 dapagliflozin propanediol 10 mg 10 mg PO DAILY 12/01/21 02/23/25 tablet atorvastatin 20 mg tablet 20 mg PO QHS 09/15/22 02/23/25 diabetic supplies, miscellan. 09/15/22 12/29/24 naloxone 0.4 mg intranasal ONCE PRN 09/15/22 02/23/25 promethazine 12.5 mg tablet 12.5 mg PO .Q8-12 PRN 09/15/22 02/23/25 epinephrine 0.3 mg/0.3 mL 0.3 mg (0.3 mL) IM Q5-15M PRN #2 ea 10/04/23 02/23/25 injection, auto-injector cyclobenzaprine 10 mg tablet 10 mg PO TID PRN 05/04/24 02/23/25 bupropion HCl 300 mg 24 hr tablet, 300 mg PO DAILY 05/05/24 02/23/25 extended release methadone 10 mg tablet 10 mg PO BID 05/05/24 02/23/25 paroxetine HCl 40 mg tablet 40 mg PO DAILY 05/05/24 02/23/25 ondansetron 4 mg disintegrating 4 mg PO Q8H PRN nausea and 05/13/24 02/23/25 tablet vomiting #30 tabs acetaminophen 500 mg tablet 1,000 mg PO TID PRN 02/23/25 02/23/25 albuterol sulfate 90 mcg/actuation 2 puff inhalation 6XD PRN 02/23/25 aerosol inhaler (Ventolin HFA) shortness of breath or wheezing #8.5 grams cefpodoxime 200 mg tablet 200 mg PO Q12H #14 tabs 02/23/25 cephalexin 500 mg capsule mg 02/23/25 ipratropium 0.5 mg-albuterol 3 mg 3 ml inhalation Q4H PRN shortness 02/23/25 (2.5 mg base)/3 mL nebulization of breath or wheezing #90 mL soln prednisone 20 mg tablet 60 mg (3 x 20 mg) PO DAILY 5 days 02/23/25 #15 tabs semaglutide 2 mg/dose (8 mg/3 mL) mg subcut 02/23/25 subcutaneous pen injector (Ozempic) Previous Rx's ?Medication ?Instructions ?Recorded epinephrine 0.3 mg/0.3 mL 0.3 mg (0.3 mL) IM Q5-15M PRN #2 ea 10/04/23 injection, auto-injector ondansetron 4 mg disintegrating 4 mg PO Q8H PRN nausea and 05/13/24 tablet vomiting #30 tabs albuterol sulfate 90 mcg/actuation 2 puff inhalation 6XD PRN 02/23/25 aerosol inhaler (Ventolin HFA) shortness of breath or wheezing #8.5 grams cefpodoxime 200 mg tablet 200 mg PO Q12H #14 tabs 02/23/25 ipratropium 0.5 mg-albuterol 3 mg 3 ml inhalation Q4H PRN shortness 02/23/25 (2.5 mg base)/3 mL nebulization of breath or wheezing #90 mL soln prednisone 20 mg tablet 60 mg (3 x 20 mg) PO DAILY 5 days 02/23/25 #15 tabs Allergies Allergy/AdvReac Type Severity Reaction Status Date / Time ciprofloxacin (From Ciprodex) Allergy Severe Anaphylaxis Unverified 02/23/25 16:29 dexamethasone (From Ciprodex) Allergy Severe Anaphylaxis Unverified 02/23/25 16:29 doxycycline Allergy Severe got very Verified 02/23/25 16:30 ill Sulfa (Sulfonamide Allergy Intermediate Skin Rash Verified 02/23/25 16:29 Antibiotics) baclofen AdvReac Intermediate Nausea Verified 02/23/25 16:29 General Stated Complaint: SOB ELENA: 3 Review of Systems Narrative: Review of systems are negative except as mentioned. Exam Narrative Exam Narrative: General appearance: The patient is alert, has no immediate need for airway protection and in mild respiratory distress. HEENT: Pupils are round, equal and reactive. Oral mucosal membranes are moist. Neck: Supple, non-tender. Respiratory: There are no retractions. Patient has diffuse inspiratory and expiratory wheezes. Patient is tachypneic with use of accessory respiratory muscles. Cardiovascular: Regular in rate and rhythm. Radial pulses are intact and equal. Gastrointestinal: The abdomen is soft and nondistended with normal bowel sounds. Nontender to palpation throughout. Neurological: The patient is alert, awake and oriented x 3. Skin: Warm and dry. Extremities: No lower extremity edema or calf tenderness is noted to palpation bilaterally. Course Vital Signs Vital signs: Vital Signs Temperature 36.6 C 02/23/25 16:25 Pulse 85 02/23/25 16:25 Respiratory Rate 24 02/23/25 16:25 Blood Pressure 158/98 H 02/23/25 16:25 Pulse Oximetry 95 02/23/25 16:25 Temperature 36.6 C 02/23/25 16:25 Temperature Source Oral 02/23/25 16:25 Pulse 85 02/23/25 16:25 Respiratory Rate 24 02/23/25 16:25 Blood Pressure 158/98 H 02/23/25 16:25 Pulse Oximetry 95 02/23/25 16:25 Oxygen Delivery Method Room Air 02/23/25 16:25 Oxygen Flow Rate 0 02/23/25 16:25 Pain Level 0 02/23/25 16:25 Medical Decision Making Patient has increased work of breathing. I told her of plan for nebulizer treatment now and IV dose of steroids. Given symptom ongoing for over a week I am checking blood work, EKG and chest x-ray as well. Patient agrees with this plan. The patient's blood counts and chemistries are back and they are unremarkable. Troponin is within normal limits. EKG is nondiagnostic. Chest x-ray is concerning for pneumonia. I have updated the patient on workup result. On reevaluation she appears much improved and she does report that she feels better. I told her of plan for discharge shortly. Reports she has a nebulizer at home but does not have medication anymore to go with it. Reports that she does not have an inhaler at home either. Either she She will get a dose of antibiotic now. She is asked to stop her amoxicillin that she is on currently and says she will get Vantin. A prescription of this is sent to her preferred pharmacy. I will send a prescription for her nebulizer machine as well in the form of DuoNeb along with a rescue inhaler and prednisone for the next few days. She is asked to follow-up with her primary care doctor regardless and urged to return to the emergency department with any worsening symptoms or any other concerns. Imaging Data Radiologic Study: Imaging: X-Ray (Chest x-ray) Radiologist's impression: Right middle lobe infiltrate. Left lung clear. No pleural effusions. There appears to be some possible erosion at the level the right AC joint which was not evident on chest x-ray of October 2021. ECG Data Attestation: I personally reviewed and interpreted this ECG (s) as follows: (Sinus rhythm at a rate of 75 without acute ischemic change) PFSH All Active Problems (Updated 02/23/25 @ 17:55 by Dana Cornelius DO) Pneumonia (Acute) COPD exacerbation (Acute) Osteoarthritis of carpometacarpal (CMC) joint of both thumbs (Acute) Hepatosplenomegaly (Acute) Abnormal liver enzymes (Acute) TMJ dysfunction (Acute) Referred otalgia of left ear (Acute) Referred otalgia of right ear (Acute) Acute sinusitis (Acute) Right ear pain (Acute) Cervicalgia (Acute) Left carpal tunnel syndrome (Acute) Lateral epicondylitis of right elbow (Acute) Partial tear of common extensor tendon of elbow (Acute) Mass of right forearm (Acute) no mass Medical History History of adenomatous polyp of colon Muscle spasm Wrist tendonitis History of kidney stones Diabetic peripheral neuropathy Screening for breast cancer Hand pain, left Neck pain on right side Shoulder pain, right Cough Type B influenza Bilateral conjunctivitis Right elbow pain Small bowel obstruction Psoriasis COPD (chronic obstructive pulmonary disease) pt. denies this Bilateral knee pain Left lateral epicondylitis (06/27/17) Quadriceps tendinitis (08/22/17) Type 2 diabetes mellitus with hyperglycemia Hyperglycemia Chronic pain Partial small bowel obstruction Asthma Renal cell cancer Constipation Chronic low back pain Peptic ulcer disease Obesity Depression Restless leg per pt. states she no longer has this Surgical History History of carpal tunnel surgery of left wrist (01/17/22) Ganglion cyst of volar aspect of right wrist S/P Excision: 01/04/2022 Bilateral carpal tunnel syndrome (06/27/17) S/P R ECTR: 01/04/2022 S/P L ECTR: 01/17/2022 S/P hysterectomy H/O partial nephrectomy S/P arthroscopic partial medial meniscectomy R knee S/P tympanoplasty S/P cholecystectomy S/P small bowel resection Social History Smoking/Tobacco Use Status: Former Tobacco Use Quit Date: 07/17/19 Smoking risk assessment performed?: Yes Alcohol Intake: former Drug use: Socially Substance use type: marijuana Household members: spouse Housing: house Current gender identity: female Do you feel safe at home: Yes Do you feel safe in your relationship?: Yes
[2025-02-23 17:27] LABS: Abs Immature Grans 0.08 10^3/uL (0.0-0.06); HCT 42.1 % (36.0-46.0); HGB 14.5 g/dL (11.2-15.7); Immature Grans % 1.0 %; MCH 26.9 pg (27.0-33.0); MCHC 34.4 % (32.0-36.0); MCV 78 fL (80-95); MPV 9.3 fL (8.0-11.0); Platelet Count 232 10^3/uL (130-400); RBC 5.40 10^6/uL (3.93-5.22); RDW 13.4 % (11.7-14.6); RDW-SD 37.1 fL; WBC 8.31 10^3/uL (4.4-10.8)
[2025-02-23 17:47] LABS: ALT 19 U/L (14-59); AST 11 U/L (15-37); Albumin 3.5 g/dL (3.4-5.0); Alkaline Phosphatase 145 U/L (46-116); Anion Gap 10.5 mmol/L (3-11); BUN 8 mg/dL (7-18); Bilirubin, Total 0.4 mg/dL (0.2-1.0); CO2 25.5 mmol/L (21.0-32.0); Calcium 8.7 mg/dL (8.5-10.1); Chloride 98 mmol/L (98-107); Estimated GFR 102.06 (mL/min/1.73m2); Glucose 277 mg/dL (74-106); Potassium 4.0 mmol/L (3.5-5.1); Sodium 134 mmol/L (136-145); Total Protein 6.8 g/dL (6.4-8.2); Troponin I 6 ng/L (<or=51)
[2025-02-23] MEDS: Cefpodoxime 200 MG TAB PO (18:07)
== END 2025-02-23 18:10 | disposition home or self-care (01) ==
PROVIDERS: Emergency Provider Emergency Medicine; PCP Family Medicine
DX: J44.1 Chronic obstructive pulmonary disease with (acute) exacerbation (principal); E11.40 Type 2 diabetes mellitus with diabetic neuropathy, unspecified; Z90.5 Acquired absence of kidney; Z79.84 Long term (current) use of oral hypoglycemic drugs; Z79.85 Long-term (current) use of injectable non-insulin antidiabetic drugs
CPT/HCPCS: 80053; 93005; 94640; 96374; 99285; 71046; 84484; 85025; 93010; 99284; J2919; J7620

== ENCOUNTER 2025-06-10 13:33 | Outpatient (REF) | payer MEDICARE, MEDICAID, SELFPAY ==
[2025-06-10 15:44] LABS: HCT 45.7 % (36.0-46.0); HGB 16.1 g/dL (11.2-15.7); MCH 27.5 pg (27.0-33.0); MCHC 35.2 % (32.0-36.0); MCV 78 fL (80-95); MPV 9.8 fL (8.0-11.0); Platelet Count 253 10^3/uL (130-400); RBC 5.85 10^6/uL (3.93-5.22); RDW 12.7 % (11.7-14.6); RDW-SD 35.9 fL; WBC 8.12 10^3/uL (4.4-10.8)
[2025-06-10 15:52] LABS: Mono Screening Negative (Negative)
[2025-06-10 15:57] LABS: ALT 21 U/L (14-59); Albumin 4.1 g/dL (3.4-5.0); Alkaline Phosphatase 168 U/L (46-116); Anion Gap 12.7 mmol/L (3-11); BUN 16 mg/dL (7-18); Bilirubin, Total 0.7 mg/dL (0.2-1.0); CO2 24.3 mmol/L (21.0-32.0); Calcium 9.4 mg/dL (8.5-10.1); Chloride 95 mmol/L (98-107); Estimated GFR 72.73 (mL/min/1.73m2); Glucose 409 mg/dL (74-106); Potassium 4.2 mmol/L (3.5-5.1); Sodium 132 mmol/L (136-145); Total Protein 7.3 g/dL (6.4-8.2)
[2025-06-10 16:06] LABS: AST 9 U/L (15-37)
[2025-06-10 16:10] LABS: COMMENT (LAB VIEW ONLY) 18.57 mg/dL; Microalb ug/mg Crea 107.7 ug/mg Cr
== END 2025-06-10 13:34 | disposition home or self-care (01) ==
LOC: NCHCN 13:33
PROVIDERS: PCP Family Medicine; Visit Provider Family Medicine
DX: E13.42 Other specified diabetes mellitus with diabetic polyneuropathy (principal); R16.1 Splenomegaly, not elsewhere classified
CPT/HCPCS: 80053; 85027; 82043; 82570; 86308

== ENCOUNTER 2025-06-24 17:01 | Inpatient (IN) | payer MEDICARE, MEDICAID, SELFPAY ==
[2025-06-24] VITALS (56 sets, daily range): BP systolic 107–175; BP diastolic 60–127; PULSE 78–138; RESP 14–30; TEMP 36.2–36.6; O2SAT 90–99
--- NOTE | 2025-06-24 17:00 | RT.EKG_ITS ---
APPROVED REPORT Exam: Resting ECG Reason for Exam: Chest Pain Patient Location: E HR:144 bpm ECG Measurements Heart Rate [address] [id number] P [id number] QRSd 88 QRS 65 QT 308 T [id number] QTc 478 Conclusion Atrial fibrillation...? atrial activity
--- NOTE | 2025-06-24 17:15 | DI.RAD_ITS ---
Exam(s) XR PORTABLE CHEST AP EXAM: XR PORTABLE CHEST AP CLINICAL HISTORY: Chest pain. TECHNIQUE: 2D digital imaging was performed. COMPARISON: CR XR CHEST 2V PA LATERAL from 02/23/2025 FINDINGS: Single AP portable view. Heart size is upper normal. The mediastinum is not widened. Lungs are clear. No infiltrates nor obvious pleural effusions. The previously present right middle lobe infiltrate seen in February 2025 as resolved. IMPRESSION: No acute pulmonary findings on this single AP portable view of the chest. DATA REPOSITORY: RADIATION DOSE DELIVERED:
--- NOTE | 2025-06-24 17:22 | W.ED.GENAD ---
Discharge Plan Disposition Patient Disposition: Admit to [facility] Condition: Improving Discharge Details Clinical Impression: Acute hyperglycemia, AF (paroxysmal atrial fibrillation), Hypercalcemia, Acute dehydration Primary Care Provider: Jazz George ED Provider: Jak Burgos Home Meds and New Rx's Prescriptions: Continued glimepiride 2 mg tablet 4 mg PO DAILY dapagliflozin propanediol 10 mg tablet 10 mg PO DAILY gabapentin 600 mg tablet 600 mg PO TID Rx Instructions: 2 cap in morning (DME) diabetic supplies, miscellan. Misc See Rx Instructions .Route Rx Instructions: As directed naloxone [Narcan] 0.4 mg intranasal ONCE PRN atorvastatin 20 mg tablet 20 mg PO QHS promethazine 12.5 mg tablet 12.5 mg PO .Q8-12 PRN metformin [Glucophage] 1,000 mg tablet 1,000 mg PO BID@0800,1700 epinephrine 0.3 mg/0.3 mL auto-injector 0.3 mg IM Q5-15M PRNQty: 2 0RF Rx Instructions: do not exceed 3 doses per episode cyclobenzaprine 10 mg tablet 10 mg PO TID PRN Patient Comments: TAKE ONE TABLET BY MOUTH THREE TIMES A DAY paroxetine HCl 40 mg tablet 40 mg PO DAILY Patient Comments: TAKE ONE TABLET BY MOUTH EVERY DAY methadone 10 mg tablet 10 mg PO BID Patient Comments: has not been taking it for the last couple of days due sx TAKE ONE TABLET BY MOUTH TWO TIMES A DAY FOR CHRONIC PAIN bupropion HCl 300 mg tablet extended release 24 hr 300 mg PO DAILY Patient Comments: TAKE ONE TABLET BY MOUTH EVERY DAY acetaminophen 500 mg tablet 1,000 mg PO TID PRN Ozempic 2 mg/dose (8 mg/3 mL) pen injector SUBCUT Patient Comments: INJECT 2MG UNDER THE SKIN EVERY WEEK DIRECTED FOR UNCONTROLLED DIABETES Discharge Data Discharge Physician: Jak Burgos HPI General Date/Time Provider Initiated Documentation: 06/24/25 17:22. HPI Narrative: Patient presents emergency department complaining of chest pain since she did cocaine last Sunday and palpitations. States all her sugars have been out of control. Denies any fever denies chills and no shortness of breath states she has been very depressed and wanted to be voluntarily admitted for depression as well Related Data Home Medications Medication Instructions Recorded Confirmed gabapentin 600 mg tablet 600 mg PO TID 09/19/18 06/24/25 metformin 1,000 mg tablet 1,000 mg PO BID@0800,1700 09/26/18 06/24/25 (Glucophage) glimepiride 2 mg tablet 4 mg PO DAILY 03/19/19 06/24/25 dapagliflozin propanediol 10 mg 10 mg PO DAILY 12/01/21 06/24/25 tablet atorvastatin 20 mg tablet 20 mg PO QHS 09/15/22 06/24/25 diabetic supplies, miscellan. 09/15/22 12/29/24 naloxone 0.4 mg intranasal ONCE PRN 09/15/22 06/24/25 promethazine 12.5 mg tablet 12.5 mg PO .Q8-12 PRN 09/15/22 06/24/25 epinephrine 0.3 mg/0.3 mL 0.3 mg (0.3 mL) IM Q5-15M PRN #2 ea 10/04/23 06/24/25 injection, auto-injector cyclobenzaprine 10 mg tablet 10 mg PO TID PRN 05/04/24 06/24/25 bupropion HCl 300 mg 24 hr tablet, 300 mg PO DAILY 05/05/24 06/24/25 extended release methadone 10 mg tablet 10 mg PO BID 05/05/24 06/24/25 paroxetine HCl 40 mg tablet 40 mg PO DAILY 05/05/24 06/24/25 acetaminophen 500 mg tablet 1,000 mg PO TID PRN 02/23/25 06/24/25 semaglutide 2 mg/dose (8 mg/3 mL) mg subcut 02/23/25 subcutaneous pen injector (Ozempic) Previous Rx's Medication Instructions Recorded epinephrine 0.3 mg/0.3 mL 0.3 mg (0.3 mL) IM Q5-15M PRN #2 ea 10/04/23 injection, auto-injector Allergies Allergy/AdvReac Type Severity Reaction Status Date / Time ciprofloxacin (From Ciprodex) Allergy Severe Anaphylaxis Unverified 06/24/25 17:07 dexamethasone (From Ciprodex) Allergy Severe Anaphylaxis Unverified 06/24/25 17:07 doxycycline Allergy Severe got very Verified 06/24/25 17:07 ill Sulfa (Sulfonamide Allergy Intermediate Skin Rash Verified 06/24/25 17:07 Antibiotics) baclofen AdvReac Intermediate Nausea Verified 06/24/25 17:07 General Stated Complaint: Chest Pain ELENA: 3 Review of Systems Narrative: Review of Systems: Constitutional: No fevers, chills, sweats Eye: No recent visual problems ENT: No ear pain, nasal congestion, sore throat Respiratory: No shortness of breath, cough Cardiovascular: , syncope Gastrointestinal: No nausea, vomiting, diarrhea Genitourinary: No hematuria Boom/Lymph: Negative for bruising tendency, swollen lymph glands Endocrine: Negative for excessive thirst, excessive hunger Musculoskeletal: No back pain, neck pain, joint pain, muscle pain, decreased range of motion Integumentary: No rash, pruritus, abrasions Neurologic: Alert & oriented X 4 Psychiatric: No anxiety, depression Exam Narrative Exam Narrative: Exam; vitals signs as reported above normal Constitutional; In no acute distress, afebrile General: cooperative, healthy appearing, comfortable and no acute distress HEENT: Head: normal to inspection, no palpable skull fracture and normocephalic atraumatic Eyes: : appearance normal, both eyes and all related structures EOM intact bilaterally Pupils: PERRL : conjunctiva normal Direct ophthalmoscopy: normal light reflex, normal conjunctiva, normal visual acuity Ears: Normal TM, normal external canal Nose: normal no rhinorreha Neck no JVD, supple non tender Neck: normal visual inspection, full ROM and no lymphadenopathy Chest: normal inspection of the chest Respiratory : normal respiratory effort and able to speak in complete sentences no wheezing no rales Cardio Rate: Tachycardic irregularly irregular normal heart sounds S1 and S2 no murmurs, gallops, or rubs GI : normal to inspection, normal bowel sounds, soft, non tender, non distended, no organomegaly Back/Spine/ no CVA tenderness Thoracic/Lumbar Spine: no tenderness or deformities Skin no rashes or lesions Neuro: patient alert oriented x 4 and no meningeal signs, Cranial Nerves: CN's II-XI intact bilaterally, Cognition: normal cognition, Speech: speech normal, Gait: normal gait, Depp tendon reflexes normal 2+ muscle strength 5/5 bilaterally Extremities, no edema, full range of motion, normal strength : normal Rectal: Course Vital Signs Vital signs: Vital Signs Temperature 36.6 C 06/24/25 17:03 Pulse 138 H 06/24/25 17:03 Respiratory Rate 18 06/24/25 17:03 Blood Pressure 161/127 H 06/24/25 17:03 Pulse Oximetry 98 06/24/25 17:03 Temperature 36.6 C 06/24/25 17:03 Pulse 138 H 06/24/25 17:03 Respiratory Rate 18 06/24/25 17:03 Blood Pressure 161/127 H 06/24/25 17:03 Pulse Oximetry 98 06/24/25 17:03 Oxygen Delivery Method Room Air 06/24/25 17:03 Oxygen Flow Rate 0 06/24/25 17:03 Pain Level 8 06/24/25 17:03 Medical Decision Making MDM: Summary: Patient who states that she has not been compliant with her antidiabetic medication and decided to go and do cocaine last Sunday and comes today depressed but also complaining of palpitations stating that her sugars out of control on exam she is tachycardic and EKG initially shows rapid A-fib which since sequently converted with IV fluids to normal sinus rhythm. Labs show hyperglycemia also with hypercalcemia probably from dehydration. Troponins were done which were negative and patient is afebrile. Patient would be admitted to the hospital for IV hydration for most likely she had paroxysmal A-fib and needs to be monitored for anticoagulation or can be related to her hypercalcemia. Data Review Analysis All the data on this patient was reviewed by me including laboratory and imaging studies as well as bedside studies performed by me Independent review of Studies Imaging Chest x-ray does not show any abnormality Lab: Labs show hypercalcemia and hyperglycemia nonketotic Risk Stratification: Patient with hypercalcemia and hyperglycemia who also had an episode of paroxysmal A-fib who will need to be admitted to the hospital Differential Diagnosis: 1. Paroxysmal A-fib 2. Hypercalcemia 3. Hyperglycemia dehydration 4. 5. Consultants: Spoke with Dr. Cash the hospitalist who agrees to admit the patient Shared disposition: Patient understands the need for admission and agrees Impression: Medical Records Medical records reviewed: Yes I reviewed the patient's medical records. Lab Data Lab results reviewed: Yes I reviewed the patient's lab results. ECG Data Attestation: I personally reviewed and interpreted this ECG (s) as follows: Prior ECG tracings: available for review Interpretation: Procedure shows rapid A-fib with a heart rate of 144 and second EKG shows normal sinus rhythm heart rate of [address]-T changes PFSH All Active Problems (Updated 06/24/25 @ 20:23 by Jak Burgos MD) Acute dehydration (Acute) Hypercalcemia (Acute) AF (paroxysmal atrial fibrillation) (Acute) Acute hyperglycemia (Acute) Osteoarthritis of carpometacarpal (CMC) joint of both thumbs (Acute) Hepatosplenomegaly (Acute) Abnormal liver enzymes (Acute) TMJ dysfunction (Acute) Referred otalgia of left ear (Acute) Referred otalgia of right ear (Acute) Acute sinusitis (Acute) Right ear pain (Acute) Cervicalgia (Acute) Left carpal tunnel syndrome (Acute) Lateral epicondylitis of right elbow (Acute) Partial tear of common extensor tendon of elbow (Acute) Mass of right forearm (Acute) no mass Medical History UTI (urinary tract infection) History of adenomatous polyp of colon Muscle spasm Wrist tendonitis History of kidney stones Diabetic peripheral neuropathy Screening for breast cancer Hand pain, left Neck pain on right side Shoulder pain, right Cough Type B influenza Bilateral conjunctivitis Right elbow pain Small bowel obstruction Psoriasis COPD (chronic obstructive pulmonary disease) pt. denies this Bilateral knee pain Left lateral epicondylitis (06/27/17) Quadriceps tendinitis (08/22/17) Type 2 diabetes mellitus with hyperglycemia Hyperglycemia Chronic pain Partial small bowel obstruction Asthma Renal cell cancer Constipation Chronic low back pain Peptic ulcer disease Obesity Depression Restless leg per pt. states she no longer has this Surgical History History of carpal tunnel surgery of left wrist (01/17/22) Ganglion cyst of volar aspect of right wrist S/P Excision: 01/04/2022 Bilateral carpal tunnel syndrome (06/27/17) S/P R ECTR: 01/04/2022 S/P L ECTR: 01/17/2022 S/P hysterectomy H/O partial nephrectomy S/P arthroscopic partial medial meniscectomy R knee S/P tympanoplasty S/P cholecystectomy S/P small bowel resection Social History Smoking/Tobacco Use Status: Former Tobacco Use Quit Date: 07/17/19 Smoking risk assessment performed?: Yes Alcohol Intake: former Drug use: Socially Substance use type: marijuana Household members: spouse Housing: house Current gender identity: female Do you feel safe at home: Yes Do you feel safe in your relationship?: Yes
[2025-06-24 17:37] LABS: Abs Immature Grans 0.18 10^3/uL (0.0-0.06); HCT 48.5 % (36.0-46.0); HGB 17.4 g/dL (11.2-15.7); Immature Grans % 1.2 %; MCH 27.2 pg (27.0-33.0); MCHC 35.9 % (32.0-36.0); MCV 76 fL (80-95); MPV 9.2 fL (8.0-11.0); Platelet Count 387 10^3/uL (130-400); RBC 6.40 10^6/uL (3.93-5.22); RDW 13.0 % (11.7-14.6); RDW-SD 34.5 fL; WBC 14.81 10^3/uL (4.4-10.8)
[2025-06-24] MEDS: Ondansetron 4 MG/2 ML VIAL IVP (17:40)
[2025-06-24] MEDS: Normal Saline 1,000 ML 2000 ML IV (17:41)
[2025-06-24 17:47] LABS: INR 1.1 (0.9-1.1); Prothrombin Time 10.9 sec (9.1-11.1)
[2025-06-24 17:57] LABS: ALT 22 U/L (14-59); AST 20 U/L (15-37); Albumin 4.7 g/dL (3.4-5.0); Alkaline Phosphatase 168 U/L (46-116); Anion Gap 19.2 mmol/L (3-11); BUN 22 mg/dL (7-18); Bilirubin, Total 1.5 mg/dL (0.2-1.0); CO2 22.8 mmol/L (21.0-32.0); Chloride 89 mmol/L (98-107); Glucose 414 mg/dL (74-106); Lipase 43 U/L (<78); Potassium 4.1 mmol/L (3.5-5.1); Sodium 131 mmol/L (136-145); Total Protein 8.7 g/dL (6.4-8.2); Troponin I 24 ng/L (<or=51)
--- NOTE | 2025-06-24 18:00 | RT.EKG_ITS ---
APPROVED REPORT Exam: Resting ECG Reason for Exam: palpitations Patient Location: E HR:97 bpm ECG Measurements Heart Rate 97 AXIS NH 145 P 67 QRSd 88 QRS 59 QT 261 T 70 QTc 333 Conclusion Sinus rhythm...normal P axis, V-rate 60- 99
[2025-06-24 18:01] LABS: Calcium 13.0 mg/dL (8.5-10.1)
[2025-06-24] MEDS: Pantoprazole 40 MG TABCR PO (18:42)
[2025-06-24 20:09] LABS: Troponin I 21 ng/L (<or=51)
--- NOTE | 2025-06-24 20:32 | W.PM.HP.N ---
Date of service: 06/24/25 Time of Service: 20:32 Assessment and Plan Assessment and plan (1) AF (paroxysmal atrial fibrillation): Status: Acute Assessment and plan: This has spontaneously resolved. Her [id number] score is 3. (HTN/DM/female) which would indicate a need for anticoagulation. I will start her on eliquis. There is some doubt on her ekg if there really is afib, so will need overread by Cardiology. (2) Hypercalcemia: Status: Acute Assessment and plan: Exact etiology is unknown certainly made worse with relative dehydration. Will start normal saline at 200 and recheck labs in the morning. No generalized send PTH labs. Patient is essentially asymptomatic. Will see if we have calcitonin on formulary if not we will just do IV fluids and consider zoledronic acid if it does not improve with her fluids (3) Acute dehydration: Status: Acute Assessment and plan: NS at 200, monitor uop (4) Type 2 diabetes mellitus with hyperglycemia: Assessment and plan: check a1c, add RISS and glucometer qac/hs (5) Depression: Assessment and plan: cw home meds and have placed a telepsych consult. Apparently, pt needs to be medically cleared prior to this intervention (6) Lung infiltrate: Status: Acute Assessment and plan: I have added rocephin and zithromax as pt does have infiltrate and elevated wbc. Will order blood cultures and inflammatory markers. Would consider deescelation or stopping on a low threshold. (7) Hypertension: Status: Chronic Assessment and plan: cw home meds (8) Chest pain: Status: Acute Assessment and plan: normal trops at over 12 hours from event essentially rule out ACS. Pt has been emotional/tearful all day and this can be contributing to her chest pain. Will reevaluate in am (9) Leukocytosis: Status: Acute Assessment and plan: infection vs stress response. Favor stress response but awaiting UA and cultures (10) Low mean corpuscular volume (MCV): Status: Acute Assessment and plan: check fe/tibc/b12 and folate for completeness on eliquis for dvtp and afib History of Present Illness History of Present Illness Chief Complaint: chest pain Narrative: Mrs Shah is a 59-year-old female with a known history of diabetes, major depression disorder, drug abuse, PTSD who presents to the ED today complaining of substernal chest pain. Patient states that chest pain started approximately 12-hour close patient is pain that has not resolved since. To the ED for further evaluation including laboratory work, radiographs, and an EKG. Her original EKG showed possible atrial fibrillation but repeat showed return to the normal sinus rhythm. Her chest x-ray was concerning for a right middle lobe infiltrate. Patient does deny cough fevers or chills. Urinalysis has not been done in the ED yet but the patient is not complaining of polyuria or dysuria. Patient is original troponin levels are 24 and 25 but have been reviewed in light of her 12-hour chest pain history. Patient's other laboratory abnormalities include hypercalcemia at the level of 15. Glucose level 414. Mildly elevated alk phos of 168. A low MCV at 76. Leukocytosis at 14.8. Elevated hemoglobin of hematocrit to the levels of 17-48. Upon my discussion with the patient she states that she does have passive suicidal patient feels that there is too much stress in her life. Patient denies significant tobacco or alcohol use. Patient states that use of cocaine was the first time in 2 years. Review of Systems All systems reviewed & are unremarkable except as noted in HPI and below PFSH All Active Problems (Updated 06/24/25 @ 20:41 by Shai Cash MD) Low mean corpuscular volume (MCV) (Acute) Leukocytosis (Acute) Chest pain (Acute) Hypertension (Chronic) Lung infiltrate (Acute) Acute dehydration (Acute) Hypercalcemia (Acute) AF (paroxysmal atrial fibrillation) (Acute) Acute hyperglycemia (Acute) Osteoarthritis of carpometacarpal (CMC) joint of both thumbs (Acute) Hepatosplenomegaly (Acute) Abnormal liver enzymes (Acute) TMJ dysfunction (Acute) Referred otalgia of left ear (Acute) Referred otalgia of right ear (Acute) Acute sinusitis (Acute) Right ear pain (Acute) Cervicalgia (Acute) Left carpal tunnel syndrome (Acute) Lateral epicondylitis of right elbow (Acute) Partial tear of common extensor tendon of elbow (Acute) Mass of right forearm (Acute) no mass Medical History UTI (urinary tract infection) History of adenomatous polyp of colon Muscle spasm Wrist tendonitis History of kidney stones Diabetic peripheral neuropathy Screening for breast cancer Hand pain, left Neck pain on right side Shoulder pain, right Cough Type B influenza Bilateral conjunctivitis Right elbow pain Small bowel obstruction Psoriasis COPD (chronic obstructive pulmonary disease) pt. denies this Bilateral knee pain Left lateral epicondylitis (06/27/17) Quadriceps tendinitis (08/22/17) Type 2 diabetes mellitus with hyperglycemia Hyperglycemia Chronic pain Partial small bowel obstruction Asthma Renal cell cancer Constipation Chronic low back pain Peptic ulcer disease Obesity Depression Restless leg per pt. states she no longer has this Surgical History History of carpal tunnel surgery of left wrist (01/17/22) Ganglion cyst of volar aspect of right wrist S/P Excision: 01/04/2022 Bilateral carpal tunnel syndrome (06/27/17) S/P R ECTR: 01/04/2022 S/P L ECTR: 01/17/2022 S/P hysterectomy H/O partial nephrectomy S/P arthroscopic partial medial meniscectomy R knee S/P tympanoplasty S/P cholecystectomy S/P small bowel resection Social History Smoking/Tobacco Use Status: Former Tobacco Use Quit Date: 07/17/19 Smoking risk assessment performed?: Yes Alcohol Intake: former Drug use: Socially Substance use type: marijuana Household members: spouse Housing: house Current gender identity: female Do you feel safe at home: Yes Do you feel safe in your relationship?: Yes Meds Allergies and Home Medications Allergies Allergy/AdvReac Type Severity Reaction Status Date / Time ciprofloxacin (From Ciprodex) Allergy Severe Anaphylaxis Unverified 06/24/25 17:07 dexamethasone (From Ciprodex) Allergy Severe Anaphylaxis Unverified 06/24/25 17:07 doxycycline Allergy Severe got very Verified 06/24/25 17:07 ill Sulfa (Sulfonamide Allergy Intermediate Skin Rash Verified 06/24/25 17:07 Antibiotics) baclofen AdvReac Intermediate Nausea Verified 06/24/25 17:07 Home Medications Medication Instructions Recorded Confirmed Type gabapentin 600 mg tablet 600 mg PO TID 09/19/18 06/24/25 History metformin 1,000 mg tablet 1,000 mg PO BID@0800,1700 09/26/18 06/24/25 History (Glucophage) glimepiride 2 mg tablet 4 mg PO DAILY 03/19/19 06/24/25 History dapagliflozin propanediol 10 mg 10 mg PO DAILY 12/01/21 06/24/25 History tablet atorvastatin 20 mg tablet 20 mg PO QHS 09/15/22 06/24/25 History diabetic supplies, miscellan. 09/15/22 12/29/24 History naloxone 0.4 mg intranasal ONCE PRN 09/15/22 06/24/25 History promethazine 12.5 mg tablet 12.5 mg PO .Q8-12 PRN 09/15/22 06/24/25 History epinephrine 0.3 mg/0.3 mL 0.3 mg (0.3 mL) IM Q5-15M PRN #2 ea 10/04/23 06/24/25 Rx injection, auto-injector cyclobenzaprine 10 mg tablet 10 mg PO TID PRN 05/04/24 06/24/25 History bupropion HCl 300 mg 24 hr tablet, 300 mg PO DAILY 05/05/24 06/24/25 History extended release methadone 10 mg tablet 10 mg PO BID 05/05/24 06/24/25 History paroxetine HCl 40 mg tablet 40 mg PO DAILY 05/05/24 06/24/25 History acetaminophen 500 mg tablet 1,000 mg PO TID PRN 02/23/25 06/24/25 History semaglutide 2 mg/dose (8 mg/3 mL) mg subcut 02/23/25 History subcutaneous pen injector (Ozempic) Exam Narrative Exam Narrative: HEENT normocephalic atraumatic mucous membranes moist oropharynx is clear extract motions are intact Neck no lymphadenopathy no JVD or thyromegaly Cardiovascular tachycardia no murmur lungs Lungs clear to auscultation bilaterally good air Abdomen is protuberant Extremities no sinus bleeding Neurologic nonfocal Psych patient is very emotional and is crying throughout exam. She is alert and oriented Results Labs 06/24/25 17:29 06/24/25 17:29 Labs: Laboratory Results - last 24 hr 06/24/25 06/24/25 17:29 19:45 WBC 14.81 H RBC 6.40 H Hgb 17.4 H Hct 48.5 H MCV 76 L MCH 27.2 MCHC 35.9 RDW 13.0 Plt Count 387 MPV 9.2 Immature Gran % 1.2 Neutrophils % 76.8 Lymphocytes % 12.3 Monocytes % 8.7 Eosinophils % 0.2 Basophils % 0.8 Nucleated RBC % 0.0 Absolute Neutrophils 11.37 H Absolute Lymphocytes 1.82 Absolute Monocytes 1.29 H Absolute Eosinophils 0.03 Absolute Basophils 0.12 PT 10.9 INR 1.1 Sodium 131 L Potassium 4.1 Chloride 89 L Carbon Dioxide 22.8 Anion Gap 19.2 H BUN 22 H Creatinine 1.1 H Est GFR (CKD-EPI 2020) 57.17 Glucose 414 H Calcium 13.0 H* Total Bilirubin 1.5 H AST 20 ALT 22 Alkaline Phosphatase 168 H Troponin I 24 21 Total Protein 8.7 H Albumin 4.7 Lipase 43 Last Vital Signs Temp 36.6 C 06/24/25 17:03 Pulse 138 H 06/24/25 17:03 Resp 18 06/24/25 17:03 BP 161/127 H 06/24/25 17:03 Pulse Ox 98 06/24/25 17:03 Time Spent Time spent with Patient: >75 minutes Time was spent: preparing to see the patient(eg.review tests), obtaining and/or reviewing separately otained hiistory, ordering medications,tests, procedures, referring, communicating with other health animal care technician, indepentently interpreting results, counseling the patient and care coordination
[2025-06-24] MEDS: LORazepam 1 MG TAB 2 MG PO (20:35)
[2025-06-24 21:02] LABS: ESR 15 mm/hr (0-30)
[2025-06-24 21:20] LABS: TSH (W/Ref FT4) 0.80 uIU/mL (0.36-3.74)
[2025-06-24 21:26] LABS: Iron 103 ug/dL (50-170); Total Iron Binding Capacity 293 ug/dL (250-450); Transferrin Sat 35 % (15-50)
[2025-06-24 21:28] LABS: Troponin I 21 ng/L (<or=51)
[2025-06-24 21:33] LABS: Procalcitonin < 0.10 ng/mL
--- NOTE | 2025-06-24 21:35 | W.PCEDHO ---
Registration Status: REG ER Primary Language: Preferred Language: Albanian ED Information & Data Chief Complaint Chest Pain 06/24/25 17:40 Triage Note pt with c/o chestpain and 06/24/25 17:03 sob pt also c/o anxiety states she is having a hard time pt states she used cocaine sunday night which she has not done in 22 years Medical / Surgical History (Last Reviewed 06/24/25 @ 17:39 by Jak Burgos MD) UTI (urinary tract infection) History of adenomatous polyp of colon Muscle spasm Wrist tendonitis History of kidney stones Diabetic peripheral neuropathy Screening for breast cancer Hand pain, left Neck pain on right side Shoulder pain, right Cough Type B influenza Bilateral conjunctivitis Right elbow pain Small bowel obstruction Psoriasis COPD (chronic obstructive pulmonary disease) Bilateral knee pain Left lateral epicondylitis (06/27/17) Quadriceps tendinitis (08/22/17) Type 2 diabetes mellitus with hyperglycemia Hyperglycemia Chronic pain Partial small bowel obstruction Asthma Renal cell cancer Constipation Chronic low back pain Peptic ulcer disease Obesity Depression Restless leg (Last Reviewed 06/24/25 @ 17:39 by Jak Burgos MD) History of carpal tunnel surgery of left wrist (01/17/22) Ganglion cyst of volar aspect of right wrist Bilateral carpal tunnel syndrome (06/27/17) S/P hysterectomy H/O partial nephrectomy S/P arthroscopic partial medial meniscectomy S/P tympanoplasty S/P cholecystectomy S/P small bowel resection Most Recent Vital Signs Temperature 36.6 C 06/24/25 17:03 Pulse 138 H 06/24/25 17:03 Respiratory Rate 18 06/24/25 17:03 Blood Pressure 161/127 H 06/24/25 17:03 Pulse Oximetry 98 06/24/25 17:03 Oxygen Delivery Method Room Air 06/24/25 17:03 Oxygen Flow Rate 0 06/24/25 17:03 Pain Level 8 06/24/25 17:03 Allergies ciprofloxacin (From Ciprodex) Allergy (Severe, Unverified 06/24/25 17:07) Anaphylaxis dexamethasone (From Ciprodex) Allergy (Severe, Unverified 06/24/25 17:07) Anaphylaxis doxycycline Allergy (Severe, Verified 06/24/25 17:07) got very ill Sulfa (Sulfonamide Antibiotics) Allergy (Intermediate, Verified 06/24/25 17:07) Skin Rash baclofen Adverse Reaction (Intermediate, Verified 06/24/25 17:07) Nausea IV IV Catheter Type [Right Saline Lock Antecubital] IV Catheter Gauge [Right 18 Antecubital] Diet Orders Category Date Time Status Regular/Normal [DIET] Nutrition 06/24/25 Dinner Active Diagnostics 06/24/25 06/24/25 06/24/25 Range/Units 20:30 19:56 19:45 WBC (4.4-10.8) 10^3/uL RBC (3.93-5.22) 10^6/uL Hgb (11.2-15.7) g/dL Hct (36.0-46.0) % MCV (80-95) fL MCH (27.0-33.0) pg MCHC (32.0-36.0) % RDW (11.7-14.6) % Plt Count (130-400) 10^3/uL MPV (8.0-11.0) fL Immature Gran % % Neutrophils % % Lymphocytes % % Monocytes % % Eosinophils % % Basophils % % Nucleated RBC % (0.0-0.3) % Absolute Neutrophils (1.2-6.7) 10^3/uL Absolute Lymphocytes (1.2-3.4) 10^3/uL Absolute Monocytes (0.1-0.8) 10^3/uL Absolute Eosinophils (0.0-0.7) 10^3/uL Absolute Basophils (0.0-0.2) 10^3/uL ESR (0-30) mm/hr PT (9.1-11.1) sec INR (0.9-1.1) Sodium (136-145) mmol/L Potassium (3.5-5.1) mmol/L Chloride (98-107) mmol/L Carbon Dioxide (21.0-32.0) mmol/L Anion Gap (3-11) mmol/L BUN (7-18) mg/dL Creatinine (0.55-1.02) mg/dL Est GFR (CKD-EPI 2020) (mL/min/1.73m2) Glucose (74-106) mg/dL Calcium (8.5-10.1) mg/dL Iron 103 (50-170) ug/dL TIBC 293 (250-450) ug/dL Transferrin % Sat 35 (15-50) % Total Bilirubin (0.2-1.0) mg/dL AST (15-37) U/L ALT (14-59) U/L Alkaline Phosphatase (46-116) U/L Creatine Kinase Pending Troponin I 21 21 (<or=51) ng/L C-React Prot High Sens Pending Total Protein (6.4-8.2) g/dL Albumin (3.4-5.0) g/dL Lipase (<78) U/L Vitamin B12 Pending Folate Pending Procalcitonin < 0.10 ng/mL TSH (0.36-3.74) uIU/mL PTH Related Peptide Pending Anti-Parathy Hormone Ab Pending 06/24/25 Range/Units 17:29 WBC 14.81 H (4.4-10.8) 10^3/uL RBC 6.40 H (3.93-5.22) 10^6/uL Hgb 17.4 H (11.2-15.7) g/dL Hct 48.5 H (36.0-46.0) % MCV 76 L (80-95) fL MCH 27.2 (27.0-33.0) pg MCHC 35.9 (32.0-36.0) % RDW 13.0 (11.7-14.6) % Plt Count 387 (130-400) 10^3/uL MPV 9.2 (8.0-11.0) fL Immature Gran % 1.2 % Neutrophils % 76.8 % Lymphocytes % 12.3 % Monocytes % 8.7 % Eosinophils % 0.2 % Basophils % 0.8 % Nucleated RBC % 0.0 (0.0-0.3) % Absolute Neutrophils 11.37 H (1.2-6.7) 10^3/uL Absolute Lymphocytes 1.82 (1.2-3.4) 10^3/uL Absolute Monocytes 1.29 H (0.1-0.8) 10^3/uL Absolute Eosinophils 0.03 (0.0-0.7) 10^3/uL Absolute Basophils 0.12 (0.0-0.2) 10^3/uL ESR 15 (0-30) mm/hr PT 10.9 (9.1-11.1) sec INR 1.1 (0.9-1.1) Sodium 131 L (136-145) mmol/L Potassium 4.1 (3.5-5.1) mmol/L Chloride 89 L (98-107) mmol/L Carbon Dioxide 22.8 (21.0-32.0) mmol/L Anion Gap 19.2 H (3-11) mmol/L BUN 22 H (7-18) mg/dL Creatinine 1.1 H (0.55-1.02) mg/dL Est GFR (CKD-EPI 2020) 57.17 (mL/min/1.73m2) Glucose 414 H (74-106) mg/dL Calcium 13.0 H* (8.5-10.1) mg/dL Iron (50-170) ug/dL TIBC (250-450) ug/dL Transferrin % Sat (15-50) % Total Bilirubin 1.5 H (0.2-1.0) mg/dL AST 20 (15-37) U/L ALT 22 (14-59) U/L Alkaline Phosphatase 168 H (46-116) U/L Creatine Kinase Troponin I 24 (<or=51) ng/L C-React Prot High Sens Total Protein 8.7 H (6.4-8.2) g/dL Albumin 4.7 (3.4-5.0) g/dL Lipase 43 (<78) U/L Vitamin B12 Folate Procalcitonin ng/mL TSH 0.80 (0.36-3.74) uIU/mL PTH Related Peptide Anti-Parathy Hormone Ab 06/24/25 21:02 Blood Culture - Pending Blood 06/24/25 21:02 Blood Culture - Pending Blood Intake and Output - 24 Hour Total 06/24/25 17:01 thru 06/24/25 18:51 Intake Total 1000 Balance 1000 Weight 86.183 kg Intake: IV 1000 Problems (Last Reviewed 06/24/25 @ 17:39 by Jak Burgos MD) Low mean corpuscular volume (MCV) (Acute) Leukocytosis (Acute) Chest pain (Acute) Hypertension (Chronic) Lung infiltrate (Acute) Acute dehydration (Acute) Hypercalcemia (Acute) AF (paroxysmal atrial fibrillation) (Acute) v v v v v v v v v Sending and/or Receiving Nurses: Please use comment section below to note any information pertinent to the patient hand-off not included above. Information / Comments: Report received from: Jett Del Rio RN
[2025-06-24 21:40] LABS: Creatine Kinase 219 U/L (26-192)
[2025-06-24 22:18] LABS: Vitamin B12 629 pg/mL (193-986)
[2025-06-24] MEDS: Normal Saline 1,000 ML 200 ML IV (22:18)
[2025-06-24 22:19] LABS: Folate > 20.0 ng/mL (8.6-20.0)
[2025-06-24] MEDS: Apixaban 5 MG TAB PO (22:19)
[2025-06-24] MEDS: LORazepam 1 MG TAB PO (22:20)
[2025-06-24] MEDS: cefTRIAXone 1 GM/50 ML BAG IV (22:53)
[2025-06-24] MEDS: AZITHROMYCIN 500 MG in Normal Saline 250 ML 250 MG IVPB (23:48)
[2025-06-24] MEDS: Insulin Aspart 300 UNITS/3 ML PEN SC (23:51)
[2025-06-24] MEDS: Insulin Glargine 300 UNITS/3 ML PEN SC (23:51)
[2025-06-24 23:52] LABS: ALT 14 U/L (14-59); AST 17 U/L (15-37); Albumin 3.6 g/dL (3.4-5.0); Alkaline Phosphatase 127 U/L (46-116); Anion Gap 13.8 mmol/L (3-11); BUN 19 mg/dL (7-18); Bilirubin, Total 0.9 mg/dL (0.2-1.0); CO2 24.2 mmol/L (21.0-32.0); Calcium 10.2 mg/dL (8.5-10.1); Chloride 93 mmol/L (98-107); Glucose 326 mg/dL (74-106); Potassium 3.7 mmol/L (3.5-5.1); Sodium 131 mmol/L (136-145); Total Protein 6.8 g/dL (6.4-8.2)
[2025-06-25] VITALS (68 sets, daily range): BP systolic 120–157; BP diastolic 54–126; PULSE 63–106; RESP 13–37; TEMP 36.6–37.1; O2SAT 81–98
--- NOTE | 2025-06-25 | DI.US_ITS ---
APPROVED REPORT EXAM: Comprehensive 2D, Doppler, and color-flow Echocardiogram Patient Location: Out-Patient [facility] Passenger Car: Piedad Elaine RDCS (AE) Indications: A Fib, Chest pain, DM Other Information Study Quality: Fair. Technically limited study due to body habitus, exam done bedside ICU. Conclusion Normal left ventricular wall thickness and chamber size. Ejection fraction is 58%. Wall motion is normal Normal right ventricular size and function Both atria are normal in size There is no structural or hemodynamically significant valvular disease Wall motion Left Ventricle The left ventricle is normal size. The left ventricular systolic function is normal. The left ventricular ejection fraction is within the normal range. There is normal left ventricular wall thickness. There is normal LV segmental wall motion. There is no ventricular septal defect visualized. LVEF is 58%. Right Ventricle The right ventricle is normal size. The right ventricular systolic function is normal. Atria The left atrium size is normal. The right atrium size is normal. The interatrial septum is intact with no evidence for an atrial septal defect. Aortic Valve The aortic valve is normal in structure. Aortic valve is trileaflet. There is no aortic valvular stenosis. No aortic regurgitation is present. Mitral Valve The mitral valve is normal in structure. No evidence of mitral valve stenosis. Trace mitral regurgitation. Tricuspid Valve The tricuspid valve is normal in structure. There is no tricuspid valve stenosis. Trace tricuspid regurgitation. Unable to assess PA pressure. Pulmonic Valve Pulmonic valve is not well visualized. There is no pulmonic valvular stenosis. Great Vessels The aortic root is normal in size. The ascending aorta is normal in size. Aortic arch is not well visualized. IVC is normal in size and collapses >50% with inspiration. Pericardium There is no pericardial effusion. 2D Dimensions IVSD d PLAX 1.03 cm F: 0.6-1.0 Ao Root d 2.50 cm F: 2.7 - 3.3 LVPW d PLAX 1.04 cm F: 0.6 - 1.0 Ao Asc Diam d 3.02 cm F: 2.3 - 3.1 LVID d PLAX 4.42 cm F: 3.8 - 5.2 LVDs 3.00 cm F: 2.2 - 3.5 LV EF Teichholz 60.4 % FS 32.08 % LV EDV (Teich) 88.8 mL LV ESV (Teich) 35.1 mL M-Mode TAPSE 2.06 cm (M/F) >1.7 Auto EF LV EDV A4C 108.3 mL LV EDV A2C 125.0 mL LV EDV BP 115.3 mL LV ESV A4C 46.5 mL LV ESV A2C 53.6 mL LV ESV BP 50.2 mL LVEF(%) A4C 57.0 % LVEF(%) A2C 57.1 % LVEF(%) BP 56.5 % LV SV A4C 61.8 ml LV SV A2C 71.4 ml LV SV BP 65.1 ml LV CO A4C 6.0 L/min LV CO A2C 6.6 L/min LV CO BP 6.3 L/min HR A4C 97.30 BPM HR A2C 92.55 BPM LV EDV Index (BP) LA Volume LA Length A4C 5.0 cm LA Length A2C 5.3 cm LA Area A4C s 18.03 cm2 LA Area A2C s 20.90 cm2 LA Vol A4C A-L 54.93 mL LA Vol A2C A-L 70.38 mL LA Vol Biplane A-L 63.6 mL LA Vol/BSA A4C A-L LA Vol/BSA A2C A-L LA Vol/BSA BP A-L 33.3 mL/m2 LA Vol A4C MOD 50.5 mL LA Vol A2C MOD 65.0 mL LA Vol BP MOD 58.6 mL RA Volume RA Area A4C 11.4 cm2 RA ESV A4C (A-L) 26.1mL RA Vol/BSA A4C A-L RA Length A4C 4.2 cm RA ESV A4C (MOD) 24.3mL LV Diastology MV E' medial 0.103 (>0.07 m/s) MV E Vmax 0.87 (0.4-1.3 m/s) MV E/E' MED 8.44 (<14) MV A Vmax 1.05 (0.4-1.3 m/s) MV E' lateral 0.077 (>0.1 m/s) E/A Ratio 0.8 MV E/E' LAT 11.28 (<14) MV E' Average 0.090 m/s MV E/E'(average) 9.66 Aortic Valve AoV Vmax 2.10 m/s LVOT Vmax 1.53 m/s AoV Peak Grad 17.7 mmHg LVOT Peak Grad 9.4 mmHg AoV Area (Vmax) 1.97 cm2 LVOT VTI 0.290 m AoV VTI 0.399 m LVOT Mean Grad 4.9 mmHg AoV Mean Hilario. 1.42 m/s LVOT SV 78.57 mL AoV Mean Grad 9.1 mmHg LVOT Diam s 1.85 cm AoV Area (VTI) 1.97 cm2 AV Regurg Peak Gr. 17.69 mmHg Velocity Ratio 0.73 Mitral Valve MV DT 198 (160-240 msec) MV Vmax TIPS 0.91 m/s MV Mean Grad 1.7 (<2mmHg) MV VTI 0.254 m Pulmonary Valve PV Vmax 1.12 (0.5-1.5 m/s) RVOT Vmax 1.08 m/s PV Peak Grad 5.0 mmHg RVOT Peak Gr. 4.7 mmHg PV Mean Hilario 0.88 m/s RVOT VTI 0.198 m PV Mean Grad 3.4 mmHg RVOT Mean Gr. 2.5 mmHg Tricuspid Valve RA Pressure 3.00 mmHg TV S' 0.19 m/s
[2025-06-25] MEDS: Normal Saline 1,000 ML 200 ML IV (05:15)
[2025-06-25 06:54] LABS: Abs Immature Grans 0.10 10^3/uL (0.0-0.06); HCT 39.1 % (36.0-46.0); Immature Grans % 0.9 %; MCH 28.0 pg (27.0-33.0); MCHC 36.3 % (32.0-36.0); MCV 77 fL (80-95); MPV 9.2 fL (8.0-11.0); Platelet Count 266 10^3/uL (130-400); RBC 5.07 10^6/uL (3.93-5.22); RDW 13.1 % (11.7-14.6); RDW-SD 36.0 fL; WBC 11.45 10^3/uL (4.4-10.8)
[2025-06-25 06:59] LABS: HGB 14.2 g/dL (11.2-15.7)
[2025-06-25 07:10] LABS: Hemoglobin A1C 11.6 % (<5.7)
[2025-06-25 07:12] LABS: ALT 18 U/L (14-59); AST 16 U/L (15-37); Albumin 3.4 g/dL (3.4-5.0); Alkaline Phosphatase 124 U/L (46-116); Anion Gap 10.2 mmol/L (3-11); BUN 16 mg/dL (7-18); Bilirubin, Total 0.8 mg/dL (0.2-1.0); CO2 24.8 mmol/L (21.0-32.0); Calcium 9.3 mg/dL (8.5-10.1); Chloride 100 mmol/L (98-107); Glucose 283 mg/dL (74-106); Potassium 3.5 mmol/L (3.5-5.1); Sodium 135 mmol/L (136-145); Total Protein 6.3 g/dL (6.4-8.2)
[2025-06-25] MEDS: buPROPion-XL 150 MG TABCR 300 MG PO (08:57)
[2025-06-25] MEDS: Methadone 10 MG TAB PO ×2 (08:57→20:14)
[2025-06-25] MEDS: PARoxetine 20 MG TAB 40 MG PO (08:58)
--- NOTE | 2025-06-25 08:59 | PDOC.CMIN ---
Documented by User: Merlyn Gray 06/25/25 14:55 Care Management Initial Assmt Initial Assessment Reason for Hospitalization: chest pain and pneumonia Functional Status/Living Situation Patient Presentation: Lani was sitting up in a chair when CM met with her. She was very tearful and cried throughout much of the visit. Lani was admitted with chest pain and a possible pneumonia. She also has diabetes and her blood sugars have been very high. Lani had a cardiac workup that was negative for ACS and she is not symptomatic from the pulmonary infiltrates. She would likely have discharged home if it weren't for her blood sugar of 454. Mitch from [facility] met with her and will be doing some additional education. Lani lives in a single family home in [place] with her partner of 25 years, Davon Ayala. Her 23 year old granddaughter and 22 year old grandson also live with her. Her great nephew who is almost 5 spends weekends, vacations and as much other time as he can with them.She shared that she still loves Davon but is not in love anymore. Lani has a past history of drug use as does Davon, she reported. She has not used in several months however every time she wants to go anywhere, Davon accuses her of seeking/using drugs. She admitted to using cocaine this past weekend and feels that his constant accusations and mistrust have driven her to it. 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 Lani talked about getting a van and going on a cross-country road trip with Davon. She then tearfully stated that she was not sure she could leave her great nephew. She stated that she is the only stability he has. Apparently his mother is not reliable. Lani has considered taking him along but is not sure. The trip would not take place until spring. As Lani talked a lot about her stress and relationship with Davon, CM asked if she had a therapist she could talk to. She stated that her PCP office had tried to set her up outpatient with someone but she did not follow through. Town of Residence: [place] Resides with: Spouse ( Davon Ayala, grandson, granddaughter and sometimes 4 yo great nephew) Significant Other/Family: Local Natural Supports: family Employment Status: Retired Instrumental Activities of Daily Living (ADLs): Independent Medications Medication Management: No Issues/Barriers identified Advance Directives Advance Directives: Do you have an Advance Directive: N 09/28/22, 15:59 AD On File at [facility]: N 09/28/22, 15:59 Date Asked 06/24/25 06/24/25, 17:02 AD Date Reviewed COLST On File at [facility] COLST Date Scanned Code Status Resuscitation Status Full Code Portal Pt does not currently have a portal and education provided: Yes Insurance Coverage/Financial Issues Insurance: Medicare Medicaid Care Team Visit Care Team Role Provider Type Brock Schreiber MD MD [facility] STAFF PHYSICIAN Jazz George Primary Care Provider NON-[facility] STAFF PHYSICIAN Concepción Ricks RDN, [facility] Other Providers COUNTER CONTROL OPERATOR Ankur Temple Other Providers OTHER Mitch Sun RDN Other Providers COUNTER CONTROL OPERATOR Jak Burgos MD Emergency Provider [facility] STAFF PHYSICIAN Shai Cash MD Admit Provider [facility] STAFF PHYSICIAN Attending Provider Discharge Potential Discharge Needs: PCP F/U Appt Anticipated Barriers to Discharge: None Identified Patient/Family Education Needs: Review discharge instructions, discuss Ask Me Three Transportation: Private vehicle Plan: Anticipate Lani will be discharged home, possibly with new home health services, when medically cleared. She will follow up with her PCP and plan of care and transport with family. CM will follow and continue to support discharge planning endeavors. Social Determinants of Health Screening Social Determinants of health last assessed in clinic: 06/24/25 Will the Patient Participate in the Screening?: Yes Do you worry about having a steady place to live?: yes What is your living situation today?: I have housing today, but am worried about losing it Problems where you live: no known problems In the past 12 months, have you had to go without electric, gas, oil or water in your home?: no Has lack of transportation kept you from medical appointments or from doing things needed for daily living?: yes Has anyone in your life made you feel unsafe or unsupported?: yes How often does anyone, including family and friends, physically hurt you?: Never How often does anyone, including family and friends, insult or talk down to you?: Frequently How often does anyone, including family and friends, threaten you with harm?: Fairly Often How often does anyone, including family and friends, scream or curse at you?: Fairly Often HRSN Safety total score: 14 How hard is it for you to pay for the very basics like food, housing, medical care, and heating? Would you say it is:: Not hard at all Do you want help finding or keeping work or a job?: I do not need or want help If for any reason you need help with day-to-day activities such as bathing, preparing meals, shopping, managing finances, etc., do you get the help you need?: I don’t need any help How often do you feel lonely or isolated from those around you?: Always Do you speak a language other than Nigerian at home?: No Does the patient want assistance with any of the above?: No Health Related Social Needs Health related social needs: housing instability, housed, with risk of homelessness (Z59.811), transportation insecurity (Z59.82), problem related to primary support group (Z63.9) and feeling lonely/isolated (Z60.8) Health related social needs details: Pt feels very unsupported by various family memebers including partner. PFSH All Active Problems (Updated 06/28/25 @ 00:02 by KIM STODDARD) Depression (Chronic) Hypertension (Chronic) Lung infiltrate (Acute) Acute hyperglycemia (Acute) Osteoarthritis of carpometacarpal (CMC) joint of both thumbs (Acute) Hepatosplenomegaly (Acute) Abnormal liver enzymes (Acute) TMJ dysfunction (Acute) Referred otalgia of left ear (Acute) Referred otalgia of right ear (Acute) Acute sinusitis (Acute) Right ear pain (Acute) Cervicalgia (Acute) Left carpal tunnel syndrome (Acute) Lateral epicondylitis of right elbow (Acute) Partial tear of common extensor tendon of elbow (Acute) Mass of right forearm (Acute) no mass Medical History UTI (urinary tract infection) History of adenomatous polyp of colon Muscle spasm Wrist tendonitis History of kidney stones Diabetic peripheral neuropathy Screening for breast cancer Hand pain, left Neck pain on right side Shoulder pain, right Cough Type B influenza Bilateral conjunctivitis Right elbow pain Small bowel obstruction Psoriasis COPD (chronic obstructive pulmonary disease) pt. denies this Bilateral knee pain Left lateral epicondylitis (06/27/17) Quadriceps tendinitis (08/22/17) Type 2 diabetes mellitus with hyperglycemia Hyperglycemia Chronic pain Partial small bowel obstruction Asthma Renal cell cancer Constipation Chronic low back pain Peptic ulcer disease Obesity Depression Restless leg per pt. states she no longer has this Surgical History History of carpal tunnel surgery of left wrist (01/17/22) Ganglion cyst of volar aspect of right wrist S/P Excision: 01/04/2022 Bilateral carpal tunnel syndrome (06/27/17) S/P R ECTR: 01/04/2022 S/P L ECTR: 01/17/2022 S/P hysterectomy H/O partial nephrectomy S/P arthroscopic partial medial meniscectomy R knee S/P tympanoplasty S/P cholecystectomy S/P small bowel resection Social History Smoking/Tobacco Use Status: Former Tobacco Use Quit Date: 07/17/19 Smoking risk assessment performed?: Yes Alcohol Intake: former Drug use: Socially Substance use type: marijuana Household members: spouse Housing: house Current gender identity: female Do you feel safe at home: Yes Do you feel safe in your relationship?: Yes Documented by User: Leigh Huynh RN 07/01/25 09:12 Care Management Initial Assmt Advance Directives Advance Directives: Do you have an Advance Directive: N 09/28/22, 15:59 AD On File at [facility]: N 09/28/22, 15:59 Date Asked 06/24/25 06/24/25, 17:02 AD Date Reviewed COLST On File at [facility] COLST Date Scanned Social Determinants of Health Screening Social Determinants of health last assessed in clinic: 07/01/25 1. Within the past 12 months, we worried whether our food would run out before we got money to buy more.: Never true 2. Within the past 12 months, the food we bought just didn't last and we didn't have money to get more.: Never true Has anyone in your life made you feel unsafe or unsupported?: yes HRSN Safety total score: 14 Health Related Social Needs Health related social needs: housing instability, housed, with risk of homelessness (Z59.811), transportation insecurity (Z59.82), problem related to primary support group (Z63.9) and feeling lonely/isolated (Z60.8) PFSH All Active Problems (Updated 06/28/25 @ 00:02 by KIM STODDARD) Depression (Chronic) Hypertension (Chronic) Lung infiltrate (Acute) Acute hyperglycemia (Acute) Osteoarthritis of carpometacarpal (CMC) joint of both thumbs (Acute) Hepatosplenomegaly (Acute) Abnormal liver enzymes (Acute) TMJ dysfunction (Acute) Referred otalgia of left ear (Acute) Referred otalgia of right ear (Acute) Acute sinusitis (Acute) Right ear pain (Acute) Cervicalgia (Acute) Left carpal tunnel syndrome (Acute) Lateral epicondylitis of right elbow (Acute) Partial tear of common extensor tendon of elbow (Acute) Mass of right forearm (Acute) no mass Medical History UTI (urinary tract infection) History of adenomatous polyp of colon Muscle spasm Wrist tendonitis History of kidney stones Diabetic peripheral neuropathy Screening for breast cancer Hand pain, left Neck pain on right side Shoulder pain, right Cough Type B influenza Bilateral conjunctivitis Right elbow pain Small bowel obstruction Psoriasis COPD (chronic obstructive pulmonary disease) pt. denies this Bilateral knee pain Left lateral epicondylitis (06/27/17) Quadriceps tendinitis (08/22/17) Type 2 diabetes mellitus with hyperglycemia Hyperglycemia Chronic pain Partial small bowel obstruction Asthma Renal cell cancer Constipation Chronic low back pain Peptic ulcer disease Obesity Depression Restless leg per pt. states she no longer has this Surgical History History of carpal tunnel surgery of left wrist (01/17/22) Ganglion cyst of volar aspect of right wrist S/P Excision: 01/04/2022 Bilateral carpal tunnel syndrome (06/27/17) S/P R ECTR: 01/04/2022 S/P L ECTR: 01/17/2022 S/P hysterectomy H/O partial nephrectomy S/P arthroscopic partial medial meniscectomy R knee S/P tympanoplasty S/P cholecystectomy S/P small bowel resection Social History Smoking/Tobacco Use Status: Former Tobacco Use Quit Date: 07/17/19 Smoking risk assessment performed?: Yes Alcohol Intake: former Drug use: Socially Substance use type: marijuana Household members: spouse Housing: house Current gender identity: female Do you feel safe at home: Yes Do you feel safe in your relationship?: Yes
[2025-06-25] MEDS: Insulin Glargine 300 UNITS/3 ML PEN SC (09:01)
[2025-06-25] MEDS: Insulin Aspart 300 UNITS/3 ML PEN SC ×4 (09:02→20:21)
--- NOTE | 2025-06-25 10:27 | IN_ITS ---
PT Notes Visit Reasons: Chest Pain Physical Therapy Inpatient Initial Evaluation Date: 06/25/2025 Referring Doctor: Shai Cash MD PT Orders: PT CONSULT: Eval/Treat Precautions: Fall. Standard. Activity as tolerated. Patient Profile/Admitting Diagnosis: Lani is a 59-year-old female who presented to the ED on 06/24/2025 with complaints of substernal chest pain, palpitations, and uncontrolled blood sugar. She reportedly had an episode of cocaine use last Sunday. Patient is admitted for management of atrial fibrillation, hypercalcemia, acute dehydration, leukocytosis, lung infiltrate, type 2 diabetes mellitus and low mean corpuscular volume. PMHX: All Active Problems (Updated 06/24/25 @ 20:41 by Shai Cash MD) Low mean corpuscular volume (MCV) (Acute) Leukocytosis (Acute) Chest pain (Acute) Hypertension (Chronic) Lung infiltrate (Acute) Acute dehydration (Acute) Hypercalcemia (Acute) AF (paroxysmal atrial fibrillation) (Acute) Acute hyperglycemia (Acute) Osteoarthritis of carpometacarpal (CMC) joint of both thumbs (Acute) Hepatosplenomegaly (Acute) Abnormal liver enzymes (Acute) TMJ dysfunction (Acute) Referred otalgia of left ear (Acute) Referred otalgia of right ear (Acute) Acute sinusitis (Acute) Right ear pain (Acute) Cervicalgia (Acute) Left carpal tunnel syndrome (Acute) Lateral epicondylitis of right elbow (Acute) Partial tear of common extensor tendon of elbow (Acute) Mass of right forearm (Acute) no mass Medical History UTI (urinary tract infection) History of adenomatous polyp of colon Muscle spasm Wrist tendonitis History of kidney stones Diabetic peripheral neuropathy Screening for breast cancer Hand pain, left Neck pain on right side Shoulder pain, right Cough Type B influenza Bilateral conjunctivitis Right elbow pain Small bowel obstruction Psoriasis COPD (chronic obstructive pulmonary disease) pt. denies this Bilateral knee pain Left lateral epicondylitis (06/27/17) Quadriceps tendinitis (08/22/17) Type 2 diabetes mellitus with hyperglycemia Hyperglycemia Chronic pain Partial small bowel obstruction Asthma Renal cell cancer Constipation Chronic low back pain Peptic ulcer disease Obesity Depression Restless leg per pt. states she no longer has this Surgical History History of carpal tunnel surgery of left wrist (01/17/22) Ganglion cyst of volar aspect of right wrist S/P Excision: 01/04/2022 Bilateral carpal tunnel syndrome (06/27/17) S/P R ECTR: 01/04/2022 S/P L ECTR: 01/17/2022 S/P hysterectomy H/O partial nephrectomy S/P arthroscopic partial medial meniscectomy R knee S/P tympanoplasty S/P cholecystectomy S/P small bowel resection Social History/Home Situation: Lives with and 2 grandkids in a private home with one-step as well as a ramp to enter. Family members are able to help as needed. Still drives. 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 Equipment Owned/DME: None Subjective: Patient was drowsy earlier but alertness level improved later in the morning. Agreeable to working with PT. [place] fatigue about 250 feet and requested to wheel back. She was able to walk again after a few minutes of rest. Denied headache, chest pain, and lightheadedness throughout session. Stated that her boils in her perineal areas must have erupted and requested for the nurse to check them. Objective: General Observation: Nurses Floresita and Karin were helping patient get up and get changed when PT came in. Nurse Floresita removed telemonitor prior to start of PT. Mental Status: Mildly drowsy but oriented as to person, place, time, and purpose . Able to pay attention, focus, and respond appropriately. Pain: None reported Vital Signs: Closely monitored by nursing staff ROM: Right Upper Extremity: Shoulder Flexion WFL. Shoulder abduction WFL. Elbow flexion WFL. Wrist flexion WFL. Functional opening and closing of hand WFL. Left Upper Extremity: Shoulder Flexion WFL. Shoulder abduction WFL. Elbow flexion WFL. Wrist flexion WFL. Functional opening and closing of hand WFL. Right Lower Extremity: Hip flexion WFL. Hip abduction WFL. Knee flexion WFL. Ankle dorsiflexion WFL. Ankle plantarflexion WFL. Left Lower Extremity: Hip flexion WFL. Hip abduction WFL. Knee flexion WFL. Ankle dorsiflexion WFL. Ankle plantarflexion WFL. Strength: Right Upper Extremity: Shoulder flexors 4-/5. Shoulder abductors 4-/5. Elbow flexors 4-/5. Elbow extensors 4-/5. Picker Tender Helper strong. Left Upper Extremity: Shoulder flexors 4-/5. Shoulder abductors 4-/5. Elbow flexors 4-/5. Elbow extensors 4-/5. Picker Tender Helper strong. Right Lower Extremity: Hip flexors 4-/5. Hip abductors 4-/5. Knee flexors 4-/5. Knee extensors 4-/5. Ankle dorsiflexors 4-/5. Ankle plantarflexors 4-/5. Left Lower Extremity: Hip flexors 4-/5. Hip abductors 4-/5. Knee flexors 4-/5. Knee extensors 4-/5. Ankle dorsiflexors 4-/5. Ankle plantarflexors 4-/5. Bed Mobility/Transfers: [place] cueing provided for use of B hands as needed for support, movement sequence, AD management, and posture to reduce fall risk and minimize pain report Sit to stand stand by assist with FWW Stand to sit stand by assist with FWW Bed to bedside commode stand by assist with FWW Bedside commode to bed stand by assist with FWW Bed to reclining chair stand by assist with FWW . Gait: 250 feet + 20 feet with FWW and contact guard assist and wheelchair follow for safety. Minimal verbal cueing provided for symmetric gait pattern as patient's left foot seemed to drag initially. L hand tends to let go of the the walker but no LOB. Fatigued after activity, requested to be wheeled back and then was able to walk from outside her room to her chair. Balance: Static Sitting: Normal Dynamic Sitting: Normal Static Standing: Fair Dynamic Standing: Fair Special Tests: Mobility Limitations Standardized Measure [facility] AM-PAC 6 clicks Basic Mobility Inpatient Short Form: Raw Score: 18 CMS Score: 47% deficit Informed Consent/Education: Patient was instructed in purpose of PT consult and plan of care. Agreeable to proceed with established PT POC to achieve personal goals. Assessment: Patient with functional mobility decline requiring the use of front-wheeled w alker for safety and independence. Patient presents with clinical signs and symptoms consistent with current/admitting diagnoses that have resulted to mobility limitations, gait instability, generalized weakness, and overall ADL decline as demonstrated by the following impairment level findings: 1. Decreased strength to B UE/LE major muscle groups 2. Impaired sitting/standing balance 3. Impaired activity tolerance Impairments are contributing to the following functional limitations: 1. Decline in bed mobility skills 2. Decline in transfer skills 3. Difficulty with ambulation without assistive device and physical assistance 4. Increased completion time for mobility ADL performance 5. Increased risk for falls 6. Difficulty with managing steps alone safely Patient is assessed as a 90203 moderate complexity based on the following: History: 59-year-old female with past medical history as indicated above Examination: Demonstrable impairment in strength, balance, and mobility level with underlying impairments and functional limitations as exhibited above as well as deficit score of 47% utilizing the [facility] Mobility Inpatient Short Form Presentation: Evolving Decision Makin moderate complexity Goals: Goals X1 week 1. Supine-Sit independent 2. Sit-Supine independent 3. Sit-Stand independent 4. Stand-Sit independent with FWW 5. Bed-Chair independent with FWW 6. Chair-Bed independent with FWW 7. Independent gait on level surface with use of FWW for at least 300 feet without report of pain nor dyspnea 8. Independent stair negotiation while holding onto B rails for at least 5 steps without report of pain nor dyspnea 9. Independent with home exercise program 10. Good static and dynamic standing balance/tolerance Plan of Care/Treatment Plan: 1-2x/day, 7 days/week x 1 week. Plan of care has been reviewed with the GRAIN ELEVATOR CLERK providing the service under Physical Therapy direction. Initiate Physical Therapy intervention for pain management as needed, strengthening, bed mobility, transfers, gait, stairs, balance training, and use of assistive device. DISCHARGE RECOMMENDATIONS: PT TREATMENT CODE/TIME: 94408 x 20 minutes for 1 unit, 58929 x 16 minutes for 1 unit (10:27-11:03). Thank you for the opportunity to participate in the care of this patient. Ricarda Pritchett PT, DPT, CLT [facility] [place], [place]
[2025-06-25] MEDS: Gabapentin 600 MG TAB PO (12:07)
--- NOTE | 2025-06-25 13:23 | PGE_ITS ---
Date of Service Date of service: 06/25/25 Time of Service: 13:23 Assessment and Plan Assessment and plan (1) AF (paroxysmal atrial fibrillation): Status: Acute Assessment and plan: - His EKG was over read by cardiology who similarly did not definitively say if this was atrial fibrillation - However, patient did appear to convert to normal sinus rhythm while in the emergency department - Echocardiogram was without acute findings and with normal ejection fraction - Plan will be to discharge patient with 30-day environmental monitoring technician (2) Hypercalcemia: Status: Acute Assessment and plan: - Initial calcium in the emergency department 13 - improved down to 9.3 on AM 11 with IV fluids -likely secondary to over ingestion of Tums as patient has been complaining of reflux sypmptoms (3) Type 2 diabetes mellitus with hyperglycemia: Assessment and plan: -A1c up to 11.6 -patient seen by critical care educator -started on lantus 5 Units HS and sliding scale -blood sugars elevated up to 400's, HS lantus up to 7 units -will continue to adjust insulin as needed as well as provide DM education (4) Cellulitis: Status: Acute Assessment and plan: -patient noted to have 2 small ~1.5cm well circumscribed open wounds draining mild amount of purulent drainage with minimal surrounding erythema -given patients multiple drug allergies and need to cover for MRSA she has been started on clindamycin (5) Depression: Status: Chronic Assessment and plan: -continue home regimen include burpropion, paroxetine Subjective Subjective Interval history since last seen: Patient states that she is feeling better today though she is continuing to complain of small open minimally frustrating. Recent questionable cellulitis on her right upper inner thigh. She understands that echocardiogram is normal and her heart has been in normal sinus rhythm, and that she will remain hospitalized until we obtain the better glucose control. Otherwise she has no other complaints concerns at this time. Exam Narrative Exam Narrative: Well but mildly anxious appearing older female sitting up in the chair no acute distress, ANO x 4, heart regular rhythm, auscultation bilaterally, abdomen soft, nontender, nondistended, 2 roughly 1.5 cm in diameter open pustules draining very small amounts of purulent fluid without fluctuation, with surrounding erythema Objective Last Vital Signs Temp 97.2 F L 06/24/25 23:30 Pulse 95 H 06/25/25 10:20 Resp 14 06/25/25 10:20 BP 120/54 L 06/25/25 08:01 Pulse Ox 95 06/25/25 10:20 Laboratory Results - last 24 hr 06/24/25 06/24/25 06/24/25 17:29 19:45 20:30 WBC 14.81 H RBC 6.40 H Hgb 17.4 H Hct 48.5 H MCV 76 L MCH 27.2 MCHC 35.9 RDW 13.0 Plt Count 387 MPV 9.2 Immature Gran % 1.2 Neutrophils % 76.8 Lymphocytes % 12.3 Monocytes % 8.7 Eosinophils % 0.2 Basophils % 0.8 Nucleated RBC % 0.0 Absolute Neutrophils 11.37 H Absolute Lymphocytes 1.82 Absolute Monocytes 1.29 H Absolute Eosinophils 0.03 Absolute Basophils 0.12 ESR 15 PT 10.9 INR 1.1 Sodium 131 L Potassium 4.1 Chloride 89 L Carbon Dioxide 22.8 Anion Gap 19.2 H BUN 22 H Creatinine 1.1 H Est GFR (CKD-EPI 2020) 57.17 Glucose 414 H Hemoglobin A1c Calcium 13.0 H* Iron 103 TIBC 293 Transferrin % Sat 35 Total Bilirubin 1.5 H AST 20 ALT 22 Alkaline Phosphatase 168 H Creatine Kinase 219 H Troponin I 24 21 21 Total Protein 8.7 H Albumin 4.7 Lipase 43 Vitamin B12 629 Folate > 20.0 H Procalcitonin < 0.10 TSH 0.80 06/24/25 06/25/25 06/25/25 23:30 06:33 06:42 WBC 11.45 H RBC 5.07 Hgb 14.2 D Hct 39.1 MCV 77 L MCH 28.0 MCHC 36.3 H RDW 13.1 Plt Count 266 MPV 9.2 Immature Gran % 0.9 Neutrophils % 65.7 Lymphocytes % 19.4 Monocytes % 11.4 Eosinophils % 1.7 Basophils % 0.9 Nucleated RBC % 0.0 Absolute Neutrophils 7.52 H Absolute Lymphocytes 2.22 Absolute Monocytes 1.31 H Absolute Eosinophils 0.19 Absolute Basophils 0.10 ESR PT INR Sodium 131 L 135 L Potassium 3.7 3.5 Chloride 93 L 100 Carbon Dioxide 24.2 24.8 Anion Gap 13.8 H 10.2 BUN 19 H 16 Creatinine 0.9 0.8 Est GFR (CKD-EPI 2020) 72.73 83.78 Glucose 326 H 283 H Hemoglobin A1c 11.6 H Calcium 10.2 H 9.3 Iron TIBC Transferrin % Sat Total Bilirubin 0.9 0.8 AST 17 16 ALT 14 18 Alkaline Phosphatase 127 H 124 H Creatine Kinase Troponin I Total Protein 6.8 6.3 L Albumin 3.6 3.4 Lipase Vitamin B12 Folate Procalcitonin TSH PAWSS Have you Been Recently Intoxicated or Drunk Within the Last 30 days?: No Have you Ever Experienced Previous Episodes of Alcohol Withdrawal?: No Have you ever Experienced Withdrawal Seizures?: No Have you ever Experienced Delirium Tremens(DT)s?: No Have you ever undergone Alcohol Rehabilitation Treatment (i.e, inpt ot outpatient treatment programs)?: Yes Have you ever Experienced Blackouts?: No Have you ever Combined Alcohol with other Downers within the last 90 days?: No Have you ever Combined Alcohol with any other Substance of Abuse during the last 90 days?: No Positive Blood Alcohol level on Presentation? [PCS.BAL]: No Evidence of Increased Autonomic Activity (i.e. HR>120, tremor, sweating, agitation, nausea)?: Yes Result: 2 Time Spent with Patient Time Spent with Patient: >50 minutes Time was spent: preparing to see the patient(eg.review tests), obtaining and/or reviewing separately otained hiistory, ordering medications,tests, procedures, referring, communicating with other health manager wound care, indepentently interpreting results, counseling the patient and care coordination
[2025-06-25] MEDS: Clindamycin 150 MG CAP 450 MG PO ×2 (14:31→20:14)
[2025-06-25 14:42] LABS: Glucose 500 mg/dL (Negative)
[2025-06-25 14:52] LABS: C & S Indicated? No; RBC Negative HPF (0-2); WBC Negative HPF (0-5)
--- NOTE | 2025-06-25 15:11 | PTTR_ITS ---
PT Notes Visit Reasons: Chest Pain Physical Therapy Inpatient Treatment Note Date: 06/25/2025 Precautions: Fall. Standard. Activity as tolerated. Subjective: Patient much more awake this afternoon. Willing to have a second session thia afternoon. Objective: General Observation: Nurses Floresita and Karin were helping patient get up and get changed when PT came in. Nurse Floresita removed telemonitor prior to start of PT. Mental Status: Alert and oriented as to person, place, time, and purpose. Able to pay attention, focus, and respond appropriately. Pain: None reported Vital Signs: Closely monitored by nursing staff Bed Mobility/Transfers: [place] cueing provided for use of B hands as needed for support, movement sequence, AD management, and posture to reduce fall risk and minimize pain report Sit to stand stand by assist with FWW Stand to sit stand by assist with FWW Bed to bedside commode stand by assist with FWW Bedside commode to bed stand by assist with FWW Bed to reclining chair stand by assist with FWW . Gait: 400 feet with FWW and contact guard assist and wheelchair follow for safety. Minimal verbal cueing provided for symmetric gait pattern as patient's left foot seemed to drag initially. Nurse Karin assisted with wheelchair follow upon arrival to ICU as patient was appearing to be more tired. Gait speed has improved compared to tomorrow. Balance: Static Sitting: Normal Dynamic Sitting: Normal Static Standing: Fair Dynamic Standing: Fair Assessment: Patient with functional mobility decline requiring the use of front-wheeled walker for safety and independence. Patient needed the assiatnce of 1 during ambulation performance due to safety. Increased mediolateral sway was observed but no LOB. No SOb was observed this afternoon. HR highest at 100 bpm. Plan of Care/Treatment Plan: 1-2x/day, 7 days/week x 1 week. Plan of care has been reviewed with the MECHANICAL TEST ENGINEER providing the service under Physical Therapy direction. Initiate Physical Therapy intervention for pain management as needed, strengthening, bed mobility, transfers, gait, stairs, balance training, and use of assistive device. DISCHARGE RECOMMENDATIONS: PT TREATMENT CODE/TIME: 00956 x 25 minutes for 2 units (14:36-15:01).
[2025-06-25] MEDS: Cyclobenzaprine 10 MG TAB PO (16:51)
[2025-06-25] MEDS: Acetaminophen 500 MG TAB 1000 MG PO (16:51)
[2025-06-25 17:46] LABS: CRP, High Sensitivity 4.88 mg/L (See Note)
[2025-06-25] MEDS: Gabapentin 600 MG TAB 1200 MG PO (20:14)
[2025-06-25] MEDS: Atorvastatin 20 MG TAB PO (20:14)
[2025-06-25] MEDS: Mylanta Suspension 30 ML CUP PO (22:32)
--- NOTE | 2025-06-25 22:45 | W.PC.ACHO ---
Registration Status: ADM IN Primary Language: Preferred Language: Thai ED Information & Data Chief Complaint Chest Pain 06/24/25 17:40 Triage Note pt with c/o chestpain and 06/24/25 17:03 sob pt also c/o anxiety states she is having a hard time pt states she used cocaine sunday night which she has not done in 22 years Medical / Surgical History (Last Reviewed 06/24/25 @ 17:39 by Jak Burgos MD) UTI (urinary tract infection) History of adenomatous polyp of colon Muscle spasm Wrist tendonitis History of kidney stones Diabetic peripheral neuropathy Screening for breast cancer Hand pain, left Neck pain on right side Shoulder pain, right Cough Type B influenza Bilateral conjunctivitis Right elbow pain Small bowel obstruction Psoriasis COPD (chronic obstructive pulmonary disease) Bilateral knee pain Left lateral epicondylitis (06/27/17) Quadriceps tendinitis (08/22/17) Type 2 diabetes mellitus with hyperglycemia Hyperglycemia Chronic pain Partial small bowel obstruction Asthma Renal cell cancer Constipation Chronic low back pain Peptic ulcer disease Obesity Depression Restless leg (Last Reviewed 06/24/25 @ 17:39 by Jak Burgos MD) History of carpal tunnel surgery of left wrist (01/17/22) Ganglion cyst of volar aspect of right wrist Bilateral carpal tunnel syndrome (06/27/17) S/P hysterectomy H/O partial nephrectomy S/P arthroscopic partial medial meniscectomy S/P tympanoplasty S/P cholecystectomy S/P small bowel resection Most Recent Vital Signs Temperature 36.6 C 06/25/25 22:42 Temperature Source Temporal Artery Scan 06/25/25 22:42 Pulse 90 06/25/25 22:42 Pulse 96 H 06/25/25 16:30 Respiratory Rate 18 06/25/25 22:42 Respiratory Effort Normal 06/24/25 22:15 Respiratory Depth Deep 06/24/25 22:15 Respiratory Pattern Tachypnea 06/24/25 22:15 Blood Pressure 132/75 06/25/25 22:42 Blood Pressure Mean 94 06/25/25 22:42 Pulse Oximetry 98 06/25/25 22:42 Oxygen Delivery Method Room Air 06/25/25 22:42 Oxygen Flow Rate 0 06/25/25 22:42 Pain Level 0 06/25/25 22:42 Allergies ciprofloxacin (From Ciprodex) Allergy (Severe, Unverified 06/24/25 17:07) Anaphylaxis dexamethasone (From Ciprodex) Allergy (Severe, Unverified 06/24/25 17:07) Anaphylaxis doxycycline Allergy (Severe, Verified 06/24/25 17:07) got very ill Sulfa (Sulfonamide Antibiotics) Allergy (Intermediate, Verified 06/24/25 17:07) Skin Rash baclofen Adverse Reaction (Intermediate, Verified 06/24/25 17:07) Nausea Active Medications Generic Name Dose Route Start Last Admin Trade Name Freq PRN Reason Stop Dose Admin Acetaminophen 1,000 mg 06/24/25 22:01 06/25/25 16:51 Acetaminophen 500 Mg Tab PO 1,000 mg TID PRN PRN Administration Al Hydrox/Mg Hydrox/Simethicone 30 ml 06/24/25 20:22 06/25/25 22:32 Mylanta Suspension 30 Ml Cup PO 30 ml Q2H PRN PRN Administration Atorvastatin Calcium 20 mg 06/25/25 20:00 06/25/25 20:14 Atorvastatin 20 Mg Tab PO 20 mg HS FLORES Administration Bupropion HCl 300 mg 06/25/25 08:30 06/25/25 08:57 Bupropion-Xl 150 Mg Tabcr PO 300 mg DAILY FLORES Administration Clindamycin HCl 450 mg 06/25/25 14:00 06/25/25 20:14 Clindamycin 150 Mg Cap PO 450 mg Q6H FLORES Administration Cyclobenzaprine HCl 10 mg 06/25/25 08:30 06/25/25 16:51 Cyclobenzaprine 10 Mg Tab PO 10 mg TID PRN PRN Administration Gabapentin 600 mg 06/25/25 12:00 06/25/25 12:07 Gabapentin 600 Mg Tab PO 600 mg BID@0830,1200 FLORES Administration Gabapentin 1,200 mg 06/25/25 20:00 06/25/25 20:14 Gabapentin 600 Mg Tab PO 1,200 mg HS FLORES Administration Insulin Aspart 0 - 18 units 06/25/25 08:00 06/25/25 20:21 Insulin Aspart 300 Units/3 Ml Pen SC 10 units 0800,1200,1700,2200 FLORES Administration Protocol Insulin Glargine 5 units 06/25/25 08:30 06/25/25 09:01 Insulin Glargine 300 Units/3 Ml Pen SC 5 units DAILY FLORES Administration Methadone HCl 10 mg 06/25/25 08:30 06/25/25 20:14 Methadone 10 Mg Tab PO 10 mg BID FLORES Administration Paroxetine HCl 40 mg 06/25/25 08:30 06/25/25 08:58 Paroxetine 20 Mg Tab PO 40 mg DAILY FLORES Administration IV IV Catheter Type [Right Saline Lock Antecubital] IV Catheter Gauge [Right 18 Antecubital] Diagnostics 06/25/25 06/25/25 06/25/25 Range/Units 13:07 06:42 06:33 WBC 11.45 H (4.4-10.8) 10^3/uL RBC 5.07 (3.93-5.22) 10^6/uL Hgb 14.2 D (11.2-15.7) g/dL Hct 39.1 (36.0-46.0) % MCV 77 L (80-95) fL MCH 28.0 (27.0-33.0) pg MCHC 36.3 H (32.0-36.0) % RDW 13.1 (11.7-14.6) % Plt Count 266 (130-400) 10^3/uL MPV 9.2 (8.0-11.0) fL Immature Gran % 0.9 % Neutrophils % 65.7 % Lymphocytes % 19.4 % Monocytes % 11.4 % Eosinophils % 1.7 % Basophils % 0.9 % Nucleated RBC % 0.0 (0.0-0.3) % Absolute Neutrophils 7.52 H (1.2-6.7) 10^3/uL Absolute Lymphocytes 2.22 (1.2-3.4) 10^3/uL Absolute Monocytes 1.31 H (0.1-0.8) 10^3/uL Absolute Eosinophils 0.19 (0.0-0.7) 10^3/uL Absolute Basophils 0.10 (0.0-0.2) 10^3/uL Sodium 135 L (136-145) mmol/L Potassium 3.5 (3.5-5.1) mmol/L Chloride 100 (98-107) mmol/L Carbon Dioxide 24.8 (21.0-32.0) mmol/L Anion Gap 10.2 (3-11) mmol/L BUN 16 (7-18) mg/dL Creatinine 0.8 (0.55-1.02) mg/dL Est GFR (CKD-EPI 2020) 83.78 (mL/min/1.73m2) Glucose 283 H (74-106) mg/dL Hemoglobin A1c 11.6 H (<5.7) % Calcium 9.3 (8.5-10.1) mg/dL Total Bilirubin 0.8 (0.2-1.0) mg/dL AST 16 (15-37) U/L ALT 18 (14-59) U/L Alkaline Phosphatase 124 H (46-116) U/L Total Protein 6.3 L (6.4-8.2) g/dL Albumin 3.4 (3.4-5.0) g/dL Urine Color Yellow (Yellow) Urine Clarity Clear (Clear) Urine pH 6.0 (5-8) Ur Specific [place] 1.015 (1.005-1.025) Urine Protein Negative (Neg-Trace) mg/dL Urine Ketones 40 H (Negative) mg/dL Urine Blood Trace-lysed H (Negative) Urine Nitrite Negative (Negative) Urine Bilirubin Negative (Negative) Urine Urobilinogen 0.2 (Up to 0.2) mg/dL Ur Leukocyte Esterase Negative (Negative) Urine RBC Negative (0-2) HPF Urine WBC Negative (0-5) HPF Ur Epithelial Cells Rare (Negative) HPF Urine Crystals Negative (Negative) HPF Urine Bacteria Negative (Negative) HPF Urine Casts Negative (Negative) LPF Urine Mucus Negative (Negative) Ur Culture Indicated? No Urine Glucose 500 H (Negative) mg/dL 06/24/25 Range/Units 23:30 WBC (4.4-10.8) 10^3/uL RBC (3.93-5.22) 10^6/uL Hgb (11.2-15.7) g/dL Hct (36.0-46.0) % MCV (80-95) fL MCH (27.0-33.0) pg MCHC (32.0-36.0) % RDW (11.7-14.6) % Plt Count (130-400) 10^3/uL MPV (8.0-11.0) fL Immature Gran % % Neutrophils % % Lymphocytes % % Monocytes % % Eosinophils % % Basophils % % Nucleated RBC % (0.0-0.3) % Absolute Neutrophils (1.2-6.7) 10^3/uL Absolute Lymphocytes (1.2-3.4) 10^3/uL Absolute Monocytes (0.1-0.8) 10^3/uL Absolute Eosinophils (0.0-0.7) 10^3/uL Absolute Basophils (0.0-0.2) 10^3/uL Sodium 131 L (136-145) mmol/L Potassium 3.7 (3.5-5.1) mmol/L Chloride 93 L (98-107) mmol/L Carbon Dioxide 24.2 (21.0-32.0) mmol/L Anion Gap 13.8 H (3-11) mmol/L BUN 19 H (7-18) mg/dL Creatinine 0.9 (0.55-1.02) mg/dL Est GFR (CKD-EPI 2020) 72.73 (mL/min/1.73m2) Glucose 326 H (74-106) mg/dL Hemoglobin A1c (<5.7) % Calcium 10.2 H (8.5-10.1) mg/dL Total Bilirubin 0.9 (0.2-1.0) mg/dL AST 17 (15-37) U/L ALT 14 (14-59) U/L Alkaline Phosphatase 127 H (46-116) U/L Total Protein 6.8 (6.4-8.2) g/dL Albumin 3.6 (3.4-5.0) g/dL Urine Color (Yellow) Urine Clarity (Clear) Urine pH (5-8) Ur Specific [place] (1.005-1.025) Urine Protein (Neg-Trace) mg/dL Urine Ketones (Negative) mg/dL Urine Blood (Negative) Urine Nitrite (Negative) Urine Bilirubin (Negative) Urine Urobilinogen (Up to 0.2) mg/dL Ur Leukocyte Esterase (Negative) Urine RBC (0-2) HPF Urine WBC (0-5) HPF Ur Epithelial Cells (Negative) HPF Urine Crystals (Negative) HPF Urine Bacteria (Negative) HPF Urine Casts (Negative) LPF Urine Mucus (Negative) Ur Culture Indicated? Urine Glucose (Negative) mg/dL 06/25/25 15:26 Wound Culture - Pending Thigh - Right Gram Stain - Final 06/24/25 06:42 Blood Culture - Pending Blood 06/24/25 06:33 Blood Culture - Pending Blood [id number] Documentation Fingerstick Glucose Start: 06/24/25 23:11 Freq: .ACHS Status: Active Protocol: Activity Type Activity Date Activity User E-sign Co-sign Detail Recorded Client Recorded Date Recorded By Document 06/25/25 20:20 KIM DAJORGE L(3) [id number] 06/25/25 20:22 BKAndres DAEMON(4) Intake and Output - 24 Hour Total 06/24/25 17:01 thru 06/25/25 22:33 Intake Total 4370 Output Total 1100 Balance 3270 Weight 86.3 kg Intake: IV 3250 Oral 1120 Output: Urine 1100 Other: Urine Color Yellow Urine Appearance Clear Urine Odor Normal Falls Risk Assessment History of Falls No History 06/24/25 22:15 Contributing Factors No Factors 06/24/25 22:15 Ambulatory Aids Independent 06/24/25 22:15 Tubes/Lines W/no contributing factors 06/24/25 22:15 Gait Evaluation No gait disturbance 06/24/25 22:15 Cognition No cognitive impairment 06/24/25 22:15 Fall Total Score 10 06/24/25 22:15 Level of Risk Standard/Low Risk 06/24/25 22:15 Problems (Last Reviewed 06/24/25 @ 17:39 by Jak Burgos MD) Depression (Chronic) Cellulitis (Acute) Low mean corpuscular volume (MCV) (Acute) Leukocytosis (Acute) Chest pain (Acute) Hypertension (Chronic) Lung infiltrate (Acute) Acute dehydration (Acute) Hypercalcemia (Acute) AF (paroxysmal atrial fibrillation) (Acute) v v v v v v v v v Sending and/or Receiving Nurses: Please use comment section below to note any information pertinent to the patient hand-off not included above. Information / Comments: Pt transferred to room 217. All questions answered. Report received from: Report received from Angelita Cabral @ [phone].
[2025-06-26] MEDS: Clindamycin 150 MG CAP 450 MG PO ×4 (02:08→21:03)
[2025-06-26 08:00] VITALS: BP 139/74; PULSE 95; RESP 17; TEMP 36.5; O2SAT 96
[2025-06-26] MEDS: PARoxetine 20 MG TAB 40 MG PO (08:25)
[2025-06-26] MEDS: Gabapentin 600 MG TAB PO ×2 (08:26→11:35)
[2025-06-26] MEDS: buPROPion-XL 150 MG TABCR 300 MG PO (08:26)
[2025-06-26] MEDS: Methadone 10 MG TAB PO ×2 (08:26→21:04)
[2025-06-26] MEDS: Pantoprazole 40 MG TABCR PO (08:27)
[2025-06-26] MEDS: Insulin Glargine 300 UNITS/3 ML PEN 8 UNITS SC (08:30)
[2025-06-26] MEDS: Insulin Aspart 300 UNITS/3 ML PEN SC ×4 (08:32→22:52)
[2025-06-26 09:11] VITALS: BP 133/73; PULSE 90; RESP 18; TEMP 36.3; O2SAT 96
[2025-06-26] MEDS: MORPHine 2 MG/ML SYR 1 MG IVP (09:26)
--- NOTE | 2025-06-26 09:43 | PDOC.CMPRO ---
Date of service: 06/26/25 Time of Service: 09:43 Care Management Progress Note Progress Note Text Progress Note Text: Lani was sitting on the side of the bed when CM met with her. She is pleasant and easily engages in conversation. She continues to be closely monitored and treated s/p paroxysmal atrial fibrillation. She has Type 2 diabetes mellitus with hyperglycemia and started on lantus 5 Units HS and sliding scale and receiving DM education. She is planning to stay with her friend in [place] post discharge and verbalizes that she does not want home health services. Per provider, patient will need a 30day director of cardiac cath lab on [place]. CM will follow. Discharge Potential Discharge Needs: PCP F/U Appt Anticipated Barriers to Discharge: None Identified Patient/Family Education Needs: Review discharge instructions, discuss Ask Me Three Transportation: Private vehicle Plan: Anticipate Lani will be discharged home, when medically cleared. She will follow up with her PCP and plan of care and transport with family. CM will follow and continue to support discharge planning endeavors. Social Determinants of Health Screening Social Determinants of health last assessed in clinic: 06/26/25 Will the Patient Participate in the Screening?: Yes Do you worry about having a steady place to live?: yes What is your living situation today?: I have housing today, but am worried about losing it Problems where you live: no known problems In the past 12 months, have you had to go without electric, gas, oil or water in your home?: no 1. Within the past 12 months, we worried whether our food would run out before we got money to buy more.: Never true 2. Within the past 12 months, the food we bought just didn't last and we didn't have money to get more.: Never true Has lack of transportation kept you from medical appointments or from doing things needed for daily living?: yes Has anyone in your life made you feel unsafe or unsupported?: yes How often does anyone, including family and friends, physically hurt you?: Never How often does anyone, including family and friends, insult or talk down to you?: Frequently How often does anyone, including family and friends, threaten you with harm?: Fairly Often How often does anyone, including family and friends, scream or curse at you?: Fairly Often HRSN Safety total score: 14 How hard is it for you to pay for the very basics like food, housing, medical care, and heating? Would you say it is:: Not hard at all Do you want help finding or keeping work or a job?: I do not need or want help If for any reason you need help with day-to-day activities such as bathing, preparing meals, shopping, managing finances, etc., do you get the help you need?: I don’t need any help How often do you feel lonely or isolated from those around you?: Always Do you speak a language other than [place] at home?: No Does the patient want assistance with any of the above?: No Health Related Social Needs Health related social needs: housing instability, housed, with risk of homelessness (Z59.811), transportation insecurity (Z59.82), problem related to primary support group (Z63.9) and feeling lonely/isolated (Z60.8) Health related social needs details: Pt feels very unsupported by various family memebers including partner.
--- NOTE | 2025-06-26 11:08 | W.NUTRFU ---
Date of service: 06/25/25 Time of Service: 11:45 Nutrition Note NOTE: Met with Lani yesterday and visited while she was in bed resting. Being treated for Afib, hypercalcemia, DMII, Celluitis. a1c of 11.6% yesterday and 11.8% last month in May. Fasting glyucose 283 on 06/25 and random glucose over 320x 2 evening values 06/24. Mealtime fingersticks at meals all over 200 (more often closer to 300). Pt admitted on regular diet, which I modified yesterday to consistent CHO. Pt with good intake this admission. Pt states she was on Ozempic and saw her A1C decrease form 10.6 to 7.2 then she couldnt get it for a while and experienced increased hyperglycemia and wt gain. Lives in house with spouse. meals can be inconsistent - eats when hungry. Did not feel like talking too much - did take my contact info for following up for [facility] outpatient for diabetes ed. will continue to monitor Time Spent in Nutritional Counseling and Treatment: 15 min
[2025-06-26] MEDS: Calcium Carbonate *TUMS* 500 MG CHEW 1000 MG PO ×2 (13:22→22:56)
[2025-06-26] MEDS: Lidocaine 2% Viscous 15 ML CUP PO ×2 (13:27→21:39)
--- NOTE | 2025-06-26 13:38 | PHA.REVIEW2 ---
Pharmacy Admission Review Admission Clinical Review Admission Pharmacy Review: Cellulitis (Acute) Low mean corpuscular volume (MCV) (Acute) Leukocytosis (Acute) Chest pain (Acute) Lung infiltrate (Acute) Acute dehydration (Acute) Hypercalcemia (Acute) AF (paroxysmal atrial fibrillation) (Acute) ciprofloxacin (From Ciprodex) Allergy (Severe, Unverified 06/24/25 17:07) Anaphylaxis dexamethasone (From Ciprodex) Allergy (Severe, Unverified 06/24/25 17:07) Anaphylaxis doxycycline Allergy (Severe, Verified 06/24/25 17:07) got very ill Sulfa (Sulfonamide Antibiotics) Allergy (Intermediate, Verified 06/24/25 17:07) Skin Rash baclofen Adverse Reaction (Intermediate, Verified 06/24/25 17:07) Nausea Resuscitation Status Full Code Height 5 ft 4 in Weight 91.172 kg Pharmacy Admission Review Renal Dosing Renal Dosing: BUN 16 mg/dL (7-18) 06/25/25 06:33 Creatinine 0.8 mg/dL (0.55-1.02) 06/25/25 06:33 Medications needing adjustments: Reviewed (CrCl 64.62 mL/min) List of meds needing interventions: Current medications are okay Anticoagulation Anticoagulation: Hgb 14.2 g/dL (11.2-15.7) D 06/25/25 06:33 Hct 39.1 % (36.0-46.0) 06/25/25 06:33 Plt Count 266 10^3/uL (130-400) 06/25/25 06:33 INR 1.1 (0.9-1.1) 06/24/25 17:29 Creatinine 0.8 mg/dL (0.55-1.02) 06/25/25 06:33 DVT Prophylaxis: Intervened (none at this time, likely will be discharged today. Sent message to provider, waiting to hear back.) Opiate Usage Evaluate Pain Scale/Pains Meds: Reviewed (methadone 10mg PO BID) Scheduled Bowel Reg ordered if on Opiates?: No (PRN Miralax/docusate) Relevant Labs Relevant Labs: ESR 15 mm/hr (0-30) 06/24/25 17:29 Sodium 135 mmol/L (136-145) L 06/25/25 06:33 Potassium 3.5 mmol/L (3.5-5.1) 06/25/25 06:33 Chloride 100 mmol/L (98-107) 06/25/25 06:33 Electrolytes, C-Reactive P, ESR: Reviewed (No new labs for today) DM Control DM Control: Glucose 283 mg/dL (74-106) H 06/25/25 06:33 Hemoglobin A1c 11.6 % (<5.7) H 06/25/25 06:42 Finger Stick Blood Glucose 339 1120 Finger Stick Blood Glucose 339 1120 Finger Stick Blood Glucose 292 0832 Finger Stick Blood Glucose 292 0830 Finger Stick Blood Glucose 292 0753 Finger Stick Blood Glucose 292 0753 DM Control: Reviewed Insulin Dosing, Diabetic Medication: Has orders for SS insulin, glargine 8 units daily, patients own Farxiga (non-form), metformin 1000mg BID and glimepiride 4mg daily. Cardiac Review Cardiac Review: Troponin I 21 ng/L (<or=51) 06/24/25 20:30 BP, HR, EF%: Reviewed (BP and HR WNL) QTc Review QTc: Reviewed (333 from 06/24/25) IV to PO Switch IV Medications: Reviewed Home Meds Home Med List reviewed: Intervened Relevent Home Meds Not ordered & why?: Narcan (PRN) and Ozempic (weekly) Glimepiride and metformin on home med list but were not ordered. Reached out to provider who asked that the orders be put in. Farxiga was changed to patients own order by pharmacist yesterday with note that nurse is looking into it. Current Meds Current Medication Order Review: Reviewed Pharmacy Antibiotic Review Relevant Labs: Relevant Labs 06/24/25 20:30 C-React Prot High Sens 4.88 WBC 11.45 10^3/uL (4.4-10.8) H 06/25/25 06:33 Procalcitonin < 0.10 ng/mL 06/24/25 19:45 Temperature 36.3 C Temperature 36.5 C Microbiology 06/25/25 15:26 Wound Culture - Preliminary Thigh - Right Staph aureus, MRSA Gram Stain - Final 06/24/25 06:42 Blood Culture - Preliminary Blood NO GROWTH 24 HOURS 06/24/25 06:33 Blood Culture - Preliminary Blood NO GROWTH 24 HOURS Pharmacy Antibiotic Activity: Abx regimen adjustment (dosing recommendation) and C/S review Comments: Patient is on PO clindamycin, day 2, for cellulitis. Current order is for 450mg q6h, reached out to provider to verify. Cellulitis dosing is usually 300mg q6h or 450mg q8h while 450mg q6h is for osteomyelitis. Provider stated should be 450mg q8h. Updated order.
--- NOTE | 2025-06-26 14:09 | PT.INTREAT ---
PT Notes Visit Reasons: Chest Pain Inpatient Physical Therapy Treatment Note [facility] Date: 06/26/25 PRECAUTIONS: MRSA - contact precautions SUBJECTIVE: Pt states she feels much better than this morning and has been walking up and down the halls. OBJECTIVE: PAIN: no pain c/o throughout session VITALS: monitored by nursing Therapeutic Activities (75252x6): Direct one-on-one instruction in dynamic activities to improve functional performance. BED MOBILITY/TRANSFERS Sit-stand: independently Stand-sit: independently Bed-Chair: independently Chair-bed: independently GAIT Assistive Device: RW Weight bearing: FWB Assist: independently Distance: 500 ft Deviation: minimal UE support on RW, normal gait speed STAIRS: ascends/descends a total of 6 normal steps w/bilat UE support, no LOB or any sway observed ASSESSMENT: Pt now demonstrating complete independence with mobility using her RW. She was encouraged to use her RW to walk in the halls later this evening. She no longer requires assistance for ambulation as long as she uses her RW. Home health PT was discussed with her for an option at the time of her d/c but she does not feel like she needs it. She can be d/c'd home safely when medically cleared without any further services. PLAN: D/c - no longer requires PT services TREATMENT CODE/TIME: Ther Act (35100) x1 - 21 min DISCHARGE RECOMMENDATION: Home without any services
--- NOTE | 2025-06-26 14:16 | W.PM.PROGNOT ---
Date of Service Date of service: 06/26/25 Time of Service: 14:16 Assessment and Plan Assessment and plan (1) AF (paroxysmal atrial fibrillation): Status: Acute Assessment and plan: - His EKG was over read by cardiology who similarly did not definitively say if this was atrial fibrillation - However, patient did appear to convert to normal sinus rhythm while in the emergency department - Echocardiogram was without acute findings and with normal ejection fraction - Plan will be to discharge patient with 30-day monitor and storage bin tender (2) Hypercalcemia: Status: Acute Assessment and plan: - Initial calcium in the emergency department 13 - improved down to 9.3 on AM 06/25 with IV fluids - Discussed with patient, and she had been consuming large amount of Tums prior to arrival (3) Type 2 diabetes mellitus with hyperglycemia: Assessment and plan: -A1c up to 11.6 -patient seen by educator senior clinical -started on lantus 5 Units HS and sliding scale -blood sugars still in the low, AM lantus up to 8 units -restarting home metformin and glipizide -will continue to adjust insulin as needed as well as provide DM education (4) Cellulitis: Status: Acute Assessment and plan: -patient noted to have 2 small ~1.5cm well circumscribed open wounds draining mild amount of purulent drainage with minimal surrounding erythema -given patients multiple drug allergies and need to cover for MRSA she has been started on clindamycin (5) Depression: Status: Chronic Assessment and plan: -continue home regimen include burpropion, paroxetine Subjective Subjective Interval history since last seen: Patient states that she is feeling better after getting viscous lidocaine for what turned out to be reflux-like symptoms. She understands a plan to continue work on her glucose levels, otherwise she has no other complaints or concerns at this time. Exam Narrative Exam Narrative: Well but mildly anxious appearing older female sitting up in the chair no acute distress, ANO x 4, heart regular rhythm, auscultation bilaterally, abdomen soft, nontender, nondistended, 2 roughly 1.5 cm in diameter open pustules draining very small amounts of purulent fluid without fluctuation, with surrounding erythema Objective Last Vital Signs Temp 97.3 F L 06/26/25 09:11 Pulse 90 06/26/25 09:11 Resp 18 06/26/25 09:11 BP 133/73 06/26/25 09:11 Pulse Ox 96 06/26/25 09:11 Laboratory Results - last 24 hr 06/24/25 06/25/25 20:30 13:07 C-React Prot High Sens 4.88 Urine Color Yellow Urine Clarity Clear Urine pH 6.0 Ur Specific [place] 1.015 Urine Protein Negative Urine Ketones 40 H Urine Blood Trace-lysed H Urine Nitrite Negative Urine Bilirubin Negative Urine Urobilinogen 0.2 Ur Leukocyte Esterase Negative Urine RBC Negative Urine WBC Negative Ur Epithelial Cells Rare Urine Crystals Negative Urine Bacteria Negative Urine Casts Negative Urine Mucus Negative Ur Culture Indicated? No Urine Glucose 500 H PAWSS Have you Been Recently Intoxicated or Drunk Within the Last 30 days?: No Have you Ever Experienced Previous Episodes of Alcohol Withdrawal?: No Have you ever Experienced Withdrawal Seizures?: No Have you ever Experienced Delirium Tremens(DT)s?: No Have you ever undergone Alcohol Rehabilitation Treatment (i.e, inpt ot outpatient treatment programs)?: Yes Have you ever Experienced Blackouts?: No Have you ever Combined Alcohol with other Downers within the last 90 days?: No Have you ever Combined Alcohol with any other Substance of Abuse during the last 90 days?: No Positive Blood Alcohol level on Presentation? [PCS.BAL]: No Evidence of Increased Autonomic Activity (i.e. HR>120, tremor, sweating, agitation, nausea)?: Yes Result: 2 Time Spent with Patient Time Spent with Patient: >50 minutes Time was spent: preparing to see the patient(eg.review tests), obtaining and/or reviewing separately otained hiistory, ordering medications,tests, procedures, referring, communicating with other health progressive care nurse, indepentently interpreting results, counseling the patient and care coordination
[2025-06-26] MEDS: Glimepiride 2 MG TAB 4 MG PO (14:22)
[2025-06-26] MEDS: metFORMIN 500 MG TAB 1000 MG PO (17:24)
[2025-06-26 20:53] VITALS: BP 121/69; PULSE 89; RESP 16; TEMP 36; O2SAT 97
[2025-06-26] MEDS: Atorvastatin 20 MG TAB PO (21:04)
[2025-06-26] MEDS: Gabapentin 600 MG TAB 1200 MG PO (21:04)
[2025-06-26] MEDS: Normal Saline Flush 10 ML SYR IVP (21:05)
[2025-06-26] MEDS: Mylanta Suspension 30 ML CUP PO (21:40)
--- NOTE | 2025-06-26 23:15 | RT.EKG_ITS ---
APPROVED REPORT Exam: Resting ECG Reason for Exam: chest pain Patient Location: I HR:90 bpm ECG Measurements Heart Rate 90 AXIS NJ 131 P 16 QRSd 88 QRS 46 QT 361 T 44 QTc 442 Conclusion Sinus rhythm...normal P axis, V-rate 50- 99 Poor R wave progression
--- NOTE | 2025-06-26 23:23 | W.EVENT ---
Date of service: 06/26/25 Time of Service: 23:23 Event Note: NS report patient with complaints of chest pain that radiates into her esophagus and left side of her breast. Evidently the patient was started on Tums today for similar issues as well as a GI cocktail. Patient states this did improve her pain initially but it has since returned. Patient denies any globus sensation. Of note, the patient recently been started on clindamycin and one of the side effects according to [facility] is esophagitis. In regards to a workup I am doing an EKG and troponins. I will also start the patient on a calcium channel leda if there is a component of esophageal hypermotility. Will consider a consult to general surgery in the a.m. I have ordered an H. pylori. As I do have some concerns about a peptic ulcer. Patient states that it is not significantly different when she is hungry or when she is. States its only been going on for 48 hours. She currently has orders for milk of mag Tums and viscous lidocaine. Physical exam does show 59-year-old female appears her stated age in mild distress card exam was within normal limits. Of note, I have also started the patient on Lovenox for DVT prophylaxis. Time Spent with Patient Time spent in critical care(minutes): 10 Time Spent Included: Coordination of care, Chart review and Time at immediate bedside
[2025-06-26 23:43] VITALS: BP 148/78; PULSE 89; RESP 18; TEMP 36.7; O2SAT 98
[2025-06-26] MEDS: dilTIAZem 30 MG TAB PO (23:50)
[2025-06-26] MEDS: LORazepam 1 MG TAB 2 MG PO (23:50)
[2025-06-26 23:58] LABS: Troponin I 8 ng/L (<or=51)
[2025-06-27] MEDS: Clindamycin 150 MG CAP 450 MG PO (05:44)
[2025-06-27 07:57] VITALS: BP 152/88; PULSE 91; TEMP 35.8; O2SAT 97
[2025-06-27] MEDS: Insulin Aspart 300 UNITS/3 ML PEN SC ×2 (08:19→12:06)
[2025-06-27] MEDS: Insulin Glargine 300 UNITS/3 ML PEN 8 UNITS SC (08:20)
[2025-06-27] MEDS: Glimepiride 2 MG TAB 4 MG PO (08:20)
[2025-06-27] MEDS: Enoxaparin 40 MG/0.4 ML SYR SC (08:20)
[2025-06-27] MEDS: metFORMIN 500 MG TAB 1000 MG PO (08:21)
[2025-06-27] MEDS: buPROPion-XL 150 MG TABCR 300 MG PO (08:21)
[2025-06-27] MEDS: Pantoprazole 40 MG TABCR PO (08:21)
[2025-06-27] MEDS: PARoxetine 20 MG TAB 40 MG PO (08:21)
[2025-06-27] MEDS: Gabapentin 600 MG TAB PO (08:21)
[2025-06-27] MEDS: Methadone 10 MG TAB PO (08:21)
--- NOTE | 2025-06-27 12:39 | CMDISCH_ITS ---
Date of service: 06/27/25 Time of Service: 12:39 LACE Index Scoring Tool Questions: Length of Stay (in days): 3 Was the patient admitted via the E.D.?: Yes Comorbidities: Diabetes w/o Complication E.D. Visits: 2 Answers: Total Score: 9 Risk of Readmission: Low Risk Care Management Discharge Plan Reason for Hospitalization: Chest pain Discharge Plan: Lani will be discharged home today, she declines the need for services multiple times. It is recommended that Lani follow up with her community providers, and discharge plan of care. She will transport via private vehicle by a friend. She will go home with a 30 day nurse monitoring and and new insulin. CM called to verify the cost of new insulin with the pharmacy and there is no co-pay; Patient aware. Patient/Family Education Needs: Review of discharge instruction, activity, limitation, and plan of care. Discuss ask me three. SDOH Health Related Social Needs: Health related social needs risk of homeless transpo i nsecurity personal safety lonely/isolated Health related social needs details Pt feels very unsu pported by various family memebers including partner. Health related social needs details: Pt feels very unsupported by various family memebers including partner.
--- NOTE | 2025-06-27 12:45 | W.PM.DS.N ---
Date of service: 06/27/25 Time of Service: 12:45 DS: Diagnosis Discharge Diagnosis (1) AF (paroxysmal atrial fibrillation): Status: Acute (2) Hypercalcemia: Status: Acute (3) Type 2 diabetes mellitus with hyperglycemia: (4) Cellulitis: Status: Acute (5) Depression: Status: Chronic Discharge Plan Disposition Patient Disposition: Home Condition: Good Discharge Details Reason For Visit: Chest Pain Admit Date/Time: 06/24/25 20:23 Admit Provider: Shai Cash Attending Provider: Shai Cash Primary Care Provider: Jazz [facility] Hospital Course: Patient initially admitted with chest pain and concerns for possible a-fib, though initial EKG in the ED was unclear, subsequent EKG showed sinus rhythm and no arrhythmia was seen on telemetry. Therefore patient will be discharged with 30day event monitor. Additionally patient was found to have two small purulent wounds on her inner thigh that were MRSA positive and have been improving with PO clinda for which she will have a prescription for an additional 5 days. Finally, the patient was also noted to have elevated blod glucose and an A1c of 11.6. Patient had her home metformin and glipizide restarted and was also started on lantus and sliding scale insulin which she will also be discharged with and resulted in improvement in her blood sugar levels. Given that her blood sugars have improved, no arrythemia was noted on tele or EKG, and her wounds have improved it was determined that she was stable for discharge home. Home Meds and New Rx's Prescriptions: New clindamycin HCl 150 mg Capsule 450 mg PO TID Qty: 21 0RF insulin glargine [Lantus Solostar U-100 Insulin] 100 unit/mL (3 mL) Insulin Pen 8 unit SC DAILY Qty: 15 3RF lidocaine HCl 2 % Solution 15 ml PO BID PRN PRNQty: 300 0RF magnesium hydroxide [Milk of Magnesia] 400 mg/5 mL Suspension 30 ml PO DAILY PRN PRNQty: 3780 0RF alum-mag hydroxide-simeth [Mag-Al Plus] 200-200-20 mg/5 mL Suspension 30 ml PO Q2H PRN PRNQty: 3000 0RF pantoprazole 40 mg Tablet,Delayed Release (Dr/Ec) 40 mg PO DAILY@0730 Qty: 90 0RF insulin aspart U-100 100 unit/mL (3 mL) Insulin Pen 0 - 18 unit SC 0800,1200,1700,2200 Qty: 15 3RF Rx Instructions: <140, 0 units; 140-180, 2 units; 181-220, 4 units; 221-260, 6 unit; 261-300, 8 unit; 301-340, 10 unit; 341-380, 12 unit; 381-420, 14 unit; 421-460, 16 unit ; 461-500, 18 unit Continued glimepiride 2 mg tablet 4 mg PO DAILY dapagliflozin propanediol 10 mg tablet 10 mg PO DAILY gabapentin 600 mg tablet 600 mg PO BID Rx Instructions: IN AM AND AT 12PM (DME) diabetic supplies, miscellan. Misc See Rx Instructions .Route Rx Instructions: As directed naloxone [Narcan] 0.4 mg intranasal ONCE PRN atorvastatin 20 mg tablet 20 mg PO QHS promethazine 12.5 mg tablet 12.5 mg PO .Q8-12 PRN metformin [Glucophage] 1,000 mg tablet 1,000 mg PO BID@0800,1700 epinephrine 0.3 mg/0.3 mL auto-injector 0.3 mg IM Q5-15M PRNQty: 2 0RF Rx Instructions: do not exceed 3 doses per episode cyclobenzaprine 10 mg tablet 10 mg PO TID PRN Patient Comments: TAKE ONE TABLET BY MOUTH THREE TIMES A DAY paroxetine HCl 40 mg tablet 40 mg PO DAILY Patient Comments: TAKE ONE TABLET BY MOUTH EVERY DAY methadone 10 mg tablet 10 mg PO BID Patient Comments: has not been taking it for the last couple of days due sx TAKE ONE TABLET BY MOUTH TWO TIMES A DAY FOR CHRONIC PAIN bupropion HCl 300 mg tablet extended release 24 hr 300 mg PO DAILY Patient Comments: TAKE ONE TABLET BY MOUTH EVERY DAY acetaminophen 500 mg tablet 1,000 mg PO TID PRN Ozempic 2 mg/dose (8 mg/3 mL) pen injector 2 mg SUBCUT QWEEK Patient Comments: INJECT 2MG UNDER THE SKIN EVERY WEEK DIRECTED FOR UNCONTROLLED DIABETES No Action gabapentin 600 mg tablet 1,200 mg PO QHS Patient Comments: takes in addition to 600mg bid Discharge Instructions Stand Alone Forms: Portal Information Activity:: Activity as Tolerated Equipment/Supplies:: No Equipment Needed Diet:: As Tolerated Discharge Orders Discharge Orders: Discharge Order (Routine); Ordered 06/27/25 Ordered By: Brock Schreiber DS: Summary Time Spent with Patient providing and/or coordinating discharge services: Greater than 30 minutes Status at Discharge Functional status at discharge: independent ambulation Overall status at discharge: patient is back to baseline Mental Status: mental status grossly normal Speech and Movement: speech and movement normal Mood: congruent mood Affect: normal affect Quality:SDOH Health Related Social Needs: Health related social needs risk of homeless transpo insecurity personal safety lonely/isolated Health related social needs details Pt feels very unsupported by various family memebers including partner. Health related social needs details: Pt feels very unsupported by various family memebers including partner. Exam Narrative Exam Narrative: Well appearing older female sitting up in the chair no acute distress, ANO x 4, heart regular rhythm, auscultation bilaterally, abdomen soft, nontender, nondistended, 2 roughly 1.5 cm in diameter open pustules draining very small amounts of purulent fluid without fluctuation, with surrounding erythema which is improved as compared to previous days Psych Mental Status: mental status grossly normal Speech and Movement: speech and movement normal Mood: congruent mood Affect: normal affect DS: Data Vitals/I&O Vitals and I&O: Vital Signs Temperature 96.4 F L 06/27/25 07:57 Temperature Source Temporal Artery Scan 06/27/25 07:57 Pulse 91 H 06/27/25 07:57 Pulse 96 H 06/25/25 16:30 Respiratory Rate 18 06/26/25 23:43 Respiratory Effort Normal 06/24/25 22:15 Respiratory Depth Deep 06/24/25 22:15 Respiratory Pattern Tachypnea 06/24/25 22:15 Blood Pressure 152/88 H 06/27/25 07:57 Blood Pressure Mean 109 06/27/25 07:57 Pulse Oximetry 97 06/27/25 07:57 Oxygen Delivery Method Room Air 06/27/25 07:57 Oxygen Flow Rate 0 06/27/25 07:57 Pain Level 5 06/27/25 08:21 Intake & Output 06/26/25 06/27/25 06/27/25 17:59 05:59 17:59 Intake Total 320 / 320 950 / 1270 Balance 320 / 320 950 / 1270 Weight 203 lb 4.259 oz Intake: IV 950 / 950 Oral 320 / 320 Other: Urine Color Yellow Yellow Yellow Urine Appearance Clear Clear Urine Odor Normal None Comment Pt voids an immeasurable amount ind. into the toilet. pt reports her urine is yellow/clear. Pt is independent using the toilet. Data Completed and Pending Pending Labs at Discharge: 06/24/25 06/24/25 06/24/25 17:29 19:45 19:56 WBC 14.81 H RBC 6.40 H Hgb 17.4 H Hct 48.5 H MCV 76 L MCH 27.2 MCHC 35.9 RDW 13.0 Plt Count 387 MPV 9.2 Immature Gran % 1.2 Neutrophils % 76.8 Lymphocytes % 12.3 Monocytes % 8.7 Eosinophils % 0.2 Basophils % 0.8 Nucleated RBC % 0.0 Absolute Neutrophils 11.37 H Absolute Lymphocytes 1.82 Absolute Monocytes 1.29 H Absolute Eosinophils 0.03 Absolute Basophils 0.12 ESR 15 PT 10.9 INR 1.1 Sodium 131 L Potassium 4.1 Chloride 89 L Carbon Dioxide 22.8 Anion Gap 19.2 H BUN 22 H Creatinine 1.1 H Est GFR (CKD-EPI 2020) 57.17 Glucose 414 H Hemoglobin A1c Calcium 13.0 H* Iron TIBC Transferrin % Sat Total Bilirubin 1.5 H AST 20 ALT 22 Alkaline Phosphatase 168 H Creatine Kinase Troponin I 24 21 C-React Prot High Sens Total Protein 8.7 H Albumin 4.7 Lipase 43 Vitamin B12 Folate Procalcitonin < 0.10 TSH 0.80 PTH Related Peptide Pending Urine Color Urine Clarity Urine pH Ur Specific [place] Urine Protein Urine Ketones Urine Blood Urine Nitrite Urine Bilirubin Urine Urobilinogen Ur Leukocyte Esterase Urine RBC Urine WBC Ur Epithelial Cells Urine Crystals Urine Bacteria Urine Casts Urine Mucus Ur Culture Indicated? Urine Glucose Anti-Parathy Hormone Ab Pending 06/24/25 06/24/25 06/25/25 20:30 23:30 06:33 WBC 11.45 H RBC 5.07 Hgb 14.2 D Hct 39.1 MCV 77 L MCH 28.0 MCHC 36.3 H RDW 13.1 Plt Count 266 MPV 9.2 Immature Gran % 0.9 Neutrophils % 65.7 Lymphocytes % 19.4 Monocytes % 11.4 Eosinophils % 1.7 Basophils % 0.9 Nucleated RBC % 0.0 Absolute Neutrophils 7.52 H Absolute Lymphocytes 2.22 Absolute Monocytes 1.31 H Absolute Eosinophils 0.19 Absolute Basophils 0.10 ESR PT INR Sodium 131 L 135 L Potassium 3.7 3.5 Chloride 93 L 100 Carbon Dioxide 24.2 24.8 Anion Gap 13.8 H 10.2 BUN 19 H 16 Creatinine 0.9 0.8 Est GFR (CKD-EPI 2020) 72.73 83.78 Glucose 326 H 283 H Hemoglobin A1c Calcium 10.2 H 9.3 Iron 103 TIBC 293 Transferrin % Sat 35 Total Bilirubin 0.9 0.8 AST 17 16 ALT 14 18 Alkaline Phosphatase 127 H 124 H Creatine Kinase 219 H Troponin I 21 C-React Prot High Sens 4.88 Total Protein 6.8 6.3 L Albumin 3.6 3.4 Lipase Vitamin B12 629 Folate > 20.0 H Procalcitonin TSH PTH Related Peptide Urine Color Urine Clarity Urine pH Ur Specific [place] Urine Protein Urine Ketones Urine Blood Urine Nitrite Urine Bilirubin Urine Urobilinogen Ur Leukocyte Esterase Urine RBC Urine WBC Ur Epithelial Cells Urine Crystals Urine Bacteria Urine Casts Urine Mucus Ur Culture Indicated? Urine Glucose Anti-Parathy Hormone Ab 06/25/25 06/25/25 06/26/25 06:42 13:07 23:31 WBC RBC Hgb Hct MCV MCH MCHC RDW Plt Count MPV Immature Gran % Neutrophils % Lymphocytes % Monocytes % Eosinophils % Basophils % Nucleated RBC % Absolute Neutrophils Absolute Lymphocytes Absolute Monocytes Absolute Eosinophils Absolute Basophils ESR PT INR Sodium Potassium Chloride Carbon Dioxide Anion Gap BUN Creatinine Est GFR (CKD-EPI 2020) Glucose Hemoglobin A1c 11.6 H Calcium Iron TIBC Transferrin % Sat Total Bilirubin AST ALT Alkaline Phosphatase Creatine Kinase Troponin I 8 C-React Prot High Sens Total Protein Albumin Lipase Vitamin B12 Folate Procalcitonin TSH PTH Related Peptide Urine Color Yellow Urine Clarity Clear Urine pH 6.0 Ur Specific [place] 1.015 Urine Protein Negative Urine Ketones 40 H Urine Blood Trace-lysed H Urine Nitrite Negative Urine Bilirubin Negative Urine Urobilinogen 0.2 Ur Leukocyte Esterase Negative Urine RBC Negative Urine WBC Negative Ur Epithelial Cells Rare Urine Crystals Negative Urine Bacteria Negative Urine Casts Negative Urine Mucus Negative Ur Culture Indicated? No Urine Glucose 500 H Anti-Parathy Hormone Ab Preliminary micro results at discharge 06/24/25 06:33 Blood Blood Culture - Preliminary NO GROWTH 48 HOURS 06/24/25 06:42 Blood Blood Culture - Preliminary NO GROWTH 48 HOURS 06/25/25 15:26 Thigh - Right Wound Culture - Preliminary Staph aureus, MRSA PFSH All Active Problems (Updated 06/27/25 @ 12:41 by Brock Schreiber MD) Depression (Chronic) Cellulitis (Acute) Low mean corpuscular volume (MCV) (Acute) Leukocytosis (Acute) Chest pain (Acute) Hypertension (Chronic) Lung infiltrate (Acute) Acute dehydration (Acute) Hypercalcemia (Acute) AF (paroxysmal atrial fibrillation) (Acute) Acute hyperglycemia (Acute) Osteoarthritis of carpometacarpal (CMC) joint of both thumbs (Acute) Hepatosplenomegaly (Acute) Abnormal liver enzymes (Acute) TMJ dysfunction (Acute) Referred otalgia of left ear (Acute) Referred otalgia of right ear (Acute) Acute sinusitis (Acute) Right ear pain (Acute) Cervicalgia (Acute) Left carpal tunnel syndrome (Acute) Lateral epicondylitis of right elbow (Acute) Partial tear of common extensor tendon of elbow (Acute) Mass of right forearm (Acute) no mass Medical History UTI (urinary tract infection) History of adenomatous polyp of colon Muscle spasm Wrist tendonitis History of kidney stones Diabetic peripheral neuropathy Screening for breast cancer Hand pain, left Neck pain on right side Shoulder pain, right Cough Type B influenza Bilateral conjunctivitis Right elbow pain Small bowel obstruction Psoriasis COPD (chronic obstructive pulmonary disease) pt. denies this Bilateral knee pain Left lateral epicondylitis (06/27/17) Quadriceps tendinitis (08/22/17) Type 2 diabetes mellitus with hyperglycemia Hyperglycemia Chronic pain Partial small bowel obstruction Asthma Renal cell cancer Constipation Chronic low back pain Peptic ulcer disease Obesity Depression Restless leg per pt. states she no longer has this Surgical History History of carpal tunnel surgery of left wrist (01/17/22) Ganglion cyst of volar aspect of right wrist S/P Excision: 01/04/2022 Bilateral carpal tunnel syndrome (06/27/17) S/P R ECTR: 01/04/2022 S/P L ECTR: 01/17/2022 S/P hysterectomy H/O partial nephrectomy S/P arthroscopic partial medial meniscectomy R knee S/P tympanoplasty S/P cholecystectomy S/P small bowel resection Social History Smoking/Tobacco Use Status: Former Tobacco Use Quit Date: 07/17/19 Smoking risk assessment performed?: Yes Alcohol Intake: former Drug use: Socially Substance use type: marijuana Household members: spouse Housing: house Current gender identity: female Do you feel safe at home: Yes Do you feel safe in your relationship?: Yes Time Spent with Patient Time Spent with Patient: <45 minutes Time was spent: preparing to see the patient(eg.review tests), obtaining and/or reviewing separately otained hiistory, ordering medications,tests, procedures, referring, communicating with other health acute care nursing assistant, indepentently interpreting results, counseling the patient and care coordination
[2025-07-02 23:28] LABS: PTH AB NEGATIVE (NEGATIVE)
== END 2025-06-27 14:04 | disposition home or self-care (01) | DRG 309 ==
LOC: ER 20:23 → ICU 21:49 → MS 06-25 22:38
PROVIDERS: Admitting Provider Hospitalist; Emergency Provider Emergency Medicine Emergency Medical Services; PCP Family Medicine; Responsible Provider Family Medicine; Visit Provider Hospitalist
DX: I48.0 Paroxysmal atrial fibrillation (principal); E83.52 Hypercalcemia; E86.0 Dehydration; E11.65 Type 2 diabetes mellitus with hyperglycemia; I10 Essential (primary) hypertension; R91.8 Other nonspecific abnormal finding of lung field; R07.89 Other chest pain; D72.829 Elevated white blood cell count, unspecified; F32.A Depression, unspecified; L03.115 Cellulitis of right lower limb; Z59.811 Housing instability, housed, with risk of homelessness; F12.90 Cannabis use, unspecified, uncomplicated; B95.62 Methicillin resistant Staphylococcus aureus infection as the cause of diseases classified elsewhere; R45.89 Other symptoms and signs involving emotional state; F43.10 Post-traumatic stress disorder, unspecified; E11.42 Type 2 diabetes mellitus with diabetic polyneuropathy; L40.9 Psoriasis, unspecified; Z90.5 Acquired absence of kidney; Z85.528 Personal history of other malignant neoplasm of kidney; Z87.891 Personal history of nicotine dependence; Z79.4 Long term (current) use of insulin; Z59.82 Transportation insecurity; Z79.85 Long-term (current) use of injectable non-insulin antidiabetic drugs; Z79.899 Other long term (current) drug therapy; I49.9 Cardiac arrhythmia, unspecified
CPT/HCPCS: 00123; 36415; 80053; 82550; 83519; 83690; 84145; 85652; 86141; 87040; 87077; 93005; 93306; 96361; 96374; 97162; 97530; 99285; J1650; 71045; 81003; 81015; 82397; 82607; 82746; 83036; 83540; 83550; 84443; 84484; 85025; 85610; 87070; 87186; 87205; 93010; 99223; 99233; 99238; J0456; J0696; J1815; J2270; J2405

== ENCOUNTER 2025-06-27 14:49 | Outpatient (CLI) | payer MEDICARE, MEDICAID, SELFPAY | END 2025-06-27 14:50 | LOC: RT 07-21 14:49 | PROVIDERS: PCP Family Medicine; Visit Provider Family Medicine | DX: I49.9 Cardiac arrhythmia, unspecified (principal); R00.0 Tachycardia, unspecified | CPT/HCPCS: 93270 ==